=== PATIENT | male | born 1935 | race Caucasian/White ===

== ENCOUNTER 2016-08-06 09:16 | Inpatient (IN) | payer BC, OTHER ==
[~2016-08-06] VITALS: Ht 188 cm; Wt 91.6 kg
[~2016-08-06 09:16] MED LIST: ALBUAER INH; ENOX120I SQ; GLIM1TAB2 PO; INSDGI SC; LEVO1TAB35 PO; METO25TA3 PO; MISCCAP80 PO; MULT-506 PO; NVLGI SC; OMEG10007 PO; PANT20TA PO; PRED10TA PO; SERT25TA PO; TAMS0.4C38 PO; WARF2.5T8 PO; WARF5TAB7 PO
[2016-08-06 10:00] LABS: BASO % 0.6 %; BASO ABS # 0.06 K/uL (0-0.2); COMPLETE YES; EOS % 6.2 %; HEMATOCRIT 44.2 % (42-52); IG% 0.4 %; LYMPH % 22.8 %; LYMPH ABS # 2.18 K/uL (1.2-3.4); MEAN CELL VOLUME 90.2 fL (80-100); MEAN CORPUSCULAR HEMOGLOBIN 29.8 pg (25-34); MEAN PLATELET VOLUME 10.3 fL (7.4-10.4); MONO % 7.5 %; NEUT % 62.5 %; PLATELET COUNT 336 K/uL (130-400); WHITE BLOOD COUNT 9.56 K/uL (4.8-10.8)
[2016-08-06 10:08] LABS: ALT/SGPT 16 U/L (12-78); AST/SGOT 10 U/L (15-37); BLOOD UREA NITROGEN 31 mg/dl (7-18); BUN/CREATININE RATIO 21.8 (10-20); CALCIUM 8.6 mg/dl (8.5-10.1); CARBON DIOXIDE 30 mmol/L (21-32); CHLORIDE 103 mmol/L (98-107); GLUCOSE 164 mg/dl (70-99); POTASSIUM 4.5 mmol/L (3.5-5.1); SODIUM 139 mmol/L (136-145)
[2016-08-06 10:10] LABS: INR 2.2 (0.9-1.1); PARTIAL THROMBOPLASTIN RATIO 1.4; PROTHROMBIN TIME (PATIENT) 24.9 SECONDS (9.0-12.0)
[2016-08-06 10:12] LABS: ALB/GLOB RATIO 0.7 (0.9-2); ALKALINE PHOSPHATASE 108 U/L (45-117)
--- NOTE | 2016-08-06 10:32 | DIAGNOSTIC IMAGING REPORT ---
SINGLE VIEW CHEST CLINICAL HISTORY: Dyspnea. FINDINGS: An AP, portable, upright chest radiograph is compared to study dated 06/01/2016 and correlated with chest CT dated 05/07/2016. The examination is degraded by portable technique and patient rotation. The patient is status post midline sternotomy. The heart is enlarged and there is atherosclerotic calcification of the thoracic aorta. There is mild pulmonary vascular congestion. Advanced emphysematous change is identified and there is biapical scarring. Chronic interstitial thickening is noted. There is airspace consolidation in the left lower lung with a left pleural effusion. The pleural effusion has modestly increased in size from 06/01/2016, with pleural fluid now seen at the left apex. No pneumothorax is seen. The skeletal structures are osteopenic. Degenerative change is noted throughout the thoracic spine. IMPRESSION: 1. Cardiomegaly with mild pulmonary vascular congestion. Correlate clinically for evidence of congestive failure. 2. Advanced emphysema. 3. Again seen is a left pleural effusion with left basilar airspace consolidation. The pleural effusion has increased in size from 06/01/2016. Pleural fluid is now seen at the left apex. Electronically signed by: Bal Garcia M.D. 08/06/2016 10:31 AM Dictated Date/Time: 08/06/2016 10:28 AM
[2016-08-06] MEDS ORDERED: OPTIRAY 320 IV PRN (11:15)
--- NOTE | 2016-08-06 12:04 | DIAGNOSTIC IMAGING REPORT ---
ULTRASOUND LEFT LOWER EXTREMITY VENOUS CLINICAL HISTORY: Left leg swelling. COMPARISON STUDY: No priors. TECHNIQUE: Real-time, grayscale, and color Doppler sonography of the deep veins of the left lower extremity was performed from the inguinal crease to the calf. Compression and augmentation were utilized. FINDINGS: There is no sonographic evidence of deep venous thrombosis identified in the left lower extremity. The common femoral, superficial femoral, and popliteal veins are patent and normally compressible. The greater saphenous vein and the profunda femoris vein at the junction with the common femoral vein are clear. The visualized calf veins are patent. IMPRESSION: There is no sonographic evidence of deep venous thrombosis identified in the left lower extremity. Electronically signed by: Bal Garcia M.D. 08/06/2016 12:03 PM Dictated Date/Time: 08/06/2016 12:03 PM
--- NOTE | 2016-08-06 12:18 | DIAGNOSTIC IMAGING REPORT ---
CT ANGIOGRAM OF THE CHEST CLINICAL HISTORY: Shortness of breath. Pneumonia. Possible pulmonary embolism. COMPARISON STUDY: Chest x-ray dated 08/06/2016, CT scan dated 05/07/2016 TECHNIQUE: Following the IV administration of 116 mL of Optiray-320, CT angiogram of the thorax was performed from the thoracic inlet to the lung bases utilizing the pulmonary embolus protocol. Images are reviewed in the axial, sagittal, and coronal planes. IV contrast was administered without complication. MIP imaging was performed. CT DOSE: 481.16 mGy.cm FINDINGS: There is a mildly enlarged 16 mm subcarinal lymph node. There is a mildly enlarged left hilar lymph node measuring 14 mm. There are no pathologically enlarged axillary lymph nodes. There was no evidence of thoracic aortic dilatation. There were no pulmonary artery filling defects to indicate acute pulmonary embolism. There is a small right pleural effusion and smaller moderate left pleural effusion. There is pulmonary emphysema. There is mild septal edema. There are progressive left lower lobe and lingular airspace opacities consistent with pneumonia. There are right basilar atelectatic changes. There are stable subcentimeter right apical nodules. There is a hiatal hernia. There is a multinodular thyroid goiter. IMPRESSION: 1. Smaller moderate left pleural effusion and small right pleural effusion. 2. Septal edema, likely secondary to cardiogenic pulmonary edema 3. Stable mildly enlarged subcarinal left hilar lymph node 4. Severe emphysema 5. Developing left lower lobe and lingular airspace opacities consistent with a pneumonia, although asymmetric pulmonary edema could appear similar 6. No CT evidence of acute pulmonary embolism Electronically signed by: Boyd Silva M.D. 08/06/2016 12:17 PM Dictated Date/Time: 08/06/2016 12:09 PM
[2016-08-06] MEDS ORDERED: CEFEPIME IV 1,000 MG in DEXTROSE 5% 100ML 100 ML IV STA (13:15)
[2016-08-06 14:28] VITALS: O2SAT 94; BMI 27.3
[2016-08-06] MEDS ORDERED: AZITHROMYCIN IV 500 MG in DEXTROSE 5% 250ML 250 ML IV SCH (14:30)
--- NOTE | 2016-08-06 14:39 | EMERGENCY ROOM VISIT NOTE ---
History Report prepared by Melvin: Chuy Solis Under the Supervision of: Dr. Sanju Perry D.O. First contact with patient: 09:28 Chief Complaint: SHORTNESS OF BREATH Stated Complaint: SOB DX: PNEUMONIA Nursing Triage Summary: Pt c/o SOB, being treated with Doxycycline for Pneumonia. 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 Bilateral lower extremity edema. May have fluid in lungs too. History of Present Illness The patient is an 81 year old male who presents to the Emergency Room with complaints of exacerbated shortness of breath since he woke up this morning. The shortness of breath is worsened by exertion. The patient also complains of a worsening productive cough. The cough produces yellow mucous that intermittently contains blood. The patient was diagnosed with pneumonia last Tuesday at the [facility]. He has been taking Doxycycline BID. The patient has had the productive cough since before he was diagnosed with pneumonia, which worsened this morning. He was also having fevers of up to 102 when he was diagnosed with pneumonia. He has not had any recent fevers. 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 He has also had fluid retention in his lower legs for the past two weeks, worse in the left leg. He was never diagnosed with CHF. The patient follows up with Dr. Zavala, Thoracic Surgeon. He has a history of atrial fibrillation for which he is on Warfarin. Patient denies headache, change in vision, chest pain, nausea, vomiting, diarrhea, pain with urination, and melena. Source of History: patient Onset: this morning Position: other (respiratory) Quality: other (short of breath) Timing: other (exacerbated) Modifying Factors (Worsening): exertion Associated Symptoms: + cough, No chest pain, No diarrhea, No fevers, No headache, No melena, No nausea, No urinary symptoms, No vomiting Review of Systems See HPI for pertinent positives & negatives. A total of 10 systems reviewed and were otherwise negative. Past Medical & Surgical Medical Problems: (1) Diabetes mellitus (2) Emphysema lung (3) Heart disease (4) Kidney stone (5) Pneumonia Family History Alzheimer's disease Cancer Diabetes mellitus Gallbladder disease Heart disease Hypertension Parkinson disease Prostate cancer Social History Smoking Status: Former Smoker Alcohol Use: none Drug Use: none Marital Status: Housing Status: lives with family Occupation Status: retired Current/Historical Medications Scheduled Albuterol Sulfate (Proventil Hfa), 2 PUFFS INH Q4H Glimepiride (Glimepiride), 1 MG PO DAILY Insulin Aspart (Novolog), 18 UNITS SC QPM Insulin Glargine (Lantus), 18 UNITS SC HS Multivitamin (Multivitamin), 1 TAB PO DAILY Pantoprazole Sodium (Protonix), 20 MG PO DAILY Probiotic Product (Probiotic), 1 CAPSULE PO DAILY Sertraline (Zoloft), 25 MG PO DAILY Tamsulosin Hcl (Flomax), 0.4 MG PO Q2D Warfarin Sod (Jantoven), 2.5 MG PO DAILY Miscellaneous Medications Fish Oil ([place]-3), 1 CAP PO Allergies Coded Allergies: Simvastatin (Verified Adverse Reaction, Intermediate, muscle cramps, ) Physical Exam Vital Signs Date Time Temp Pulse Resp B/P Pulse Ox O2 Delivery O2 Flow Rate FiO2 08/06/16 14:29 84 16 134/71 94 Room Air 08/06/16 13:40 75 16 123/70 93 Room Air 08/06/16 10:17 66 18 117/65 93 Room Air 08/06/16 09:37 84 08/06/16 09:36 94 Room Air 08/06/16 09:36 76 18 143/96 95 Room Air 08/06/16 09:19 95 08/06/16 09:19 36.9 72 20 109/55 95 Room Air Physical Exam GENERAL: Sitting up in bed, disheveled, nontoxic, no acute distress. EYE EXAM: normal conjunctiva. OROPHARYNX: no exudate, no erythema, lips, buccal mucosa, and tongue normal and mucous membranes are moist NECK: supple, no nuchal rigidity, no adenopathy, non-tender, no JVD. LUNGS: Mild rhonchi at the bilateral bases. Normal chest wall mechanics HEART: no murmurs, S1 normal and S2 normal. Irregularly irregular rhythm. ABDOMEN: abdomen soft, non-tender, normo-active bowel sounds, no masses, no rebound or guarding. BACK: Back is symmetrical on inspection and there is no deformity, no midline tenderness, no CVA tenderness. SKIN: no rashes and no bruising UPPER EXTREMITIES: upper extremities are grossly normal. LOWER EXTREMITIES: Left calf is larger than the right with pitting edema. NEURO EXAM: Normal sensorium, cranial nerves II-XII grossly intact, normal speech, no gross weakness of arms, no gross weakness of legs. Gross sensation intact. Medical Decision & Procedures ER Provider Diagnostic Interpretation: Xray results per the radiologist and my interpretation. Other results have been interpreted by the radiologist and reviewed by me. CT ANGIOGRAM OF THE CHEST CLINICAL HISTORY: Shortness of breath. Pneumonia. Possible pulmonary embolism. COMPARISON STUDY: Chest x-ray dated 08/06/2016, CT scan dated 05/07/2016 TECHNIQUE: Following the IV administration of 116 mL of Optiray-320, CT angiogram of the thorax was performed from the thoracic inlet to the lung bases utilizing the pulmonary embolus protocol. Images are reviewed in the axial, sagittal, and coronal planes. IV contrast was administered without complication. MIP imaging was performed. CT DOSE: 481.16 mGy.cm FINDINGS: There is a mildly enlarged 16 mm subcarinal lymph node. There is a mildly enlarged left hilar lymph node measuring 14 mm. There are no pathologically enlarged axillary lymph nodes. There was no evidence of thoracic aortic dilatation. There were no pulmonary artery filling defects to indicate acute pulmonary embolism. There is a small right pleural effusion and smaller moderate left pleural effusion. There is pulmonary emphysema. There is mild septal edema. There are progressive left lower lobe and lingular airspace opacities consistent with pneumonia. There are right basilar atelectatic changes. There are stable subcentimeter right apical nodules. There is a hiatal hernia. There is a multinodular thyroid goiter. IMPRESSION: 1. Smaller moderate left pleural effusion and small right pleural effusion. 2. Septal edema, likely secondary to cardiogenic pulmonary edema 3. Stable mildly enlarged subcarinal left hilar lymph node 4. Severe emphysema 5. Developing left lower lobe and lingular airspace opacities consistent with a pneumonia, although asymmetric pulmonary edema could appear similar 6. No CT evidence of acute pulmonary embolism Electronically signed by: Boyd Silva M.D. 08/06/2016 12:17 PM Dictated Date/Time: 08/06/2016 12:09 PM SINGLE VIEW CHEST CLINICAL HISTORY: Dyspnea. FINDINGS: An AP, portable, upright chest radiograph is compared to study dated 06/01/2016 and correlated with chest CT dated 05/07/2016. The examination is degraded by portable technique and patient rotation. The patient is status post midline sternotomy. The heart is enlarged and there is atherosclerotic calcification of the thoracic aorta. There is mild pulmonary vascular congestion. Advanced emphysematous change is identified and there is biapical scarring. Chronic interstitial thickening is noted. There is airspace consolidation in the left lower lung with a left pleural effusion. The pleural effusion has modestly increased in size from 06/01/2016, with pleural fluid now seen at the left apex. No pneumothorax is seen. The skeletal structures are osteopenic. Degenerative change is noted throughout the thoracic spine. IMPRESSION: 1. Cardiomegaly with mild pulmonary vascular congestion. Correlate clinically for evidence of congestive failure. 2. Advanced emphysema. 3. Again seen is a left pleural effusion with left basilar airspace consolidation. The pleural effusion has increased in size from 06/01/2016. Pleural fluid is now seen at the left apex. Electronically signed by: Bal Garcia M.D. 08/06/2016 10:31 AM Dictated Date/Time: 08/06/2016 10:28 AM ULTRASOUND LEFT LOWER EXTREMITY VENOUS CLINICAL HISTORY: Left leg swelling. COMPARISON STUDY: No priors. TECHNIQUE: Real-time, grayscale, and color Doppler sonography of the deep veins of the left lower extremity was performed from the inguinal crease to the calf. Compression and augmentation were utilized. FINDINGS: There is no sonographic evidence of deep venous thrombosis identified in the left lower extremity. The common femoral, superficial femoral, and popliteal veins are patent and normally compressible. The greater saphenous vein and the profunda femoris vein at the junction with the common femoral vein are clear. The visualized calf veins are patent. IMPRESSION: There is no sonographic evidence of deep venous thrombosis identified in the left lower extremity. Electronically signed by: Bal Garcia M.D. 08/06/2016 12:03 PM Dictated Date/Time: 08/06/2016 12:03 PM Laboratory Results 08/06/16 09:35 Red Blood Count 4.90, Mean Corpuscular Volume 90.2, Mean Corpuscular Hemoglobin 29.8, Mean Corpuscular Hemoglobin Concent 33.0, Mean Platelet Volume 10.3, Neutrophils (%) (Auto) 62.5, Lymphocytes (%) (Auto) 22.8, Monocytes (%) (Auto) 7.5, Eosinophils (%) (Auto) 6.2, Basophils (%) (Auto) 0.6, Neutrophils # (Auto) 5.97, Lymphocytes # (Auto) 2.18, Monocytes # (Auto) 0.72, Eosinophils # (Auto) 0.59, Basophils # (Auto) 0.06 08/06/16 09:35 Test 08/06/16 09:35 White Blood Count 9.56 K/uL (4.8-10.8) Red Blood Count 4.90 M/uL (4.7-6.1) Hemoglobin 14.6 g/dL (14.0-18.0) Hematocrit 44.2 % (42-52) Mean Corpuscular Volume 90.2 fL (80-100) Mean Corpuscular Hemoglobin 29.8 pg (25-34) Mean Corpuscular Hemoglobin Concent 33.0 g/dl (32-36) Platelet Count 336 K/uL (130-400) Mean Platelet Volume 10.3 fL (7.4-10.4) Neutrophils (%) (Auto) 62.5 % Lymphocytes (%) (Auto) 22.8 % Monocytes (%) (Auto) 7.5 % Eosinophils (%) (Auto) 6.2 % Basophils (%) (Auto) 0.6 % Neutrophils # (Auto) 5.97 K/uL (1.4-6.5) Lymphocytes # (Auto) 2.18 K/uL (1.2-3.4) Monocytes # (Auto) 0.72 K/uL (0.11-0.59) Eosinophils # (Auto) 0.59 K/uL (0-0.5) Basophils # (Auto) 0.06 K/uL (0-0.2) RDW Standard Deviation 45.0 fL (36.4-46.3) RDW Coefficient of Variation 13.7 % (11.5-14.5) Immature Granulocyte % (Auto) 0.4 % Immature Granulocyte # (Auto) 0.04 K/uL (0.00-0.02) Prothrombin Time 24.9 SECONDS (9.0-12.0) Prothromb Time International Ratio 2.2 (0.9-1.1) Activated Partial Thromboplast Time 36.1 SECONDS (21.0-31.0) Partial Thromboplastin Ratio 1.4 D-Dimer 2110 ug/L FEU (0-500) Anion Gap 6.0 mmol/L (3-11) Est Creatinine Clear Calc Drug Dose 47.4 ml/min Estimated GFR () 54.2 Estimated GFR (Non- 46.8 BUN/Creatinine Ratio 21.8 (10-20) Calcium Level 8.6 mg/dl (8.5-10.1) Total Bilirubin 0.9 mg/dl (0.2-1) Aspartate Amino Transf (AST/SGOT) 10 U/L (15-37) Alanine Aminotransferase (ALT/SGPT) 16 U/L (12-78) Alkaline Phosphatase 108 U/L (45-117) Troponin I < 0.015 ng/ml (0-0.045) Total Protein 7.7 gm/dl (6.4-8.2) Albumin 3.1 gm/dl (3.4-5.0) Globulin 4.6 gm/dl (2.5-4.0) Albumin/Globulin Ratio 0.7 (0.9-2) Laboratory results per my review. Medications Administered Medications (Trade) Dose Ordered Sig/Susan Route Start Time Stop Time Status Last Admin Dose Admin Cefepime HCl 1000 mg/Dextrose 111.3 ml @ 200 mls/hr NOW STAT IV 08/06/16 13:15 08/06/16 13:48 DC 08/06/16 14:00 200 MLS/HR Azithromycin/ Dextrose (Zithromax IV/D5 250ml) 255 ml @ 170 mls/hr 1430 IV 08/06/16 14:30 08/06/16 15:59 08/06/16 14:30 170 MLS/HR ECG Indication: SOB/dyspnea Rate (beats per minute): 80 Rhythm: atrial fibrillation Findings: other (normal axis, poor baseline) ED Course ED COURSE: Vital signs were reviewed and were normal. The patients medical record was reviewed The above diagnostic studies were performed and reviewed. ED treatments and interventions as stated above. 0931: The patient was evaluated in room B4b. A complete history and physical examination was performed. 1315: Cefepime HCl 1000 mg / dextrose 111.3 ml @ 200 mls/hr. 1328: Discussed the case with Dr. Preciado, [facility] Hospitalist. The patient will be evaluated. 1330: Upon reevaluation, the patient is stable.I discussed my findings with the patient and she understands and agrees with the treatment plan. Based on the patients age, coexisting illnesses, exam and lab findings the decision to treat as an inpatient was made. The patient remained stable while under my care. The patient will be evaluated for further management. Medical Decision Differential diagnoses includes but is not limited to pneumonia, bronchitis, COPD/Asthma exacerbation, pneumothorax, pulmonary embolism, congestive heart failure, acute coronary syndrome Patient is an 81-year-old male who presents the ER for shortness of breath she should with cough. He has been recently treated for pneumonia with antibiotics. notes that he has been unable to ambulate as been so short of breath. He has been having some hemoptysis. He has been following with thoracic. CBC along with BMP, LFTs and troponin were unremarkable. INR was normal at 2.2. D-dimer was elevated at 2000. CT of the chest did show pneumonia with pulmonary congestion. Based on his symptoms I did elect to observe him overnight. Ultrasound of the left lower extremity showed pitting edema but no DVTs. Patient was updated regards to his findings. He was given a doses Zosyn as he had RA taking his doxycycline. Case was discussed with internal medicine and is admitted for pneumonia and worsening shortness of breath. Consults Time Called: 1320 Consulting Physician: Adele Francisco [facility]. Returned Call: [phone]: [facility] The patient will be evaluated. Impression Primary Impression: PNA (pneumonia) Additional Impression: SOB (shortness of breath) Scribe Attestation The scribe's documentation has been prepared under my direction and personally reviewed by me in its entirety. I confirm that the note above accurately reflects all work, treatment, procedures, and medical decision making performed by me. Departure Information Dispostion Being Evaluated By Hospitalist Referrals Shiloh Mendez M.D. (PCP) Patient Instructions My [facility] Problem Qualifiers Primary Impression: PNA (pneumonia) Pneumonia type: due to unspecified organism Laterality: unspecified laterality Lung location: unspecified part of lung Qualified Codes: J18.9 - Pneumonia, unspecified organism
[2016-08-06] MEDS ORDERED: ACETAMINOPHEN 325 MG TAB PO PRN (14:45)
[2016-08-06] MEDS ORDERED: ONDANSETRON INJ 2 MG/ML 2 ML VIAL IV PRN (14:45)
[2016-08-06] MEDS ORDERED: PHARMACY GLYCEMIC MGMT CONSULT PRN (14:53)
[2016-08-06] MEDS ORDERED: PRVHFAIN INH (15:02)
[2016-08-06] MEDS ORDERED: METO1TAB66 PO (15:03)
[2016-08-06] MEDS ORDERED: PANT40TA PO (15:03)
[2016-08-06] MEDS ORDERED: SERT50TA PO (15:03)
[2016-08-06] MEDS ORDERED: MECL1TAB42 PO (15:04)
[2016-08-06] MEDS ORDERED: DXY100 PO (15:04)
[2016-08-06] MEDS ORDERED: NTRGSL4 UT (15:04)
[2016-08-06] MEDS ORDERED: CARB1SOL8 OT (15:04)
[2016-08-06] MEDS ORDERED: ALBUTEROL HFA 8 GM INHALER INH PRN (15:15)
[2016-08-06] MEDS ORDERED: NITROGLYCERIN 0.4 MG SL PER TAB CHARGE UT PRN (15:15)
--- NOTE | 2016-08-06 15:16 | Pharmacy Progress Note ---
Glycemic Control Intl Consult Date of Service Aug 06, 2016. Scope Glycemic Pharmacist consulted by Flavia Rodney PA-C on 08/06/16 for glycemic control and to write orders per [facility] inpatient glycemic control protocol Objective Weight (Kilograms): 96.600 Accuchecks BSG (last 24hrs): Test 08/06/16 09:35 Random Glucose 164 mg/dl (70-99) Laboratory Data (last 24hrs) Test 08/06/16 09:35 Anion Gap 6.0 mmol/L BUN/Creatinine Ratio 21.8 Blood Urea Nitrogen 31 mg/dl Creatinine 1.40 mg/dl Potassium Level 4.5 mmol/L Sodium Level 139 mmol/L White Blood Count 9.56 K/uL Red Blood Count 4.90 M/uL Hemoglobin 14.6 g/dL Hematocrit 44.2 % Mean Corpuscular Volume 90.2 fL Mean Corpuscular Hemoglobin 29.8 pg Mean Corpuscular Hemoglobin Concent 33.0 g/dl Platelet Count 336 K/uL Mean Platelet Volume 10.3 fL Neutrophils (%) (Auto) 62.5 % Lymphocytes (%) (Auto) 22.8 % Monocytes (%) (Auto) 7.5 % Eosinophils (%) (Auto) 6.2 % Basophils (%) (Auto) 0.6 % Neutrophils # (Auto) 5.97 K/uL Lymphocytes # (Auto) 2.18 K/uL Monocytes # (Auto) 0.72 K/uL Eosinophils # (Auto) 0.59 K/uL Basophils # (Auto) 0.06 K/uL Recent Pertinent Medications Outpatient Anti-diabetic Regimen: * Glimepiride 1mg PO daily * Lantus 18 units QPM * Novolog 18 units with dinner * A1c ordered Risk Factors for Insulin Resistance: * Infection: Pneumonia, IV Azithromycin & Rocephin * Diet: Type 2 DM Assessment & Plan ASSESSMENT: * ADA & AACE recommend a goal blood sugar range 140-180 mg/dl for the majority of critically ill & non-critically ill patients. However, more stringent targets may be selected in individual cases. I will start patient at 120-160mg/ dL for 81 year old with unknown glycemic control as outpatient, not critically ill. * 81 year old type 2 DM admitted with pneumonia on IV antibiotics. I will start patient on home dose of Lantus with half dose parameters for BSG < 120mg/dL and a modest CF and CR. BSG on admission 164mg/dL. * Extra accucheck over night to ensure glycemic control. PLAN FOR INPATIENT GLYCEMIC CONTROL: * Holding outpatient oral diabetes medication * Basal insulin with LANTUS 18 units SQ HS * 1/2 dose for BSG < 120mg/dL * Correctional Insulin with NOVOLOG per scale ACHS or Q6hrs while NPO & at 02:00 * Goal Range: Low 120 mg/dL - High 160 mg/dL * Correction Factor: 30 mg/dL/unit * Nutritional / Prandial insulin per carb ratio of 1 unit per 10 grams CHO consumed * New A1c * Please note that the plan above was derived based on current level of insulin resistance and hospital stress. These recommendations are appropriate for inpatient admission only. Plan of care upon discharge will need to be reassessed to avoid potential outpatient hypo/hyperglycemia. Thank you.
[2016-08-06 15:48] VITALS: BP 118/63; PULSE 98; TEMP 36.4; O2SAT 93
[2016-08-06 15:56] LABS: URINE APPEARANCE CLEAR (CLEAR); URINE BILIRUBIN NEG (NEG); URINE COLOR YELLOW; URINE NITRITE NEG (NEG); URINE PH 6.5 (4.5-7.5); URINE SPECIFIC GRAVITY 1.042 (1.000-1.030); UROBILINOGEN NEG (NEG)
[2016-08-06] MEDS ORDERED: WARFARIN SOD 2.5 MG TAB PO SCH (16:00)
--- NOTE | 2016-08-06 16:03 | History and Physical ---
History & Physical Date & Time of Service: Aug 06, 2016 at 15:07 Chief Complaint: Sob Dx: Pneumonia Primary Care Physician: Shiloh Mendez M.D. History of Present Illness Source: patient, spouse ( Flavia at bedside), clinic records This is an 81 year old male with PMH of COPD, LLL mass, prior smoker, CAD, atrial fibrillation on Coumadin, DM type 2, and other problems listed below who presents to the ED with SOB. Patient follows with Dr. Mendez for primary care and Dr. Zavala for thoracic surgery. Patient has been intermittently ill with respiratory complaints since March 2016. He was treated with Levaquin in April with improvement. He underwent bronchoscopy on May 14 2016 with benign lung and lymph node biopsies. states he had URI symptoms in June which self resolved. Then two weeks ago he developed fever, up to 102 F, productive cough, and worsening SOB. He tried taking OTC cold medicine without improvement. He was seen by Thu CA in clinic on 07/30/16, had outpatient CXR showing increasing LLL opacity, increased L pleural effusion, increased hazy opacities of both lungs. He was started on doxycycline which has been taking with no improvement. Patient notes he had blood in the sputum previously, but in past few days only has yellow sputum. The SOB occurs with ambulating across the room. There is also orthopnea requiring him to sleep upright in chair. He also notes fatigue, increased abdominal girth, edema x 2 weeks of L> R lower extremities. Weight has been stable. Blood sugars have been low at home. He denies chills, CORONA, rhinorrhea, sore throat, chest pain, abdominal pain, N/V/D, change in appetite. He is diagnosed with sleep apnea but had been noncompliant with CPAP for several years as it made him claustrophobic in the past. He is supposed to start on BiPAP but they are awaiting equipment. Past Medical/Surgical History Medical Problems: (1) BPH (benign prostatic hypertrophy) Status: Chronic (2) Carotid stenosis Status: Chronic (3) CKD (chronic kidney disease), stage III Status: Chronic (4) COPD (chronic obstructive pulmonary disease) Status: Chronic (5) Depression Status: Chronic (6) DM type 2 (diabetes mellitus, type 2) Status: Chronic (7) Dyslipidemia Status: Chronic (8) Emphysema lung Status: Chronic (9) Heart disease Status: Chronic (10) History of bladder cancer Status: Chronic (11) History of tobacco use Status: Chronic (12) HTN (hypertension) Status: Chronic (13) Kidney stone Status: Resolved (14) Lesion of left lung Status: Chronic (15) Osteoarthritis Status: Chronic (16) PVD (peripheral vascular disease) Status: Chronic (17) Sleep apnea Status: Chronic (18) Thyroid goiter Status: Chronic Surgical Problems: (1) History of cataract surgery Status: Chronic (2) Hx of prostate biopsy Status: Chronic (3) S/P bronchoscopy Status: Chronic (4) S/P CABG x 3 Status: Chronic (5) S/P tonsillectomy and adenoidectomy Status: Chronic Family History Alzheimer's disease Cancer Diabetes mellitus Gallbladder disease Heart disease Hypertension Parkinson disease Prostate cancer Social History Smoking Status: Former Smoker (1 to 1.5 ppd x approx 57 years) Drug Use: none Marital Status: Housing status: lives with family Occupational Status: retired Allergies Coded Allergies: Simvastatin (Verified Adverse Reaction, Intermediate, muscle cramps, ) Home Medications Scheduled Carbamide Peroxide (Otic) (Debrox), 5 DROPS OT BID Doxycycline Hyclate (Doxycycline Hyclate), 100 MG PO BID Glimepiride (Glimepiride), 1 MG PO DAILY Insulin Aspart (Novolog), 18 UNITS SC QPM Insulin Glargine (Lantus), 18 UNITS SC HS Metoprolol Succinate (Toprol Xl), 25 MG PO DAILY Pantoprazole (Protonix), 40 MG PO DAILY Probiotic Product (Probiotic), 1 CAPSULE PO DAILY Sertraline (Zoloft), 25 MG PO DAILY Tamsulosin Hcl (Flomax), 0.4 MG PO Q2D Warfarin Sod (Jantoven), 2.5 MG PO DAILY Scheduled PRN Albuterol (Ventolin Hfa), 2 PUFFS INH Q4 PRN for SOB/Wheezing Meclizine Hcl (Meclizine Hcl), 1 TAB PO TID PRN for Dizziness or Vertigo Nitroglycerin (Nitrostat), 1 TAB UT UD PRN for Chest Pain Review of Systems Ten point review of systems performed with pertinent positives and negatives noted in HPI. Physical Exam Vital Signs Date Time Temp Pulse Resp B/P Pulse Ox O2 Delivery O2 Flow Rate FiO2 08/06/16 14:29 84 16 134/71 94 Room Air 08/06/16 14:28 94 Room Air 08/06/16 13:40 75 16 123/70 93 Room Air 08/06/16 10:17 66 18 117/65 93 Room Air 08/06/16 09:37 84 08/06/16 09:36 94 Room Air 08/06/16 09:36 76 18 143/96 95 Room Air 08/06/16 09:19 95 08/06/16 09:19 36.9 72 20 109/55 95 Room Air General Appearance: WD/WN, no apparent distress, + pertinent finding (pleasant alert 81 year old male, at bedside) Head: normocephalic, atraumatic Eyes: normal inspection, PERRL, EOMI ENT: hearing grossly normal, pharynx normal, + pertinent finding (bilateral canals occluded with cerumen) Neck: supple, no JVD, trachea midline Respiratory/Chest: normal breath sounds, no respiratory distress, no accessory muscle use, + pertinent finding (trace scattered wheezes, crackles left base) Cardiovascular: regular rate, rhythm, no murmur, normal peripheral pulses Abdomen/GI: normal bowel sounds, non tender, soft Extremities/Musculoskelatal: no calf tenderness, normal capillary refill, + pertinent finding (trace pretibial edema L > R) Neurologic/Psych: alert, normal mood/affect, oriented x 3, + pertinent finding (grossly nonfocal) Skin: normal color, warm/dry Diagnostics Laboratory Results Results Past 24 Hours Test 08/06/16 09:35 Range/Units White Blood Count 9.56 4.8-10.8 K/uL Red Blood Count 4.90 4.7-6.1 M/uL Hemoglobin 14.6 14.0-18.0 g/dL Hematocrit 44.2 42-52 % Mean Corpuscular Volume 90.2 80-100 fL Mean Corpuscular Hemoglobin 29.8 25-34 pg Mean Corpuscular Hemoglobin Concent 33.0 32-36 g/dl Platelet Count 336 130-400 K/uL Mean Platelet Volume 10.3 7.4-10.4 fL Neutrophils (%) (Auto) 62.5 % Lymphocytes (%) (Auto) 22.8 % Monocytes (%) (Auto) 7.5 % Eosinophils (%) (Auto) 6.2 % Basophils (%) (Auto) 0.6 % Neutrophils # (Auto) 5.97 1.4-6.5 K/uL Lymphocytes # (Auto) 2.18 1.2-3.4 K/uL Monocytes # (Auto) 0.72 0.11-0.59 K/uL Eosinophils # (Auto) 0.59 0-0.5 K/uL Basophils # (Auto) 0.06 0-0.2 K/uL RDW Standard Deviation 45.0 36.4-46.3 fL RDW Coefficient of Variation 13.7 11.5-14.5 % Immature Granulocyte % (Auto) 0.4 % Immature Granulocyte # (Auto) 0.04 0.00-0.02 K/uL Prothrombin Time 24.9 9.0-12.0 SECONDS Prothromb Time International Ratio 2.2 0.9-1.1 Activated Partial Thromboplast Time 36.1 21.0-31.0 SECONDS Partial Thromboplastin Ratio 1.4 D-Dimer 2110 0-500 ug/L FEU Sodium Level 139 136-145 mmol/L Potassium Level 4.5 3.5-5.1 mmol/L Chloride Level 103 98-107 mmol/L Carbon Dioxide Level 30 21-32 mmol/L Anion Gap 6.0 3-11 mmol/L Blood Urea Nitrogen 31 7-18 mg/dl Creatinine 1.40 0.60-1.40 mg/dl Est Creatinine Clear Calc Drug Dose 47.4 ml/min Estimated GFR () 54.2 Estimated GFR (Non- 46.8 BUN/Creatinine Ratio 21.8 10-20 Random Glucose 164 70-99 mg/dl Calcium Level 8.6 8.5-10.1 mg/dl Total Bilirubin 0.9 0.2-1 mg/dl Aspartate Amino Transf (AST/SGOT) 10 15-37 U/L Alanine Aminotransferase (ALT/SGPT) 16 12-78 U/L Alkaline Phosphatase 108 45-117 U/L Troponin I < 0.015 0-0.045 ng/ml Total Protein 7.7 6.4-8.2 gm/dl Albumin 3.1 3.4-5.0 gm/dl Globulin 4.6 2.5-4.0 gm/dl Albumin/Globulin Ratio 0.7 0.9-2 Microbiology Results 08/06/16 Blood Culture, Ordered Pending 08/06/16 Blood Culture, Ordered Pending Diagnostic Radiology ULTRASOUND LEFT LOWER EXTREMITY VENOUS CLINICAL HISTORY: Left leg swelling. COMPARISON STUDY: No priors. TECHNIQUE: Real-time, grayscale, and color Doppler sonography of the deep veins of the left lower extremity was performed from the inguinal crease to the calf. Compression and augmentation were utilized. FINDINGS: There is no sonographic evidence of deep venous thrombosis identified in the left lower extremity. The common femoral, superficial femoral, and popliteal veins are patent and normally compressible. The greater saphenous vein and the profunda femoris vein at the junction with the common femoral vein are clear. The visualized calf veins are patent. IMPRESSION: There is no sonographic evidence of deep venous thrombosis identified in the left lower extremity. SINGLE VIEW CHEST CLINICAL HISTORY: Dyspnea. FINDINGS: An AP, portable, upright chest radiograph is compared to study dated 06/01/2016 and correlated with chest CT dated 05/07/2016. The examination is degraded by portable technique and patient rotation. The patient is status post midline sternotomy. The heart is enlarged and there is atherosclerotic calcification of the thoracic aorta. There is mild pulmonary vascular congestion. Advanced emphysematous change is identified and there is biapical scarring. Chronic interstitial thickening is noted. There is airspace consolidation in the left lower lung with a left pleural effusion. The pleural effusion has modestly increased in size from 06/01/2016, with pleural fluid now seen at the left apex. No pneumothorax is seen. The skeletal structures are osteopenic. Degenerative change is noted throughout the thoracic spine. IMPRESSION: 1. Cardiomegaly with mild pulmonary vascular congestion. Correlate clinically for evidence of congestive failure. 2. Advanced emphysema. 3. Again seen is a left pleural effusion with left basilar airspace consolidation. The pleural effusion has increased in size from 06/01/2016. Pleural fluid is now seen at the left apex. CT ANGIOGRAM OF THE CHEST CLINICAL HISTORY: Shortness of breath. Pneumonia. Possible pulmonary embolism. COMPARISON STUDY: Chest x-ray dated 08/06/2016, CT scan dated 05/07/2016 TECHNIQUE: Following the IV administration of 116 mL of [id number]-[id number], CT angiogram of the thorax was performed from the thoracic inlet to the lung bases utilizing the pulmonary embolus protocol. Images are reviewed in the axial, sagittal, and coronal planes. IV contrast was administered without complication. MIP imaging was performed. CT DOSE: 481.16 mGy.cm FINDINGS: There is a mildly enlarged 16 mm subcarinal lymph node. There is a mildly enlarged left hilar lymph node measuring 14 mm. There are no pathologically enlarged axillary lymph nodes. There was no evidence of thoracic aortic dilatation. There were no pulmonary artery filling defects to indicate acute pulmonary embolism. There is a small right pleural effusion and smaller moderate left pleural effusion. There is pulmonary emphysema. There is mild septal edema. There are progressive left lower lobe and lingular airspace opacities consistent with pneumonia. There are right basilar atelectatic changes. There are stable subcentimeter right apical nodules. There is a hiatal hernia. There is a multinodular thyroid goiter. IMPRESSION: 1. Smaller moderate left pleural effusion and small right pleural effusion. 2. Septal edema, likely secondary to cardiogenic pulmonary edema 3. Stable mildly enlarged subcarinal left hilar lymph node 4. Severe emphysema 5. Developing left lower lobe and lingular airspace opacities consistent with a pneumonia, although asymmetric pulmonary edema could appear similar 6. No CT evidence of acute pulmonary embolism EKG Atrial fibrillation, rate 80 bpm, Incomplete RBBB, Prolonged QT, qtc= 484, no significant change from prior EKG Impression Assessment and Plan COMMUNITY ACQUIRED PNEUMONIA Outpatient CXR on 07/30/16 showed LLL opacity and increasing hazy opacity bilateral lungs, increased left pleural effusion Failed outpatient treatment with doxycycline started on Jul 30 2016 CXR- cardiomegaly with mild pulmonary vascular congestion, advanced emphysema, increasing left pleural effusion with left basilar consolidation CTA chest- neg for PE, + smaller moderate left pleural effusion and small right pleural effusion, septal edema likely cardiogenic pulmonary edema, stable mildly enlarged subcarinal left hilar lymph node, severe emphysema, developing left lower lobe and lingular airspace opacities consistent with a pneumonia, although asymmetric pulmonary edema could appear similar No evidence of sepsis Treated with cefepime in ED Will continue empiric abx with Rocephin and azithromycin Check blood and sputum cultures Repeat CXR in am PROGRESSIVE SOB With orthopnea, trace LE edema L> R, increased abdominal girth CXR showing pulmonary vascular congestion and increasing L pleural effusion Recent echo 06/30/16- The examination is adequate to evaluate the referral indication. Study was performed with the patient in atrial fibrillation. The left ventricular cavity size is normal. The LV wall thickness is borderline increased (concentric). Calculated LV ejection Fraction = 45-50% (biplane method of discs). There is basal and mid inferior wall and inferior septal hypokinesis. The right ventricular cavity size is enlarged (basal dimension > 4.2 cm RV apical 4 chamber view). The left atrium is severely enlarged (>48 ml/m^2,). The right atrium is moderately enlarged. The estimated pulmonary artery systolic pressure is 5055mm Hg. Compared to previous study dated 02/18/2015, left ventricular ejection fraction is stable. Left atrial size is increased. Pulmonary hypertension is now present. Labs show BUN of 31, seems to have intravascular volume depletion No diuretic for now Monitor I/O and daily weight WORSENING LEFT PLEURAL EFFUSION with LLL MASS Following with Dr. Zavala PET scan 04/28/16 showed borderline below threshold nonspecific FDG uptake of 8 mm nodule, small L pleural effusion and LLL consolidation with mild nonspecific FDG update, subcarinal and bilateral hilar FDG uptake S/p bronchoscopy May 14 2016 with neg lymph node and lung biopsies Has appointment on Aug [address] Zavala Consult pulmonology; case discussed w/ Dr. Soriano COPD Minimal wheezing on exam Does not seem to be in exacerbation PRN Duonebs ordered DM TYPE 2 Recent A1c on 07/14/16 was 7.7 BSG running low at home per Hold glimepiride Continue outpatient insulin regimen Consult pharmacy for glycemic control ATRIAL FIBRILLATION Rate controlled Continue beta aleksandr INR = 2.2 Continue Coumadin and monitor INR HYPERTENSION BP is stable Continue metoprolol CAD S/P CABG Stable, denies chest pain Continue beta aleksandr Per cardiology note, not on ROYA-I due to hypotension Not on statin currently-had muscle reaction to simvastatin in the past; LDL was 143 on 07/14/2016 SLEEP APNEA Has been noncompliant for years- was claustrophobic with CPAP Supposed to start BiPAP now but awaiting supplies Will start on CPAP for now CKD STAGE III Cr is at baseline Monitor renal function Avoid nephrotoxins DEPRESSION Continue sertraline BPH Continue Flomax DVT PROPHYLAXIS On Coumadin CODE STATUS DNR per my discussion with the patient. Patient seen in collaboration with Dr. Preciado. Please see her addendum. ATTENDING NOTE : ' pt seen and examined , care co ordinated with Flavia Rodney PA-C labs, images reviewed 81 yo Male presents with persisted cough , progression of SOB for past few weeks was treated with Doxycycline started on 07/30/16 as out patient -no improvement of symptom noted progression of SOB , increased abdominal girth , lower ext edema Cxray /CT chest shows left lower lobe infiltrate /consolidation with progression of left sided pleural effusion compared to study on 05/2017 P/E: gen ; no apparent distress HEENT: sclera non icteric , PERRLA/EOMI HT : regular S1/S2 Lungs; occasional wheeze , + rales on left base abdomen;soft, no ascites noted ext ;trace lower ext edema Neuro; no focal deficit A/P Left lower lobe pneumonia : failed out pt treatment with Doxycycline no evidence of Sepsis -normal white count , no fever cont empirically tx with Rocephin /Zithromax ordered for blood and sputum culture /gram statin Progressive SOB /worsening of pleural effusion on left lower lung: doubt CHF recent ECHO as above , has mild systolic Dysfunction pt has been being evaluated by Dr Zavala for mediastinal lymphadenopathy /LLL mass has bronchoscopic biopsy on 05/14/16 -multiple samples obtained -all off which were negative for malignancy /had benign lymphocytes diuretics not ordered as pt appears to be clinically dehydrated IV fluids not ordered for progression of left sided pleural effusion Pulmonology and Dr Zavala consulted for further recommendation repeat Cxray ordered in AM Afib : controlled rate and rhythm cont Beta aleksandr on anticoagulation INR therapeutic please refer to rest of the Problem list to Flavia Rodney PA-C documentation Pt will be followed by Dr Castillo tomorrow Advanced Directives Existing Advance Directive: No Existing Living Will: No Existing Power of J2Ee Consultant: No VTE Prophylaxis VTE Risk Assessment Done? Y/N: Yes Risk Level: Moderate Given or contraindicated: Warfarin (Coumadin)
[2016-08-06 16:13] LABS: MANUAL MICROSCOPIC REQUIRED? NO; REVIEW REQ? NO
[2016-08-06] MEDS: INSULIN ASPART 100 UNITS/ML 3 ML PEN SC SCH ×2 (16:15→20:43)
[2016-08-06] MEDS ORDERED: ALBUT/IPRATROP 3MG/0.5MG NEB 3 ML VIAL INH PRN (16:15)
[2016-08-06] MEDS ORDERED: LEVALBUTEROL/IPRATROPIUM NEB INH PRN (18:30)
[2016-08-06] MEDS ORDERED: PIPERACILL/TAZOBAC CONSULT ACTIVE PRN (18:35)
[2016-08-06] MEDS ORDERED: PIPERACILL/TAZOBAC IV 3.375 GM in DEXTROSE 5% 100ML 100 ML IV ONE (19:00)
[2016-08-06] MEDS: LACTOBACILLUS ACIDOPHILUS (FLORANEX) TAB PO SCH (19:20)
[2016-08-06 19:30] VITALS: BP 136/74; PULSE 79; TEMP 36.8; O2SAT 91
[2016-08-06] MEDS: IPRATROPIUM BROMIDE NEB SOLN 0.02% 2.5 ML VIAL INH SCH (19:43)
[2016-08-06] MEDS: LEVALBUTEROL 1.25MG/0.5ML NEB INH SCH (19:43)
[2016-08-06 19:44] VITALS: PULSE 79; O2SAT 92
[2016-08-06] MEDS: CARBAMIDE PEROXIDE 6.5% 15 ML BTL OT SCH (20:41)
[2016-08-06] MEDS: INSULIN GLARGINE SOLOSTAR 100 UNITS/ML 3 ML PEN SC SCH (20:42)
[2016-08-06] MEDS ORDERED: LEVALBUTEROL/IPRATROPIUM NEB INH SCH (21:00)
--- NOTE | 2016-08-06 21:19 | PULMONARY CONSULTATION ---
DATE OF CONSULTATION: 08/06/2016 TIME: 5:55 p.m. REPORT OF CONSULTATION: The patient was seen in room 230, bed 1. He is an 81-year-old male, who was admitted today with pneumonia and a left pleural effusion. His history is that beginning in March, he noticed some increasing shortness of breath with exertion. This would typically be going up steps or going up hills. It was a change from before. He also developed a cough. He states he has a cough with a large amount of mucus since that time. The mucus currently is yellow. A couple of months ago, he coughed up some blood that, apparently, was after bronchoscopy. He has had 1 or 2 courses of antibiotics. A CAT scan had been done in the fall, which showed a small nodule in the left lower lung field. He subsequently had a PET scan done that was showing mild increase in FDG activity, but not significant. He was seen by Dr. Viramontes and then was seen by Dr. Zavala. Ultimately, a bronchoscopy was done May 14 and all the specimens, by reports, were negative. The patient has not been feeling well. As noted, he has persisted with his cough and mucus. He states he went to the Emergency Room once and they treated him and released him. About a week ago, he had an x-ray done through his primary doctor. He was told he had pneumonia. They put him on an antibiotic that he believes is doxycycline. Because he was not better, he ultimately came to the Emergency Room today. The patient relates that he had a temperature of 102 sometime within the past week or so. That was the only time he thinks he has had a fever. He has not had any chills. His appetite has been good. He is not losing weight. His energy level has been somewhat low. The patient has noticed some swelling, especially in the left leg. A Doppler was done and it was negative. He has not had pains in the leg. PAST PULMONARY HISTORY: The patient denies having any pulmonary problems prior to this. PAST SURGICAL HISTORY: 1. Cataract surgery bilaterally. 2. Prostate biopsy. 3. Coronary artery bypass graft x3. 4. T\T\A. 5. Multiple cystoscopies for bladder cancer. PAST MEDICAL HISTORY: 1. Coronary artery disease. 2. Atrial fibrillation. 3. Hypertension. 4. Diabetes. 5. Hyperlipidemia. 6. Obstructive sleep apnea, which was diagnosed years ago. He has been noncompliant with CPAP. Apparently, he had another sleep study about 2 months ago and was ordered BiPAP, but has not received it yet. 7. BPH. 8. Carotid stenosis. 9. Chronic kidney disease. 10. Depression. 11. DJD. 12. Goiter. SOCIAL HISTORY: The patient quit smoking a few years ago. He did smoke between 1 and 1-1/2 packs per day for about 57 years. FAMILY HISTORY: Reportedly positive for Alzheimer's disease, cancer, diabetes, heart problems, hypertension, Parkinson's disease and prostate cancer. ALLERGIES: SIMVASTATIN. MEDICATIONS: At home: 1. Albuterol inhaler p.r.n. - just started recently from the ER. 2. Debrox 3. Doxycycline. 4. Glimepiride 1 mg daily. 5. NovoLog 6. Lantus insulin 18 units at bedtime. 7. Meclizine 25 mg t.i.d. p.r.n. 8. Metoprolol 50 mg daily. 9. Nitro p.r.n. 10. Pantoprazole 40 mg daily. 11. Probiotic daily. 12. Sertraline 50-mg tablets 25 mg daily. 13. Tamsulosin 0.4 mg every other day. 14. Coumadin 2.5 mg daily. REVIEW OF SYSTEMS: GENERAL: The patient's energy level has been somewhat low. He attributes this to having untreated sleep apnea. NEUROLOGIC: No syncope or near syncope. OPHTHALMIC: Denies visual problems. ENT: Denies nasal congestion or coryza. CARDIAC: Denies chest pains or palpitations. I did ask him if he had a history of atrial fibrillation. He said he has been told that, that comes and goes. PULMONARY: As noted above. GASTROINTESTINAL: Denies nausea, vomiting, diarrhea, constipation. GENITOURINARY: Denies complaints. MUSCULOSKELETAL: Denying myalgias or arthralgias. DERMATOLOGIC: No rashes. He has had the left lower leg edema, as noted. ENDOCRINE: No lymphadenopathy. PHYSICAL EXAMINATION: The patient is a pleasant 81-year-old male, who appears younger than his chronologic age. HEENT: Eye exam showed evidence of implants bilaterally. Nares were clear. Mouth exam showed dentures, top and bottom. NECK: Palpation of the neck reveals no lymph nodes or masses. CHEST: Showed evidence of a scar from prior cardiac surgery. HEART: Rate is 80 per minute. The rhythm is irregularly irregular. LUNGS: Auscultation of the lung merlos reveals decreased breath sounds on the left. I did not hear significant rales or rhonchi. Oxygen saturation was 93% on room air. Respiratory rate was 18 breaths per minute. Blood pressure 118/63. ABDOMEN: Appears soft. He states his thinks he looks distended, but he does not feel that way. Bowel sounds were present. There was no tenderness to palpation or masses. EXTREMITIES: Reveals +2 edema of the left lower extremity and trace on the right. There was no clubbing or cyanosis. LABORATORY DATA: Chest x-ray done today shows cardiomegaly. Emphysema was noted. There is a left pleural effusion that is along the left lateral chest wall and it is loculated. It has increased from 06/01/2016. A CT angio of the chest done today showed no evidence of pulmonary embolic disease. There is a small right pleural effusion and a much larger left pleural effusion. There is a prominent infiltrate throughout much of the left lower lung field and in the lingula as well. This appears compatible with pneumonia. There are some mildly enlarged mediastinal lymph nodes, including 16 mm in the subcarinal area and in the left hilum, 14 mm. A multinodular goiter was noted. Hiatal hernia was present. White blood cell count was 9.56. Hemoglobin is 14.6. Platelets are 336,000. Differential shows 62.5% neutrophils, 22.8% lymphs, 7.5, monocytes 6.2 eosinophils, 0.6, basophils. INR was 2.2 and PTT was 36.1. D-dimer was 2110. Urinalysis was negative. Electrolytes show sodium 139, potassium 4.5, chloride 103, bicarbonate is 30. BUN was 31 with a creatinine of 1.4. Liver functions were normal. Troponin was normal. Albumin was slightly low at 3.1 with globulin 4.6. EKG showed atrial fibrillation with a rate of 80. No acute change was noted. IMPRESSION: 1. Pneumonia, left upper lobe and left lower lobe. 2. Complex pleural effusion on the left, small pleural effusion on the right. 3. Lung nodule by history -- not well visualized in today's CAT scan due to the infiltrates. 4. Obstructive sleep apnea -- currently untreated. 5. Atrial fibrillation. COMMENTS: The patient appears to have an extensive necrotic-appearing pneumonic infiltrate. It could be that having diabetes, he does not fight off infections well. Curiously however, the white count is not elevated and there was no left shift. Thus, the possibility of underlying neoplasm or non-infectious causes needs to be considered as well. For now, I would suggest treating as if it is infection. The patient, currently, is ordered azithromycin. He is also on ceftriaxone. I would suggest that Zosyn be used rather than ceftriaxone for better anaerobic coverage in case he has an anaerobic infection. I would like to obtain sputums, if these have not already been done. I would suggest consulting Dr. Zavala when he is back on Tuesday. I believe the patient will need to have some type of procedure to resolve the pleural collection on the left. I am doubtful that this can be removed by aspiration or small tube drainage. The patient actually looks much better than expected, considering the way his x-rays look. I would check a Legionella titer. The patient has obstructive sleep apnea. He is awaiting a BiPAP. We could try BiPAP in the hospital with relatively low pressures, such as 10/5. However, I have a feeling if we do not have at least a nasal mask rather than a full face mask, he will not tolerate this. Thank you very much for asking me to assist in his care. We will follow with you.
[2016-08-06] MEDS ORDERED: CEFTRIAXONE SOD INJ 1 GM in DEXTROSE 5% ADD-VANTAGE 50ML 50 ML IV SCH (22:00)
[2016-08-06 23:34] VITALS: BP 107/67; PULSE 70; TEMP 36.7; O2SAT 90
[2016-08-07] VITALS (10 sets, daily range): BP systolic 103–135; BP diastolic 54–76; PULSE 73–96; TEMP 36.5–37; O2SAT 90–93
[2016-08-07] MEDS: PIPERACILL/TAZOBAC IV 3.375 GM in DEXTROSE 5% 100ML IV SCH ×3 (00:39→16:21)
[2016-08-07] MEDS ORDERED: INSULIN ASPART 100 UNITS/ML 3 ML PEN SC SCH (02:00)
[2016-08-07] MEDS: IPRATROPIUM BROMIDE NEB SOLN 0.02% 2.5 ML VIAL INH SCH ×4 (02:44→19:41)
[2016-08-07] MEDS: LEVALBUTEROL 1.25MG/0.5ML NEB INH SCH ×4 (02:44→19:41)
[2016-08-07 06:58] LABS: HEMATOCRIT 39.6 % (42-52); MEAN CELL VOLUME 90.4 fL (80-100); MEAN CORPUSCULAR HEMOGLOBIN 29.9 pg (25-34); MEAN CORPUSCULAR HGB CONC 33.1 g/dl (32-36); MEAN PLATELET VOLUME 10.3 fL (7.4-10.4); PLATELET COUNT 297 K/uL (130-400); RED BLOOD COUNT 4.38 M/uL (4.7-6.1); WHITE BLOOD COUNT 8.07 K/uL (4.8-10.8)
[2016-08-07 07:04] LABS: ESTIMATED AVERAGE GLUCOSE 189 mg/dl; HA1C FLAG Normal (Normal)
[2016-08-07 07:06] LABS: INR 2.6 (0.9-1.1); PROTHROMBIN TIME (PATIENT) 29.2 SECONDS (9.0-12.0)
[2016-08-07 07:28] LABS: BUN/CREATININE RATIO 17.6 (10-20); CALCIUM 8.6 mg/dl (8.5-10.1); CREATININE 1.4 mg/dl (0.60-1.40); MAGNESIUM 2.2 mg/dl (1.8-2.4); POTASSIUM 4.2 mmol/L (3.5-5.1)
--- NOTE | 2016-08-07 07:28 | DIAGNOSTIC IMAGING REPORT ---
CHEST ONE VIEW PORTABLE CLINICAL HISTORY: PNEUMONIA COMPARISON STUDY: 08/06/2016 FINDINGS: There are postsurgical changes of midline sternotomy. The heart remains enlarged. There is a persistent but decreasing loculated left pleural effusion. There is mild pulmonary vascular congestion. Left mid and lower lung zone airspace opacities persist.[ IMPRESSION: 1. Cardiomegaly with radiographic evidence of mild pulmonary vascular congestion 2. Persistent left lower lung zone airspace opacities 3. Decreasing loculated left pleural effusion Electronically signed by: Boyd Silva M.D. 08/07/2016 7:27 AM Dictated Date/Time: 08/07/2016 7:25 AM
--- NOTE | 2016-08-07 08:08 | CONSULTATION REPORT ---
DATE OF CONSULTATION: 08/07/2016 HISTORY OF PRESENT ILLNESS: Left pleural effusion and history of left lung nodule. HISTORY OF PRESENT ILLNESS: This is an 81-year-old male known well to our service having been seen by Dr. Zavala in May 2016. Prior to his visit with Dr. Zavala, the patient was noted to have some worsening shortness of breath particularly with steps and inclines. He was treated with several courses of antibiotics and ultimately underwent a CT scan that showed a left lung nodule. He was seen by Dr. Neil Viramontes of pulmonary medicine ultimately referred to Dr. Zavala. In May 2016 on the of the month, patient underwent an endobronchial ultrasound and a navigational bronchoscopy. All pathology from that procedure was negative for malignancy. Dr. Zavala saw the patient back in the office and had a lengthy discussion with the patient and his family stating that although all the pathology was negative for malignancy, this did not necessarily exclude underlying malignancy and plans were put in place for patient to have a repeat CT scan in 3 months' time. Since that procedure the patient was seen in the Emergency Department on one occasion at the end of May, on 06/01/2016 for COPD exacerbation was treated as an outpatient. The [facility] as the patient was noted to have progressive shortness of breath for approximately 2 weeks. The patient was seen by his outpatient physicians due to his worsening shortness of breath. It was felt the patient was likely suffering from pneumonia and he was treated with antibiotics in the form of doxycycline. Despite this, his progressive shortness of breath has gotten worse so admission was requested. I did question the patient on a litany of symptoms and he has not had any falls, head injuries, visual changes, tinnitus or sore throat. He denies any neck pain or chest pain. He does note shortness of breath along with cough. He says the shortness of breath is worse with activity but it is not that bad when he is at rest. He feels as though he has had subjective fever, but he denies any rigors or chills. He denies nausea, vomiting, diarrhea, abdominal pain or weight loss. He says his appetite is normal. He does note some lower extremity edema. He denies history of DVT or PE. He denies anxiety, but does suffer from depression. Since admission, the patient has had serial CBCs that did not exhibit any leukocytosis. He has not had a significant anemia and his platelet count has been within normal range. Chemistry profile showed sodium, potassium and creatinine are all within the normal range. He has had a troponin checked that was negative for elevation. He does take Coumadin for atrial fibrillation and today his INR is 2.6. Urinalysis is negative for infection. The patient has had blood cultures sent that are pending. DIAGNOSTIC STUDIES: Include a lower extremity ultrasound that was negative for DVT. He did have a CT scan of the chest performed that showed a moderate left pleural effusion with some enlarged subcarinal left hilar lymph nodes. He had a left lower lobe and lingular airspace opacities that were felt to be consistent with pneumonia. No PE was noted. We have been asked to participate in his care due to the CT scan findings. At the time of my exam, the patient was noted to be resting comfortably in bed. PAST MEDICAL HISTORY: 1. Coronary artery disease. 2. Atrial fibrillation. 3. Hypertension. 4. Diabetes. 5. Hyperlipidemia. 6. Sleep apnea. 7. BPH. 8. Peripheral vascular disease. 9. Chronic kidney disease. 10. Depression. 11. Arthritis. PAST SURGICAL HISTORY: Includes: 1. Bilateral cataracts. 2. Coronary artery bypass grafting. 3. Cystoscopy. 4. Prostate biopsy. 5. Endobronchial ultrasound and navigational bronchoscopy on 05/14/2016 as noted above. ALLERGIES: INCLUDE SIMVASTATIN. OUTPATIENT MEDICATION REGIMEN: Includes: 1. Albuterol inhaler as needed. 2. Debrox drops twice daily. 3. Doxycycline 100 mg twice daily. 4. Glimepiride 1 mg daily. 5. NovoLog insulin. 6. Lantus insulin 18 units at bedtime. 7. Meclizine as needed. 8. Toprol 25 mg daily. 9. Sublingual nitroglycerin as needed. 10. Protonix 40 mg daily. 11. Probiotic daily. 12. Zoloft 25 mg daily. 13. Flomax 0.4 mg daily. 14. Coumadin 2.5 mg daily. SOCIAL HISTORY: The patient does have a 1.5 pack per day history of smoking for approximately 57 years but has quit smoking. FAMILY HISTORY: Positive for hypertension. REVIEW OF SYSTEMS: See above. PHYSICAL EXAMINATION: VITAL SIGNS: The patient is afebrile, temperature 36.5, pulse 79 and regular, respirations are 20 and unlabored, blood pressure 135/76, pulse ox 92% on room air. SKIN: Warm with good turgor. GENERAL: He is alert, he is oriented x3, he is in no distress. HEENT: Head is atraumatic, normocephalic. Eyes, pupils equal, round and reactive to light and accommodation. Extraocular motions are intact. Ears, auditory acuity is grossly intact. Nose, nasal patency was intact. Sinuses are nontender. Mouth is moist without exudates. NECK: Supple. There is no JVD. CARDIOVASCULAR: Regular rate and regular rhythm. LUNGS: Revealed decreased breath sounds on the left. No significant rhonchi or wheezing were noted. ABDOMEN: Soft and nontender. EXTREMITIES: Reveal 2+ edema of the left lower extremity, trace edema on the right. NEUROLOGIC: Revealed cranial nerves II through XII are grossly intact. No focal deficits are noted. DIAGNOSTIC DATA: As noted above. IMPRESSION: An 81-year-old male with shortness of breath. PLAN: The patient is being treated appropriately for his pneumonia with antibiotics and appropriate cultures have been sent. The patient is noted to be hemodynamically stable with adequate oxygen saturations on room air. I do not feel an urgent thoracentesis or drainage procedure is required as the patient does have a therapeutic INR. I have discussed with the primary medical service and asked them to hold his Coumadin as a drainage procedure will likely be needed. Upon Dr. Zavala's review of the case we will determine the best course of action particularly based on his pleural effusion and a CT scan that has been repeated. Further recommendations will be forthcoming.
[2016-08-07] MEDS: SERTRALINE HCL 50 MG TAB PO SCH (08:59)
[2016-08-07] MEDS: METOPROLOL SUCC 25MG EXT REL TAB PO SCH (09:00)
[2016-08-07] MEDS: PANTOprazole SOD 40 MG TAB PO SCH (09:00)
[2016-08-07] MEDS: CARBAMIDE PEROXIDE 6.5% 15 ML BTL OT SCH ×2 (09:00→20:37)
[2016-08-07] MEDS: LACTOBACILLUS ACIDOPHILUS (FLORANEX) TAB PO SCH ×3 (09:00→18:13)
[2016-08-07] MEDS: INSULIN ASPART 100 UNITS/ML 3 ML PEN SC SCH ×4 (09:03→20:39)
--- NOTE | 2016-08-07 10:26 | PULMONARY PROGRESS NOTE ---
DATE: 08/07/2016 DATE: 08/07/2016. TIME: 9:45 a.m. SUBJECTIVE: The patient states he feels much better. He is much less short of breath. His cough has decreased. Unfortunately, he has not been able to expectorate any sputum for us for sputum samples. He has had no chest pain. Denies chills, fevers or sweats. His appetite is good. OBJECTIVE: GENERAL: The patient appears very comfortable at rest. VITAL SIGNS: Temperature is 36.5. EARS, NOSE, THROAT EXAMINATION: Unchanged from yesterday. NECK: Palpation of the neck reveals no lymph nodes. HEART: Heart rate 78 per minute. The rhythm is irregularly irregular. Blood pressure 135/76. CHEST: Auscultation of the lung merlos revealed just a few rhonchi. The breath sounds on the left are decreased compared with the right. Respiratory rate 20 breaths per minute. Oxygen saturation on room air 92%. ABDOMEN: Soft. It was nontender. EXTREMITIES: Show no significant edema on either leg. There was no cyanosis or clubbing. LABORATORY DATA: White count today is 8.07. Hemoglobin is 13.1. Platelets are 297,000. INR today is 2.6. I believe this is despite the fact he did not get his Coumadin yesterday. It could be that the antibiotics are increasing the INR somewhat. Blood sugar this morning is 112. Sodium is 142, potassium 4.2, chloride 104, bicarb 31. BUN was 25 with a creatinine of 1.4. The prior BUN was 31 and prior creatinine was 1.4. IMPRESSIONS: 1. Pneumonia left upper lobe and left lower lobe. 2. Complex left pleural effusion with a small right pleural effusion. 3. Lung nodule by history -- not well visualized on today's CAT scan. 4. Obstructive sleep apnea -- currently untreated. 5. Atrial fibrillation. COMMENTS AND RECOMMENDATIONS: The patient seems clinically improved fairly quickly. However, he does have extensive disease in the chest. I would continue with his current treatment as was set forth yesterday.
[2016-08-07] MEDS ORDERED: AZITHROMYCIN IV 500 MG in DEXTROSE 5% 250ML 250 ML IV SCH (14:00)
--- NOTE | 2016-08-07 16:04 | Progress Note ---
Medicine Progress Note Date & Time of Visit: Aug 07, 2016 at 15:55. Subjective Patient seen and examined. present at bedside. Feels much better this morning. Coughing less. Able to ambulate more easily. Objective Last 8 Hrs Date Time Temp Pulse Resp B/P Pulse Ox O2 Delivery O2 Flow Rate FiO2 08/07/16 14:09 73 16 91 Room Air 08/07/16 12:00 Room Air 08/07/16 11:00 36.7 85 20 116/66 90 Room Air 08/07/16 08:00 Room Air Physical Exam: General-awake; alert; NAD Eyes-EOMI; no scleral icterus Neck-no stridor; trachea midline Lungs-somewhat diminished breath sounds at the bases; no alesia wheezes or crackles Heart-irregularly irregular; no m/r/g Abdomen-soft; NTND; nBS Extremities-no c/c/e; no deformity Neuro-no gross focal deficits Laboratory Results: Last 24 Hours Test 08/06/16 18:40 08/06/16 20:10 08/07/16 02:22 08/07/16 05:50 Lactate Dehydrogenase 158 U/L Bedside Glucose 192 mg/dl 105 mg/dl White Blood Count 8.07 K/uL Red Blood Count 4.38 M/uL Hemoglobin 13.1 g/dL Hematocrit 39.6 % Mean Corpuscular Volume 90.4 fL Mean Corpuscular Hemoglobin 29.9 pg Mean Corpuscular Hemoglobin Concent 33.1 g/dl RDW Standard Deviation 45.8 fL RDW Coefficient of Variation 13.8 % Platelet Count 297 K/uL Mean Platelet Volume 10.3 fL Prothrombin Time 29.2 SECONDS Prothromb Time International Ratio 2.6 Sodium Level 142 mmol/L Potassium Level 4.2 mmol/L Chloride Level 104 mmol/L Carbon Dioxide Level 31 mmol/L Anion Gap 7.0 mmol/L Blood Urea Nitrogen 25 mg/dl Creatinine 1.40 mg/dl Est Creatinine Clear Calc Drug Dose 48.1 ml/min Estimated GFR () 54.2 Estimated GFR (Non- 46.8 BUN/Creatinine Ratio 17.6 Random Glucose 124 mg/dl Estimated Average Glucose 189 mg/dl Hemoglobin A1c 8.2 % Calcium Level 8.6 mg/dl Magnesium Level 2.2 mg/dl Test 08/07/16 06:48 08/07/16 11:12 Bedside Glucose 112 mg/dl 194 mg/dl Date/Time Source Procedure Growth Status 08/07/16 10:05 Sputum Expectorated Sputum Acid Fast Stain Pending Received 08/07/16 10:05 Sputum Expectorated Sputum Mycobacterial Culture Pending Received 08/07/16 00:00 Sputum Expectorated Sputum Gram Stain Pending Received 08/07/16 00:00 Sputum Expectorated Sputum Sputum Culture Pending Received Assessment & Plan PNEUMONIA Outpatient CXR on 07/30/16 showed LLL opacity and increasing hazy opacity bilateral lungs, increased left pleural effusion Failed outpatient treatment with doxycycline started on Jul 30 2016 CXR- cardiomegaly with mild pulmonary vascular congestion, advanced emphysema, increasing left pleural effusion with left basilar consolidation CTA chest- neg for PE, + smaller moderate left pleural effusion and small right pleural effusion, septal edema likely cardiogenic pulmonary edema, stable mildly enlarged subcarinal left hilar lymph node, severe emphysema, developing left lower lobe and lingular airspace opacities consistent with a pneumonia, although asymmetric pulmonary edema could appear similar Pulmonary consulted Continue Zosyn Blood and sputum cultures pending PROGRESSIVE SOB CXR showing pulmonary vascular congestion and increasing L pleural effusion Recent echo 06/30/16- The examination is adequate to evaluate the referral indication. Study was performed with the patient in atrial fibrillation. The left ventricular cavity size is normal. The LV wall thickness is borderline increased (concentric). Calculated LV ejection Fraction = 45-50% (biplane method of discs). There is basal and mid inferior wall and inferior septal hypokinesis. The right ventricular cavity size is enlarged (basal dimension > 4.2 cm RV apical 4 chamber view). The left atrium is severely enlarged (>48 ml/m^2,). The right atrium is moderately enlarged. The estimated pulmonary artery systolic pressure is 5055mm Hg. Compared to previous study dated 02/18/2015, left ventricular ejection fraction is stable. Left atrial size is increased. Pulmonary hypertension is now present. No indication for diuretic WORSENING LEFT PLEURAL EFFUSION with LLL MASS Following with Dr. Zavala PET scan 04/28/16 showed borderline below threshold nonspecific FDG uptake of 8 mm nodule, small L pleural effusion and LLL consolidation with mild nonspecific FDG update, subcarinal and bilateral hilar FDG uptake S/p bronchoscopy May 14 2016 with neg lymph node and lung biopsies Consulted Dr. Whitlark COPD Minimal wheezing on exam Does not seem to be in exacerbation PRN inhaler Nebulizers DM TYPE 2 A1c 8.2 Hold glimepiride Continue insulin regimen Consulted pharmacy for glycemic control ATRIAL FIBRILLATION Rate controlled Continue beta aleksandr Hold Coumadin in light of possible thoracentesis HYPERTENSION BP is stable Continue metoprolol CAD S/P CABG Stable, denies chest pain Continue beta aleksandr Per cardiology note, not on ROYA-I due to hypotension Not on statin currently-had muscle reaction to simvastatin in the past SLEEP APNEA Has been noncompliant for years- was claustrophobic with CPAP Supposed to start BiPAP now but awaiting supplies CPAP while inpatient CKD STAGE III Cr is at baseline Monitor renal function Avoid nephrotoxins DEPRESSION Continue sertraline BPH Continue Flomax DVT PROPHYLAXIS Coumadin on hold but INR therapeutic CODE STATUS DNR Consultants: Pulmonary CT surgery Procedures: LE Doppler There is no sonographic evidence of deep venous thrombosis identified in the left lower extremity. CT chest 1. Smaller moderate left pleural effusion and small right pleural effusion. 2. Septal edema, likely secondary to cardiogenic pulmonary edema 3. Stable mildly enlarged subcarinal left hilar lymph node 4. Severe emphysema 5. Developing left lower lobe and lingular airspace opacities consistent with a pneumonia, although asymmetric pulmonary edema could appear similar 6. No CT evidence of acute pulmonary embolism Current Inpatient Medications: Current Inpatient Medications Medications (Trade) Dose Ordered Sig/Susan Route Start Time Stop Time Status Last Admin Dose Admin Ioversol (Optiray 320) 125 ml UD PRN IV 08/06/16 11:15 08/10/16 11:14 Acetaminophen (Tylenol Tab) 650 mg Q4H PRN PO 08/06/16 14:45 09/05/16 14:44 Ondansetron HCl (Zofran Inj) 4 mg Q6H PRN IV 08/06/16 14:45 09/05/16 14:44 Miscellaneous Information (Consult Glycemic Management Pharmacy) 1 ea UD PRN N/A 08/06/16 14:53 09/05/16 14:52 Albuterol (Ventolin Hfa Inhaler) 2 puffs Q4 PRN INH 08/06/16 15:15 09/05/16 15:14 Carbamide Peroxide (Earwax Removal Soln) 5 drops BID OT 08/06/16 21:00 08/10/16 20:59 08/07/16 09:00 5 DROPS Insulin Aspart (novoLOG ASPART) SLIDING SCALE ACHS SC 08/06/16 16:00 09/05/16 15:59 08/07/16 13:05 6 UNITS Insulin Glargine (Lantus Solostar Pen) FOR BLOOD SUGAR 120 OR GREA... HS SC 08/06/16 21:00 09/05/16 20:59 08/06/16 20:42 18 UNIT Metoprolol Succinate (Toprol Xl Tab) 25 mg DAILY PO 08/07/16 09:00 09/06/16 08:59 08/07/16 09:00 25 MG Nitroglycerin (Nitrostat Tab) 0.4 mg UD PRN UT 08/06/16 15:15 09/05/16 15:14 Pantoprazole Sodium (Protonix Tab) 40 mg DAILY PO 08/07/16 09:00 09/06/16 08:59 08/07/16 09:00 40 MG Sertraline HCl (Zoloft Tab) 25 mg DAILY PO 08/07/16 09:00 09/06/16 08:59 08/07/16 08:59 25 MG Tamsulosin HCl (Flomax Cap) 0.4 mg Q2D@2100 PO 08/07/16 21:00 09/06/16 20:59 Lactobacillus Acidophilus (Floranex Tab) 4 tab TIDM PO 08/06/16 16:45 09/05/16 17:59 08/07/16 13:18 4 TAB Warfarin Sodium (Coumadin Tab) 2.5 mg DAILY@1600 PO 08/06/16 16:00 09/05/16 15:59 Future Hold Piperacillin Sod/ Tazobactam Sod (Consult) 1 ea UD PRN N/A 08/06/16 18:35 09/05/16 18:34 Ipratropium [place] (Atrovent 0.02% 0.5MG/2.5ML Neb) 0.5 mg Q6R INH 08/06/16 21:00 09/05/16 20:59 08/07/16 14:09 0.5 MG Levalbuterol 1.25 mg 1.25 mg Q6R INH 08/06/16 21:00 09/05/16 20:59 08/07/16 14:09 1.25 MG Piperacillin Sod/ Tazobactam Sod/ Dextrose (Zosyn Iv/D5 100ml) 115 ml @ 28.75 mls/ hr Q8@0000,0800,1600 IV 08/07/16 00:00 08/14/16 00:00 08/07/16 09:06 28.75 MLS/HR
[2016-08-07] MEDS: TAMSULOSIN HCL 0.4 MG CAP PO SCH (20:36)
[2016-08-07] MEDS: INSULIN GLARGINE SOLOSTAR 100 UNITS/ML 3 ML PEN SC SCH (20:38)
[2016-08-08] VITALS (13 sets, daily range): BP systolic 103–144; BP diastolic 60–92; PULSE 77–95; TEMP 36.3–37.4; O2SAT 90–96
[2016-08-08] MEDS: LEVALBUTEROL 1.25MG/0.5ML NEB INH SCH ×4 (02:05→19:09)
[2016-08-08] MEDS: IPRATROPIUM BROMIDE NEB SOLN 0.02% 2.5 ML VIAL INH SCH ×4 (02:05→19:09)
[2016-08-08 06:17] LABS: HEMATOCRIT 37.9 % (42-52); MEAN CELL VOLUME 90.2 fL (80-100); MEAN CORPUSCULAR HEMOGLOBIN 30.5 pg (25-34); MEAN CORPUSCULAR HGB CONC 33.8 g/dl (32-36); MEAN PLATELET VOLUME 10.3 fL (7.4-10.4); PLATELET COUNT 290 K/uL (130-400)
[2016-08-08 06:26] LABS: INR 2.4 (0.9-1.1); PROTHROMBIN TIME (PATIENT) 26.7 SECONDS (9.0-12.0)
[2016-08-08 06:42] LABS: BUN/CREATININE RATIO 14.2 (10-20); CALCIUM 8.6 mg/dl (8.5-10.1); CREATININE 1.5 mg/dl (0.60-1.40); POTASSIUM 4.3 mmol/L (3.5-5.1)
--- NOTE | 2016-08-08 06:56 | Surgery Progress Note ---
Subjective Date of Service: Aug 08, 2016. Pt. notes his breathing has markedly improved since admission. No SOB or CP at the present time. Objective Vitals Date Time Temp Pulse Resp B/P Pulse Ox O2 Delivery O2 Flow Rate FiO2 08/08/16 04:11 36.6 85 18 104/63 93 Room Air 08/08/16 04:00 Room Air 08/08/16 02:05 77 16 93 BiPAP/CPAP 08/08/16 00:00 Room Air 08/07/16 23:50 36.9 77 18 103/64 93 BiPAP 08/07/16 20:00 Room Air 08/07/16 19:42 79 16 91 Room Air 08/07/16 19:31 37.0 79 20 113/54 91 Room Air 08/07/16 16:24 36.6 96 18 120/69 90 Room Air 08/07/16 16:00 Room Air 08/07/16 14:09 73 16 91 Room Air 08/07/16 12:00 Room Air 08/07/16 11:00 36.7 85 20 116/66 90 Room Air 08/07/16 08:00 Room Air 08/07/16 07:17 36.5 79 20 135/76 92 Room Air 08/07/16 07:11 79 16 93 Room Air Physical Exam General: + well developed, + well nourished CV: + IRR Pulmonary: + pertinent finding (decreased BS at left base), No accessory muscle use, No respiratory distress Extremities: No calf tenderness Neurologic: + alert & oriented x 3 Assessment & Plan 81-year-old male with shortness of breath. -continue treatment of pneumonia as directed by medical service -pleural effusion: -pt. stable and due to therapeutic INR, drainage procedure not emergently needed -continue to hold anticoagulation and drainage of fluid will be consider once level is acceptable
[2016-08-08] MEDS: INSULIN ASPART 100 UNITS/ML 3 ML PEN SC SCH ×4 (07:00→21:00)
--- NOTE | 2016-08-08 07:51 | PULMONARY PROGRESS NOTE ---
DATE: 08/08/2016 TIME: 07:10 a.m. SUBJECTIVE: The patient feels much better. He states he is much less short of breath. Just today, he was able to walk around the hallway twice without difficulty. His cough is significantly less. He has had only scant sputum production. Overall, he feels dramatically improved compared with admission. OBJECTIVE: GENERAL: The patient was comfortable at rest. Temperature is 36.6. EARS, NOSE, AND THROAT: Exam is unremarkable and unchanged. HEART: Heart rate was 85 per minute. The rhythm was irregularly irregular.: Blood pressure 104/63. Oxygen saturation was 93% on room air. LUNGS: Auscultation of the lung merlos revealed no wheezing. The breath sounds are diminished. There was no accessory muscle use. Respiratory rate 18 breaths per minute. ABDOMEN: Soft and nontender. EXTREMITIES: Showed no cyanosis, clubbing or edema. LABORATORY DATA: CBC this morning shows a white count of 9.1, hemoglobin 12.8, and platelets 290,000. INR today is 2.4. Blood sugar this morning was 136. Sodium 141, potassium 4.3, chloride 103, and bicarbonate 29. The patient had a chest x-ray yesterday. This showed less prominence to the pleural effusion along the left lateral wall. However, in light of the fact, now the fluid was drained. I am suspecting that it was a change in angulation of the x-ray that may have shown this improvement. Clearly, there seems to be more aeration on this current x-ray. The left lung infiltrates persist. IMPRESSIONS: 1. Pneumonia, left upper lobe and left lower lobe. 2. Left pleural effusion greater than right pleural effusion. 3. Lung nodule, left lung of undetermined significance. 4. Obstructive sleep apnea. 5. Atrial fibrillation. COMMENTS AND RECOMMENDATIONS: The patient is clinically improved. He is still on Zosyn as well as nebulizer treatments. I would continue with this. Dr. Zavala will be back tomorrow. He will need to evaluate the CAT scan and perhaps even do a bedside ultrasound to determine the prominence of the pleural fluid on whether it might be able to be aspirated by needle or tube drainage.
[2016-08-08] MEDS: METOPROLOL SUCC 25MG EXT REL TAB PO SCH (08:12)
[2016-08-08] MEDS: PIPERACILL/TAZOBAC IV 3.375 GM in DEXTROSE 5% 100ML IV SCH ×5 (08:12→23:35)
[2016-08-08] MEDS: SERTRALINE HCL 50 MG TAB PO SCH (08:13)
[2016-08-08] MEDS: LACTOBACILLUS ACIDOPHILUS (FLORANEX) TAB PO SCH ×3 (08:15→16:34)
[2016-08-08] MEDS: PANTOprazole SOD 40 MG TAB PO SCH (08:15)
[2016-08-08] MEDS: CARBAMIDE PEROXIDE 6.5% 15 ML BTL OT SCH ×2 (08:19→21:21)
--- NOTE | 2016-08-08 09:40 | Progress Note ---
Medicine Progress Note Date & Time of Visit: Aug 08, 2016 at 09:37. Subjective Patient seen and examined. Feeling better today. Walked the hallways with his and did well. Breathing stable. Anticipating walking again with his later today. Objective Last 8 Hrs Date Time Temp Pulse Resp B/P Pulse Ox O2 Delivery O2 Flow Rate FiO2 08/08/16 07:33 36.8 80 16 103/63 90 Room Air 08/08/16 07:19 80 16 90 Room Air 08/08/16 04:11 36.6 85 18 104/63 93 Room Air 08/08/16 04:00 Room Air 08/08/16 02:05 77 16 93 BiPAP/CPAP Physical Exam: General-awake; alert; NAD Eyes-EOMI; no scleral icterus Neck-no stridor; trachea midline Lungs-somewhat diminished breath sounds at the bases; no alesia wheezes or crackles Heart-irregularly irregular; no m/r/g Abdomen-soft; NTND; nBS Extremities-no c/c/e; no deformity Neuro-no gross focal deficits Laboratory Results: Last 24 Hours Test 08/07/16 11:12 08/07/16 16:09 08/07/16 20:19 08/08/16 00:00 Bedside Glucose 194 mg/dl 174 mg/dl 174 mg/dl Test 08/08/16 05:10 08/08/16 06:58 White Blood Count 9.10 K/uL Red Blood Count 4.20 M/uL Hemoglobin 12.8 g/dL Hematocrit 37.9 % Mean Corpuscular Volume 90.2 fL Mean Corpuscular Hemoglobin 30.5 pg Mean Corpuscular Hemoglobin Concent 33.8 g/dl RDW Standard Deviation 46.2 fL RDW Coefficient of Variation 14.1 % Platelet Count 290 K/uL Mean Platelet Volume 10.3 fL Prothrombin Time 26.7 SECONDS Prothromb Time International Ratio 2.4 Sodium Level 141 mmol/L Potassium Level 4.3 mmol/L Chloride Level 103 mmol/L Carbon Dioxide Level 29 mmol/L Anion Gap 9.0 mmol/L Blood Urea Nitrogen 21 mg/dl Creatinine 1.50 mg/dl Est Creatinine Clear Calc Drug Dose 44.9 ml/min Estimated GFR () 49.9 Estimated GFR (Non- 43.0 BUN/Creatinine Ratio 14.2 Random Glucose 147 mg/dl Calcium Level 8.6 mg/dl Bedside Glucose 136 mg/dl Date/Time Source Procedure Growth Status 08/07/16 10:05 Sputum Expectorated Sputum Acid Fast Stain Pending Received 08/07/16 10:05 Sputum Expectorated Sputum Mycobacterial Culture Pending Received Assessment & Plan PNEUMONIA Outpatient CXR on 07/30/16 showed LLL opacity and increasing hazy opacity bilateral lungs, increased left pleural effusion Failed outpatient treatment with doxycycline started on Jul 30 2016 CXR- cardiomegaly with mild pulmonary vascular congestion, advanced emphysema, increasing left pleural effusion with left basilar consolidation CTA chest- neg for PE, + smaller moderate left pleural effusion and small right pleural effusion, septal edema likely cardiogenic pulmonary edema, stable mildly enlarged subcarinal left hilar lymph node, severe emphysema, developing left lower lobe and lingular airspace opacities consistent with a pneumonia, although asymmetric pulmonary edema could appear similar Pulmonary consulted Continue Zosyn Blood cultures ngtd Sputum cultures with light normal abelardo and negative for acid fast bacilli WORSENING LEFT PLEURAL EFFUSION with LLL MASS Following with Dr. Zavala Possible thoracentesis on Tuesday PET scan 04/28/16 showed borderline below threshold nonspecific FDG uptake of 8 mm nodule, small L pleural effusion and LLL consolidation with mild nonspecific FDG update, subcarinal and bilateral hilar FDG uptake S/p bronchoscopy May 14 2016 with neg lymph node and lung biopsies Recent echo 06/30/16- The examination is adequate to evaluate the referral indication. Study was performed with the patient in atrial fibrillation. The left ventricular cavity size is normal. The LV wall thickness is borderline increased (concentric). Calculated LV ejection Fraction = 45-50% (biplane method of discs). There is basal and mid inferior wall and inferior septal hypokinesis. The right ventricular cavity size is enlarged (basal dimension > 4.2 cm RV apical 4 chamber view). The left atrium is severely enlarged (>48 ml/m^2,). The right atrium is moderately enlarged. The estimated pulmonary artery systolic pressure is 5055mm Hg. Compared to previous study dated 02/18/2015, left ventricular ejection fraction is stable. Left atrial size is increased. Pulmonary hypertension is now present. COPD Does not seem to be in exacerbation PRN inhaler Nebulizers DM TYPE 2 A1c 8.2 Hold glimepiride Continue insulin regimen Consulted pharmacy for glycemic control ATRIAL FIBRILLATION Rate controlled Continue beta aleksandr Hold Coumadin in light of possible thoracentesis HYPERTENSION BP is stable Continue metoprolol CAD S/P CABG Stable, denies chest pain Continue beta aleksandr Per cardiology note, not on ROYA-I due to hypotension Not on statin currently-had muscle reaction to simvastatin in the past SLEEP APNEA Has been noncompliant for years- was claustrophobic with CPAP Supposed to start BiPAP now but awaiting supplies CPAP while inpatient CKD STAGE III Cr is at baseline Monitor renal function Avoid nephrotoxins DEPRESSION Continue sertraline BPH Continue Flomax DVT PROPHYLAXIS Coumadin on hold but INR therapeutic CODE STATUS DNR Consultants: Pulmonary CT surgery Procedures: LE Doppler There is no sonographic evidence of deep venous thrombosis identified in the left lower extremity. CT chest 1. Smaller moderate left pleural effusion and small right pleural effusion. 2. Septal edema, likely secondary to cardiogenic pulmonary edema 3. Stable mildly enlarged subcarinal left hilar lymph node 4. Severe emphysema 5. Developing left lower lobe and lingular airspace opacities consistent with a pneumonia, although asymmetric pulmonary edema could appear similar 6. No CT evidence of acute pulmonary embolism Current Inpatient Medications: Current Inpatient Medications Medications (Trade) Dose Ordered Sig/Susan Route Start Time Stop Time Status Last Admin Dose Admin Ioversol (Optiray 320) 125 ml UD PRN IV 08/06/16 11:15 08/10/16 11:14 Acetaminophen (Tylenol Tab) 650 mg Q4H PRN PO 08/06/16 14:45 09/05/16 14:44 Ondansetron HCl (Zofran Inj) 4 mg Q6H PRN IV 08/06/16 14:45 09/05/16 14:44 Miscellaneous Information (Consult Glycemic Management Pharmacy) 1 ea UD PRN N/A 08/06/16 14:53 09/05/16 14:52 Albuterol (Ventolin Hfa Inhaler) 2 puffs Q4 PRN INH 08/06/16 15:15 09/05/16 15:14 Carbamide Peroxide (Earwax Removal Soln) 5 drops BID OT 08/06/16 21:00 08/10/16 20:59 08/08/16 08:19 5 DROPS Insulin Aspart (novoLOG ASPART) SLIDING SCALE ACHS SC 08/06/16 16:00 09/05/16 15:59 08/08/16 07:00 4 UNITS Insulin Glargine (Lantus Solostar Pen) FOR BLOOD SUGAR 120 OR GREA... HS SC 08/06/16 21:00 09/05/16 20:59 08/07/16 20:38 18 UNIT Metoprolol Succinate (Toprol Xl Tab) 25 mg DAILY PO 08/07/16 09:00 09/06/16 08:59 08/08/16 08:12 25 MG Nitroglycerin (Nitrostat Tab) 0.4 mg UD PRN [place] 08/06/16 15:15 09/05/16 15:14 Pantoprazole Sodium (Protonix Tab) 40 mg DAILY PO 08/07/16 09:00 09/06/16 08:59 08/08/16 08:15 40 MG Sertraline HCl (Zoloft Tab) 25 mg DAILY PO 08/07/16 09:00 09/06/16 08:59 08/08/16 08:13 25 MG Tamsulosin HCl (Flomax Cap) 0.4 mg Q2D@2100 PO 08/07/16 21:00 09/06/16 20:59 08/07/16 20:36 0.4 MG Lactobacillus Acidophilus (Floranex Tab) 4 tab TIDM PO 08/06/16 16:45 09/05/16 17:59 08/08/16 08:15 4 TAB Warfarin Sodium (Coumadin Tab) 2.5 mg DAILY@1600 PO 08/06/16 16:00 09/05/16 15:59 Future Hold Piperacillin Sod/ Tazobactam Sod (Consult) 1 ea UD PRN N/A 08/06/16 18:35 09/05/16 18:34 Ipratropium [place] (Atrovent 0.02% 0.5MG/2.5ML Neb) 0.5 mg Q6R INH 08/06/16 21:00 09/05/16 20:59 08/08/16 07:19 0.5 MG Levalbuterol 1.25 mg 1.25 mg Q6R INH 08/06/16 21:00 09/05/16 20:59 08/08/16 07:19 1.25 MG Piperacillin Sod/ Tazobactam Sod/ Dextrose (Zosyn Iv/D5 100ml) 115 ml @ 28.75 mls/ hr Q8@0000,0800,1600 IV 08/07/16 00:00 08/14/16 00:00 08/08/16 08:12 28.75 MLS/HR
--- NOTE | 2016-08-08 12:38 | Pharmacy Progress Note ---
Glycemic Control: Progress Nt Date of Service Aug 08, 2016. Scope Glycemic Pharmacist consulted by Flavia Rodney PA-C on 08/06/16 for glycemic control and to write orders per [facility] inpatient glycemic control protocol. Objective Accuchecks BSG (last 24hrs): Test 08/07/16 16:09 08/07/16 20:19 08/08/16 05:10 08/08/16 06:58 Bedside Glucose 174 mg/dl (70-99) 174 mg/dl (70-99) 136 mg/dl (70-99) Random Glucose 147 mg/dl (70-99) Test 08/08/16 11:04 Bedside Glucose 220 mg/dl (70-99) Laboratory Data (last 24hrs) Test 08/08/16 05:10 Anion Gap 9.0 mmol/L BUN/Creatinine Ratio 14.2 Blood Urea Nitrogen 21 mg/dl Creatinine 1.50 mg/dl Potassium Level 4.3 mmol/L Sodium Level 141 mmol/L White Blood Count 9.10 K/uL HbA1c: Test 08/07/16 05:50 Hemoglobin A1c 8.2 % (4.5-5.6) H Recent Pertinent Medications Outpatient Anti-diabetic Regimen: * Glimepiride 1mg PO daily * Lantus 18 units QPM * Novolog 18 units with dinner * A1c 8.2% 08/06/16 Risk Factors for Insulin Resistance: * Infection: Pneumonia, IV Zosyn * Diet: Type 2 DM/ AHA Assessment & Plan ASSESSMENT: 08/06/16 * ADA & AACE recommend a goal blood sugar range 140-180 mg/dl for the majority of critically ill & non-critically ill patients. However, more stringent targets may be selected in individual cases. I will start patient at 120-160mg/ dL for 81 year old with unknown glycemic control as outpatient, not critically ill. * 81 year old type 2 DM admitted with pneumonia on IV antibiotics. I will start patient on home dose of Lantus with half dose parameters for BSG < 120mg/dL and a modest CF and CR. BSG on admission 164mg/dL. * Extra accucheck over night to ensure glycemic control. 08/08/16 * A1c 8.2%, adequate for 81 yo. No changes needed in regimen at this time. No longer need overnight accucheck, discontinued yesterday. PLAN FOR INPATIENT GLYCEMIC CONTROL: * Holding outpatient oral diabetes medication * Basal insulin with LANTUS 18 units SQ HS * 1/2 dose for BSG < 120mg/dL * Correctional Insulin with NOVOLOG per scale ACHS or Q6hrs while NPO * Goal Range: Low 120 mg/dL - High 160 mg/dL * Correction Factor: 30 mg/dL/unit * Nutritional / Prandial insulin per carb ratio of 1 unit per 10 grams CHO consumed * Please note that the plan above was derived based on current level of insulin resistance and hospital stress. These recommendations are appropriate for inpatient admission only. Plan of care upon discharge will need to be reassessed to avoid potential outpatient hypo/hyperglycemia. Thank you.
[2016-08-08] MEDS: INSULIN GLARGINE SOLOSTAR 100 UNITS/ML 3 ML PEN SC SCH (21:22)
[2016-08-09] VITALS (14 sets, daily range): BP systolic 103–131; BP diastolic 59–70; PULSE 71–108; TEMP 36.6–37; O2SAT 90–96; Ht 188 cm; Wt 91.6 kg
[2016-08-09] MEDS: IPRATROPIUM BROMIDE NEB SOLN 0.02% 2.5 ML VIAL INH SCH ×4 (01:49→19:13)
[2016-08-09] MEDS: LEVALBUTEROL 1.25MG/0.5ML NEB INH SCH ×4 (01:49→19:13)
[2016-08-09 05:58] LABS: INR 1.9 (0.9-1.1)
[2016-08-09 06:06] LABS: HEMATOCRIT 39.4 % (42-52); MEAN CELL VOLUME 90.2 fL (80-100); MEAN CORPUSCULAR HEMOGLOBIN 29.5 pg (25-34); MEAN CORPUSCULAR HGB CONC 32.7 g/dl (32-36); MEAN PLATELET VOLUME 10.3 fL (7.4-10.4); PLATELET COUNT 294 K/uL (130-400); RED BLOOD COUNT 4.37 M/uL (4.7-6.1); WHITE BLOOD COUNT 8.27 K/uL (4.8-10.8)
[2016-08-09 06:12] LABS: BUN/CREATININE RATIO 12.5 (10-20); CALCIUM 8.5 mg/dl (8.5-10.1); CREATININE 1.6 mg/dl (0.60-1.40); POTASSIUM 4.6 mmol/L (3.5-5.1)
[2016-08-09] MEDS: PIPERACILL/TAZOBAC IV 3.375 GM in DEXTROSE 5% 100ML IV SCH ×2 (07:54→16:17)
[2016-08-09] MEDS: LACTOBACILLUS ACIDOPHILUS (FLORANEX) TAB PO SCH ×3 (07:55→16:17)
[2016-08-09] MEDS: PANTOprazole SOD 40 MG TAB PO SCH (07:56)
[2016-08-09] MEDS: METOPROLOL SUCC 25MG EXT REL TAB PO SCH (07:56)
[2016-08-09] MEDS: SERTRALINE HCL 50 MG TAB PO SCH (07:56)
[2016-08-09] MEDS: CARBAMIDE PEROXIDE 6.5% 15 ML BTL OT SCH ×2 (07:57→21:25)
[2016-08-09] MEDS: INSULIN ASPART 100 UNITS/ML 3 ML PEN SC SCH ×4 (08:00→21:00)
--- NOTE | 2016-08-09 13:03 | Pharmacy Progress Note ---
Glycemic Control: Progress Nt Date of Service Aug 09, 2016. Scope Glycemic Pharmacist consulted by Flavia Rodney PA-C on 08/06/16 for glycemic control and to write orders per [facility] inpatient glycemic control protocol. Objective Accuchecks BSG (last 24hrs): Test 08/08/16 16:15 08/08/16 20:13 08/09/16 05:23 08/09/16 06:57 Bedside Glucose 135 mg/dl (70-99) 133 mg/dl (70-99) 164 mg/dl (70-99) Random Glucose 168 mg/dl (70-99) Test 08/09/16 11:01 Bedside Glucose 245 mg/dl (70-99) Laboratory Data (last 24hrs) Test 08/09/16 05:23 Anion Gap 10.0 mmol/L BUN/Creatinine Ratio 12.5 Blood Urea Nitrogen 20 mg/dl Creatinine 1.60 mg/dl Potassium Level 4.6 mmol/L Sodium Level 142 mmol/L White Blood Count 8.27 K/uL HbA1c: Test 08/07/16 05:50 Hemoglobin A1c 8.2 % (4.5-5.6) H Recent Pertinent Medications Outpatient Anti-diabetic Regimen: * Glimepiride 1mg PO daily * Lantus 18 units QPM * Novolog 18 units with dinner * A1c 8.2% 08/06/16 The patient is currently receiving: * Basal insulin: Lantus 18 units HS * Correctional Insulin: Novolog Correction per scale ACHS Goal Range: Low 120 mg/dL - High 160 mg/dL Correction Factor: 30 mg/dL/unit * Prandial insulin: Per carb ratio of 1 unit per 10 grams CHO consumed * Oral Agents: on hold Risk Factors for Insulin Resistance: * Infection: Pneumonia, IV Zosyn * Diet: Type 2 DM/ AHA Assessment & Plan ASSESSMENT: * 81 yo diabetic M admitted with pneumonia, initiated on basal/bolus regimen * Fasting BSG 164 mg/dL this AM * BSGs have been stable with lunch being the the only out of goal BSG >200 mg/ dL (not uncommon for inpatient glycemic control) * Continue current Novolog but increase Lantus by 20% (fasting BSGs trending up over past 72 hours) * ADA & AACE recommend a goal blood sugar range 140-180 mg/dl for the majority of critically ill & non-critically ill patients. However, more stringent targets may be selected in individual cases. Goal range currently 1220-160 mg/ dL which I find acceptable for a step-down unit patient. PLAN FOR INPATIENT GLYCEMIC CONTROL: * Hold outpatient oral diabetes medication * Basal insulin with LANTUS 21 units SQ HS * Correctional Insulin with NOVOLOG per scale ACHS or Q6hrs while NPO * Goal Range: Low 120 mg/dL - High 160 mg/dL * Correction Factor: 30 mg/dL/unit * Nutritional / Prandial insulin per carb ratio of 1 unit per 10 grams CHO consumed * Please note that the plan above was derived based on current level of insulin resistance and hospital stress. These recommendations are appropriate for inpatient admission only. Plan of care upon discharge will need to be reassessed to avoid potential outpatient hypo/hyperglycemia.
--- NOTE | 2016-08-09 13:04 | Surgery Progress Note ---
Subjective Date of Service: Aug 09, 2016. Pt. notes his breathing continues to improve since admission. Objective Vitals Date Time Temp Pulse Resp B/P Pulse Ox O2 Delivery O2 Flow Rate FiO2 08/09/16 12:00 94 Room Air 3.0 08/09/16 11:31 36.7 108 16 106/66 94 Room Air 08/09/16 08:00 Room Air 08/09/16 07:21 71 16 95 Room Air 08/09/16 07:21 36.6 76 16 103/65 90 Room Air 08/09/16 04:02 36.7 78 18 128/69 91 Room Air 08/09/16 04:00 Room Air 08/09/16 01:49 82 16 93 BiPAP/CPAP 08/09/16 00:09 36.6 87 18 112/59 93 BiPAP 08/08/16 23:59 BiPAP 08/08/16 20:00 Room Air 08/08/16 19:35 36.3 81 20 144/92 94 Nasal Cannula 3.0 Humidified Oxygen 08/08/16 19:31 36.6 95 18 122/73 95 Room Air 08/08/16 19:09 80 16 92 Room Air 08/08/16 16:00 91 Room Air 08/08/16 15:05 37.4 95 18 104/60 96 Room Air 08/08/16 13:47 80 16 92 Room Air Physical Exam General: + well developed, + well nourished CV: + IRR Pulmonary: + pertinent finding (decreased left base) Extremities: No calf tenderness Neurologic: + alert & oriented x 3 Assessment & Plan 81-year-old male with shortness of breath. -continue treatment of pneumonia as directed by medical service -pleural effusion: -pt. stable and due to therapeutic INR, drainage procedure not emergently performed: -INR continues to decreased; drainage of fluid will be considered once level is acceptable
--- NOTE | 2016-08-09 20:16 | Progress Note ---
Medicine Progress Note Date & Time of Visit: Aug 09, 2016 at 20:13. Subjective Patient seen and examined. Feeling good today. Breathing is very comfortable. Objective Last 8 Hrs Date Time Temp Pulse Resp B/P Pulse Ox O2 Delivery O2 Flow Rate FiO2 08/09/16 19:45 37.0 76 16 108/69 94 Room Air 08/09/16 19:13 91 16 92 Room Air 08/09/16 16:25 96 Room Air 08/09/16 15:49 37.0 94 20 131/70 96 Room Air 08/09/16 14:27 80 16 95 Room Air Physical Exam: General-awake; alert; NAD Eyes-EOMI; no scleral icterus Neck-no stridor; trachea midline Lungs-somewhat diminished breath sounds at the bases; no alesia wheezes or crackles Heart-irregularly irregular; no m/r/g Abdomen-soft; NTND; nBS Extremities-no c/c/e; no deformity Neuro-no gross focal deficits Laboratory Results: Last 24 Hours Test 08/09/16 05:23 08/09/16 06:57 08/09/16 11:01 08/09/16 16:14 White Blood Count 8.27 K/uL Red Blood Count 4.37 M/uL Hemoglobin 12.9 g/dL Hematocrit 39.4 % Mean Corpuscular Volume 90.2 fL Mean Corpuscular Hemoglobin 29.5 pg Mean Corpuscular Hemoglobin Concent 32.7 g/dl RDW Standard Deviation 46.6 fL RDW Coefficient of Variation 14.2 % Platelet Count 294 K/uL Mean Platelet Volume 10.3 fL Prothrombin Time 21.0 SECONDS Prothromb Time International Ratio 1.9 Sodium Level 142 mmol/L Potassium Level 4.6 mmol/L Chloride Level 104 mmol/L Carbon Dioxide Level 28 mmol/L Anion Gap 10.0 mmol/L Blood Urea Nitrogen 20 mg/dl Creatinine 1.60 mg/dl Est Creatinine Clear Calc Drug Dose 42.1 ml/min Estimated GFR () 46.1 Estimated GFR (Non- 39.8 BUN/Creatinine Ratio 12.5 Random Glucose 168 mg/dl Calcium Level 8.5 mg/dl Bedside Glucose 164 mg/dl 245 mg/dl 116 mg/dl Assessment & Plan PNEUMONIA Outpatient CXR on 07/30/16 showed LLL opacity and increasing hazy opacity bilateral lungs, increased left pleural effusion Failed outpatient treatment with doxycycline started on Jul 30 2016 CXR- cardiomegaly with mild pulmonary vascular congestion, advanced emphysema, increasing left pleural effusion with left basilar consolidation CTA chest- neg for PE, + smaller moderate left pleural effusion and small right pleural effusion, septal edema likely cardiogenic pulmonary edema, stable mildly enlarged subcarinal left hilar lymph node, severe emphysema, developing left lower lobe and lingular airspace opacities consistent with a pneumonia, although asymmetric pulmonary edema could appear similar Pulmonary consulted Continue Zosyn (start date 08/07/16) Blood cultures ngtd Sputum cultures with light normal abelardo and negative for acid fast bacilli Speech evaluation to r/o possible underlying aspiration WORSENING LEFT PLEURAL EFFUSION with LLL MASS Following with Dr. Zavala Possible thoracentesis on Tuesday PET scan 04/28/16 showed borderline below threshold nonspecific FDG uptake of 8 mm nodule, small L pleural effusion and LLL consolidation with mild nonspecific FDG update, subcarinal and bilateral hilar FDG uptake S/p bronchoscopy May 14 2016 with neg lymph node and lung biopsies Recent echo 06/30/16- The examination is adequate to evaluate the referral indication. Study was performed with the patient in atrial fibrillation. The left ventricular cavity size is normal. The LV wall thickness is borderline increased (concentric). Calculated LV ejection Fraction = 45-50% (biplane method of discs). There is basal and mid inferior wall and inferior septal hypokinesis. The right ventricular cavity size is enlarged (basal dimension > 4.2 cm RV apical 4 chamber view). The left atrium is severely enlarged (>48 ml/m^2,). The right atrium is moderately enlarged. The estimated pulmonary artery systolic pressure is 5055mm Hg. Compared to previous study dated 02/18/2015, left ventricular ejection fraction is stable. Left atrial size is increased. Pulmonary hypertension is now present. COPD Does not seem to be in exacerbation PRN inhaler Nebulizers DM TYPE 2 A1c 8.2 Hold glimepiride Continue insulin regimen Consulted pharmacy for glycemic control ATRIAL FIBRILLATION Rate controlled Continue beta aleksandr Hold Coumadin in light of possible thoracentesis HYPERTENSION BP is stable Continue metoprolol CAD S/P CABG Stable, denies chest pain Continue beta aleksandr Per cardiology note, not on ROYA-I due to hypotension Not on statin currently-had muscle reaction to simvastatin in the past SLEEP APNEA Has been noncompliant for years- was claustrophobic with CPAP Supposed to start BiPAP now but awaiting supplies CPAP while inpatient CKD STAGE III Cr is at baseline Monitor renal function Avoid nephrotoxins DEPRESSION Continue sertraline BPH Continue Flomax DVT PROPHYLAXIS Coumadin on hold but INR therapeutic CODE STATUS DNR Consultants: Pulmonary CT surgery Procedures: LE Doppler There is no sonographic evidence of deep venous thrombosis identified in the left lower extremity. CT chest 1. Smaller moderate left pleural effusion and small right pleural effusion. 2. Septal edema, likely secondary to cardiogenic pulmonary edema 3. Stable mildly enlarged subcarinal left hilar lymph node 4. Severe emphysema 5. Developing left lower lobe and lingular airspace opacities consistent with a pneumonia, although asymmetric pulmonary edema could appear similar 6. No CT evidence of acute pulmonary embolism Current Inpatient Medications: Current Inpatient Medications Medications (Trade) Dose Ordered Sig/Susan Route Start Time Stop Time Status Last Admin Dose Admin Ioversol (Optiray 320) 125 ml UD PRN IV 08/06/16 11:15 08/10/16 11:14 Acetaminophen (Tylenol Tab) 650 mg Q4H PRN PO 08/06/16 14:45 09/05/16 14:44 Ondansetron HCl (Zofran Inj) 4 mg Q6H PRN IV 08/06/16 14:45 09/05/16 14:44 Miscellaneous Information (Consult Glycemic Management Pharmacy) 1 ea UD PRN N/A 08/06/16 14:53 09/05/16 14:52 Albuterol (Ventolin Hfa Inhaler) 2 puffs Q4 PRN INH 08/06/16 15:15 09/05/16 15:14 Carbamide Peroxide (Earwax Removal Soln) 5 drops BID OT 08/06/16 21:00 08/10/16 20:59 08/09/16 07:57 5 DROPS Insulin Aspart (novoLOG ASPART) SLIDING SCALE ACHS SC 08/06/16 16:00 09/05/16 15:59 08/09/16 17:28 6 UNITS Metoprolol Succinate (Toprol Xl Tab) 25 mg DAILY PO 08/07/16 09:00 09/06/16 08:59 08/09/16 07:56 25 MG Nitroglycerin (Nitrostat Tab) 0.4 mg UD PRN UT 08/06/16 15:15 09/05/16 15:14 Pantoprazole Sodium (Protonix Tab) 40 mg DAILY PO 08/07/16 09:00 09/06/16 08:59 08/09/16 07:56 40 MG Sertraline HCl (Zoloft Tab) 25 mg DAILY PO 08/07/16 09:00 09/06/16 08:59 08/09/16 07:56 25 MG Tamsulosin HCl (Flomax Cap) 0.4 mg Q2D@2100 PO 08/07/16 21:00 09/06/16 20:59 08/07/16 20:36 0.4 MG Lactobacillus Acidophilus (Floranex Tab) 4 tab TIDM PO 08/06/16 16:45 09/05/16 17:59 08/09/16 16:17 4 TAB Warfarin Sodium (Coumadin Tab) 2.5 mg DAILY@1600 PO 08/06/16 16:00 09/05/16 15:59 Future Hold Piperacillin Sod/ Tazobactam Sod (Consult) 1 ea UD PRN N/A 08/06/16 18:35 09/05/16 18:34 Ipratropium [place] (Atrovent 0.02% 0.5MG/2.5ML Neb) 0.5 mg Q6R INH 08/06/16 21:00 09/05/16 20:59 08/09/16 19:13 0.5 MG Levalbuterol 1.25 mg 1.25 mg Q6R INH 08/06/16 21:00 09/05/16 20:59 08/09/16 19:13 1.25 MG Piperacillin Sod/ Tazobactam Sod/ Dextrose (Zosyn Iv/D5 100ml) 115 ml @ 28.75 mls/ hr Q8@0000,0800,1600 IV 08/07/16 00:00 08/14/16 00:00 08/09/16 16:17 28.75 MLS/HR Insulin Glargine (Lantus Solostar Pen) 21 unit HS SC 08/09/16 21:00 09/08/16 20:59
[2016-08-09] MEDS: TAMSULOSIN HCL 0.4 MG CAP PO SCH (21:25)
[2016-08-09] MEDS: INSULIN GLARGINE SOLOSTAR 100 UNITS/ML 3 ML PEN SC SCH (21:27)
[2016-08-10] VITALS (15 sets, daily range): BP systolic 101–115; BP diastolic 59–69; PULSE 18–101; TEMP 36.4–36.9; O2SAT 92–98
[2016-08-10] MEDS: PIPERACILL/TAZOBAC IV 3.375 GM in DEXTROSE 5% 100ML IV SCH ×2 (00:58→08:24)
[2016-08-10] MEDS: IPRATROPIUM BROMIDE NEB SOLN 0.02% 2.5 ML VIAL INH SCH ×4 (01:46→19:46)
[2016-08-10] MEDS: LEVALBUTEROL 1.25MG/0.5ML NEB INH SCH ×4 (01:46→19:46)
[2016-08-10 05:45] LABS: MEAN CELL VOLUME 92.3 fL (80-100); MEAN CORPUSCULAR HGB CONC 32.4 g/dl (32-36); PLATELET COUNT 291 K/uL (130-400); RED BLOOD COUNT 4.44 M/uL (4.7-6.1); WHITE BLOOD COUNT 7.91 K/uL (4.8-10.8)
[2016-08-10 05:52] LABS: INR 1.5 (0.9-1.1); PROTHROMBIN TIME (PATIENT) 16.7 SECONDS (9.0-12.0)
[2016-08-10 06:20] LABS: BUN/CREATININE RATIO 13.2 (10-20); CALCIUM 8.4 mg/dl (8.5-10.1); CREATININE 1.5 mg/dl (0.60-1.40); POTASSIUM 4.4 mmol/L (3.5-5.1)
[2016-08-10] MEDS: INSULIN ASPART 100 UNITS/ML 3 ML PEN SC SCH ×4 (08:22→21:32)
[2016-08-10] MEDS: LACTOBACILLUS ACIDOPHILUS (FLORANEX) TAB PO SCH ×3 (08:23→17:45)
[2016-08-10] MEDS: SERTRALINE HCL 50 MG TAB PO SCH (08:24)
[2016-08-10] MEDS: PANTOprazole SOD 40 MG TAB PO SCH (08:24)
[2016-08-10] MEDS: METOPROLOL SUCC 25MG EXT REL TAB PO SCH (08:24)
[2016-08-10] MEDS: CARBAMIDE PEROXIDE 6.5% 15 ML BTL OT SCH (08:24)
[2016-08-10] MEDS ORDERED: LIDOCAINE HCL 1% 20 ML VIAL ONE (09:00)
--- NOTE | 2016-08-10 09:00 | Pulmonology Progress Note ---
Pulmonary Progress Note Date of Service Aug 10, 2016. Attending Mendez Stuart Subjective Patient is doing well today no active complaints. Patient has actually been able to increase mucous clearance with increasing/decreasing respiratory effort. Objective Patient with no acute overnight events has been able to increase his mucous clearance with no active respiratory complaints. Physical exam: Vital signs reviewed Pulmonary: Decreased breath sounds bilaterally left greater than right minimal rhonchi appreciated Cardiac: S1-S2 regular rate rhythm no murmurs rubs or gallops Extremity: No edema dependent regions Previous pathological, microbiological reports and studies reviewed. From previous uteroscope from 2016 atypical/anaerobic organism was discovered. Assessment & Plan 81-year-old gentleman with multilobar pneumonia bilateral pleural effusions and pulmonary nodule as well as sleep apnea: #1 pneumonia: Patient with multilobar necrotizing pneumonia has been treated with Zosyn for last 5 days. Clinically is responded well and at this time I will switch him to Augmentin as he hadn't atypical/anaerobic organism seen on previous bronchoscopy. #2 pleural effusions: Left greater than right both appeared to be loculated with signs of traction bronchiectasis. Have discussed case with thoracic surgery. Thoracentesis would be indicated at this time for evaluation of loculation and possible response to IPC with MIST II protocol or possible requirement for future decortication. #3 pulmonary nodule: At this time patient has been evaluated with EBUS/ENB no further current workup we'll discuss as a outpatient. #4 CHAVEZ: Continue noninvasive ventilatory support Data Medications: Current Inpatient Medications Medications (Trade) Dose Ordered Sig/Susan Route Start Time Stop Time Status Last Admin Dose Admin Ioversol (Optiray 320) 125 ml UD PRN IV 08/06/16 11:15 08/10/16 11:14 Acetaminophen (Tylenol Tab) 650 mg Q4H PRN PO 08/06/16 14:45 09/05/16 14:44 Ondansetron HCl (Zofran Inj) 4 mg Q6H PRN IV 08/06/16 14:45 09/05/16 14:44 Miscellaneous Information (Consult Glycemic Management Pharmacy) 1 ea UD PRN N/A 08/06/16 14:53 09/05/16 14:52 Albuterol (Ventolin Hfa Inhaler) 2 puffs Q4 PRN INH 08/06/16 15:15 09/05/16 15:14 Carbamide Peroxide (Earwax Removal Soln) 5 drops BID OT 08/06/16 21:00 08/10/16 20:59 08/10/16 08:24 5 DROPS Insulin Aspart (novoLOG ASPART) SLIDING SCALE ACHS SC 08/06/16 16:00 09/05/16 15:59 08/10/16 08:22 8 UNITS Metoprolol Succinate (Toprol Xl Tab) 25 mg DAILY PO 08/07/16 09:00 09/06/16 08:59 08/10/16 08:24 25 MG Nitroglycerin (Nitrostat Tab) 0.4 mg UD PRN UT 08/06/16 15:15 09/05/16 15:14 Pantoprazole Sodium (Protonix Tab) 40 mg DAILY PO 08/07/16 09:00 09/06/16 08:59 08/10/16 08:24 40 MG Sertraline HCl (Zoloft Tab) 25 mg DAILY PO 08/07/16 09:00 09/06/16 08:59 08/10/16 08:24 25 MG Tamsulosin HCl (Flomax Cap) 0.4 mg Q2D@2100 PO 08/07/16 21:00 09/06/16 20:59 08/09/16 21:25 0.4 MG Lactobacillus Acidophilus (Floranex Tab) 4 tab TIDM PO 08/06/16 16:45 09/05/16 17:59 08/10/16 08:23 4 TAB Warfarin Sodium (Coumadin Tab) 2.5 mg DAILY@1600 PO 08/06/16 16:00 09/05/16 15:59 Future Hold Piperacillin Sod/ Tazobactam Sod (Consult) 1 ea UD PRN N/A 08/06/16 18:35 09/05/16 18:34 Ipratropium [place] (Atrovent 0.02% 0.5MG/2.5ML Neb) 0.5 mg Q6R INH 08/06/16 21:00 09/05/16 20:59 08/10/16 07:20 0.5 MG Levalbuterol 1.25 mg 1.25 mg Q6R INH 08/06/16 21:00 09/05/16 20:59 08/10/16 07:20 1.25 MG Piperacillin Sod/ Tazobactam Sod/ Dextrose (Zosyn Iv/D5 100ml) 115 ml @ 28.75 mls/ hr Q8@0000,0800,1600 IV 08/07/16 00:00 08/14/16 00:00 08/10/16 08:24 28.75 MLS/HR Insulin Glargine (Lantus Solostar Pen) 21 unit HS SC 08/09/16 21:00 09/08/16 20:59 08/09/16 21:27 21 UNIT I & O: 24-Hour Column 08/10/16 08:00 Intake Total 1088 ml Output Total 1150 ml Balance -62 ml Vital Signs: Date Time Temp Pulse Resp B/P Pulse Ox O2 Delivery O2 Flow Rate FiO2 08/10/16 07:20 95 16 94 Room Air 08/10/16 07:15 36.8 71 18 101/65 95 18 08/10/16 04:00 92 CPAP 08/10/16 02:57 36.4 78 20 114/68 92 Room Air 08/10/16 01:47 85 93 21 08/10/16 01:46 85 16 93 BiPAP/CPAP 21 08/10/16 00:00 95 CPAP 08/09/16 23:27 36.6 92 18 123/68 95 CPAP 08/09/16 23:08 80 93 08/09/16 20:00 94 Room Air 08/09/16 19:45 37.0 76 16 108/69 94 Room Air 08/09/16 19:13 91 16 92 Room Air 08/09/16 16:25 96 Room Air 08/09/16 15:49 37.0 94 20 131/70 96 Room Air 08/09/16 14:27 80 16 95 Room Air 08/09/16 12:00 94 Room Air 3.0 08/09/16 11:31 36.7 108 16 106/66 94 Room Air Laboratory Results: Last 24 Hours Test 08/09/16 11:01 08/09/16 16:14 08/09/16 20:27 08/10/16 05:12 Bedside Glucose 245 mg/dl 116 mg/dl 147 mg/dl White Blood Count 7.91 K/uL Red Blood Count 4.44 M/uL Hemoglobin 13.3 g/dL Hematocrit 41.0 % Mean Corpuscular Volume 92.3 fL Mean Corpuscular Hemoglobin 30.0 pg Mean Corpuscular Hemoglobin Concent 32.4 g/dl RDW Standard Deviation 48.1 fL RDW Coefficient of Variation 14.2 % Platelet Count 291 K/uL Mean Platelet Volume 10.0 fL Prothrombin Time 16.7 SECONDS Prothromb Time International Ratio 1.5 Sodium Level 141 mmol/L Potassium Level 4.4 mmol/L Chloride Level 102 mmol/L Carbon Dioxide Level 28 mmol/L Anion Gap 11.0 mmol/L Blood Urea Nitrogen 20 mg/dl Creatinine 1.50 mg/dl Est Creatinine Clear Calc Drug Dose 44.9 ml/min Estimated GFR () 49.9 Estimated GFR (Non- 43.0 BUN/Creatinine Ratio 13.2 Random Glucose 168 mg/dl Calcium Level 8.4 mg/dl Test 08/10/16 06:40 Bedside Glucose 160 mg/dl
[2016-08-10 09:33] LABS: LEGIONELLA ANTIGEN NOT DETECTED
--- NOTE | 2016-08-10 09:59 | DIAGNOSTIC IMAGING REPORT ---
CHEST ONE VIEW PORTABLE CLINICAL HISTORY: left thoracentesis postprocedural evaluation COMPARISON STUDY: 07/30/2016 FINDINGS: Diminished pleural effusion left hemithorax. No postprocedural pneumothorax. Right lung remains clear. IMPRESSION: No evidence for postprocedural pneumothorax Electronically signed by: Galindo Bryant M.D. 08/10/2016 9:58 AM Dictated Date/Time: 08/10/2016 9:53 AM
[2016-08-10 10:27] LABS: PLEURAL FLUID TOTAL PROTEIN 3.2 g/dl
[2016-08-10 10:28] LABS: PLEURAL FLUID APPEARANCE HAZY; PLEURAL FLUID COLOR YELLOW; PLEURAL FLUID MONONUC RELAT 96.1 %; PLEURAL FLUID POLYNUC 3.9 %; PLEURAL FLUID SOURCE LEFT LUNG; PLEURAL FLUID WBC (A) 1664 /uL
[2016-08-10] MEDS: AMOXICILLIN/CLAVULANATE TAB 875 MG TAB PO SCH ×2 (10:58→17:45)
[2016-08-10] MEDS ORDERED: AMOX1TAB43 PO (11:04)
--- NOTE | 2016-08-10 11:12 | Discharge Instructions ---
Discharge Instructions Admission Reason for Admission: Pleural Effusion On Left, Pneumonia Discharge Discharge Diagnosis / Problem: Left pleural effusion. Pneumonia. Discharge Goals Goal(s): Improve disease control, Therapeutic intervention Activity Recommendations Activity Limitations: resume your previous activity . Instructions / Follow-Up Instructions / Follow-Up Please follow up with Family Medicine Dr. Mendez on August 17 at 12:50pm. Please keep your scheduled follow up appointment with Dr. Zavala on August 20. Please schedule a follow up appointment with your Urologist to discuss the episode of hematuria. You will be contacted with a follow up appointment with the anticoagulation clinic. Current Hospital Diet Patient's current hospital diet: Diabetes Type 2 Diet, AHA Diet (Heart Healthy) Discharge Diet Recommended Diet: AHA Diet (Heart Healthy) Pending Studies Studies pending at discharge: yes List of pending studies: Pleural effusion studies Laboratory Results Hemoglobin A1c Test 08/07/16 05:50 Range/Units Estimated Average Glucose 189 mg/dl Hemoglobin A1c 8.2 H 4.5-5.6 % Medical Emergencies . Who to Call and When: Medical Emergencies: If at any time you feel your situation is an emergency, please call 911 immediately. . Non-Emergent Contact Non-Emergency issues call your: Primary Care Provider . . "Provider Documentation" section prepared by Anjali Melara. VTE Core Measure Inpt VTE Proph given/why not?: Warfarin (Coumadin)
--- NOTE | 2016-08-10 11:15 | Progress Note ---
Medicine Progress Note Date & Time of Visit: Aug 10, 2016 at 11:13. Subjective Patient seen and examined. Had thoracentesis today without complication. Feeling "great". Objective Last 8 Hrs Date Time Temp Pulse Resp B/P Pulse Ox O2 Delivery O2 Flow Rate FiO2 08/10/16 08:00 Room Air 08/10/16 07:20 95 16 94 Room Air 08/10/16 07:15 36.8 71 18 101/65 95 18 08/10/16 04:00 92 CPAP Physical Exam: General-awake; alert; NAD Eyes-EOMI; no scleral icterus Neck-no stridor; trachea midline Lungs-scattered rhonchi Heart-irregularly irregular; no m/r/g Abdomen-soft; NTND; nBS Extremities-no c/c/e; no deformity Neuro-no gross focal deficits Laboratory Results: Last 24 Hours Test 08/09/16 16:14 08/09/16 20:27 08/10/16 00:00 08/10/16 05:12 Bedside Glucose 116 mg/dl 147 mg/dl Pleural Fluid pH 7.35 White Blood Count 7.91 K/uL Red Blood Count 4.44 M/uL Hemoglobin 13.3 g/dL Hematocrit 41.0 % Mean Corpuscular Volume 92.3 fL Mean Corpuscular Hemoglobin 30.0 pg Mean Corpuscular Hemoglobin Concent 32.4 g/dl RDW Standard Deviation 48.1 fL RDW Coefficient of Variation 14.2 % Platelet Count 291 K/uL Mean Platelet Volume 10.0 fL Prothrombin Time 16.7 SECONDS Prothromb Time International Ratio 1.5 Sodium Level 141 mmol/L Potassium Level 4.4 mmol/L Chloride Level 102 mmol/L Carbon Dioxide Level 28 mmol/L Anion Gap 11.0 mmol/L Blood Urea Nitrogen 20 mg/dl Creatinine 1.50 mg/dl Est Creatinine Clear Calc Drug Dose 44.9 ml/min Estimated GFR () 49.9 Estimated GFR (Non- 43.0 BUN/Creatinine Ratio 13.2 Random Glucose 168 mg/dl Calcium Level 8.4 mg/dl Test 08/10/16 06:40 08/10/16 08:57 Bedside Glucose 160 mg/dl Pleural Fluid Source LEFT LUNG Pleural Fluid Color YELLOW Pleural Fluid Appearance HAZY Pleural Fluid WBC 1664 /uL Pleural Fluid RBC 5000 /uL Pleural Fluid Polynuclear WBCs % 3.9 % Pleural Fluid Mononuclear WBCs % 96.1 % Pleural Fluid Total Protein 3.2 g/dl Pleural Fluid LDH 170 IU Pleural Fluid Glucose 163 mg/dl Pleural Fluid Amylase 45 U/L Date/Time Source Procedure Growth Status 08/10/16 08:57 Pleural Fluid (Thoracentesis) Left Fungal Smear Pending Received 08/10/16 08:57 Pleural Fluid (Thoracentesis) Left Fungal Culture Pending Received 08/10/16 08:57 Pleural Fluid (Thoracentesis) Left Acid Fast Stain Pending Received 08/10/16 08:57 Pleural Fluid (Thoracentesis) Left Mycobacterial Culture Pending Received 08/10/16 08:57 Pleural Fluid (Thoracentesis) Left Gram Stain Pending Received 08/10/16 08:57 Pleural Fluid (Thoracentesis) Left Bacterial Culture Pending Received Assessment & Plan PNEUMONIA Outpatient CXR on 07/30/16 showed LLL opacity and increasing hazy opacity bilateral lungs, increased left pleural effusion Failed outpatient treatment with doxycycline started on Jul 30 2016 CXR- cardiomegaly with mild pulmonary vascular congestion, advanced emphysema, increasing left pleural effusion with left basilar consolidation CTA chest- neg for PE, + smaller moderate left pleural effusion and small right pleural effusion, septal edema likely cardiogenic pulmonary edema, stable mildly enlarged subcarinal left hilar lymph node, severe emphysema, developing left lower lobe and lingular airspace opacities consistent with a pneumonia, although asymmetric pulmonary edema could appear similar Pulmonary consulted Received Zosyn (start date 08/07/16); changed to Augmentin for 5 more days Blood cultures ngtd Sputum cultures with light normal abelardo and negative for acid fast bacilli Speech evaluation to r/o possible underlying aspiration WORSENING LEFT PLEURAL EFFUSION with LLL MASS Following with Dr. Zavala Thoracentesis today; pleural effusion studies pending PET scan 04/28/16 showed borderline below threshold nonspecific FDG uptake of 8 mm nodule, small L pleural effusion and LLL consolidation with mild nonspecific FDG update, subcarinal and bilateral hilar FDG uptake S/p bronchoscopy May 14 2016 with neg lymph node and lung biopsies Recent echo 06/30/16- The examination is adequate to evaluate the referral indication. Study was performed with the patient in atrial fibrillation. The left ventricular cavity size is normal. The LV wall thickness is borderline increased (concentric). Calculated LV ejection Fraction = 45-50% (biplane method of discs). There is basal and mid inferior wall and inferior septal hypokinesis. The right ventricular cavity size is enlarged (basal dimension > 4.2 cm RV apical 4 chamber view). The left atrium is severely enlarged (>48 ml/m^2,). The right atrium is moderately enlarged. The estimated pulmonary artery systolic pressure is 5055mm Hg. Compared to previous study dated 02/18/2015, left ventricular ejection fraction is stable. Left atrial size is increased. Pulmonary hypertension is now present. COPD Does not seem to be in exacerbation PRN inhaler Nebulizers DM TYPE 2 A1c 8.2 Hold glimepiride Continue insulin regimen Consulted pharmacy for glycemic control ATRIAL FIBRILLATION Rate controlled Continue beta aleksandr Resume Coumadin on discharge HYPERTENSION BP is stable Continue metoprolol CAD S/P CABG Stable, denies chest pain Continue beta aleksandr Per cardiology note, not on ROYA-I due to hypotension Not on statin currently-had muscle reaction to simvastatin in the past SLEEP APNEA Has been noncompliant for years- was claustrophobic with CPAP Supposed to start BiPAP now but awaiting supplies CPAP while inpatient CKD STAGE III Cr is at baseline Monitor renal function Avoid nephrotoxins DEPRESSION Continue sertraline BPH Continue Flomax DVT PROPHYLAXIS Resumed Coumadin on discharge CODE STATUS DNR Anticipate discharge tomorrow. Consultants: Pulmonary CT surgery Procedures: LE Doppler There is no sonographic evidence of deep venous thrombosis identified in the left lower extremity. CT chest 1. Smaller moderate left pleural effusion and small right pleural effusion. 2. Septal edema, likely secondary to cardiogenic pulmonary edema 3. Stable mildly enlarged subcarinal left hilar lymph node 4. Severe emphysema 5. Developing left lower lobe and lingular airspace opacities consistent with a pneumonia, although asymmetric pulmonary edema could appear similar 6. No CT evidence of acute pulmonary embolism Current Inpatient Medications: Current Inpatient Medications Medications (Trade) Dose Ordered Sig/Susan Route Start Time Stop Time Status Last Admin Dose Admin Ioversol (Optiray 320) 125 ml UD PRN IV 08/06/16 11:15 08/10/16 11:14 Acetaminophen (Tylenol Tab) 650 mg Q4H PRN PO 08/06/16 14:45 09/05/16 14:44 Ondansetron HCl (Zofran Inj) 4 mg Q6H PRN IV 08/06/16 14:45 09/05/16 14:44 Miscellaneous Information (Consult Glycemic Management Pharmacy) 1 ea UD PRN N/A 08/06/16 14:53 09/05/16 14:52 Albuterol (Ventolin Hfa Inhaler) 2 puffs Q4 PRN INH 08/06/16 15:15 09/05/16 15:14 Carbamide Peroxide (Earwax Removal Soln) 5 drops BID OT 08/06/16 21:00 08/10/16 20:59 08/10/16 08:24 5 DROPS Insulin Aspart (novoLOG ASPART) SLIDING SCALE ACHS SC 08/06/16 16:00 09/05/16 15:59 08/10/16 08:22 8 UNITS Metoprolol Succinate (Toprol Xl Tab) 25 mg DAILY PO 08/07/16 09:00 09/06/16 08:59 08/10/16 08:24 25 MG Nitroglycerin (Nitrostat Tab) 0.4 mg UD PRN UT 08/06/16 15:15 09/05/16 15:14 Pantoprazole Sodium (Protonix Tab) 40 mg DAILY PO 08/07/16 09:00 09/06/16 08:59 08/10/16 08:24 40 MG Sertraline HCl (Zoloft Tab) 25 mg DAILY PO 08/07/16 09:00 09/06/16 08:59 08/10/16 08:24 25 MG Tamsulosin HCl (Flomax Cap) 0.4 mg Q2D@2100 PO 08/07/16 21:00 09/06/16 20:59 08/09/16 21:25 0.4 MG Lactobacillus Acidophilus (Floranex Tab) 4 tab TIDM PO 08/06/16 16:45 09/05/16 17:59 08/10/16 08:23 4 TAB Warfarin Sodium (Coumadin Tab) 2.5 mg DAILY@1600 PO 08/06/16 16:00 09/05/16 15:59 Future Hold Ipratropium Excelsior (Atrovent 0.02% 0.5MG/2.5ML Neb) 0.5 mg Q6R INH 08/06/16 21:00 09/05/16 20:59 08/10/16 07:20 0.5 MG Levalbuterol (Xopenex 1.25MG/ 0.5ML Neb) 1.25 mg Q6R INH 08/06/16 21:00 09/05/16 20:59 08/10/16 07:20 1.25 MG Insulin Glargine (Lantus Solostar Pen) 21 unit HS SC 08/09/16 21:00 09/08/16 20:59 08/09/16 21:27 21 UNIT Amoxicillin/ Clavulanate Potassium (Augmentin Tab) 875 mg BIDM PO 08/10/16 10:00 08/19/16 09:59 08/10/16 10:58 875 MG
--- NOTE | 2016-08-10 14:17 | DIAGNOSTIC IMAGING REPORT ---
VIDEO SWALLOW HISTORY: Pneumonia. r/o aspiration; please schedule per order TECHNIQUE: Video fluoroscopic evaluation of swallowing was performed in the AP and lateral projections by the speech pathology staff. The patient is fed nectar-thick and thin liquid barium, a barium coated wafer, and barium pudding. FLUOROSCOPY TIME: 2.3 minutes. A cine loop was submitted. COMPARISON STUDY: None. FINDINGS: There is normal hyoid excursion and epiglottic deflection. Multiple episodes of penetration without aspiration. There is moderate vallecular residue with the barium cracker. There is mild to moderate esophageal dysmotility. IMPRESSION: 1. No aspiration identified. Moderate vallecular residue the barium cracker. Mild to moderate esophageal dysmotility. 2. Please see the speech pathologist report for detailed findings and recommendations. Electronically signed by: Evan Good M.D. 08/10/2016 2:16 PM Dictated Date/Time: 08/10/2016 2:13 PM
--- NOTE | 2016-08-10 18:42 | SURGERY PROGRESS NOTE ---
DATE: 08/10/2016 SUBJECTIVE: He feels much better. I reviewed his CT scan with Dr. Agustin Stuart. We feel he probably is suffering from some sort of inflammatory or infectious processes. We did grow out an anaerobe from our electromagnetic navigational bronchoscopy specimens a few months ago. At any rate, he feels much better. He does have fluid which appears to be loculated on his left side. I discussed this in detail with Dr. Stuart. Options include a thoracentesis, a PleurX catheter with a MIST-2 protocol or a thoracoscopic decortication. We elected to proceed with a thoracentesis and I will do that this morning. Mr. Goode feels much better and he is quite happy that we are going to drain some fluid.
--- NOTE | 2016-08-10 18:55 | OPERATIVE REPORT ---
DATE OF OPERATION: 08/10/2016 PROCEDURE: Left thoracentesis under ultrasound guidance SURGEON: Dr. Zavala. CARD ASSEMBLER: Jose Bahena. ANESTHESIA: Local. DESCRIPTION OF PROCEDURE: With the patient in the seated position at the bedside his left chest was evaluated using ultrasound and we saw a window to access this fluid. This was about the eighth interspace closer to the mid axillary line. He was prepped and draped in the usual sterile fashion. After appropriate timeout had been called a 25 gauge needle was used to anesthetize the skin and subcutaneous tissues and a larger needle was used to anesthetize the deeper tissues and pleura. We got free flowing fluid out. A guidewire was inserted through the needle as soon as we got fluid and the needle removed. Introducer sheath was used to gently dilate the tract and a triple lumen catheter was slid over the guidewire and the guidewire removed. A triple lumen catheter was attached to suction and a bit over 400 mL of serous fluid was drained. He tolerated it well and his x-ray looked better after we finished. We will allow him to be discharged today. I will see him back in the office in 2 weeks with a chest x-ray. I attest to the content of the Intraoperative Record and any orders documented therein. Any exceptio ns are noted below.
[2016-08-10] MEDS: INSULIN GLARGINE SOLOSTAR 100 UNITS/ML 3 ML PEN SC SCH (21:32)
[2016-08-11] VITALS: O2SAT 92
[2016-08-11 03:00] VITALS: BP 119/72; PULSE 84; TEMP 36.4; O2SAT 94
[2016-08-11] MEDS: LEVALBUTEROL 1.25MG/0.5ML NEB INH SCH ×2 (03:00→07:11)
[2016-08-11] MEDS: IPRATROPIUM BROMIDE NEB SOLN 0.02% 2.5 ML VIAL INH SCH ×2 (03:00→07:11)
[2016-08-11 04:00] VITALS: O2SAT 98
[2016-08-11 07:10] VITALS: PULSE 92; O2SAT 92
[2016-08-11 07:48] VITALS: BP 112/70; PULSE 86; TEMP 36.8; O2SAT 98
--- NOTE | 2016-08-11 08:54 | SURGERY PROGRESS NOTE ---
DATE: 08/11/2016 Mr. Goode is seen today. He looks very good. He states he is walking better in the hallway. He coughed up some sputum after his thoracentesis. His x-ray looked better. In reviewing his LDH, he does have an exudate. His serum LDH was 158 and the fluid LDH is 170. It is also unusual, his glucose is 163. The pH was 7.35. As he looks better, I would not do anything different except continue to treat him as he already is. I will see him back in the office in 2 weeks with a chest x-ray, but of course he is to call if he runs into any problems.
[2016-08-11] MEDS: METOPROLOL SUCC 25MG EXT REL TAB PO SCH (08:59)
[2016-08-11] MEDS: SERTRALINE HCL 50 MG TAB PO SCH (08:59)
[2016-08-11] MEDS: AMOXICILLIN/CLAVULANATE TAB 875 MG TAB PO SCH (08:59)
[2016-08-11] MEDS: INSULIN ASPART 100 UNITS/ML 3 ML PEN SC SCH (08:59)
[2016-08-11] MEDS: PANTOprazole SOD 40 MG TAB PO SCH (08:59)
[2016-08-11] MEDS: LACTOBACILLUS ACIDOPHILUS (FLORANEX) TAB PO SCH (08:59)
--- NOTE | 2016-08-11 08:59 | Progress Note ---
Internal Med Progress Note Date of Service: Aug 11, 2016. Provider Documentation: SUBJECTIVE: Patient is seen and examined at bedside. He feels much better after the thoracentesis yesterday. Denies any chest pain, SOB, cough, fever, chills. OBJECTIVE: Vital Signs-as noted below Physical Exam: General Appearance:Moderately built and nourished, no apparent distress Head: normocephalic, Atraumatic Eyes: normal inspection, EOMI, PERRLA Neck: supple, no JVD, Trachea midline Respiratory/Chest: Decreased breath sounds, minimal creps present. No accessory muscle use Cardiovascular: Irregularly irregular, No murmur Abdomen/GI:Soft, Non tender, Bowel sounds present Extremities/Musculoskelatal:normal inspection, no edema Neurologic/Psych:AAOX3, grossly no focal neurological deficits Skin: normal color, warm Lab data as noted below. ASSESSMENT & PLAN: PNEUMONIA Outpatient CXR on 07/30/16 showed LLL opacity and increasing hazy opacity bilateral lungs, increased left pleural effusion Failed outpatient treatment with doxycycline started on Jul 30 2016 CXR- cardiomegaly with mild pulmonary vascular congestion, advanced emphysema, increasing left pleural effusion with left basilar consolidation CTA chest- neg for PE, + smaller moderate left pleural effusion and small right pleural effusion, septal edema likely cardiogenic pulmonary edema, stable mildly enlarged subcarinal left hilar lymph node, severe emphysema, developing left lower lobe and lingular airspace opacities consistent with a pneumonia, although asymmetric pulmonary edema could appear similar Pulmonary on board-Needs follow up in 2 weeks as outpatient Received Zosyn (start date 08/07/16); changed to Augmentin for 5 more days Blood cultures negative to date Sputum cultures with light normal abelardo and negative for acid fast bacilli Speech evaluation to r/o possible underlying aspiration: No aspiration during study Recommendations: 1.Moist regular diet 2.Remain upright 30-minutes after meals and keep head of bed elevated at least 30-degrees at all times--even for sleeping. 3.No plan for RESPIRATORY DIRECTOR f/u at this time. Consider GI f/u re: esophageal dysfunction. WORSENING LEFT PLEURAL EFFUSION with LLL MASS S/P Left Thoracentesis Following with Dr. Zavala Patient had Thoracentesis yesterday; pleural effusion studies currently pending PET scan 04/28/16 showed borderline below threshold nonspecific FDG uptake of 8 mm nodule, small L pleural effusion and LLL consolidation with mild nonspecific FDG update, subcarinal and bilateral hilar FDG uptake S/p bronchoscopy May 14 2016 with neg lymph node and lung biopsies Recent echo 06/30/16- The examination is adequate to evaluate the referral indication. Study was performed with the patient in atrial fibrillation. The left ventricular cavity size is normal. The LV wall thickness is borderline increased (concentric). Calculated LV ejection Fraction = 45-50% (biplane method of discs). There is basal and mid inferior wall and inferior septal hypokinesis. The right ventricular cavity size is enlarged (basal dimension > 4.2 cm RV apical 4 chamber view). The left atrium is severely enlarged (>48 ml/m^2,). The right atrium is moderately enlarged. The estimated pulmonary artery systolic pressure is 5055mm Hg. Compared to previous study dated 02/18/2015, left ventricular ejection fraction is stable. Left atrial size is increased. Pulmonary hypertension is now present. COPD Does not seem to be in exacerbation PRN inhaler Nebulizers DM TYPE 2 A1c 8.2 Hold glimepiride Continue insulin regimen Consulted pharmacy for glycemic control ATRIAL FIBRILLATION Rate controlled Continue beta aleksandr Resume Coumadin on discharge HYPERTENSION BP is stable Continue metoprolol CAD S/P CABG Stable, denies chest pain Continue beta aleksandr Per cardiology note, not on ROYA-I due to hypotension Not on statin currently-had muscle reaction to simvastatin in the past SLEEP APNEA Has been noncompliant for years- was claustrophobic with CPAP Supposed to start BiPAP now but awaiting supplies CPAP while inpatient CKD STAGE III Cr is at baseline Monitor renal function Avoid nephrotoxins DEPRESSION Continue sertraline BPH Continue Flomax DVT PROPHYLAXIS Resumed Coumadin on discharge CODE STATUS DNR Anticipate discharge today. Consultants: Pulmonary CT surgery Procedures: LE Doppler There is no sonographic evidence of deep venous thrombosis identified in the left lower extremity. CT chest 1. Smaller moderate left pleural effusion and small right pleural effusion. 2. Septal edema, likely secondary to cardiogenic pulmonary edema 3. Stable mildly enlarged subcarinal left hilar lymph node 4. Severe emphysema 5. Developing left lower lobe and lingular airspace opacities consistent with a pneumonia, although asymmetric pulmonary edema could appear similar 6. No CT evidence of acute pulmonary embolism Left Thoracentesis Vital Signs: Date Time Temp Pulse Resp B/P Pulse Ox O2 Delivery O2 Flow Rate FiO2 08/11/16 07:54 Room Air 2/1/17 07:48 36.8 86 18 112/70 98 Room Air 08/11/16 07:10 92 16 92 Room Air 08/11/16 04:00 98 Room Air 08/11/16 03:00 36.4 84 17 119/72 94 Room Air 08/11/16 00:00 92 Room Air 08/10/16 23:09 36.9 85 20 115/62 92 Room Air 08/10/16 20:00 96 Room Air 08/10/16 19:46 100 16 96 Room Air 08/10/16 19:25 36.9 85 18 110/59 92 Room Air 08/10/16 15:57 Room Air 08/10/16 15:22 36.8 84 18 111/69 94 08/10/16 14:08 101 16 95 Room Air 08/10/16 12:00 98 Room Air 08/10/16 11:29 36.8 100 18 108/63 98 100 Lab Results: Results Past 24 Hours Test 08/10/16 08:57 08/10/16 11:07 08/10/16 16:13 08/10/16 20:07 Range/Units Pleural Fluid Source LEFT LUNG Pleural Fluid Color YELLOW Pleural Fluid Appearance HAZY Pleural Fluid WBC 1664 /uL Pleural Fluid RBC 5000 /uL Pleural Fluid Polynuclear WBCs % 3.9 % Pleural Fluid Mononuclear WBCs % 96.1 % Pleural Fluid Total Protein 3.2 g/dl Pleural Fluid LDH 170 IU Pleural Fluid Glucose 163 mg/dl Pleural Fluid Amylase 45 U/L Bedside Glucose 299 144 193 70-99 mg/dl Test 08/11/16 06:34 Range/Units Bedside Glucose 163 70-99 mg/dl Microbiology Results 08/10/16 Fungal Smear - Final, Resulted 08/10/16 Fungal Culture, Resulted Pending 08/10/16 Acid Fast Stain, Received Pending 08/10/16 Mycobacterial Culture, Received Pending 08/10/16 Gram Stain - Final, Resulted 08/10/16 Bacterial Culture, Resulted Pending
--- NOTE | 2016-08-11 09:14 | Discharge Summary ---
Discharge Summary Admission Date: Aug 06, 2016 at 13:58 Discharge Date: Aug 11, 2016 Discharge Disposition: Home Principal Diagnosis: Left pleural effusion. Pneumonia. Procedures: LE Doppler There is no sonographic evidence of deep venous thrombosis identified in the left lower extremity. CT chest 1. Smaller moderate left pleural effusion and small right pleural effusion. 2. Septal edema, likely secondary to cardiogenic pulmonary edema 3. Stable mildly enlarged subcarinal left hilar lymph node 4. Severe emphysema 5. Developing left lower lobe and lingular airspace opacities consistent with a pneumonia, although asymmetric pulmonary edema could appear similar 6. No CT evidence of acute pulmonary embolism Left Thoracentesis: Pleural fluid studies: pending Swallow eval: 1. No aspiration identified. Moderate vallecular residue the barium cracker. Mild to moderate esophageal dysmotility. 2. Please see the speech pathologist report for detailed findings and recommendations. Consultations: Pulmonary, CT surgery Pending Studies/Follow-Up: Pleural fluid studies Medication Reconciliation New Medications: Amoxicillin & Pot Clavulanate (Amoxicillin/Clavulanate P) 1 Tab Tab 875 MG PO BIDM for 5 Days, #10 TAB Continued Medications: Albuterol (Ventolin Hfa) 60 Puffs/5400 Mcg Aers 2 PUFFS INH Q4 PRN for SOB/Wheezing Carbamide Peroxide (Otic) (Debrox) 6.5 % Renetta 5 DROPS OT BID, #15 ML Glimepiride (Glimepiride) 1 Mg Tab 1 MG PO DAILY Insulin Aspart (Novolog) Inj 18 UNITS SC QPM, 0 Refills ADMINISTER WITH EVENING MEAL. Insulin Glargine (Lantus) Vial 18 UNITS SC HS, VIAL Meclizine Hcl (Meclizine Hcl) 25 Mg Tab 1 TAB PO TID PRN for Dizziness or Vertigo for 10 Days, #30 TAB Metoprolol Succinate (Toprol Xl) 50 Mg Tab 25 MG PO DAILY, #30 TAB Nitroglycerin (Nitrostat) 0.4 Mg/1 Tab Subl 1 TAB UT UD PRN for Chest Pain Pantoprazole (Protonix) 40 Mg Tab 40 MG PO DAILY, #30 TAB Probiotic Product (Probiotic) 1 Cap Cap 1 CAPSULE PO DAILY Sertraline (Zoloft) 50 Mg Tab 25 MG PO DAILY, TAB Tamsulosin Hcl (Flomax) 0.4 Mg Cap 0.4 MG PO Q2D, CAP Warfarin Sod (Jantoven) 2.5 Mg Tab 2.5 MG PO DAILY Discontinued Medications: Doxycycline Hyclate (Doxycycline Hyclate) 100 Mg Cap 100 MG PO BID Admission Information HPI (per Admitting provider): This is an 81 year old male with PMH of COPD, LLL mass, prior smoker, CAD, atrial fibrillation on Coumadin, DM type 2, and other problems listed below who presents to the ED with SOB. Patient follows with Dr. Mendez for primary care and Dr. Zavala for thoracic surgery. Patient has been intermittently ill with respiratory complaints since March 2016. He was treated with Levaquin in April with improvement. He underwent bronchoscopy on May 14 2016 with benign lung and lymph node biopsies. states he had URI symptoms in June which self resolved. Then two weeks ago he developed fever, up to 102 F, productive cough, and worsening SOB. He tried taking OTC cold medicine without improvement. He was seen by Thu CA in clinic on 07/30/16, had outpatient CXR showing increasing LLL opacity, increased L pleural effusion, increased hazy opacities of both lungs. He was started on doxycycline which has been taking with no improvement. Patient notes he had blood in the sputum previously, but in past few days only has yellow sputum. The SOB occurs with ambulating across the room. There is also orthopnea requiring him to sleep upright in chair. He also notes fatigue, increased abdominal girth, edema x 2 weeks of L> R lower extremities. Weight has been stable. Blood sugars have been low at home. He denies chills, CORONA, rhinorrhea, sore throat, chest pain, abdominal pain, N/V/D, change in appetite. He is diagnosed with sleep apnea but had been noncompliant with CPAP for several years as it made him claustrophobic in the past. He is supposed to start on BiPAP but they are awaiting equipment. Physical Exam (per Admitting): General Appearance: WD/WN, no apparent distress, + pertinent finding ( pleasant alert 81 year old male, at bedside) Head: normocephalic, atraumatic Eyes: normal inspection, PERRL, EOMI ENT: hearing grossly normal, pharynx normal, + pertinent finding (bilateral canals occluded with cerumen) Neck: supple, no JVD, trachea midline Respiratory/Chest: normal breath sounds, no respiratory distress, no accessory muscle use, + pertinent finding (trace scattered wheezes, crackles left base) Cardiovascular: regular rate, rhythm, no murmur, normal peripheral pulses Abdomen/GI: normal bowel sounds, non tender, soft Extremities/Musculoskelatal: no calf tenderness, normal capillary refill, + pertinent finding (trace pretibial edema L > R) Neurologic/Psych: alert, normal mood/affect, oriented x 3, + pertinent finding (grossly nonfocal) Skin: normal color, warm/dry Hospital Course PNEUMONIA Outpatient CXR on 07/30/16 showed LLL opacity and increasing hazy opacity bilateral lungs, increased left pleural effusion Failed outpatient treatment with doxycycline started on Jul 30 2016 CXR- cardiomegaly with mild pulmonary vascular congestion, advanced emphysema, increasing left pleural effusion with left basilar consolidation CTA chest- neg for PE, + smaller moderate left pleural effusion and small right pleural effusion, septal edema likely cardiogenic pulmonary edema, stable mildly enlarged subcarinal left hilar lymph node, severe emphysema, developing left lower lobe and lingular airspace opacities consistent with a pneumonia, although asymmetric pulmonary edema could appear similar Pulmonary on board-Needs follow up in 2 weeks as outpatient Received Zosyn (start date 08/07/16); changed to Augmentin for 5 more days Blood cultures negative to date Sputum cultures with light normal abelardo and negative for acid fast bacilli Speech evaluation to r/o possible underlying aspiration: No aspiration during study Recommendations: 1.Moist regular diet 2.Remain upright 30-minutes after meals and keep head of bed elevated at least 30-degrees at all times--even for sleeping. 3.No plan for SPORTS NUTRITIONIST f/u at this time. Consider GI f/u re: esophageal dysfunction. WORSENING LEFT PLEURAL EFFUSION with LLL MASS S/P Left Thoracentesis Following with Dr. Zavala Patient had Thoracentesis yesterday; pleural effusion studies currently pending PET scan 04/28/16 showed borderline below threshold nonspecific FDG uptake of 8 mm nodule, small L pleural effusion and LLL consolidation with mild nonspecific FDG update, subcarinal and bilateral hilar FDG uptake S/p bronchoscopy May 14 2016 with neg lymph node and lung biopsies Recent echo 06/30/16- The examination is adequate to evaluate the referral indication. Study was performed with the patient in atrial fibrillation. The left ventricular cavity size is normal. The LV wall thickness is borderline increased (concentric). Calculated LV ejection Fraction = 45-50% (biplane method of discs). There is basal and mid inferior wall and inferior septal hypokinesis. The right ventricular cavity size is enlarged (basal dimension > 4.2 cm RV apical 4 chamber view). The left atrium is severely enlarged (>48 ml/m^2,). The right atrium is moderately enlarged. The estimated pulmonary artery systolic pressure is 5055mm Hg. Compared to previous study dated 02/18/2015, left ventricular ejection fraction is stable. Left atrial size is increased. Pulmonary hypertension is now present. COPD Does not seem to be in exacerbation PRN inhaler Nebulizers DM TYPE 2 A1c 8.2 Hold glimepiride Continue insulin regimen Consulted pharmacy for glycemic control ATRIAL FIBRILLATION Rate controlled Continue beta aleksandr Resume Coumadin on discharge HYPERTENSION BP is stable Continue metoprolol CAD S/P CABG Stable, denies chest pain Continue beta aleksandr Per cardiology note, not on ROYA-I due to hypotension Not on statin currently-had muscle reaction to simvastatin in the past SLEEP APNEA Has been noncompliant for years- was claustrophobic with CPAP Supposed to start BiPAP now but awaiting supplies CPAP while inpatient CKD STAGE III Cr is at baseline Monitor renal function Avoid nephrotoxins DEPRESSION Continue sertraline BPH Continue Flomax DVT PROPHYLAXIS Resumed Coumadin on discharge CODE STATUS DNR Anticipate discharge today. Consultants: Pulmonary CT surgery Procedures: LE Doppler There is no sonographic evidence of deep venous thrombosis identified in the left lower extremity. CT chest 1. Smaller moderate left pleural effusion and small right pleural effusion. 2. Septal edema, likely secondary to cardiogenic pulmonary edema 3. Stable mildly enlarged subcarinal left hilar lymph node 4. Severe emphysema 5. Developing left lower lobe and lingular airspace opacities consistent with a pneumonia, although asymmetric pulmonary edema could appear similar 6. No CT evidence of acute pulmonary embolism Left Thoracentesis: Pleural fluid studies pending Total time spent on discharge = This includes examination of the patient, discharge planning, medication reconciliation, and communication with other providers. Discharge Instructions Discharge Instructions Admission Reason for Admission: Pleural Effusion On Left, Pneumonia Discharge Discharge Diagnosis / Problem: Left pleural effusion. Pneumonia. Discharge Goals Goal(s): Improve disease control, Therapeutic intervention Activity Recommendations Activity Limitations: resume your previous activity . Instructions / Follow-Up Instructions / Follow-Up Please follow up with Family Medicine Dr. Mendez on August 17 at 12:50pm. Please keep your scheduled follow up appointment with Dr. Zavala on August 20. Please schedule a follow up appointment with your Urologist to discuss the episode of hematuria. You will be contacted with a follow up appointment with the anticoagulation clinic. Current Hospital Diet Patient's current hospital diet: Diabetes Type 2 Diet, AHA Diet (Heart Healthy) Discharge Diet Recommended Diet: AHA Diet (Heart Healthy) Pending Studies Studies pending at discharge: yes List of pending studies: Pleural effusion studies Laboratory Results Hemoglobin A1c Test 08/07/16 05:50 Range/Units Estimated Average Glucose 189 mg/dl Hemoglobin A1c 8.2 H 4.5-5.6 % Medical Emergencies . Who to Call and When: Medical Emergencies: If at any time you feel your situation is an emergency, please call 911 immediately. . Non-Emergent Contact Non-Emergency issues call your: Primary Care Provider . . "Provider Documentation" section prepared by Anjali Melara. VTE Core Measure Inpt VTE Proph given/why not?: Warfarin (Coumadin) Addendum: Sunil Jaime MD on 08/11/16 @ 09:08 Discharge Inst - Addendum Addendum Provider: Addendum Notes were documented by provider Sunil Jaime. Also follow up with your Pulmonary doctor: Dr.Richard Orlando Viramontes on Aug 25 at 8: 00AM (Sunil Jaime MD)
[2016-08-11] MEDS ORDERED: AMOX500T PO (09:53)
[2016-08-11 09:57] VITALS: BP 112/70; PULSE 86; TEMP 36.8; O2SAT 98
[2016-09-13] MEDS ORDERED: OMEG10007 PO (10:00)
[2016-09-13] MEDS ORDERED: METO50TA16 PO (10:02)
[2016-09-13] MEDS ORDERED: PRT/20 PO (10:03)
[2016-09-13] MEDS ORDERED: DUTA0.5C PO (10:06)
[2016-09-13] MEDS ORDERED: NYSTCRE11 TOP (10:07)
[2016-09-14] MEDS ORDERED: CPR500 PO (15:19)
[2016-09-14] MEDS ORDERED: LCTXP PO (15:19)
[2016-09-20] MEDS ORDERED: PHEN-876 PO (08:11)
[2016-09-20] MEDS ORDERED: OXYC-57 PO (08:11)
[2017-01-31] MEDS ORDERED: CHOL1000 PO (15:24)
[2017-01-31] MEDS ORDERED: MULT-506 PO (15:24)
[2017-01-31] MEDS ORDERED: VITAMIN D PO (15:24)
[2017-02-21] MEDS ORDERED: OXYC-57 PO (07:54)
== END 2016-08-11 11:18 | disposition home or self-care (01) | DRG 186 ==
LOC: ENRESERVTM → ENRESERVDT → C.EDB 09:18 → C.2T 13:58
PROVIDERS: ADMIT Hospitalist; ATTEND Internal Medicine
PROC: 0W993ZZ Drainage of Right Pleural Cavity, Percutaneous Approach (ICD-10-PCS; principal; 2016-08-10)
DX: J90 Pleural effusion, not elsewhere classified (principal); J18.9 Pneumonia, unspecified organism; I12.9 Hypertensive chronic kidney disease with stage 1 through stage 4 chronic kidney disease, or unspecified chronic kidney disease; N18.3 Chronic kidney disease, stage 3 (moderate); E11.22 Type 2 diabetes mellitus with diabetic chronic kidney disease; I48.91 Unspecified atrial fibrillation; I27.2 Other secondary pulmonary hypertension; I25.10 Atherosclerotic heart disease of native coronary artery without angina pectoris; F32.9 Major depressive disorder, single episode, unspecified; G47.33 Obstructive sleep apnea (adult) (pediatric); E78.5 Hyperlipidemia, unspecified; J44.9 Chronic obstructive pulmonary disease, unspecified; I51.7 Cardiomegaly; J43.9 Emphysema, unspecified; K44.9 Diaphragmatic hernia without obstruction or gangrene; E04.2 Nontoxic multinodular goiter; Z66 Do not resuscitate; Z79.01 Long term (current) use of anticoagulants; I73.9 Peripheral vascular disease, unspecified; M19.90 Unspecified osteoarthritis, unspecified site; N40.0 Benign prostatic hyperplasia without lower urinary tract symptoms; Z87.891 Personal history of nicotine dependence; Z91.19 Patient's noncompliance with other medical treatment and regimen; I65.29 Occlusion and stenosis of unspecified carotid artery; Z95.1 Presence of aortocoronary bypass graft; Z81.8 Family history of other mental and behavioral disorders; Z80.42 Family history of malignant neoplasm of prostate; Z82.49 Family history of ischemic heart disease and other diseases of the circulatory system; Z85.51 Personal history of malignant neoplasm of bladder

== ENCOUNTER 2016-09-13 21:01 | Inpatient (IN) | payer BC, OTHER ==
[~2016-09-13] VITALS: Ht 185.4 cm; Wt 88.0 kg
[~2016-09-13 21:01] MED LIST changes: -ALBUAER INH; +CARB1SOL8 OT; +DUTA0.5C PO; -ENOX120I SQ; -LEVO1TAB35 PO; +MECL1TAB42 PO; +METO1TAB66 PO; -METO25TA3 PO; +METO50TA16 PO; -MULT-506 PO; +NTRGSL4 UT; +NYSTCRE11 TOP; -PANT20TA PO; +PANT40TA PO; -PRED10TA PO; +PRT/20 PO; +PRVHFAIN INH; -SERT25TA PO; +SERT50TA PO; -WARF5TAB7 PO
[2016-09-13] MEDS ORDERED: SODIUM CHLORIDE 0.9% 500ML 500 ML IV STA (21:26)
[2016-09-13] MEDS ORDERED: DILTIAZEM HCL 5 MG/ML 5 ML VIAL IV STA (21:26)
--- NOTE | 2016-09-13 21:28 | EMERGENCY ROOM VISIT NOTE ---
"History Report prepared by Melvin: Greg Schulz Under the Supervision of: Dr. Steve Han D.O. First contact with patient: 21:18 Chief Complaint: RESPIRATORY PROBLEMS Stated Complaint: SOB Nursing Triage Summary: arrived via amb with als. pts called ems because she felt pt was not acting right. pt arrives alert and oriented hr 158.denies any c/o. History of Present Illness The patient is a 81 year old male who presents to the Emergency Room with complaints of respiratory problems that began last night. The patient gets short of breath with exertion, even with just walking around. Per the , he was short of breath and a cough last night with a fever. This continued into today. He then began staggering today and could not walk. The states that he has been acting strange as well. The patient has a history of a triple heart bypass, pulmonary emboli, and atrial fibrillation. The patient denies any pain, nausea, and vomiting. He states that his left leg is edematous. He takes a blood thinner for his atrial fibrillation. Source of History: patient, spouse/significant other Onset: yesterday Position: other (Respiratory System) Symptom Intensity: moderate Quality: other (shortness of breath) Timing: worsening Modifying Factors (Worsening): exertion Associated Symptoms: + cough, No abdominal pain, No back pain, No chest pain , No headache, No nausea, No neck pain, No vomiting Review of Systems See HPI for pertinent positives & negatives. A total of 10 systems reviewed and were otherwise negative. Past Medical & Surgical Medical Problems: (1) BPH (benign prostatic hypertrophy) (2) Carotid stenosis (3) CKD (chronic kidney disease), stage III (4) COPD (chronic obstructive pulmonary disease) (5) Depression (6) DM type 2 (diabetes mellitus, type 2) (7) Dyslipidemia (8) Emphysema lung (9) Heart disease (10) History of bladder cancer (11) History of tobacco use (12) HTN (hypertension) (13) Kidney stone (14) Lesion of left lung (15) Osteoarthritis (16) Pneumonia (17) PVD (peripheral vascular disease) (18) Sleep apnea (19) Thyroid goiter Surgical Problems: (1) History of cataract surgery (2) Hx of prostate biopsy (3) S/P bronchoscopy (4) S/P CABG x 3 (5) S/P tonsillectomy and adenoidectomy Family History Alzheimer's disease Cancer Diabetes mellitus Gallbladder disease Heart disease Hypertension Parkinson disease Prostate cancer Social History Smoking Status: Former Smoker Alcohol Use: none Drug Use: none Marital Status: Housing Status: lives with family Occupation Status: retired Current/Historical Medications Scheduled Dutasteride (Avodart), 0.5 MG PO QPM Fish Oil (Splendora-3), 1 CAP PO QPM Glimepiride (Glimepiride), 1 MG PO QAM Insulin Aspart (Novolog), 18 UNITS SC QPM Insulin Glargine (Lantus), 18 UNITS SC HS Metoprolol Tartrate (Lopressor) (Lopressor), 75 MG PO QPM Nystatin/Triamcinolone (Mycogen || ), 1 DOSE TOP PRN Pantoprazole (Protonix), 20 MG PO QAM Probiotic Product (Probiotic), 1 CAPSULE PO QPM Sertraline (Zoloft), 25 MG PO QPM Tamsulosin Hcl (Flomax), 0.4 MG PO Q2D Warfarin Sod (Jantoven), 1.25 MG PO QPM Scheduled PRN Carbamide Peroxide (Otic) (Debrox), 5 DROPS OT BID PRN for PRN Meclizine Hcl (Meclizine Hcl), 1 TAB PO TID PRN for Dizziness or Vertigo Nitroglycerin (Nitrostat), 1 TAB UT UD PRN for Chest Pain Allergies Coded Allergies: Simvastatin (Verified Adverse Reaction, Intermediate, muscle cramps, ) Physical Exam Vital Signs Date Time Temp Pulse Resp B/P Pulse Ox O2 Delivery O2 Flow Rate FiO2 09/13/16 23:31 82 18 109/57 95 Room Air 09/13/16 23:05 82 18 117/75 94 Nasal Cannula 2.0 09/13/16 22:16 96 20 108/55 95 Nasal Cannula 2.0 09/13/16 21:53 112 09/13/16 21:45 107 18 135/80 93 Nasal Cannula 2.0 09/13/16 21:24 95 Nasal Cannula 2.0 09/13/16 21:20 20 92 Nasal Cannula 2.0 09/13/16 21:20 20 88 Room Air 09/13/16 21:19 134 09/13/16 21:12 93 Room Air 09/13/16 21:08 36.9 148 20 135/80 93 Room Air 09/13/16 21:08 93 Room Air Physical Exam GENERAL: Patient is listless. Slow to respond to questions, but answers appropriately. EYES: The conjunctivae are clear. The pupils are round and reactive. EARS, NOSE, MOUTH AND THROAT: The nose is without any evidence of any deformity. Mucous membranes are moist tongue is midline NECK: The neck is nontender and supple. RESPIRATORY: Rales at both bases. No tachypnea or conversational dyspnea. CARDIOVASCULAR: Tachycardic and irregular. No definite murmur to auscultation. GASTROINTESTINAL: The abdomen is soft. Bowel sounds are present in all quadrants. Abdomen is nontender. MUSCULOSKELETAL/EXTREMITIES: There is no evidence of gross deformity full range of motion is noted in the hips and shoulders SKIN: There is no obvious evidence of any rash. There are no petechiae, pallor or cyanosis noted. Pedal edema bilaterally. NEUROLOGIC: Patient is oriented to person, place, and situation. Strength is symmetric but diminished bilaterally. Medical Decision & Procedures ER Provider Diagnostic Interpretation: Radiology results as stated below per my review and radiologist interpretation: CT SCAN OF THE BRAIN WITHOUT IV CONTRAST CLINICAL HISTORY: Weakness. Change in mental status. COMPARISON STUDY: No priors. TECHNIQUE: Unenhanced axial CT scan of the brain is performed from the vertex to the skull base. CT DOSE: 614.27 mGy.cm FINDINGS: Brain parenchyma: There are age-related involutional changes noting mild subcortical and periventricular microangiopathic change. There is no hemorrhage, mass effect, or evidence of acute territorial ischemia by CT criteria. Leonardo-white matter is preserved. No extra-axial fluid collection is seen. Ventricles, sulci, cisterns: Prominent secondary to involutional change. Intracranial vasculature: There is atherosclerotic calcification of the cavernous carotid and vertebral arteries. Calvarium: Unremarkable. Sinuses and mastoids: There is a small air-fluid level in the right maxillary antrum. Mild mucosal thickening is seen within the left ethmoid sinuses. The mastoid air cells are well pneumatized. Orbits: The bony orbits are grossly intact. There are bilateral ocular lens implants. IMPRESSION: There is no hemorrhage, mass effect, or evidence of acute territorial ischemia by CT criteria. Electronically signed by: Bal Garcia M.D. 09/13/2016 9:42 PM Dictated Date/Time: 09/13/2016 9:40 PM SINGLE VIEW CHEST CLINICAL HISTORY: Weakness. Change in mental status. FINDINGS: An AP, portable, upright chest radiograph is compared to chest x-ray performed earlier the same day 09/13/2016 and correlated with chest CT dated 05/07/2016. The examination is degraded by portable technique and patient rotation. The patient is status post midline sternotomy. The heart is enlarged and there is atherosclerotic calcification of the thoracic aorta. The pulmonary vasculature is noncongested. Advanced emphysematous change is identified and there is biapical scarring. Chronic interstitial thickening is noted. There is left basilar atelectasis. No large pleural effusion is identified and no pneumothorax is seen. The skeletal structures are osteopenic. Degenerative change is noted throughout the thoracic spine. IMPRESSION: Cardiomegaly and emphysema with no acute cardiopulmonary abnormality. Electronically signed by: Bal Garcia M.D. 09/13/2016 9:53 PM Dictated Date/Time: 09/13/2016 9:51 PM Laboratory Results 09/13/16 21:00 Red Blood Count 4.66, Mean Corpuscular Volume 86.9, Mean Corpuscular Hemoglobin 29.8, Mean Corpuscular Hemoglobin Concent 34.3, Mean Platelet Volume 10.6, Neutrophils (%) (Auto) 61.1, Lymphocytes (%) (Auto) 27.3, Monocytes (%) (Auto) 10.7, Eosinophils (%) (Auto) 0.4, Basophils (%) (Auto) 0.2, Neutrophils # (Auto ) 9.99, Lymphocytes # (Auto) 4.47, Monocytes # (Auto) 1.75, Eosinophils # (Auto ) 0.06, Basophils # (Auto) 0.03 09/13/16 21:00 Test 09/13/16 21:00 09/13/16 23:27 White Blood Count 16.35 K/uL (4.8-10.8) Red Blood Count 4.66 M/uL (4.7-6.1) Hemoglobin 13.9 g/dL (14.0-18.0) Hematocrit 40.5 % (42-52) Mean Corpuscular Volume 86.9 fL (80-100) Mean Corpuscular Hemoglobin 29.8 pg (25-34) Mean Corpuscular Hemoglobin Concent 34.3 g/dl (32-36) Platelet Count 229 K/uL (130-400) Mean Platelet Volume 10.6 fL (7.4-10.4) Neutrophils (%) (Auto) 61.1 % Lymphocytes (%) (Auto) 27.3 % Monocytes (%) (Auto) 10.7 % Eosinophils (%) (Auto) 0.4 % Basophils (%) (Auto) 0.2 % Neutrophils # (Auto) 9.99 K/uL (1.4-6.5) Lymphocytes # (Auto) 4.47 K/uL (1.2-3.4) Monocytes # (Auto) 1.75 K/uL (0.11-0.59) Eosinophils # (Auto) 0.06 K/uL (0-0.5) Basophils # (Auto) 0.03 K/uL (0-0.2) RDW Standard Deviation 43.6 fL (36.4-46.3) RDW Coefficient of Variation 13.7 % (11.5-14.5) Immature Granulocyte % (Auto) 0.3 % Immature Granulocyte # (Auto) 0.05 K/uL (0.00-0.02) Prothrombin Time 32.3 SECONDS (9.0-12.0) Prothromb Time International Ratio 2.9 (0.9-1.1) Activated Partial Thromboplast Time 38.8 SECONDS (21.0-31.0) Partial Thromboplastin Ratio 1.5 Anion Gap 12.0 mmol/L (3-11) Est Creatinine Clear Calc Drug Dose 50.9 ml/min Estimated GFR () 54.2 Estimated GFR (Non- 46.8 BUN/Creatinine Ratio 15.4 (10-20) Calcium Level 8.9 mg/dl (8.5-10.1) Phosphorus Level 1.5 mg/dl (2.5-4.9) Magnesium Level 1.7 mg/dl (1.8-2.4) Total Bilirubin 0.7 mg/dl (0.2-1) Direct Bilirubin 0.2 mg/dl (0-0.2) Aspartate Amino Transf (AST/SGOT) 10 U/L (15-37) Alanine Aminotransferase (ALT/SGPT) 13 U/L (12-78) Alkaline Phosphatase 109 U/L (45-117) Total Creatine Kinase 60 U/L (39-308) Creatine Kinase MB 1.0 ng/ml (0.5-3.6) Creatine Kinase MB Ratio 1.7 (0-3.0) Troponin I < 0.015 ng/ml (0-0.045) Pro-B-Type Natriuretic Peptide 3902 pg/ml (0-1800) Total Protein 7.9 gm/dl (6.4-8.2) Albumin 2.9 gm/dl (3.4-5.0) Lipase 48 U/L (73-393) Thyroid Stimulating Hormone (TSH) 0.172 uIu/ml (0.300-4.500) Laboratory results per my review. Medications Administered Medications (Trade) Dose Ordered Sig/Susan Route Start Time Stop Time Status Last Admin Dose Admin Diltiazem HCl 10 mg 10 mg NOW STAT IV 09/13/16 21:26 09/13/16 21:27 DC 09/13/16 21:40 10 MG Sodium Chloride (Nss 500ml) 500 ml @ 999 mls/hr Q31M STAT IV 09/13/16 21:26 09/13/16 21:56 DC 09/13/16 21:38 999 MLS/HR Dextrose (Dextrose 50% 50ML Syringe) 50 ml NOW STAT IV 09/13/16 22:07 09/13/16 22:08 DC 09/13/16 22:11 50 ML Magnesium Sulfate (Magnesium Sulfate) 1 gm NOW STAT IV 09/13/16 22:19 09/13/16 22:20 DC 09/13/16 22:25 1 GM Potassium Chloride (Klor-Con M10) 40 meq NOW STAT PO 09/13/16 23:27 09/13/16 23:38 DC 09/13/16 23:47 40 MEQ ECG Indication: SOB/dyspnea Rate (beats per minute): 155 Rhythm: atrial fibrillation Findings: ST depression (Anterior and Lateral), other (Rapid ventricular response) Comparison ECG Date: 06 Aug 2016 Change: The ST depressions are new. ED Course 2117: The patient was evaluated in room A9. A complete history and physical examination were performed. 2125: NSS 500 ml @ 999 mls/hr IV, Diltiazem HCl 10 mg IV 2206: Dextrose 50 ml IV 2218: Magnesium Sulfate 1 gm IV 2304: Upon reevaluation, the patient is resting. I discussed results and treatment plan with him. He verbalizes agreement and understanding. I spoke with Dr. Sanon of the [facility] service. The patient will be evaluated for further management and care. Medical Decision Differential diagnosis: Etiologies such as metabolic, infection, hypo/hyperglycemia, electrolyte abnormalities, cardiac sources, intracerebral event, toxicologic, neurologic, as well as others were entertained. Nursing notes reviewed. Additional history is obtained from the patient's . The patient is an 81-year-old male who presented to the emergency department with multiple complaints. I did receive a prehospital medic training call about this patient. The patient was tachycardic with EKG changes. The patient does have a history of atrial fibrillation. The patient's significant other was concerned because he was confused. The patient was found have hypoglycemia. This was corrected in the emergency department and his symptoms significantly improved. His rapid atrial fibrillation was treated with IV fluids and Cardizem. On subsequent reevaluation he was significantly improved. I discussed the patient's laboratory and radiographic studies with him and his significant other. I also discussed his case with the on-call [facility] group. They have agreed to evaluate the patient in the emergency department for further management and disposition. The patient is scheduled for a bladder surgery for recurrent bladder cancer. It is possible he may require further cardiac clearance because of this evening's event. Consults Time Called: 2300 Consulting Physician: Dr. Sanon - [facility] Returned Call: [phone] He will be evaluating the patient for further management. Impression Primary Impression: Altered mental status Additional Impressions: Hypoglycemia Atrial fibrillation with rapid ventricular response Abnormal ECG Hypoxia Scribe Attestation The scribe's documentation has been prepared under my direction and personally reviewed by me in its entirety. I confirm that the note above accurately reflects all work, treatment, procedures, and medical decision making performed by me. Departure Information Dispostion Being Evaluated By Hospitalist Referrals Shiloh Mendez M.D. (PCP) Patient Instructions [facility] Problem Qualifiers Primary Impression: Altered mental status Altered mental status type: transient alteration of awareness Qualified Codes : R40.4 - Transient alteration of awareness"
[2016-09-13 21:40] LABS: BASO % 0.2 %; BASO ABS # 0.03 K/uL (0-0.2); COMPLETE YES; EOS % 0.4 %; HEMATOCRIT 40.5 % (42-52); IG% 0.3 %; LYMPH % 27.3 %; LYMPH ABS # 4.47 K/uL (1.2-3.4); MEAN CELL VOLUME 86.9 fL (80-100); MEAN CORPUSCULAR HEMOGLOBIN 29.8 pg (25-34); MEAN CORPUSCULAR HGB CONC 34.3 g/dl (32-36); MEAN PLATELET VOLUME 10.6 fL (7.4-10.4); MONO % 10.7 %; NEUT % 61.1 %; PLATELET COUNT 229 K/uL (130-400); RED BLOOD COUNT 4.66 M/uL (4.7-6.1); WHITE BLOOD COUNT 16.35 K/uL (4.8-10.8)
[2016-09-13 21:41] LABS: INR 2.9 (0.9-1.1); PARTIAL THROMBOPLASTIN RATIO 1.5; PROTHROMBIN TIME (PATIENT) 32.3 SECONDS (9.0-12.0)
--- NOTE | 2016-09-13 21:43 | DIAGNOSTIC IMAGING REPORT ---
CT SCAN OF THE BRAIN WITHOUT IV CONTRAST CLINICAL HISTORY: Weakness. Change in mental status. COMPARISON STUDY: No priors. TECHNIQUE: Unenhanced axial CT scan of the brain is performed from the vertex to the skull base. CT DOSE: 614.27 mGy.cm FINDINGS: Brain parenchyma: There are age-related involutional changes noting mild subcortical and periventricular microangiopathic change. There is no hemorrhage, mass effect, or evidence of acute territorial ischemia by CT criteria. Leonardo-white matter is preserved. No extra-axial fluid collection is seen. Ventricles, sulci, cisterns: Prominent secondary to involutional change. Intracranial vasculature: There is atherosclerotic calcification of the cavernous carotid and vertebral arteries. Calvarium: Unremarkable. Sinuses and mastoids: There is a small air-fluid level in the right maxillary antrum. Mild mucosal thickening is seen within the left ethmoid sinuses. The mastoid air cells are well pneumatized. Orbits: The bony orbits are grossly intact. There are bilateral ocular lens implants. IMPRESSION: There is no hemorrhage, mass effect, or evidence of acute territorial ischemia by CT criteria. Electronically signed by: Bal Garcia M.D. 09/13/2016 9:42 PM Dictated Date/Time: 09/13/2016 9:40 PM
--- NOTE | 2016-09-13 21:54 | DIAGNOSTIC IMAGING REPORT ---
SINGLE VIEW CHEST CLINICAL HISTORY: Weakness. Change in mental status. FINDINGS: An AP, portable, upright chest radiograph is compared to chest x-ray performed earlier the same day 09/13/2016 and correlated with chest CT dated 05/07/2016. The examination is degraded by portable technique and patient rotation. The patient is status post midline sternotomy. The heart is enlarged and there is atherosclerotic calcification of the thoracic aorta. The pulmonary vasculature is noncongested. Advanced emphysematous change is identified and there is biapical scarring. Chronic interstitial thickening is noted. There is left basilar atelectasis. No large pleural effusion is identified and no pneumothorax is seen. The skeletal structures are osteopenic. Degenerative change is noted throughout the thoracic spine. IMPRESSION: Cardiomegaly and emphysema with no acute cardiopulmonary abnormality. Electronically signed by: Bal Garcia M.D. 09/13/2016 9:53 PM Dictated Date/Time: 09/13/2016 9:51 PM
[2016-09-13] MEDS ORDERED: DEXTROSE 50% 50 ML SYR IV STA (22:07)
[2016-09-13 22:08] LABS: ALKALINE PHOSPHATASE 109 U/L (45-117); ALT/SGPT 13 U/L (12-78); AST/SGOT 10 U/L (15-37); BLOOD UREA NITROGEN 22 mg/dl (7-18); BUN/CREATININE RATIO 15.4 (10-20); CALCIUM 8.9 mg/dl (8.5-10.1); CARBON DIOXIDE 28 mmol/L (21-32); CHLORIDE 101 mmol/L (98-107); CKMB/CK RATIO 1.7 (0-3.0); GLUCOSE 40 mg/dl (70-99); MAGNESIUM 1.7 mg/dl (1.8-2.4); PHOSPHORUS 1.5 mg/dl (2.5-4.9); POTASSIUM 3.3 mmol/L (3.5-5.1); SODIUM 140 mmol/L (136-145); THYROID STIMULATING HORMONE 0.172 uIu/ml (0.300-4.500)
[2016-09-13] MEDS ORDERED: MAGNESIUM SULFATE 1GM / D5W 1 GM BAG IV STA (22:19)
[2016-09-13] MEDS ORDERED: POTASSIUM CHLORIDE 10 MEQ TABCR PO STA (23:27)
[2016-09-14] VITALS (8 sets, daily range): BP systolic 98–122; BP diastolic 47–68; PULSE 76–85; TEMP 36.6–36.8; O2SAT 94–96; Ht 185.4 cm; Wt 88.0 kg
[2016-09-14 00:59] LABS: ARTERIAL BLOOD GAS BASE EXCESS 3.5 mEq/L (-9-1.8); ARTERIAL BLOOD GAS HCO3 27 mmol/L (19-24); ARTERIAL BLOOD GAS PO2 103 mm/Hg (80-95); ARTERIAL BLOOD GAS pH 7.48 (7.35-7.45)
[2016-09-14 01:00] LABS: ALLEN TEST POS (POS); O2 ADMINISTRATION 2 LITERS
[2016-09-14] MEDS ORDERED: POTASSIUM CHLORIDE 10 MEQ TABCR PO STA (01:02)
[2016-09-14] MEDS ORDERED: DEXTROSE 50% 50 ML SYR IV PRN (01:15)
[2016-09-14] MEDS ORDERED: GLUCOSE 10 TABS/TUBE PO PRN (01:15)
[2016-09-14] MEDS ORDERED: GLUCOSE 40% GEL 15 GM TUBE PO PRN (01:15)
[2016-09-14] MEDS ORDERED: POTASSIUM PHOS 3 MMOL/1 ML INFUSION IV ONE (01:15)
[2016-09-14] MEDS ORDERED: LEVALBUTEROL/IPRATROPIUM NEB INH PRN (01:15)
[2016-09-14] MEDS ORDERED: ACETAMINOPHEN 325 MG TAB PO PRN (01:15)
[2016-09-14] MEDS ORDERED: HYDROmorphone INJ 0.5 MG/0.5 ML SYR IV PRN (01:15)
[2016-09-14] MEDS ORDERED: NITROGLYCERIN 0.4 MG SL PER TAB CHARGE SL PRN (01:15)
[2016-09-14] MEDS ORDERED: TRAMADOL HCL 50 MG TAB PO PRN (01:15)
[2016-09-14] MEDS ORDERED: ONDANSETRON INJ 2 MG/ML 2 ML VIAL IV PRN (01:15)
[2016-09-14] MEDS ORDERED: GLUCAGON FOR INJ 1 MG VIAL SQ PRN (01:15)
[2016-09-14] MEDS ORDERED: METOPROLOL SUCC 25MG EXT REL TAB PO STA (01:31)
[2016-09-14] MEDS ORDERED: POTASSIUM PHOSPHATE IV SCH (02:00)
[2016-09-14] MEDS ORDERED: CEFEPIME IV 2,000 MG in DEXTROSE 5% 100ML 100 ML IV ONE (02:00)
[2016-09-14] MEDS ORDERED: SODIUM CHLORIDE 0.9% IV SCH (02:00)
[2016-09-14 02:12] LABS: URINE APPEARANCE CLEAR (CLEAR); URINE BILIRUBIN NEG (NEG); URINE COLOR DK YELLOW; URINE EPITHELIAL CELL AUTO >30 /lpf (0-5); URINE NITRITE NEG (NEG); URINE SPECIFIC GRAVITY 1.022 (1.000-1.030); UROBILINOGEN NEG (NEG); ZZUR CULT IF INDIC CLEAN CATCH YES
[2016-09-14] MEDS ORDERED: IPRATROPIUM BROMIDE NEB SOLN 0.02% 2.5 ML VIAL INH PRN (02:15)
[2016-09-14] MEDS ORDERED: LEVALBUTEROL 1.25MG/0.5ML NEB INH PRN (02:15)
[2016-09-14] MEDS ORDERED: CEFEPIME CONSULT ACTIVE PRN ×2 (02:15)
[2016-09-14 02:22] LABS: MANUAL MICROSCOPIC REQUIRED? NO; REVIEW REQ? YES
[2016-09-14] MEDS ORDERED: INSULIN GLARGINE SOLOSTAR 100 UNITS/ML 3 ML PEN SC ONE (02:27)
[2016-09-14] MEDS ORDERED: SODIUM CHLORIDE 0.9% 500ML 500 ML IV ONE (04:45)
--- NOTE | 2016-09-14 05:55 | HISTORY & PHYSICAL EXAMINATION ---
DATE OF ADMISSION: 09/14/2016 PATIENT'S PRIMARY CARE DOCTOR: Dr. Mendez. History obtained from patient and records. CHIEF COMPLAINT: Weak, staggering, acting strange as per records. HISTORY OF PRESENT ILLNESS: Medical history significant for chronic systolic heart failure secondary to ischemic cardiomyopathy (EF 45%) COPD, past tobacco abuse, bladder cancer sp surgery, CAD status post CABG, HTN, atrial fibrillation on anticoagulation, DM2 insulin requiring, mood disorder, chronic anemia baseline hemoglobin of 13. Right renal mass as per records. Recent confinement last month for pneumonia, left pleural effusion. CT angio of his chest negative for PE. Patient was at [facility] urologist's office (Dr. Farmer) a few days ago for diagnostic cystourethroscopy. No complications noted after. Yesterday, patient noted to be staggering, look weak, acting strange as per patient's : Patient denies chest pain, shortness of breath; usual cough symptoms. Denies bladder discomfort. Left leg swollen as per patient. EMS called. Upon arrival at the Emergency Room, the patient noted to be in rapid AFib, heart rate 140s, blood sugar was noted to be 40. Patient received dextrose and diltiazem in the ER. Claims to be compliant with medications. MEDICAL HISTORY: As above. SURGERIES: Cataract surgery, urologic procedures, CABG, tonsillectomy, adenectomy, circumcision, perirectal abscess drainage. HOME MEDICATIONS: Include Toprol, Coumadin, sertraline, glimepiride, Protonix, naproxen, tamsulosin, Nitrostat, aspirin, meclizine, probiotic, NovoLog, Lantus. ALLERGIES: SIMVASTATIN. FAMILY HISTORY: Kidney cancer, asthma, heart disease, mental disorder, diabetes. PERSONAL AND SOCIAL HISTORY: Past tobacco abuse. No chronic intake of alcoholic beverages. 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 REVIEW OF SYSTEMS: As per HPI, all other ROS negative. PHYSICAL EXAMINATION: VITAL SIGNS: Blood pressure was noted to be 135/80, pulse rate 148 and later 96, RR 20, temperature 36.9, sats 93 on room air. GENERAL: Noted to be comfortable. Looks younger for stated age. no respiratory distress. pleasant SKIN: Pallor. HEENT: Pale palpebral mucosa. Dry mucosa. nasal cannula in place. NECK: Short neck. CHEST: Decreased breath sounds. HEART: Irregular. ABDOMEN: Some distention. EXTREMITIES: No edema, no tenderness. NEUROLOGIC: No gross focality except for mild hearing impairment. LABS: Hemoglobin was noted to be 13.9, hematocrit 40, white 16, platelets 229. Sodium was noted to be 140, potassium 3.3, BUN 20, creatinine 1.2, glucose was noted to be 40. INR was noted to be 2.9. Hemoglobin A1c from July 2016 was noted to be 7.7. UA, wbc moderate. CT of the head showed no acute pathology. Chest x-ray, cardiomegaly, emphysema. EKG, AFib. ASSESSMENT: 1. Rapid atrial fibrillation heart rate now controlled after initial intervention in the ER INR tx multifactorial : hypoglycemia sepsis 2 to possible complicated urinary tract infection (recent urologic procedure for bladder cancer) hypokalemia may be contributory 2. hypertension, stable 3. chronic systolic heart failure secondary to ischemic cardiomyopathy (EF 45%) CAD sp CABG px on the dry side 4. COPD, past tobacco abuse pulmo status at baseline px denies cp, sob sx usual cough sx 5. DM2, insulin requiring px hypoglycemic in the ER reasonable control as of recent outpx HgA1c 6. left leg swelling as per acct ro deep venous thrombosis PLAN: PCU continue home beta-aleksandr IVF CS, Cefepime for now. replace K, check mg Decrease basal insulin dose for now. ISS BG goal 140-180, recheck HgA1c hold home Glipizide for now given hypoglycemic episode LLE venous doppler ro dvt PT, OT eval. DVT prophylaxis, Coumadin, INR 2-3. Full code. MTDD
[2016-09-14] MEDS: INSULIN ASPART 100 UNITS/ML 3 ML PEN SC SCH ×2 (07:00→11:00)
[2016-09-14 07:06] LABS: BASO % 0.2 %; BASO ABS # 0.03 K/uL (0-0.2); COMPLETE YES; EOS % 0.3 %; HEMATOCRIT 36.5 % (42-52); IG% 0.2 %; LYMPH % 16.9 %; MEAN CELL VOLUME 89.5 fL (80-100); MEAN CORPUSCULAR HEMOGLOBIN 29.7 pg (25-34); MEAN CORPUSCULAR HGB CONC 33.2 g/dl (32-36); MEAN PLATELET VOLUME 10.3 fL (7.4-10.4); MONO % 9.9 %; NEUT % 72.5 %; PLATELET COUNT 191 K/uL (130-400); RED BLOOD COUNT 4.08 M/uL (4.7-6.1); WHITE BLOOD COUNT 12.98 K/uL (4.8-10.8)
[2016-09-14 07:24] LABS: PROTHROMBIN TIME (PATIENT) 33.8 SECONDS (9.0-12.0)
[2016-09-14 07:43] LABS: BUN/CREATININE RATIO 15.3 (10-20); CALCIUM 7.8 mg/dl (8.5-10.1); CREATININE 1.2 mg/dl (0.60-1.40); MAGNESIUM 1.9 mg/dl (1.8-2.4); POTASSIUM 4.7 mmol/L (3.5-5.1)
[2016-09-14 07:46] LABS: ESTIMATED AVERAGE GLUCOSE 174 mg/dl; HA1C FLAG Normal (Normal)
--- NOTE | 2016-09-14 07:47 | DIAGNOSTIC IMAGING REPORT ---
ULTRASOUND LEFT VENOUS DOPP LOWER EXT UNILAT CLINICAL HISTORY: Left leg swelling COMPARISON STUDY: 08/06/2016 FINDINGS: Real-time and color flow Doppler imaging were performed. Flow was seen within the femoral, popliteal and calf veins with no intraluminal thrombus demonstrated. The saphenous vein is patent. IMPRESSION: No evidence of left lower extremity DVT. Electronically signed by: Boyd Silva M.D. 09/14/2016 7:45 AM Dictated Date/Time: 09/14/2016 7:45 AM
[2016-09-14] MEDS: LACTOBACILLUS ACIDOPHILUS 1 GM PACK PO SCH ×3 (08:49→16:20)
[2016-09-14] MEDS ORDERED: INSULIN GLARGINE SOLOSTAR 100 UNITS/ML 3 ML PEN SC SCH ×2 (09:00→21:00)
[2016-09-14] MEDS ORDERED: PANTOprazole SOD 40 MG TAB PO SCH (09:00)
[2016-09-14] MEDS ORDERED: CPR500 PO ×2 (15:19)
[2016-09-14] MEDS ORDERED: LCTXP PO ×2 (15:19)
--- NOTE | 2016-09-14 15:21 | Discharge Instructions ---
Discharge Instructions Date of Service Sep 14, 2016. Admission Reason for Admission: Atrial Fibrillation With Rapid Ventricular Respons Discharge Discharge Diagnosis / Problem: URINARY TRACT INFECTION /AFIB Discharge Goals Goal(s): Improve disease control, Therapeutic intervention Activity Recommendations Activity Limitations: resume your previous activity . Instructions / Follow-Up Instructions / Follow-Up HOSPITAL FOLLOW UP WITH DR LOYA ON Tuesday09/16/16 @ 10: 10 AM YOU ARE DISCHARGED WITH ANTIBIOTIC -CIPROFLOXACIN FOR URINARY TRACT INFECTION WHICH MAY INTERACT WITH YOUR COUMADIN DOSE AND PT/INR LEVEL PLEASE NOTIFY [facility]AGULATION CLINIC LAB WORK : BASIC METABOLIC PANEL , MG , PHOS , PT/INR CHECK ON 09/16/16 Current Hospital Diet Patient's current hospital diet: Diabetes Type 2 Diet Discharge Diet Recommended Diet: Diabetes Type 2 Diet Pending Studies Studies pending at discharge: yes List of pending studies: PT/INR BASIC METABOLIC PANEL , MAGNESIUM , PHOSPHATE LEVEL ON 09/16/16 Laboratory Results Hemoglobin A1c Test 09/13/16 21:00 Range/Units Estimated Average Glucose 174 mg/dl Hemoglobin A1c 7.7 H 4.5-5.6 % Medical Emergencies . Who to Call and When: Medical Emergencies: If at any time you feel your situation is an emergency, please call 911 immediately. . Non-Emergent Contact Non-Emergency issues call your: Primary Care Provider . . "Provider Documentation" section prepared by Victorina Preciado. VTE Core Measure Inpt VTE Proph given/why not?: Warfarin (Coumadin)
--- NOTE | 2016-09-14 15:35 | Discharge Summary ---
Discharge Summary Date of Service Sep 14, 2016. Discharge Summary Admission Date: Sep 14, 2016 at 00:37 Discharge Date: Sep 14, 2016 Discharge Disposition: Home Principal Diagnosis: URINARY TRACT INFECTION /AFIB Pending Studies/Follow-Up: Instructions / Follow-Up HOSPITAL FOLLOW UP WITH DR MENDEZ ON Tuesday09/16/16 @ 10: 10 AM YOU ARE DISCHARGED WITH ANTIBIOTIC -CIPROFLOXACIN FOR URINARY TRACT INFECTION WHICH MAY INTERACT WITH YOUR COUMADIN DOSE AND PT/INR LEVEL PLEASE NOTIFY COAGULATION CLINIC LAB WORK : BASIC METABOLIC PANEL , MG , PHOS , PT/INR CHECK ON 09/16/16 Medication Reconciliation New Medications: Ciprofloxacin (Ciprofloxacin HCl) 500 Mg Tab 500 MG PO Q12 for 5 Days, #10 TAB Lactobacillus Acidophilus (Lactinex Granules) 1 Gm Pack 1 GM PO TIDM for 30 Days, #90 TABS over the counter Continued Medications: Carbamide Peroxide (Otic) (Debrox) 6.5 % Renetta 5 DROPS OT BID PRN for PRN, #15 ML Dutasteride (Avodart) 0.5 Mg Cap 0.5 MG PO QPM, CAP Fish Oil ([place]-3) 1 Ea Cap 1 CAP PO QPM, CAP Glimepiride (Glimepiride) 1 Mg Tab 1 MG PO QAM Insulin Aspart (Novolog) Inj 18 UNITS SC QPM, 0 Refills ADMINISTER WITH EVENING MEAL. Insulin Glargine (Lantus) Vial 18 UNITS SC HS, VIAL Meclizine Hcl (Meclizine Hcl) 25 Mg Tab 1 TAB PO TID PRN for Dizziness or Vertigo for 10 Days, #30 TAB Metoprolol Tartrate (Lopressor) (Lopressor) 50 Mg Tab 75 MG PO QPM, TAB Nitroglycerin (Nitrostat) 0.4 Mg/1 Tab Subl 1 TAB UT UD PRN for Chest Pain Nystatin/Triamcinolone (Mycogen || ) Cr 1 DOSE TOP PRN Pantoprazole (Protonix) 20 Mg Tab 20 MG PO QAM, #30 TAB Sertraline (Zoloft) 50 Mg Tab 25 MG PO QPM, TAB Tamsulosin Hcl (Flomax) 0.4 Mg Cap 0.4 MG PO Q2D, CAP PM Warfarin Sod (Jantoven) 2.5 Mg Tab 1.25 MG PO QPM Discontinued Medications: Probiotic Product (Probiotic) 1 Cap Cap 1 CAPSULE PO QPM Admission Information HPI (per Admitting provider): DATE OF ADMISSION: 09/14/2016 PATIENT'S PRIMARY CARE DOCTOR: Dr. Mendez. History obtained from patient and records. CHIEF COMPLAINT: Weak, staggering, acting strange as per records. HISTORY OF PRESENT ILLNESS: Medical history significant for chronic systolic heart failure secondary to ischemic cardiomyopathy (EF 45%) COPD, past tobacco abuse, bladder cancer sp surgery, CAD status post CABG, HTN, atrial fibrillation on anticoagulation, DM2 insulin requiring, mood disorder, chronic anemia baseline hemoglobin of 13. Right renal mass as per records. Recent confinement last month for pneumonia, left pleural effusion. CT angio of his chest negative for PE. Patient was at [facility] [place] urologist's office (Dr. Farmer) a few days ago for diagnostic cystourethroscopy. No complications noted after. Yesterday, patient noted to be staggering, look weak, acting strange as per patient's : Patient denies chest pain, shortness of breath; usual cough symptoms. Denies bladder discomfort. Left leg swollen as per patient. EMS called. Upon arrival at the Emergency Room, the patient noted to be in rapid AFib, heart rate 140s, blood sugar was noted to be 40. Patient received dextrose and diltiazem in the ER. Claims to be compliant with medications. MEDICAL HISTORY: As above. SURGERIES: Cataract surgery, urologic procedures, CABG, tonsillectomy, adenectomy, circumcision, perirectal abscess drainage. HOME MEDICATIONS: Include Toprol, Coumadin, sertraline, glimepiride, Protonix, naproxen, tamsulosin, Nitrostat, aspirin, meclizine, probiotic, NovoLog, Lantus. ALLERGIES: SIMVASTATIN. FAMILY HISTORY: Kidney cancer, asthma, heart disease, mental disorder, diabetes. PERSONAL AND SOCIAL HISTORY: Past tobacco abuse. No chronic intake of alcoholic beverages. 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 Physical Exam (per Admitting): REVIEW OF SYSTEMS: As per HPI, all other ROS negative. PHYSICAL EXAMINATION: VITAL SIGNS: Blood pressure was noted to be 135/80, pulse rate 148 and later 96, RR 20, temperature 36.9, sats 93 on room air. GENERAL: Noted to be comfortable. Looks younger for stated age. no respiratory distress. pleasant SKIN: Pallor. HEENT: Pale palpebral mucosa. Dry mucosa. nasal cannula in place. NECK: Short neck. CHEST: Decreased breath sounds. HEART: Irregular. ABDOMEN: Some distention. EXTREMITIES: No edema, no tenderness. NEUROLOGIC: No gross focality except for mild hearing impairment. Hospital Course Pt mentions of feeling absolutely fine no evidence of confusion , alert and oriented , answering questions appropriately no fever or chills no complain of chest pain or discomfort , no palpitation , HR remains stable -sinus with rate controlled in monitor P/E: gen : no sign of distress HEENT : sclera non icteric HT : regular Lungs : CTA ,no wheeze or rales abdomen ; soft non tender ext : no rash or deformity Neuro : no focal deficit A/P : Afib : paroxysmal afib possible due to infection , dehydration , electrolyte derangements resolved HR remains stable, rate controlled pt is continued with his previous dose of Lopressor on Coumadin INR therapeutic UTI : had recent cystoscopy done for bladder CA scheduled for Urologic procedure on Tuesday09/20/16 had low grade fever at home UA grossly positive urine culture pending pt was empirically treated with Cefepime will change to PO Ciprofloxacin ordered for X5 more days of tx check PT/INR closely as out pt for possible drug interaction with Ciprofloxacin Urology follow up on Tuesday Confusion /metabolic encephalopathy : due to above -infection , dehydration , electrolyte derangements resolved, mental status improved to baseline CT head negative for CVA Disposition : stable to be discharge home today Hospital follow up with Dr Mendez on on 09/16/16 Total time spent on discharge = 35 MINS This includes examination of the patient, discharge planning, medication reconciliation, and communication with other providers. Discharge Instructions Discharge Instructions Date of Service Sep 14, 2016. Admission Reason for Admission: Atrial Fibrillation With Rapid Ventricular Respons Discharge Discharge Diagnosis / Problem: URINARY TRACT INFECTION /AFIB Discharge Goals Goal(s): Improve disease control, Therapeutic intervention Activity Recommendations Activity Limitations: resume your previous activity . Instructions / Follow-Up Instructions / Follow-Up HOSPITAL FOLLOW UP WITH DR MENDEZ ON Tuesday09/16/16 @ 10: 10 AM YOU ARE DISCHARGED WITH ANTIBIOTIC -CIPROFLOXACIN FOR URINARY TRACT INFECTION WHICH MAY INTERACT WITH YOUR COUMADIN DOSE AND PT/INR LEVEL PLEASE NOTIFY COAGULATION CLINIC LAB WORK : BASIC METABOLIC PANEL , MG , PHOS , PT/INR CHECK ON 09/16/16 Current Hospital Diet Patient's current hospital diet: Diabetes Type 2 Diet Discharge Diet Recommended Diet: Diabetes Type 2 Diet Pending Studies Studies pending at discharge: yes List of pending studies: PT/INR BASIC METABOLIC PANEL , MAGNESIUM , PHOSPHATE LEVEL ON 09/16/16 Laboratory Results Hemoglobin A1c Test 09/13/16 21:00 Range/Units Estimated Average Glucose 174 mg/dl Hemoglobin A1c 7.7 H 4.5-5.6 % Medical Emergencies . Who to Call and When: Medical Emergencies: If at any time you feel your situation is an emergency, please call 911 immediately. . Non-Emergent Contact Non-Emergency issues call your: Primary Care Provider . . "Provider Documentation" section prepared by Victorina Preciado. VTE Core Measure Inpt VTE Proph given/why not?: Warfarin (Coumadin) Additional Copies To Shiloh Mendez M.D.
[2016-09-14] MEDS ORDERED: CIPROFLOXACIN 500 MG TAB PO SCH (16:00)
[2016-09-14] MEDS ORDERED: SERTRALINE HCL 50 MG TAB PO SCH (21:00)
[2016-09-14] MEDS ORDERED: METOPROLOL SUCC 25MG EXT REL TAB PO SCH (21:00)
[2016-09-14] MEDS ORDERED: TAMSULOSIN HCL 0.4 MG CAP PO SCH (21:00)
[2016-09-15] MEDS ORDERED: CEFEPIME IV 2,000 MG in DEXTROSE 5% 100ML 100 ML IV SCH (02:00)
--- NOTE | 2016-09-15 07:59 | EDITING REQUIRED CODING QUERY ---
SEPSIS Dear Dr. Preciado, To promote full compliance with coding requirements relating to patient care, physician participation is requested in all cases of floor worker transfer bay uncertainty. Please assist us with the question(s) below: In responding to this query, please exercise your independent professional judgement. The fact that a question is asked does not imply that any particular answer is desired or expected. We appreciate your clarification on this issue. Sepsis was documented on the H and P but not on the Discharge Summary. Please clarify Sepsis below by placing and X in the parenthesis that apply. (X) ( )Bacteremia (Nonspecific laboratory finding of bacteria in the blood) Specify Organism ( ) Present on Admission (X ) Not present on admission () Unable to clinically determine ( ) Septicemia (Systemic disease associated with the presence of pathogenic microorganisms in the blood): Specify Organism ( ) Present on Admission (X) Not present on admission () Unable to clinically determine ( ) Sepsis Specify Organism Specify Associated Condition/Diagnosis ( ) Present on Admission ()X Not present on admission () Unable to clinically determine ( ) Severe Sepsis (Sepsis associated with acute organ dysfunction) Specify Organism Specify Associated Condition/Diagnosis ( ) Present on Admission X() Not present on admission () Unable to clinically determine ( ) Septic Shock (Severe sepsis with acute circulatory failure, unexplained by other causes) ( ) Present on Admission X() Not present on admission () Unable to clinically determine ( ) Other, patient has: (X ) Sepsis was Ruled Out. Thank you for your time. Thu Galvan, CUSTOMER SERVICE CONSULTANT
--- NOTE | 2016-09-15 08:03 | EDITING REQUIRED CODING QUERY ---
CODING QUERY Dear Dr. Preciado, To promote full compliance with coding requirements relating to patient care, provider participation is requested in all cases of building consultant uncertainty. Please assist us with the question(s) below: In responding to this query, please exercise your independent professional judgement. The fact that a question is asked does not imply that any particular answer is desired or expected. We appreciate your clarification on this issue. Coding Question(s): Complication of Procedure Please clarify below: (X ) Complication from recent urologic procedure for bladder cancer ( ) Not a complication from recent urologic procedure for bladder cancer ( ) Other: Please explain ( ) Unable to determine Medical documentation: (recent urologic procedure for bladder cancer) Physician's Response(s): Thank you for your time. Thu Galvan [facility] Principal Diagnosis: "_that condition established after study, to be chiefly responsible for occasioning the admission of the patient to the hospital for care." Co-Existing Principal Diagnosis: "_when two or more diagnoses equally meet the criteria for principal diagnosis as determined by the circumstances of admission, diagnostic work up, and/or therapy provided, and the Alphabetic Index, Tabular List, or another coding guideline does not provide sequencing direction, any one of the diagnoses may be sequenced first." "When the physician has documented what appears to be a current diagnosis in the body of the record, but has not included the diagnosis in the final diagnostic statement, the physician should be asked whether the diagnosis should be added." (Source Coding [facility] 2 QTR90. p3-4)
[2016-09-20] MEDS ORDERED: OXYC-57 PO ×2 (08:11)
[2016-09-20] MEDS ORDERED: PHEN-876 PO ×2 (08:11)
[2017-01-31] MEDS ORDERED: MULT-506 PO (15:24)
[2017-01-31] MEDS ORDERED: VITAMIN D PO (15:24)
[2017-01-31] MEDS ORDERED: CHOL1000 PO (15:24)
[2017-02-21] MEDS ORDERED: OXYC-57 PO (07:54)
== END 2016-09-14 16:15 | disposition home or self-care (01) | DRG 698 ==
LOC: ENRESERVDT → ENRESERVTM → EDBD 21:01 → C.EDA 21:05 → C.2E 09-14 00:37
PROVIDERS: ADMIT Hospitalist; ATTEND Hospitalist
DX: N99.89 Other postprocedural complications and disorders of genitourinary system (principal); G93.41 Metabolic encephalopathy; N39.0 Urinary tract infection, site not specified; I50.22 Chronic systolic (congestive) heart failure; I13.0 Hypertensive heart and chronic kidney disease with heart failure and stage 1 through stage 4 chronic kidney disease, or unspecified chronic kidney disease; I48.91 Unspecified atrial fibrillation; E86.0 Dehydration; Z87.891 Personal history of nicotine dependence; I25.5 Ischemic cardiomyopathy; E11.649 Type 2 diabetes mellitus with hypoglycemia without coma; I25.10 Atherosclerotic heart disease of native coronary artery without angina pectoris; J44.9 Chronic obstructive pulmonary disease, unspecified; C67.9 Malignant neoplasm of bladder, unspecified; N18.3 Chronic kidney disease, stage 3 (moderate); R41.0 Disorientation, unspecified; E87.6 Hypokalemia; E78.5 Hyperlipidemia, unspecified; F32.9 Major depressive disorder, single episode, unspecified; M19.90 Unspecified osteoarthritis, unspecified site; G47.30 Sleep apnea, unspecified; I73.9 Peripheral vascular disease, unspecified; E11.22 Type 2 diabetes mellitus with diabetic chronic kidney disease; Y83.8 Other surgical procedures as the cause of abnormal reaction of the patient, or of later complication, without mention of misadventure at the time of the procedure; E04.9 Nontoxic goiter, unspecified; N40.0 Benign prostatic hyperplasia without lower urinary tract symptoms; E87.8 Other disorders of electrolyte and fluid balance, not elsewhere classified; Z79.01 Long term (current) use of anticoagulants; Z79.1 Long term (current) use of non-steroidal anti-inflammatories (NSAID); Z79.82 Long term (current) use of aspirin; Z79.4 Long term (current) use of insulin; Z79.899 Other long term (current) drug therapy; Z95.1 Presence of aortocoronary bypass graft

== ENCOUNTER 2016-09-20 05:08 | Day surgery (SDC) | payer BC, OTHER ==
[2016-09-13 10:08] VITALS: BMI 26.0
--- NOTE | 2016-09-13 10:41 | PAT Medication Instructions ---
"Service Date Sep 13, 2016. Current Home Medication List Carbamide Peroxide (Otic) (Debrox), 5 DROPS OT BID PRN for PRN Dutasteride (Avodart), 0.5 MG PO QPM Fish Oil ([place]-3), 1 CAP PO QPM Glimepiride (Glimepiride), 1 MG PO QAM Insulin Aspart (Novolog), 18 UNITS SC QPM Insulin Glargine (Lantus), 18 UNITS SC HS Meclizine Hcl (Meclizine Hcl), 1 TAB PO TID PRN for Dizziness or Vertigo Metoprolol Tartrate (Lopressor) (Lopressor), 75 MG PO QPM Nitroglycerin (Nitrostat), 1 TAB UT UD PRN for Chest Pain Nystatin/Triamcinolone (Mycogen || ), 1 DOSE TOP PRN Pantoprazole (Protonix), 20 MG PO QAM Probiotic Product (Probiotic), 1 CAPSULE PO QPM Sertraline (Zoloft), 25 MG PO QPM Tamsulosin Hcl (Flomax), 0.4 MG PO Q2D Warfarin Sod (Jantoven), 1.25 MG PO QPM Medication Instructions For Your Scheduled Surgery - Continue as directed: Nitroglycerin (Nitrostat), 1 TAB UT UD PRN for Chest Pain - Instructions per Coumadin Clinic: Warfarin Sod (Jantoven), 1.25 MG PO QPM (Per patient, last dose to be 09/16/16) - Hold the following medications 1 week prior to surgery: Fish Oil ([place]-3), 1 CAP PO QPM (Stopped already) - Hold the following medications 24 hours prior to surgery: Nystatin/Triamcinolone (Mycogen || ), 1 DOSE TOP PRN - Hold the following medications the morning of surgery: Glimepiride (Glimepiride), 1 MG PO QAM - Take the following medications the morning of surgery with a sip of water OTHERWISE NOTHING TO EAT OR DRINK AFTER MIDNIGHT: Carbamide Peroxide (Otic) (Debrox), 5 DROPS OT BID PRN for PRN Tamsulosin Hcl (Flomax), 0.4 MG PO Q2D Pantoprazole (Protonix), 20 MG PO QAM Meclizine Hcl (Meclizine Hcl), 1 TAB PO TID PRN for Dizziness or Vertigo - Take the following medications as scheduled the night before surgery: Carbamide Peroxide (Otic) (Debrox), 5 DROPS OT BID PRN for PRN Insulin Aspart (Novolog), 18 UNITS SC QPM Insulin Glargine (Lantus), 18 UNITS SC HS Dutasteride (Avodart), 0.5 MG PO QPM Sertraline (Zoloft), 25 MG PO QPM Metoprolol Tartrate (Lopressor) (Lopressor), 75 MG PO QPM Probiotic Product (Probiotic), 1 CAPSULE PO QPM If you have any questions please call us at [phone] or [phone] or [phone]"
--- NOTE | 2016-09-13 11:37 | DIAGNOSTIC IMAGING REPORT ---
CHEST 2 VIEWS ROUTINE CLINICAL HISTORY: pat preoperative evaluation COMPARISON STUDY: 08/10/2016 FINDINGS: Pleural-based density posterior left hemithorax possibly related to loculated effusion described previously. There are no acute infiltrates. Chronic blunting left lateral calcific angle. Prior median sternotomy. IMPRESSION: Chronic change left hemithorax and posterior costophrenic angle. No new or interval process compared to the prior studies Electronically signed by: Galindo Bryant M.D. 09/13/2016 11:36 AM Dictated Date/Time: 09/13/2016 11:16 AM
[2016-09-13 11:47] LABS: BASO % 0.3 %; BASO ABS # 0.03 K/uL (0-0.2); COMPLETE YES; EOS % 0.8 %; HEMATOCRIT 41.3 % (42-52); IG% 0.2 %; LYMPH % 15.6 %; LYMPH ABS # 1.84 K/uL (1.2-3.4); MEAN CELL VOLUME 88.1 fL (80-100); MEAN CORPUSCULAR HEMOGLOBIN 29.2 pg (25-34); MEAN CORPUSCULAR HGB CONC 33.2 g/dl (32-36); MEAN PLATELET VOLUME 10.3 fL (7.4-10.4); MONO % 7.7 %; NEUT % 75.4 %; PLATELET COUNT 218 K/uL (130-400); RED BLOOD COUNT 4.69 M/uL (4.7-6.1); WHITE BLOOD COUNT 11.77 K/uL (4.8-10.8)
[2016-09-13 11:55] LABS: URINE APPEARANCE CLEAR (CLEAR); URINE BILIRUBIN NEG (NEG); URINE COLOR DK YELLOW; URINE NITRITE NEG (NEG); URINE SPECIFIC GRAVITY 1.028 (1.000-1.030); UROBILINOGEN NEG (NEG)
[2016-09-13 12:06] LABS: BUN/CREATININE RATIO 16.8 (10-20); CALCIUM 8.7 mg/dl (8.5-10.1); CREATININE 1.3 mg/dl (0.60-1.40); POTASSIUM 4.3 mmol/L (3.5-5.1)
[2016-09-13 12:06] LABS: MANUAL MICROSCOPIC REQUIRED? NO; REVIEW REQ? YES
[2016-09-13 12:31] LABS: URINE MUCUS PRESENT (NONE PRSENT)
[~2016-09-20] VITALS: Ht 185.4 cm; Wt 90.2 kg
[~2016-09-20 05:08] MED LIST changes: +CPR500 PO; +LCTXP PO
[2016-09-20 05:53] VITALS: BP 133/53; PULSE 93; TEMP 36.8; O2SAT 98; Ht 185.4 cm; Wt 90.2 kg
[2016-09-20] MEDS ORDERED: LACTATED RINGER'S 1000ML 1,000 ML IV SCH (06:00)
[2016-09-20] MEDS ORDERED: CIPROFLOXACIN / D5W 400 MG IV SCH (06:00)
[2016-09-20 06:28] LABS: INR 1.6 (0.9-1.1); PARTIAL THROMBOPLASTIN RATIO 1.2; PROTHROMBIN TIME (PATIENT) 17.1 SECONDS (9.0-12.0)
[2016-09-20] MEDS ORDERED: ONDANSETRON INJ 2 MG/ML 2 ML VIAL ONE (06:31)
[2016-09-20] MEDS ORDERED: PROPOFOL IV EMULSION 10 MG/ML 20 ML VIAL IV ONE (06:31)
[2016-09-20] MEDS ORDERED: FENTANYL CITRATE INJ 50 MCG/1 ML 2 ML VIAL ONE (06:31)
[2016-09-20] MEDS ORDERED: LIDOCAINE HCL 2% 2 ML VIAL (20MG/ML) ONE (06:31)
--- NOTE | 2016-09-20 06:52 | History & Physical Bridge Note ---
H&P Re-Evaluation Bridge Note: I have examined the patient, reviewed the History & Physical and in the interval since the performance of the History & Physical I have noted the following changes of clinical significance: No changes noted
[2016-09-20] MEDS ORDERED: ROCURONIUM BROMIDE 10 MG/ML 5 ML VIAL ONE (06:56)
[2016-09-20] MEDS ORDERED: NEOSTIGMINE METHYLSULFATE 5 MG/5 ML SYR ONE (06:56)
[2016-09-20] MEDS ORDERED: GLYCOPYRROLATE INJ 0.2 MG/ML VIAL ONE (06:56)
[2016-09-20] MEDS ORDERED: ATROPINE SULFATE 0.1 MG/ML 5ML SYR IV PRN (07:15)
[2016-09-20] MEDS ORDERED: ONDANSETRON INJ 2 MG/ML 2 ML VIAL IV PRN (07:15)
[2016-09-20] MEDS ORDERED: FENTANYL CITRATE INJ 50 MCG/1 ML 2 ML VIAL IV PRN (07:15)
[2016-09-20] MEDS ORDERED: EpHEDrine SULFATE INJ 50 MG/ML AMP IV PRN (07:15)
--- NOTE | 2016-09-20 08:10 | [facility] Post Operative Brief Note ---
Immediate Operative Summary Operative Date Sep 20, 2016. Pre-Operative Diagnosis Bladder Cancer Post-Operative Diagnosis Same as preoperative Procedure(s) Performed Transurethral Resection Bladder Tumor Surgeon Dr. Samy Farmer [employer] Fire Fighter Crash Fire Surgeon(s) None per surgeon Estimated Blood Loss 0ml Findings PAPILLARY BLADDER TUMOR X2 Specimens A.) Bladder Chips
[2016-09-20] MEDS ORDERED: PHEN-876 PO ×2 (08:11)
[2016-09-20] MEDS ORDERED: OXYC-57 PO ×2 (08:11)
--- NOTE | 2016-09-20 08:12 | Discharge Instructions ---
Discharge Instructions Date of Service Sep 20, 2016. Visit Reason for Visit: Bladder Cancer Discharge Discharge Diagnosis / Problem: BLADDER TUMOR Discharge Goals Goal(s): Therapeutic intervention Activity Recommendations Activity Limitations: resume your previous activity (TAKE IT EASY TODAY) Anesthesia . Post Anesthesia Instructions: If you have had General Anesthesia or IV Sedation: * Do not drive today. * Resume driving when surgeon permits. * Do not make important decisions or sign legal documents today. * Call surgeon for: 1. Temperature elevations greater than 101 degrees F. 2. Uncontrollable pain. 3. Excessive bleeding. 4. Persistent nausea and vomiting. 5. Medication intolerance (nausea, vomiting or rash). * For nausea and vomiting use only clear liquids such as: tea, soda, bouillon until nausea subsides, then gradually increase diet as tolerated. * If you have any concerns or questions, call your surgeon's office. If physician is unavailable and it is an emergency, call 911 or go to the nearest emergency room. . Diet Recommendations Recommended Home Diet: resume previous diet Procedures Procedures Performed: Transurethral Resection Bladder Tumor Pending Studies Studies pending at discharge: no Medical Emergencies . Who to Call and When: Medical Emergencies: If at any time you feel your situation is an emergency, please call 911 immediately. . Non-Emergent Contact Non-Emergency issues call your: Urologist . . "Provider Documentation" section prepared by Samy Farmer. [place] Drug Monitoring Program Search Results: patient reviewed within database
[2016-09-20] MEDS ORDERED: OXYCODONE/ACETAMINOPHEN 5-325 TAB PO PRN (08:15)
--- NOTE | 2016-09-20 08:45 | Anesthesiology Progress Note ---
Anesthesia Post Op Note Date & Time Sep 20, 2016 at 08:45 Vital Signs Pain Intensity: 1 Vital Signs Past 12 Hours Date Time Temp Pulse Resp B/P Pulse Ox O2 Delivery O2 Flow Rate FiO2 09/20/16 08:40 36.5 60 14 09/20/16 08:40 63 14 94 09/20/16 08:36 110/50 09/20/16 08:35 66 12 09/20/16 08:35 65 12 93 09/20/16 08:31 106/52 09/20/16 08:30 70 6 09/20/16 08:30 68 6 92 09/20/16 08:26 104/52 09/20/16 08:25 69 2 09/20/16 08:25 69 2 94 09/20/16 08:21 116/60 09/20/16 08:20 73 6 100 09/20/16 08:20 75 6 09/20/16 08:16 114/58 09/20/16 08:15 71 1 100 09/20/16 08:15 74 1 09/20/16 08:13 116/53 09/20/16 08:10 Room Air 09/20/16 08:05 36.2 70 16 122/71 99 Mask 10 09/20/16 05:53 36.8 93 22 133/53 98 Room Air Notes Mental Status: alert / awake / arousable, participated in evaluation Pt Amnestic to Procedure: Yes Nausea / Vomiting: adequately controlled Pain: adequately controlled Airway Patency, RR, SpO2: stable & adequate BP & HR: stable & adequate Hydration State: stable & adequate Anesthetic Complications: no major complications apparent
[2016-09-20 08:50] VITALS: BP 117/57; PULSE 75; TEMP 36.7; O2SAT 94
[2016-09-20 09:20] VITALS: BP 103/56; PULSE 71; O2SAT 96
--- NOTE | 2016-09-20 09:51 | OPERATIVE REPORT ---
DATE OF OPERATION: 09/20/2016 PREOPERATIVE DIAGNOSIS: Bladder tumor. POSTOPERATIVE DIAGNOSIS: Same. PROCEDURE: Cystoscopy, transurethral resection, fulguration of bladder tumor, small. FINDINGS: Cystoscopic exam revealed normal urethra. Bladder showed a papillary bladder tumor on the right posterior lateral wall. There were actually 2 small tumors. Both ureteral orifices were effluxing clear urine. SURGEON: Dr. Farmer. ANESTHESIA: General. DRAINS: None. COMPLICATIONS: None. SPECIMENS: Bladder tumor fragments. INDICATIONS: The patient is an 81-year-old white male who on routine surveillance cystoscopy for hematuria was found to have bladder cancer. He is being brought in now for resection. PROCEDURE IN DETAIL: After the induction of an adequate general anesthetic and appropriate timeout, the patient was placed in the dorsal lithotomy position. Lower abdomen and genitalia were prepped with Hibiclens and draped in a sterile fashion. Using a 22-Congolese cystoscope, routine cystoscopic exam was performed with the above-noted findings with the 30- and 70-degree lenses. Next, using a 24-Congolese resection scope and hot cautery loop, the tumor was resected in its entirety and then the area was fulgurated for hemostasis. An Seniorlink evacuator was used to evacuate the bladder tumor fragments within the bladder. The bladder was then reinspected. There were no additional tumors. There was no bleeding from the resection site. The patient's bladder was then drained. Resection scope and sheath removed. All needle, sponge and instrument counts were correct at the end of the case. The patient tolerated the procedure well and went to the recovery room in stable condition. I attest to the content of the Intraoperative Record and any orders documented therein. Any exceptio ns are noted below.
[2016-09-20 09:57] VITALS: BP 120/63; PULSE 73; O2SAT 95
[2016-09-20 11:00] VITALS: BP 119/57; PULSE 71; O2SAT 95
[2016-09-20 12:05] VITALS: BP 120/57; PULSE 74; O2SAT 95
[2017-01-31] MEDS ORDERED: MULT-506 PO (15:24)
[2017-01-31] MEDS ORDERED: VITAMIN D PO (15:24)
[2017-01-31] MEDS ORDERED: CHOL1000 PO (15:24)
[2017-02-21] MEDS ORDERED: OXYC-57 PO (07:54)
== END 2016-09-20 12:25 | disposition home or self-care (01) ==
LOC: C.ACU 05:08
PROVIDERS: ATTEND Urology
DX: C67.9 Malignant neoplasm of bladder, unspecified (principal); G47.30 Sleep apnea, unspecified; N40.0 Benign prostatic hyperplasia without lower urinary tract symptoms; R97.20 Elevated prostate specific antigen [PSA]; R91.8 Other nonspecific abnormal finding of lung field; E11.9 Type 2 diabetes mellitus without complications; Z79.4 Long term (current) use of insulin; N39.0 Urinary tract infection, site not specified; Z80.51 Family history of malignant neoplasm of kidney; Z80.42 Family history of malignant neoplasm of prostate

== ENCOUNTER → 2016-10-14 | Outpatient (CLI) | payer BC, OTHER ==
[~2016-10-14] MED LIST changes: +ACET-1222 PO; +CHOL1000 PO; +INSDGIPEN SQ; -METO1TAB66 PO; +MULT-506 PO; +NVLGI/PEN SQ; +OXYC-57 PO; +PHEN-876 PO; -PRVHFAIN INH; +VITAMIN D PO; +VNTHFA/IN INH
== END | disposition home or self-care (01) ==
LOC: C.LABSPEC 17:27
PROVIDERS: ATTEND Urology
DX: N39.0 Urinary tract infection, site not specified (principal)

== ENCOUNTER → 2017-02-21 | Day surgery (SDC) | payer BC, OTHER ==
[2017-01-31 15:26] VITALS: BMI 26.0
[~2017-02-21] VITALS: Ht 185.4 cm; Wt 90.0 kg
[~2017-02-21] MED LIST changes: +ATROPINE SULFATE 0.1 MG/ML 5ML SYR IV PRN; -CARB1SOL8 OT; +CIPROFLOXACIN / D5W 400 MG IV SCH; -CPR500 PO; +DEXAMETHASONE SOD INJ 4 MG/ML VIAL ONE; +EpHEDrine SULFATE INJ 50 MG/ML AMP IV PRN; +FENTANYL CITRATE INJ 50 MCG/1 ML 2 ML VIAL ONE; +HYDROmorphone INJ 2 MG/ML SYR/VIAL IV PRN; +LACTATED RINGER'S 1000ML 1,000 ML IV SCH; -LCTXP PO; +LIDOCAINE HCL 2% 2 ML VIAL (20MG/ML) ONE; +MIDAZOLAM HCL 1 MG/ML 2ML VIAL ONE; -OMEG10007 PO; +ONDANSETRON INJ 2 MG/ML 2 ML VIAL IV PRN; +ONDANSETRON INJ 2 MG/ML 2 ML VIAL ONE; +OXYCODONE/ACETAMINOPHEN 5-325 TAB PO PRN; +PHENYLEPHRINE 100MCG/ML 5ML SYR IV PRN; +PHENYLEPHRINE 100MCG/ML 5ML SYR ONE; +PROPOFOL IV EMULSION 10 MG/ML 20 ML VIAL IV ONE
[2017-02-21 05:37] VITALS: BP 131/79; PULSE 80; TEMP 36.7; O2SAT 98; Ht 185.4 cm; Wt 90.0 kg
[2017-02-21 06:29] LABS: INR 1.2 (0.9-1.1); PARTIAL THROMBOPLASTIN RATIO 1.1; PROTHROMBIN TIME (PATIENT) 12.7 SECONDS (9.0-12.0)
--- NOTE | 2017-02-21 07:55 | Discharge Instructions ---
Discharge Instructions Date of Service Feb 21, 2017. Visit Reason for Visit: Bladder Cancer Discharge Discharge Diagnosis / Problem: Bladder Cancer Discharge Goals Goal(s): Therapeutic intervention Activity Recommendations Activity Limitations: resume your previous activity (take it easy today) Anesthesia . Post Anesthesia Instructions: If you have had General Anesthesia or IV Sedation: * Do not drive today. * Resume driving when surgeon permits. * Do not make important decisions or sign legal documents today. * Call surgeon for: 1. Temperature elevations greater than 101 degrees F. 2. Uncontrollable pain. 3. Excessive bleeding. 4. Persistent nausea and vomiting. 5. Medication intolerance (nausea, vomiting or rash). * For nausea and vomiting use only clear liquids such as: tea, soda, bouillon until nausea subsides, then gradually increase diet as tolerated. * If you have any concerns or questions, call your surgeon's office. If physician is unavailable and it is an emergency, call 911 or go to the nearest emergency room. . Diet Recommendations Recommended Home Diet: resume previous diet Procedures Procedures Performed: Transurethral Resection Bladder Tumor Pending Studies Studies pending at discharge: no Medical Emergencies . Who to Call and When: Medical Emergencies: If at any time you feel your situation is an emergency, please call 911 immediately. . Non-Emergent Contact Non-Emergency issues call your: Urologist Call Non-Emergent contact if: temperature is above 101.5, your pain is not controlled . . "Provider Documentation" section prepared by Samy Farmer. . [place] Drug Monitoring Program Search Results: patient reviewed within database
--- NOTE | 2017-02-21 08:10 | [facility] Operative Report ---
Operative Report Operative Date Feb 21, 2017. Pre-Operative Diagnosis BLADDER CANCER Post-Operative Diagnosis SAME Procedure(s) Performed Transurethral Resection Bladder Tumor Surgeon Dr. Farmer Option Trader Surgeon(s) none Estimated Blood Loss 0 ML Findings Cystoscopic exam showed a normal anterior urethra prostatic fossa was mildly obstructing with primarily kissing lateral lobes. Bladder showed 1-2+ trabeculation with cellules there were multiple superficial papillary bladder tumors on the posterior superior bladder wall both ureteral orifices were effluxing clear urine Specimens A. BLADDER TUMOR Drains none Anesthesia general Complication(s) None Disposition Recovery Room / PACU Indications Patient is a 81-year-old white male with recurrent bladder cancer being brought in for resection. Description of Procedure After the induction of an adequate general anesthetic and appropriate timeout period patient was placed in the dorsolithotomy position. Lower abdomen and genitalia were prepped with Hibiclens and draped in sterile fashion. Using a 22 Amharic Zaki routine cystoscopic exam was performed the above-noted findings with 30 and 70 lenses. Next a 24 Amharic resectoscope and bipolar loop were used the largest of the tumors were resected the remaining tumors were all fulgurated the resection site was also fulgurated for hemostasis. All bladder tumor fragments were evacuated from the bladder. Final view revealed no bleeding from any of the resection sites patient's bladder was then drained cystoscope and sheath removed all needle sponge and counts were correct at the end of the case patient tolerated the procedure well and was taken to the recovery room in stable condition. I attest to the content of the Intraoperative Record and any orders documented therein. Any exceptions are noted below.
[2017-02-21 08:40] VITALS: BP 137/85; PULSE 76; TEMP 36.6; O2SAT 96
--- NOTE | 2017-02-21 08:58 | Anesthesiology Progress Note ---
Anesthesia Post Op Note Date & Time Feb 21, 2017 at 08:58 Vital Signs Pain Intensity: 0 Vital Signs Past 12 Hours Date Time Temp Pulse Resp B/P (MAP) Pulse Ox O2 Delivery O2 Flow Rate FiO2 02/21/17 08:30 36.1 71 17 105/68 94 Room Air 02/21/17 08:20 70 14 109/67 100 Oxymask 15 02/21/17 08:10 75 16 112/68 100 Oxymask 15 02/21/17 08:00 63 14 112/61 100 Oxymask 15 02/21/17 07:53 36.2 71 17 114/69 100 Oxymask 15 02/21/17 05:37 36.7 80 18 131/79 (96) 98 Room Air Notes Mental Status: alert / awake / arousable, participated in evaluation Pt Amnestic to Procedure: Yes Nausea / Vomiting: adequately controlled Pain: adequately controlled Airway Patency, RR, SpO2: stable & adequate BP & HR: stable & adequate Hydration State: stable & adequate Anesthetic Complications: no major complications apparent
[2017-02-21 09:09] VITALS: BP 121/58; PULSE 73; O2SAT 94
[2017-02-21 09:40] VITALS: BP 117/62; PULSE 73; TEMP 36.7; O2SAT 94
== END | disposition home or self-care (01) ==
LOC: C.ACU 05:14
PROVIDERS: ATTEND Urology
DX: C67.9 Malignant neoplasm of bladder, unspecified (principal); N32.89 Other specified disorders of bladder; E11.9 Type 2 diabetes mellitus without complications; N40.1 Benign prostatic hyperplasia with lower urinary tract symptoms; Z79.4 Long term (current) use of insulin; Z80.51 Family history of malignant neoplasm of kidney; Z79.899 Other long term (current) drug therapy

== ENCOUNTER 2017-03-03 09:47 | Inpatient (IN) | payer BC, OTHER ==
[~2017-03-03] VITALS: Ht 188 cm; Wt 87.5 kg
[2017-03-03] VITALS (7 sets, daily range): BP systolic 92–128; BP diastolic 49–65; PULSE 77–87; TEMP 36.5–36.8; O2SAT 93–98; Ht 188 cm; Wt 87.5 kg
[~2017-03-03 09:47] MED LIST changes: -ACET-1222 PO; -ATROPINE SULFATE 0.1 MG/ML 5ML SYR IV PRN; -CIPROFLOXACIN / D5W 400 MG IV SCH; -DEXAMETHASONE SOD INJ 4 MG/ML VIAL ONE; -EpHEDrine SULFATE INJ 50 MG/ML AMP IV PRN; -FENTANYL CITRATE INJ 50 MCG/1 ML 2 ML VIAL ONE; -HYDROmorphone INJ 2 MG/ML SYR/VIAL IV PRN; -INSDGIPEN SQ; -LACTATED RINGER'S 1000ML 1,000 ML IV SCH; -LIDOCAINE HCL 2% 2 ML VIAL (20MG/ML) ONE; -MIDAZOLAM HCL 1 MG/ML 2ML VIAL ONE; -MISCCAP80 PO; -NVLGI/PEN SQ; -ONDANSETRON INJ 2 MG/ML 2 ML VIAL IV PRN; -ONDANSETRON INJ 2 MG/ML 2 ML VIAL ONE; -OXYCODONE/ACETAMINOPHEN 5-325 TAB PO PRN; -PANT40TA PO; -PHENYLEPHRINE 100MCG/ML 5ML SYR IV PRN; -PHENYLEPHRINE 100MCG/ML 5ML SYR ONE; -PROPOFOL IV EMULSION 10 MG/ML 20 ML VIAL IV ONE; -VITAMIN D PO; -VNTHFA/IN INH
[2017-03-03] MEDS ORDERED: SODIUM CHLORIDE 0.9% 500ML 500 ML IV STA (10:20)
--- NOTE | 2017-03-03 10:23 | EMERGENCY ROOM VISIT NOTE ---
"History Report prepared by Melvin: Vivian Myers Under the Supervision of: Dr. Bal Guevara M.D. First contact with patient: 10:11 Chief Complaint: REFERRED BY DOCTOR Stated Complaint: RECENT SURGERY-BLOODY URINE(START 03/02), HIGH IRN History of Present Illness The patient is an 81 year old male who presents to the Emergency Room with complaints of persistent hematuria that began early this morning. The patient states that he is on Coumadin for his atrial fibrillation. He states that he last had his INR checked Tuesday and notes that he was called alerting him that his INR was 6.5. The patient's states that he was told to hold his Coumadin for two days, but notes that he had already taken his medication prior to the phone call. She reports that the patient had bladder surgery on for bladder cancer. The patient's states that the patient was instructed to hold his Coumadin for five days prior to the surgery, but was instructed to take a full pill starting the night of the surgery. She states that the patient never took a full pill prior to then. The patient states that he had some slight bleeding with urination after his surgery, but nothing this bad. The patient states that today he has been feeling fatigued and weak. He denies any history of PE or DVT. The patient denies any lightheadedness. Source of History: patient, spouse/significant other () Onset: early this morning Position: other (global) Quality: other (hematuria) Timing: other (persistent) Associated Symptoms: + fatigue, + weakness Review of Systems See HPI for pertinent positives & negatives. A total of 10 systems reviewed and were otherwise negative. Past Medical & Surgical Medical Problems: (1) BPH (benign prostatic hypertrophy) (2) Carotid stenosis (3) CKD (chronic kidney disease), stage III (4) COPD (chronic obstructive pulmonary disease) (5) Depression (6) DM type 2 (diabetes mellitus, type 2) (7) Dyslipidemia (8) Emphysema lung (9) Heart disease (10) History of bladder cancer (11) History of tobacco use (12) HTN (hypertension) (13) Kidney stone (14) Lesion of left lung (15) Osteoarthritis (16) Pneumonia (17) PVD (peripheral vascular disease) (18) Sleep apnea (19) Thyroid goiter Surgical Problems: (1) History of cataract surgery (2) Hx of prostate biopsy (3) S/P bronchoscopy (4) S/P CABG x 3 (5) S/P tonsillectomy and adenoidectomy Family History Alzheimer's disease Cancer Diabetes mellitus Gallbladder disease Heart disease Hypertension Parkinson disease Prostate cancer Social History Smoking Status: Never Smoker Alcohol Use: none Drug Use: none Marital Status: Housing Status: lives with family Occupation Status: retired Current/Historical Medications Scheduled Cholecalciferol (Vitamin D3), 1 TAB PO QAM Dutasteride (Avodart), 0.5 MG PO QPM Glimepiride (Glimepiride), 1 MG PO QAM Insulin Aspart (Novolog Flexpen), 12 UNITS SQ QPM Insulin Glargine (Lantus Solostar), 12 UNITS SQ HS Metoprolol Tartrate (Lopressor) (Lopressor), 50 MG PO QPM Nystatin/Triamcinolone (Mycogen || ), 1 APPLN TOP BID Pantoprazole (Protonix), 40 MG PO DAILY Probiotic Product (Probiotic), 1 CAP PO DAILY Sertraline (Zoloft), 25 MG PO QPM Tamsulosin Hcl (Flomax), 0.4 MG PO Q2D Warfarin Sod (Jantoven), 5 MG PO UD Scheduled PRN Acetaminophen (Acetaminophen Extra Stren), 1 TAB PO Q6 PRN for Pain Albuterol Hfa (Ventolin Hfa), 2 PUFFS INH Q6H PRN for SOB/Wheezing Meclizine Hcl (Meclizine Hcl), 1 TAB PO TID PRN for Dizziness or Vertigo Nitroglycerin (Nitrostat), 1 TAB UT UD PRN for Chest Pain Phenazopyridine HCl (Pyridium), 200 MG PO TID PRN for Bladder pain Allergies Coded Allergies: Latex1 -Allergic Contact Dermititis (Unverified Allergy, Unknown, RASH REDNESS ON FACE FROM LATEX MASK, 02/21/17) Simvastatin (Verified Adverse Reaction, Intermediate, MUSCLE ACHES, ) Physical Exam Vital Signs Date Time Temp Pulse Resp B/P (MAP) Pulse Ox O2 Delivery O2 Flow Rate FiO2 03/03/17 13:27 36.7 85 18 117/65 98 03/03/17 13:00 98 Room Air 03/03/17 12:58 18 117/65 98 Room Air 03/03/17 09:56 36.7 85 18 90/55 94 Room Air Physical Exam GENERAL: Patient is in no acute distress. HEENT: No acute trauma, normocephalic atraumatic, mucous membranes moist, no nasal congestion, no scleral icterus. NECK: No stridor, no adenopathy, no meningismus, trachea is midline. LUNGS: Clear to auscultation bilaterally, no wheeze, no rhonchi, breath sounds equal. HEART: Irregular, no murmurs, normal rate. ABDOMEN: Soft, nontender, bowel sounds positive, no hernias, no peritonitis. GROIN: No blood at the penile meatus. EXTREMITIES: No cyanosis or edema, full range of motion of all the joints without pain or difficulty, no signs for acute trauma. NEUROLOGIC: Oriented x 3, no acute motor or sensory deficits, no focal weakness. SKIN: No rash, no jaundice, no diaphoresis. Medical Decision & Procedures Laboratory Results 03/03/17 10:45 03/03/17 10:45 Test 03/03/17 10:45 03/03/17 11:10 Red Blood Count 5.21 M/uL (4.7-6.1) Mean Corpuscular Volume 87.3 fL (80-100) Mean Corpuscular Hemoglobin 29.4 pg (25-34) Mean Corpuscular Hemoglobin Concent 33.6 g/dl (32-36) RDW Standard Deviation 46.0 fL (36.4-46.3) RDW Coefficient of Variation 14.3 % (11.5-14.5) Mean Platelet Volume 10.1 fL (7.4-10.4) Prothrombin Time 94.4 SECONDS (9.0-12.0) Prothromb Time International Ratio 8.1 (0.9-1.1) Activated Partial Thromboplast Time 47.9 SECONDS (21.0-31.0) Partial Thromboplastin Ratio 1.8 Anion Gap 4.0 mmol/L (3-11) Est Creatinine Clear Calc Drug Dose 51.1 ml/min Estimated GFR () 59.3 Estimated GFR (Non- 51.2 BUN/Creatinine Ratio 13.2 (10-20) Calcium Level 9.0 mg/dl (8.5-10.1) Urine Color RED Urine Appearance CLOUDY (CLEAR) Urine pH 6.0 (4.5-7.5) Urine Specific [place] 1.020 (1.000-1.030) Urine Protein 2+ (NEG) Urine Glucose (UA) 1+ (NEG) Urine Ketones TRACE (NEG) Urine Occult Blood 3+ (NEG) Urine Nitrite NEG (NEG) Urine Bilirubin NEG (NEG) Urine Urobilinogen NEG (NEG) Urine Leukocyte Esterase TRACE (NEG) Urine RBC >30 /hpf (0-4) Urine WBC 10-30 /hpf (0-5) Urine Epithelial Cells >30 /lpf (0-5) Urine Bacteria 2+ (NEG) Urine Mucus PRESENT (NONE PRSENT) Laboratory results reviewed by me. Medications Administered Medications (Trade) Dose Ordered Sig/Susan Route Start Time Stop Time Status Last Admin Dose Admin Sodium Chloride 500 ml @ 999 mls/hr Q31M STAT IV 03/03/17 10:20 03/03/17 10:50 DC 03/03/17 10:50 999 MLS/HR Phytonadione 10 mg/Sodium Chloride 51 ml @ 102 mls/hr ONE ONCE IV 03/03/17 11:30 03/03/17 11:59 DC 03/03/17 11:35 102 MLS/HR ED Course 1014: The patient was evaluated in room C4. A complete history and physical exam was performed. 1020: Ordered Sodium Chloride 500 ml @ 999 mls/hr IV. 1130: Ordered Phytonadione 10 mg/Sodium Chloride 51 ml @ 102 mls/hr Protocol IV. 1138: I reevaluated the patient and he is doing well. I discussed the exam findings with him and I discussed the treatment plan. He verbalized complete understanding and agreement. He is going to be evaluated for further treatment. 1141: I discussed the patients case with Stephanie Gonzalez PA-C. She is going to evaluate the patient for further treatment. Medical Decision The patient is an 81 year old male who presents to the ED with complaints of hematuria. Differential diagnoses considered include Coagulopathy, anemia, renal failure, UTI, bleeding from surgical sites. There is no leukocytosis or concerning anemia. No significant electrolyte abnormality or kidney failure. Urinalysis does show hematuria and possible infection. Urine culture is pending. INR is greater than 8, he has a significant elevation above the therapeutic window. The patient received IV vitamin K. He received IV saline. His blood pressure was initially low upon arrival but is now adequate. He is asymptomatic. Given the markedly elevated INR, given the recent bladder surgery, given the hematuria, admission/observation was felt warranted. I spoke to the patient and the nurse outreach case manager. The on-call hospitalist was consulted. Medication Reconcilliation Current Medication List: was personally reviewed by me Blood Pressure Screening Patient's blood pressure: Low blood pressure Blood pressure disposition: Did not require urgent referral Consults Time Called: 1137 Consulting Physician: Adele Gonzalez PA-C Returned Call: 1141 I discussed the patients case with Stephanie Gonzalez PA-C. She is going to evaluate the patient for further treatment. Impression Primary Impression: Hematuria Additional Impression: Coagulopathy Scribe Attestation The scribe's documentation has been prepared under my direction and personally reviewed by me in its entirety. I confirm that the note above accurately reflects all work, treatment, procedures, and medical decision making performed by me. Departure Information Dispostion Being Evaluated By Hospitalist Referrals Nathan Penn D.O. (PCP) Problem Qualifiers"
[2017-03-03 10:58] LABS: HEMATOCRIT 45.5 % (42-52); MEAN CELL VOLUME 87.3 fL (80-100); MEAN CORPUSCULAR HEMOGLOBIN 29.4 pg (25-34); MEAN CORPUSCULAR HGB CONC 33.6 g/dl (32-36); MEAN PLATELET VOLUME 10.1 fL (7.4-10.4); PLATELET COUNT 229 K/uL (130-400); RED BLOOD COUNT 5.21 M/uL (4.7-6.1); WHITE BLOOD COUNT 8.03 K/uL (4.8-10.8)
[2017-03-03 11:14] LABS: PARTIAL THROMBOPLASTIN RATIO 1.8; PROTHROMBIN TIME (PATIENT) 94.4 SECONDS (9.0-12.0)
[2017-03-03 11:16] LABS: BUN/CREATININE RATIO 13.2 (10-20); CREATININE 1.3 mg/dl (0.60-1.40); POTASSIUM 4.4 mmol/L (3.5-5.1)
[2017-03-03 11:19] LABS: INR 8.1 (0.9-1.1)
[2017-03-03] MEDS ORDERED: PHYTONADIONE INJ 10 MG in SODIUM CHLORIDE 0.9% 50ML 50 ML IV ONE (11:30)
[2017-03-03 11:40] LABS: MANUAL MICROSCOPIC REQUIRED? YES; URINE APPEARANCE CLOUDY (CLEAR); URINE BILIRUBIN NEG (NEG); URINE NITRITE NEG (NEG); UROBILINOGEN NEG (NEG)
[2017-03-03 11:41] LABS: REVIEW REQ? NO
[2017-03-03 11:42] LABS: URINE COLOR RED
[2017-03-03 11:52] LABS: URINE RBC >30 /hpf (0-4)
[2017-03-03 11:53] LABS: URINE BACTERIA 2+ (NEG); URINE MUCUS PRESENT (NONE PRSENT)
[2017-03-03] MEDS ORDERED: MISCCAP80 PO (12:07)
[2017-03-03] MEDS ORDERED: INSDGIPEN SQ (12:13)
[2017-03-03] MEDS ORDERED: NVLGI/PEN SQ (12:13)
[2017-03-03] MEDS ORDERED: NYSTCRE11 TOP (12:15)
[2017-03-03] MEDS ORDERED: NITROGLYCERIN 0.4 MG SL PER TAB CHARGE SL PRN (12:30)
[2017-03-03] MEDS ORDERED: PANT40TA PO (12:33)
[2017-03-03] MEDS ORDERED: VNTHFA/IN INH (12:35)
[2017-03-03] MEDS ORDERED: ACET-1222 PO (12:35)
[2017-03-03] MEDS ORDERED: MECLIZINE HCL 25 MG TAB PO PRN (12:45)
[2017-03-03] MEDS ORDERED: DEXTROSE 50% 50 ML SYR IV PRN (12:45)
[2017-03-03] MEDS ORDERED: ALBUTEROL HFA 8 GM INHALER INH PRN (12:45)
[2017-03-03] MEDS ORDERED: PHENAZOPYRIDINE HCL 200 MG TAB PO PRN (12:45)
[2017-03-03] MEDS ORDERED: NITROGLYCERIN 0.4 MG SL PER TAB CHARGE UT PRN (12:45)
[2017-03-03] MEDS ORDERED: GLUCOSE 10 TABS/TUBE PO PRN (12:45)
[2017-03-03] MEDS ORDERED: GLUCOSE 40% GEL 15 GM TUBE PO PRN (12:45)
[2017-03-03] MEDS ORDERED: GLUCAGON FOR INJ 1 MG VIAL SQ PRN (12:45)
[2017-03-03] MEDS: SODIUM CHLORIDE 0.9% 1000ML 1,000 ML IV SCH (14:14)
[2017-03-03] MEDS ORDERED: ALBUT/IPRATROP 3MG/0.5MG NEB 3 ML VIAL INH PRN (14:30)
--- NOTE | 2017-03-03 15:28 | History and Physical ---
"History & Physical Date & Time of Service: Mar 03, 2017 at 12:55 Chief Complaint: Recent Surgery-Bloody Urine(Start 03/02), High Irn Primary Care Physician: Nathan Penn D.O. History of Present Illness Source: patient, spouse, clinic records, hospital records This is an 81 year old male with PMH of bladder cancer s/p transurethral resection of bladder tumor on 02/21/[address] Farmer, chronic Afib on Coumadin , CAD s/p CABG x 3 in 2009, COPD, DM type 2, HTN, sleep apnea, and other problems listed below who presents to the ED for hematuria. Patient's Coumadin was held for 5 days prior to his urological procedure, then was instructed to take 7.5 mg on night of surgery then 5 mg daily. His usual dose is 2.5 mg daily. He was called 2 days ago for INR greater than 6.5 and instructed to hold Coumadin, which he already took that day. Tuesday was his last dose. 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 He then voided twice in the ER with alesia hematuria. No problem passing the urine or dysuria. He reports feeling generally weak and tired. Denies dizziness, chest pain, SOB, abdominal pain, N/V, change in bowel movements. Initial BP in the ER was 90 systolic which improved with IVF's. Past Medical/Surgical History Medical Problems: (1) BPH (benign prostatic hypertrophy) Status: Chronic (2) Carotid stenosis Status: Chronic (3) CKD (chronic kidney disease), stage III Status: Chronic (4) COPD (chronic obstructive pulmonary disease) Status: Chronic (5) Depression Status: Chronic (6) DM type 2 (diabetes mellitus, type 2) Status: Chronic (7) Dyslipidemia Status: Chronic (8) Emphysema lung Status: Chronic (9) Heart disease Status: Chronic (10) History of bladder cancer Status: Chronic (11) History of tobacco use Status: Chronic (12) HTN (hypertension) Status: Chronic (13) Kidney stone Status: Resolved (14) Lesion of left lung Status: Chronic (15) Osteoarthritis Status: Chronic (16) PVD (peripheral vascular disease) Status: Chronic (17) Sleep apnea Status: Chronic (18) Thyroid goiter Status: Chronic Surgical Problems: (1) History of cataract surgery Status: Chronic (2) Hx of prostate biopsy Status: Chronic (3) S/P bronchoscopy Status: Chronic (4) S/P CABG x 3 Status: Chronic (5) S/P tonsillectomy and adenoidectomy Status: Chronic Family History Alzheimer's disease Cancer Diabetes mellitus Gallbladder disease Heart disease Hypertension Parkinson disease Prostate cancer Social History Smoking Status: Never Smoker Alcohol Use: none Drug Use: none Marital Status: Housing status: lives with family Occupational Status: retired Allergies Coded Allergies: Latex1 -Allergic Contact Dermititis (Unverified Allergy, Unknown, RASH REDNESS ON FACE FROM LATEX MASK, 02/21/17) Simvastatin (Verified Adverse Reaction, Intermediate, MUSCLE ACHES, ) Home Medications Scheduled Cholecalciferol (Vitamin D3), 1 TAB PO QAM Dutasteride (Avodart), 0.5 MG PO QPM Glimepiride (Glimepiride), 1 MG PO QAM Insulin Aspart (Novolog Flexpen), 12 UNITS SQ QPM Insulin Glargine (Lantus Solostar), 12 UNITS SQ HS Metoprolol Tartrate (Lopressor) (Lopressor), 50 MG PO QPM Nystatin/Triamcinolone (Mycogen || ), 1 APPLN TOP BID Pantoprazole (Protonix), 40 MG PO DAILY Probiotic Product (Probiotic), 1 CAP PO DAILY Sertraline (Zoloft), 25 MG PO QPM Tamsulosin Hcl (Flomax), 0.4 MG PO Q2D Warfarin Sod (Jantoven), 5 MG PO UD Scheduled PRN Acetaminophen (Acetaminophen Extra Stren), 1 TAB PO Q6 PRN for Pain Albuterol Hfa (Ventolin Hfa), 2 PUFFS INH Q6H PRN for SOB/Wheezing Meclizine Hcl (Meclizine Hcl), 1 TAB PO TID PRN for Dizziness or Vertigo Nitroglycerin (Nitrostat), 1 TAB UT UD PRN for Chest Pain Phenazopyridine HCl (Pyridium), 200 MG PO TID PRN for Bladder pain Review of Systems Ten systems reviewed and negative except as noted in HPI. Physical Exam Vital Signs Date Time Temp Pulse Resp B/P (MAP) Pulse Ox O2 Delivery O2 Flow Rate FiO2 03/03/17 09:56 36.7 85 18 90/55 94 Room Air General Appearance: WD/WN, no apparent distress, + pertinent finding ( at bedside) Head: normocephalic, atraumatic Eyes: normal inspection, EOMI, sclerae normal ENT: normal ENT inspection, hearing grossly normal Neck: supple, trachea midline Respiratory/Chest: lungs clear, normal breath sounds, no respiratory distress Cardiovascular: no murmur, + irregularly irregular Abdomen/GI: normal bowel sounds, non tender, soft Genitourinary - Male: no urethral discharge, + pertinent finding (phallus has erythematous rash) Extremities/Musculoskelatal: no calf tenderness, no pedal edema Neurologic/Psych: alert, normal mood/affect, oriented x 3 Skin: normal color, warm/dry Diagnostics Laboratory Results Results Past 24 Hours Test 03/03/17 10:45 03/03/17 11:10 Range/Units White Blood Count 8.03 4.8-10.8 K/uL Red Blood Count 5.21 4.7-6.1 M/uL Hemoglobin 15.3 14.0-18.0 g/dL Hematocrit 45.5 42-52 % Mean Corpuscular Volume 87.3 80-100 fL Mean Corpuscular Hemoglobin 29.4 25-34 pg Mean Corpuscular Hemoglobin Concent 33.6 32-36 g/dl RDW Standard Deviation 46.0 36.4-46.3 fL RDW Coefficient of Variation 14.3 11.5-14.5 % Platelet Count 229 130-400 K/uL Mean Platelet Volume 10.1 7.4-10.4 fL Prothrombin Time 94.4 9.0-12.0 SECONDS Prothromb Time International Ratio 8.1 0.9-1.1 Activated Partial Thromboplast Time 47.9 21.0-31.0 SECONDS Partial Thromboplastin Ratio 1.8 Sodium Level 136 136-145 mmol/L Potassium Level 4.4 3.5-5.1 mmol/L Chloride Level 100 98-107 mmol/L Carbon Dioxide Level 32 21-32 mmol/L Anion Gap 4.0 3-11 mmol/L Blood Urea Nitrogen 17 7-18 mg/dl Creatinine 1.30 0.60-1.40 mg/dl Est Creatinine Clear Calc Drug Dose 51.1 ml/min Estimated GFR () 59.3 Estimated GFR (Non- 51.2 BUN/Creatinine Ratio 13.2 10-20 Random Glucose 243 70-99 mg/dl Calcium Level 9.0 8.5-10.1 mg/dl Urine Color RED Urine Appearance CLOUDY CLEAR Urine pH 6.0 4.5-7.5 Urine Specific [place] 1.020 1.000-1.030 Urine Protein 2+ NEG Urine Glucose (UA) 1+ NEG Urine Ketones TRACE NEG Urine Occult Blood 3+ NEG Urine Nitrite NEG NEG Urine Bilirubin NEG NEG Urine Urobilinogen NEG NEG Urine Leukocyte Esterase TRACE NEG Urine RBC >30 0-4 /hpf Urine WBC 10-30 0-5 /hpf Urine Epithelial Cells >30 0-5 /lpf Urine Bacteria 2+ NEG Urine Mucus PRESENT NONE PRSENT Microbiology Results 03/03/17 Urine Culture, Received Pending EKG atrial fibrillation, 74 bpm, no ST or T wave abnormality Impression Assessment and Plan GROSS HEMATURIA In setting of Coumadin use with supra-therapeutic INR (8.1), hx bladder CA s/p recent transurethral resection of bladder tumor 02/21/[address] Farmer Hg is stable (15.3)- recheck H/H tonight and in AM BP borderline in ER (90 systolic)- resolved to 110s systolic with IVF's, will continue IVF's at 75 cc/hour Vitamin K 10 mg IV given in ER, Coumadin held; recheck INR in am Discussed with urology Dr. Gonsalez; appreciate input; patient will be seen by Renate CA later today, no cystoscopy indicated at this time unless patient becomes hemodynamically unstable or significant drop in H/H Nystatin cream ordered for penile rash ATRIAL FIBRILLATION Rate controlled, continue beta aleksandr Coumadin held for supratherapeutic INR, hematuria Recheck INR in am HYPERTENSION BP borderline low x 1 in ER, improved with IVF's in ER, continue IVF's at 75 cc/ hour Continue metoprolol with holding parameters CAD S/P CABG Stable, denies chest pain Continue beta aleksandr and statin DM TYPE 2 Hold glimepiride Continue home Lantus Novolog sliding scale CKD STAGE III Creat is stable Follow renal function COPD Not in exacerbation PRN nebs SLEEP APNEA Not using CPAP at home due to lack of supplies, will ask protective services social worker to assist Will use CPAP in hospital DEPRESSION Continue sertraline BPH Continue Flomax and Avodart DVT PROPHYLAXIS SCD's, Coumadin held CODE STATUS DNR/DNI per my discussion with the patient. Patient seen in collaboration with Dr. Neal. Please see his addendum. Attending Physician Addendum Dr. Neal I agree with MAKAYLA Acosta's assessment and plan and would like to comment on the following: This is a an 81 year old M with recent transurethral resection bladder of tumor on 02/21/2017, other past medical history of atrial fibrillation on coumadin with usual regimen 2.5 mg daily for therapeutic INR, however recently had increased coumadin doses after transurethal resection bladder. Prior to morning of ED admission, patient noted dark colored urine. When patient presents to the ED his blood pressure was in low 90s and receiving IV fluids. In the ED, labs measured supratherapeutic INR of 8.1 and patient received Vitamin K 10 mg IV. On exam, patient reporting feeling fatigue but is awake and oriented on physical exam and following directions. Has irregular rhythm but rate is within normal limits. Lungs are clear on exam. No abdominal tenderness. Has rash around foreskin of penis that is chronic, likely fungal infection and will order nystatin powder. Patient able to urinate without davis and there is dark red fluid. Will continue IV fluids to maintain blood pressure and prevent syncope. Admission hemoglobin 15.3 and above threshold for transfusion. Will trend H/H and maintain active type and screen. Trend INR after Vitamin K was given in the ED. Hold coumadin for now. Urology consulted for possible cystoscopy. Code Status: patient and affirms that code status is DNR Continue home dose metoprolol for rate control of atrial fibrillation. Continue insulin for diabetes. Patient home regimen 12 units Novolog for dinner and 12 units Lantus at night. May need to hold insulin or give reduced insulin amounts if goes to cystoscopy. Add on sliding scale insulin as inpatient. History of CABG in 2009. No active cardiorespiratory symptoms. Nitro sublingual prn if chest pain occurs History of emphysema. Add nebulizer treatments as needed while inpatient Resuscitation Status DO NOT RESUSCITATE VTE Prophylaxis VTE Risk Assessment Done? Y/N: Yes Risk Level: Moderate"
--- NOTE | 2017-03-03 15:55 | Urology Consultation ---
"History General Date of Service: Mar 03, 2017. Chief Complaint: gross hematuria Primary Care Physician: Nathan Penn D.O. Pt seen a urologist before?: Yes (Dr. Farmer) If yes, why?: bladder cancer History of Present Illness 81 yo male presents to [facility] with c/o gross hematuria with clots. He is s/p TURBT with Dr. Farmer on 02-21-17. Reports he restarted his Coumadin a few days ago at a dose higher than he would normally take as instructed to do so by his Coumadin clinic. Developed gross hematuria with clots last evening. INR noted to be 8.1 on admission. Tx with IV Vit K. Pt denies pain this afternoon. Urine is light richardson colored in urinal. Pt denies weak stream or difficulty voiding. H&H stable at 15.3 and 45.5. Laboratory Last 24 Hours Test 03/03/17 10:45 03/03/17 11:10 White Blood Count 8.03 K/uL Red Blood Count 5.21 M/uL Hemoglobin 15.3 g/dL Hematocrit 45.5 % Mean Corpuscular Volume 87.3 fL Mean Corpuscular Hemoglobin 29.4 pg Mean Corpuscular Hemoglobin Concent 33.6 g/dl RDW Standard Deviation 46.0 fL RDW Coefficient of Variation 14.3 % Platelet Count 229 K/uL Mean Platelet Volume 10.1 fL Prothrombin Time 94.4 SECONDS Prothromb Time International Ratio 8.1 Activated Partial Thromboplast Time 47.9 SECONDS Partial Thromboplastin Ratio 1.8 Sodium Level 136 mmol/L Potassium Level 4.4 mmol/L Chloride Level 100 mmol/L Carbon Dioxide Level 32 mmol/L Anion Gap 4.0 mmol/L Blood Urea Nitrogen 17 mg/dl Creatinine 1.30 mg/dl Est Creatinine Clear Calc Drug Dose 51.1 ml/min Estimated GFR () 59.3 Estimated GFR (Non- 51.2 BUN/Creatinine Ratio 13.2 Random Glucose 243 mg/dl Calcium Level 9.0 mg/dl Urine Color RED Urine Appearance CLOUDY Urine pH 6.0 Urine Specific [place] 1.020 Urine Protein 2+ Urine Glucose (UA) 1+ Urine Ketones TRACE Urine Occult Blood 3+ Urine Nitrite NEG Urine Bilirubin NEG Urine Urobilinogen NEG Urine Leukocyte Esterase TRACE Urine RBC >30 /hpf Urine WBC 10-30 /hpf Urine Epithelial Cells >30 /lpf Urine Bacteria 2+ Urine Mucus PRESENT Problem List Medical Problems: (1) Abnormal ECG Status: Acute (2) Altered mental status Status: Acute (3) Atrial fibrillation with rapid ventricular response Status: Acute (4) Coagulopathy Status: Acute (5) COPD exacerbation Status: Acute (6) Hematuria Status: Acute (7) Hypoglycemia Status: Acute (8) Hypoxia Status: Acute (9) PNA (pneumonia) Status: Acute (10) SOB (shortness of breath) Status: Acute Past History BPH, cancer (bladder), COPD, coronary artery disease, depression, diabetes, high cholesterol, hypertension, kidney stones, osteoarthritis, other (carotid stenosis, CKD stage III, emphysema, lung lesion, peripheral vascular disease, thyroid goiter, sleep apnea) Past Surgical History: adenoidectomy, coronary bypass surgery (x 3), tonsillectomy, other (TUBRT 02-21-17, prostate biopsy, cataract surgery, bronchoscopy) Family History Alzheimer's disease Cancer Diabetes mellitus Gallbladder disease Heart disease Hypertension Parkinson disease Prostate cancer Social History Hx Tobacco Use In Past Year?: No (SMOKED 1 1/2 PPD X QUIT 8 YRS AGO) Smoking: non-smoker Alcohol: never Drug use: none Marital status: Housing status: lives with family Occupation status: retired Allergies Coded Allergies: Latex1 -Allergic Contact Dermititis (Unverified Allergy, Unknown, RASH REDNESS ON FACE FROM LATEX MASK, 02/21/17) Simvastatin (Verified Adverse Reaction, Intermediate, MUSCLE ACHES, ) Medications Home Medications: Home Meds and Scripts Medications Dose Route/Sig Max Daily Dose Days Date Category Dose Instructions Ventolin Hfa (Albuterol) 200 Puffs/26264 Mcg Aers 2 Puffs INH Q6H PRN 03/03/17 Reported Acetaminophen Extra Stren (Acetaminophen) 500 Mg Tab 1 Tab PO Q6 PRN 03/03/17 Reported Protonix (Pantoprazole Sodium) 40 Mg Tab 40 Mg PO DAILY 03/03/17 Reported Mycogen || (Nystatin/Triamcinolone Acetonide) Cr 1 Appln TOP BID 03/03/17 Reported TO AFFECTED AREA Lantus Solostar (Insulin Glargine) 100 Unit/Ml Inj 12 Units SQ HS 03/03/17 Reported Novolog Flexpen (Insulin Aspart) 100 Units/Ml Inj 12 Units SQ QPM 03/03/17 Reported WITH DINNER Probiotic (Probiotic Product) 1 Cap Cap 1 Cap PO DAILY 03/03/17 Reported Vitamin D3 (Cholecalciferol) 1,000 Unit Tab 1 Tab PO QAM 90 01/31/17 Reported Pyridium (Phenazopyridine HCl) 200 Mg Tab 200 Mg PO TID PRN 09/20/16 Rx Avodart (Dutasteride) 0.5 Mg Cap 0.5 Mg PO QPM 09/13/16 Reported Lopressor (Metoprolol Tartrate) 50 Mg Tab 50 Mg PO QPM 09/13/16 Reported Meclizine Hcl 25 Mg Tab 1 Tab PO TID PRN 10 08/06/16 Reported Nitrostat (Nitroglycerin) 0.4 Mg/1 Tab Subl 1 Tab UT UD PRN 08/06/16 Reported Zoloft (Sertraline HCl) 50 Mg Tab 25 Mg PO QPM 08/06/16 Reported Jantoven (Warfarin Sodium) 2.5 Mg Tab 5 Mg PO UD 06/01/16 Reported Flomax (Tamsulosin Hcl) 0.4 Mg Cap 0.4 Mg PO Q2D 06/01/16 Reported PM Glimepiride 1 Mg Tab 1 Mg PO QAM 03/13/13 Reported Inpatient Medications: Current Inpatient Medications Medications (Trade) Dose Ordered Sig/Susan Route Start Time Stop Time Status Last Admin Dose Admin Nitroglycerin (Nitrostat Tab) 0.4 mg UD PRN SL 03/03/17 12:30 04/02/17 12:29 Albuterol (Ventolin Hfa Inhaler) 2 puffs Q6H PRN INH 03/03/17 12:45 04/02/17 12:44 Cholecalciferol (Vitamin D Tab) 1,000 inter.unit QAM PO 03/04/17 09:00 04/03/17 08:59 Insulin Glargine (Lantus Solostar Pen) 12 units HS SQ 03/03/17 21:00 04/02/17 20:59 Meclizine HCl (Antivert Tab) 25 mg TID PRN PO 03/03/17 12:45 04/02/17 12:44 Metoprolol Tartrate (Lopressor Tab) 50 mg QPM PO 03/03/17 21:00 04/02/17 20:59 Pantoprazole Sodium (Protonix Tab) 40 mg DAILY PO 03/04/17 09:00 04/03/17 08:59 Phenazopyridine HCl (Pyridium Tab) 200 mg TID PRN PO 03/03/17 12:45 04/02/17 12:44 Sertraline HCl (Zoloft Tab) 25 mg QPM PO 03/03/17 21:00 04/02/17 20:59 Tamsulosin HCl (Flomax Cap) 0.4 mg Q2D PO 03/04/17 21:00 04/03/17 20:59 Miscellaneous Information (Order Awaiting Action) 1 ea QS N/A 03/03/17 16:00 04/02/17 15:59 Nystatin (Mycostatin Crm) 1 appln BID EXT 03/03/17 21:00 04/02/17 20:59 Insulin Aspart (novoLOG ASPART) SLIDING SCALE If C... ACHS SC 03/03/17 16:00 04/02/17 15:59 Glucose (Glucose 40% Gel) 15-30 GRAMS 15 GRAMS... UD PRN PO 03/03/17 12:45 04/02/17 12:44 Glucose (Glucose Chew Tab) 4-8 Tablets 4 Tabl... UD PRN PO 03/03/17 12:45 04/02/17 12:44 Dextrose (Dextrose 50% 50ML Syringe) 25-50ML OF 50% DW IV FOR... UD PRN IV 03/03/17 12:45 04/02/17 12:44 Glucagon (Glucagon Inj) 1 mg UD PRN SQ 03/03/17 12:45 04/02/17 12:44 Sodium Chloride 1,000 ml @ 75 mls/hr [id number] IV 03/03/17 14:00 04/02/17 13:59 03/03/17 14:14 75 MLS/HR Albuterol/ Ipratropium (Duoneb) 3 ml QIDR INH 03/03/17 16:00 04/02/17 15:59 Albuterol/ Ipratropium (Duoneb) 3 ml Q2H PRN INH 03/03/17 14:30 04/02/17 14:29 Review of Systems Review of Systems Constitutional: No fever, No chills Eyes: No double vision Neurological: No dizzy Endocrine: No excessive thirst Gastrointestinal: No abdominal pain, No nausea, No vomiting Cardiovascular: No chest pain Respiratory: No shortness of breath Skin: No rash Musculoskeletal: + arthritis Male : + blood in urine, No painful urination Physical Exam Vital Signs: Vital Signs Past 12 Hours Date Time Temp Pulse Resp B/P (MAP) Pulse Ox O2 Delivery O2 Flow Rate FiO2 03/03/17 15:35 36.8 79 20 100/65 (77) 96 Room Air 03/03/17 13:27 36.7 85 18 117/65 98 03/03/17 13:00 98 Room Air 03/03/17 12:58 18 117/65 98 Room Air 03/03/17 09:56 36.7 85 18 90/55 94 Room Air Physical Exam: General Appearance: no apparent distress Eyes: bilateral eyes normal inspection ENT: hearing grossly normal Neck: no JVD Respiratory/Chest: no respiratory distress, no accessory muscle use Cardiovascular: no JVD Extremities: normal inspection Neurologic/Psychiatric: alert, normal mood/affect, oriented x 3 Skin: normal color Assessment & Plan Assessment & Plan A/P: Gross hematuria, bladder cancer AFVSS. UC&S pending. Gross hematuria not uncommon for several weeks after TURBT. INR of 8.1 is a worsening factor. Should begin to correct itself with correction of INR. Urine already clearing from the pt reports. Continue to monitor H&H. Transfuse PRN. Will avoid davis placement unless the pt is unable to void or develops worsening hematuria. Thanks for the consult. Will continue to follow along with primary service."
[2017-03-03] MEDS: ALBUT/IPRATROP 3MG/0.5MG NEB 3 ML VIAL INH SCH ×2 (15:56→19:03)
[2017-03-03] MEDS: AVODART~ORDER AWAITING ACTION SCH (16:00)
[2017-03-03] MEDS: INSULIN ASPART 100 UNITS/ML 3 ML PEN SC SCH ×2 (16:15→20:44)
[2017-03-03 19:27] LABS: HEMATOCRIT 41.6 % (42-52)
[2017-03-03] MEDS: NYSTATIN CR 15 GM TUBE EXT SCH (20:41)
[2017-03-03] MEDS ORDERED: SERTRALINE HCL 50 MG TAB PO SCH (21:00)
[2017-03-03] MEDS ORDERED: METOPROLOL TARTRATE 50 MG TAB PO SCH (21:00)
[2017-03-03] MEDS ORDERED: INSULIN GLARGINE SOLOSTAR 100 UNITS/ML 3 ML PEN SQ SCH (21:00)
[2017-03-04] VITALS (10 sets, daily range): BP systolic 106–123; BP diastolic 60–72; PULSE 69–95; TEMP 36.6–36.8; O2SAT 95–99
[2017-03-04] MEDS: SODIUM CHLORIDE 0.9% 1000ML 1,000 ML IV SCH (03:30)
[2017-03-04 05:23] LABS: BASO % 0.6 %; BASO ABS # 0.05 K/uL (0-0.2); COMPLETE YES; EOS % 2.8 %; HEMATOCRIT 40.6 % (42-52); IG% 0.3 %; LYMPH % 24.2 %; LYMPH ABS # 1.93 K/uL (1.2-3.4); MEAN CORPUSCULAR HEMOGLOBIN 28.7 pg (25-34); MEAN CORPUSCULAR HGB CONC 32.3 g/dl (32-36); MEAN PLATELET VOLUME 9.8 fL (7.4-10.4); MONO % 11.8 %; NEUT % 60.3 %; PLATELET COUNT 217 K/uL (130-400); RED BLOOD COUNT 4.56 M/uL (4.7-6.1); WHITE BLOOD COUNT 7.98 K/uL (4.8-10.8)
[2017-03-04 05:32] LABS: INR 1.5 (0.9-1.1); PROTHROMBIN TIME (PATIENT) 15.8 SECONDS (9.0-12.0)
[2017-03-04 05:50] LABS: CALCIUM 8.5 mg/dl (8.5-10.1); CREATININE 1.3 mg/dl (0.60-1.40); POTASSIUM 4.8 mmol/L (3.5-5.1)
[2017-03-04 05:53] LABS: ALB/GLOB RATIO 0.6 (0.9-2)
[2017-03-04] MEDS: ALBUT/IPRATROP 3MG/0.5MG NEB 3 ML VIAL INH SCH ×3 (07:09→15:28)
[2017-03-04] MEDS: AVODART~ORDER AWAITING ACTION SCH ×2 (08:00)
[2017-03-04] MEDS: INSULIN ASPART 100 UNITS/ML 3 ML PEN SC SCH ×2 (08:24→15:12)
[2017-03-04] MEDS: NYSTATIN CR 15 GM TUBE EXT SCH (08:26)
[2017-03-04] MEDS ORDERED: CHOLECALCIFEROL 1000 INTER.UNIT TAB PO SCH (09:00)
[2017-03-04] MEDS ORDERED: PANTOprazole SOD 40 MG TAB PO SCH (09:00)
[2017-03-04] MEDS ORDERED: NON-FORMULARY MEDICATION (Probiotic Product (Probiotic) 1 CAP) PO SCH (09:00)
--- NOTE | 2017-03-04 09:34 | Progress Note ---
Subjective Date of Service: Mar 04, 2017. Subjective Pt evaluation today including: conversation w/ patient, physical exam, lab review, review of studies, review of inpatient medication list Saw/examined the patient in room 218 He's doing well +hematuria persists No chest pain/shortness of breath Problem List Medical Problems: (1) Abnormal ECG Status: Acute (2) Altered mental status Status: Acute (3) Atrial fibrillation with rapid ventricular response Status: Acute (4) Coagulopathy Status: Acute (5) COPD exacerbation Status: Acute (6) Hematuria Status: Acute (7) Hypoglycemia Status: Acute (8) Hypoxia Status: Acute (9) PNA (pneumonia) Status: Acute (10) SOB (shortness of breath) Status: Acute Review of Systems Constitutional: No fever, No chills Respiratory: No shortness of breath Cardiac: No chest pain Male : + hematuria, No dysuria, No urinary frequency Heme: + abnormal bleeding/bruising Medications Current Inpatient Medications Medications (Trade) Dose Ordered Sig/Susan Route Start Time Stop Time Status Last Admin Dose Admin Nitroglycerin (Nitrostat Tab) 0.4 mg UD PRN SL 03/03/17 12:30 04/02/17 12:29 Albuterol (Ventolin Hfa Inhaler) 2 puffs Q6H PRN INH 03/03/17 12:45 04/02/17 12:44 Cholecalciferol (Vitamin D Tab) 1,000 inter.unit QAM PO 03/04/17 09:00 04/03/17 08:59 03/04/17 08:22 1,000 INTER.UNIT Insulin Glargine (Lantus Solostar Pen) 12 units HS SQ 03/03/17 21:00 04/02/17 20:59 03/03/17 20:45 12 UNITS Meclizine HCl (Antivert Tab) 25 mg TID PRN PO 03/03/17 12:45 04/02/17 12:44 Metoprolol Tartrate (Lopressor Tab) 50 mg QPM PO 03/03/17 21:00 04/02/17 20:59 03/03/17 20:40 50 MG Pantoprazole Sodium (Protonix Tab) 40 mg DAILY PO 03/04/17 09:00 04/03/17 08:59 03/04/17 08:22 40 MG Phenazopyridine HCl (Pyridium Tab) 200 mg TID PRN PO 03/03/17 12:45 04/02/17 12:44 Sertraline HCl (Zoloft Tab) 25 mg QPM PO 03/03/17 21:00 04/02/17 20:59 03/03/17 20:41 25 MG Tamsulosin HCl (Flomax Cap) 0.4 mg Q2D PO 03/04/17 21:00 04/03/17 20:59 Miscellaneous Information (Order Awaiting Action) 1 ea QS N/A 03/03/17 16:00 04/02/17 15:59 Nystatin (Mycostatin Crm) 1 appln BID EXT 03/03/17 21:00 04/02/17 20:59 03/04/17 08:26 1 APPLN Insulin Aspart (novoLOG ASPART) SLIDING SCALE If C... ACHS SC 03/03/17 16:00 04/02/17 15:59 03/04/17 08:24 8 UNITS Glucose (Glucose 40% Gel) 15-30 GRAMS 15 GRAMS... UD PRN PO 03/03/17 12:45 04/02/17 12:44 Glucose (Glucose Chew Tab) 4-8 Tablets 4 Tabl... UD PRN PO 03/03/17 12:45 04/02/17 12:44 Dextrose (Dextrose 50% 50ML Syringe) 25-50ML OF 50% DW IV FOR... UD PRN IV 03/03/17 12:45 04/02/17 12:44 Glucagon (Glucagon Inj) 1 mg UD PRN SQ 03/03/17 12:45 04/02/17 12:44 Sodium Chloride 1,000 ml @ 75 mls/hr [id number] IV 03/03/17 14:00 04/02/17 13:59 03/04/17 03:30 75 MLS/HR Albuterol/ Ipratropium (Duoneb) 3 ml QIDR INH 03/03/17 16:00 04/02/17 15:59 03/04/17 07:09 3 ML Albuterol/ Ipratropium (Duoneb) 3 ml Q2H PRN INH 03/03/17 14:30 04/02/17 14:29 Objective Vital Signs Date Time Temp Pulse Resp B/P (MAP) Pulse Ox O2 Delivery O2 Flow Rate FiO2 03/04/17 07:37 36.8 94 18 123/64 (83) 95 Room Air 03/04/17 07:09 87 12 97 Room Air 03/04/17 04:00 Room Air 03/04/17 03:08 36.6 69 19 116/72 (87) 96 Room Air 03/04/17 00:00 Room Air 03/03/17 23:06 36.5 84 19 92/49 (63) 97 BiPAP 03/03/17 20:00 Room Air 03/03/17 19:23 36.8 87 16 128/63 (84) 96 Room Air 03/03/17 19:03 85 14 93 Room Air 03/03/17 16:00 98 Room Air 03/03/17 15:57 77 14 95 Room Air 03/03/17 15:35 36.8 79 20 100/65 (77) 96 Room Air 03/03/17 13:27 36.7 85 18 117/65 98 03/03/17 13:00 98 Room Air 03/03/17 12:58 18 117/65 98 Room Air 03/03/17 09:56 36.7 85 18 90/55 94 Room Air Physical Exam General Appearance: no apparent distress Respiratory/Chest: lungs clear, normal breath sounds, no respiratory distress, no accessory muscle use Cardiovascular: + irregularly irregular Abdomen: normal bowel sounds, non tender, soft Laboratory Results Last 24 Hours Test 03/03/17 10:45 03/03/17 11:10 03/03/17 15:52 03/03/17 18:53 White Blood Count 8.03 K/uL Red Blood Count 5.21 M/uL Hemoglobin 15.3 g/dL 13.4 g/dL Hematocrit 45.5 % 41.6 % Mean Corpuscular Volume 87.3 fL Mean Corpuscular Hemoglobin 29.4 pg Mean Corpuscular Hemoglobin Concent 33.6 g/dl RDW Standard Deviation 46.0 fL RDW Coefficient of Variation 14.3 % Platelet Count 229 K/uL Mean Platelet Volume 10.1 fL Prothrombin Time 94.4 SECONDS Prothromb Time International Ratio 8.1 Activated Partial Thromboplast Time 47.9 SECONDS Partial Thromboplastin Ratio 1.8 Sodium Level 136 mmol/L Potassium Level 4.4 mmol/L Chloride Level 100 mmol/L Carbon Dioxide Level 32 mmol/L Anion Gap 4.0 mmol/L Blood Urea Nitrogen 17 mg/dl Creatinine 1.30 mg/dl Est Creatinine Clear Calc Drug Dose 51.1 ml/min Estimated GFR () 59.3 Estimated GFR (Non- 51.2 BUN/Creatinine Ratio 13.2 Random Glucose 243 mg/dl Calcium Level 9.0 mg/dl Urine Color RED Urine Appearance CLOUDY Urine pH 6.0 Urine Specific [place] 1.020 Urine Protein 2+ Urine Glucose (UA) 1+ Urine Ketones TRACE Urine Occult Blood 3+ Urine Nitrite NEG Urine Bilirubin NEG Urine Urobilinogen NEG Urine Leukocyte Esterase TRACE Urine RBC >30 /hpf Urine WBC 10-30 /hpf Urine Epithelial Cells >30 /lpf Urine Bacteria 2+ Urine Mucus PRESENT Bedside Glucose 180 mg/dl Test 03/03/17 20:39 03/03/17 21:18 03/04/17 05:12 03/04/17 06:30 Bedside Glucose 257 mg/dl 265 mg/dl 158 mg/dl White Blood Count 7.98 K/uL Red Blood Count 4.56 M/uL Hemoglobin 13.1 g/dL Hematocrit 40.6 % Mean Corpuscular Volume 89.0 fL Mean Corpuscular Hemoglobin 28.7 pg Mean Corpuscular Hemoglobin Concent 32.3 g/dl Platelet Count 217 K/uL Mean Platelet Volume 9.8 fL Neutrophils (%) (Auto) 60.3 % Lymphocytes (%) (Auto) 24.2 % Monocytes (%) (Auto) 11.8 % Eosinophils (%) (Auto) 2.8 % Basophils (%) (Auto) 0.6 % Neutrophils # (Auto) 4.82 K/uL Lymphocytes # (Auto) 1.93 K/uL Monocytes # (Auto) 0.94 K/uL Eosinophils # (Auto) 0.22 K/uL Basophils # (Auto) 0.05 K/uL RDW Standard Deviation 47.4 fL RDW Coefficient of Variation 14.6 % Immature Granulocyte % (Auto) 0.3 % Immature Granulocyte # (Auto) 0.02 K/uL Prothrombin Time 15.8 SECONDS Prothromb Time International Ratio 1.5 Sodium Level 138 mmol/L Potassium Level 4.8 mmol/L Chloride Level 103 mmol/L Carbon Dioxide Level 33 mmol/L Anion Gap 2.0 mmol/L Blood Urea Nitrogen 18 mg/dl Creatinine 1.30 mg/dl Est Creatinine Clear Calc Drug Dose 51.8 ml/min Estimated GFR () 59.3 Estimated GFR (Non- 51.2 BUN/Creatinine Ratio 14.0 Random Glucose 153 mg/dl Calcium Level 8.5 mg/dl Total Bilirubin 0.7 mg/dl Aspartate Amino Transf (AST/SGOT) 10 U/L Alanine Aminotransferase (ALT/SGPT) 18 U/L Alkaline Phosphatase 111 U/L Total Protein 6.9 gm/dl Albumin 2.6 gm/dl Globulin 4.3 gm/dl Albumin/Globulin Ratio 0.6 Assessment and Plan This is an 81 year old male with a PMH of CAD s/p CABG x3, A. fib on long-term anticoagulation, HTN, DM2, CKD stage 3, HLD, PVD, hx. of bladder CA with recent TURBT procedure presents with hematuria and supratherapeutic INR Hematuria Hx. of Bladder Tumors s/p TURBT procedure on 02/21 as well as supratherapeutic INR vitamin K given, INR down from >8 to 1.5 H/H is stable appreciate urology input - for now, will monitor, if H/H remains stable, can d/ c if okay with urology holding Coumadin for now; restart if okay with urology CAD s/p CABGx3 CABG ~ 2006 stable, no chest pain, no acute issues continue b-aleksandr A. fib rate controlled INR down to 1.5 if okay with urology, will restart Coumadin continue metoprolol HTN blood pressure stable continue current medications DM2 hold oral agents Lantus 12 units qHS insulin sliding scale CKD stage 3 creat stable, avoid nephrotoxic agents when able DVT ppx holding due to hematuria may restart Coumadin today DNR
--- NOTE | 2017-03-04 11:20 | Progress Note ---
Subjective Date of Service: Mar 04, 2017. (Kelsie Lucero CRNP) Subjective Pt evaluation today including: conversation w/ patient, physical exam, chart review, lab review 81 year old male admitted with hematuria. Recent TURBT- restarted his coumadin at higher dose and developed hematuria. This has improved. He reports his urine is clearing with no clots. Voiding on his own. His INR has come down from 8.1 to 1.5 He is hemodynamically stable. white count and creatinine are normal. AFVSS. (Kelsie Lucero CRNP) Problem List Medical Problems: (1) Abnormal ECG Status: Acute (2) Altered mental status Status: Acute (3) Atrial fibrillation with rapid ventricular response Status: Acute (4) Coagulopathy Status: Acute (5) COPD exacerbation Status: Acute (6) Hematuria Status: Acute (7) Hypoglycemia Status: Acute (8) Hypoxia Status: Acute (9) PNA (pneumonia) Status: Acute (10) SOB (shortness of breath) Status: Acute (Kelsie Lucero CRNP) Review of Systems Constitutional: No fever, No chills Eyes: No worsening of vision ENT: No hearing loss Respiratory: No cough, No shortness of breath Cardiac: No chest pain Abdomen: No pain, No nausea Male : + see HPI, + hematuria Psychiatric: No depression symptoms Heme: + see HPI Endo: + fatigue (Kelsie Lucero CRNP) Objective Vital Signs Date Time Temp Pulse Resp B/P (MAP) Pulse Ox O2 Delivery O2 Flow Rate FiO2 03/04/17 08:00 98 Room Air 03/04/17 07:37 36.8 94 18 123/64 (83) 95 Room Air 03/04/17 07:09 87 12 97 Room Air 03/04/17 04:00 Room Air 03/04/17 03:08 36.6 69 19 116/72 (87) 96 Room Air 03/04/17 00:00 Room Air 03/03/17 23:06 36.5 84 19 92/49 (63) 97 BiPAP 03/03/17 20:00 Room Air 03/03/17 19:23 36.8 87 16 128/63 (84) 96 Room Air 03/03/17 19:03 85 14 93 Room Air 03/03/17 16:00 98 Room Air 03/03/17 15:57 77 14 95 Room Air 03/03/17 15:35 36.8 79 20 100/65 (77) 96 Room Air 03/03/17 13:27 36.7 85 18 117/65 98 03/03/17 13:00 98 Room Air 03/03/17 12:58 18 117/65 98 Room Air (Kelsie Lucero CRNP) Physical Exam General Appearance: WD/WN, no apparent distress ENT: hearing grossly normal Respiratory/Chest: no respiratory distress, no accessory muscle use Extremities: no pedal edema, no calf tenderness Neurologic/Psychiatric: alert, normal mood/affect, oriented x 3 Skin: normal color, warm/dry (Kelsie Lucero CRNP) Laboratory Results Last 24 Hours Test 03/03/17 15:52 03/03/17 18:53 03/03/17 20:39 03/03/17 21:18 Bedside Glucose 180 mg/dl 257 mg/dl 265 mg/dl Hemoglobin 13.4 g/dL Hematocrit 41.6 % Test 03/04/17 05:12 03/04/17 06:30 White Blood Count 7.98 K/uL Red Blood Count 4.56 M/uL Hemoglobin 13.1 g/dL Hematocrit 40.6 % Mean Corpuscular Volume 89.0 fL Mean Corpuscular Hemoglobin 28.7 pg Mean Corpuscular Hemoglobin Concent 32.3 g/dl Platelet Count 217 K/uL Mean Platelet Volume 9.8 fL Neutrophils (%) (Auto) 60.3 % Lymphocytes (%) (Auto) 24.2 % Monocytes (%) (Auto) 11.8 % Eosinophils (%) (Auto) 2.8 % Basophils (%) (Auto) 0.6 % Neutrophils # (Auto) 4.82 K/uL Lymphocytes # (Auto) 1.93 K/uL Monocytes # (Auto) 0.94 K/uL Eosinophils # (Auto) 0.22 K/uL Basophils # (Auto) 0.05 K/uL RDW Standard Deviation 47.4 fL RDW Coefficient of Variation 14.6 % Immature Granulocyte % (Auto) 0.3 % Immature Granulocyte # (Auto) 0.02 K/uL Prothrombin Time 15.8 SECONDS Prothromb Time International Ratio 1.5 Sodium Level 138 mmol/L Potassium Level 4.8 mmol/L Chloride Level 103 mmol/L Carbon Dioxide Level 33 mmol/L Anion Gap 2.0 mmol/L Blood Urea Nitrogen 18 mg/dl Creatinine 1.30 mg/dl Est Creatinine Clear Calc Drug Dose 51.8 ml/min Estimated GFR () 59.3 Estimated GFR (Non- 51.2 BUN/Creatinine Ratio 14.0 Random Glucose 153 mg/dl Calcium Level 8.5 mg/dl Total Bilirubin 0.7 mg/dl Aspartate Amino Transf (AST/SGOT) 10 U/L Alanine Aminotransferase (ALT/SGPT) 18 U/L Alkaline Phosphatase 111 U/L Total Protein 6.9 gm/dl Albumin 2.6 gm/dl Globulin 4.3 gm/dl Albumin/Globulin Ratio 0.6 Bedside Glucose 158 mg/dl (Kelsie Lucero CRNP) Assessment and Plan Gross Hematuria. This is improving per pt report. Suspect as his coag studies normalize hematuria will resolve. Avoid davis placement. Recommend staying off Coumadin for 3 more days. Nothing further from standpoint. If hematuria worsens please recall. Thanks for allowing us to participate in pt's care. (Kelsie Lucero CRNP) if hematuria clears ok for d/c off coumadin for 3 days and then restartcoumadin if urine clear at nl dose (Zheng King M.D.)
--- NOTE | 2017-03-04 16:05 | Discharge Instructions ---
Discharge Instructions Date of Service Mar 04, 2017. Admission Reason for Admission: Copd, Hematuria, Hx Of Prostate Biopsy, S/P Cabg Discharge Discharge Diagnosis / Problem: Hematuria (blood in the urine), Recent bladder tumor resection Discharge Goals Goal(s): Decrease discomfort, Improve function, Diagnostic testing, Therapeutic intervention Activity Recommendations Activity Limitations: resume your previous activity . Instructions / Follow-Up Instructions / Follow-Up Please follow-up with your primary care physician You will get a phone call from the INR/Coumadin clinic at [facility] with a date/time Do not take Coumadin on Tuesday, Tuesday or Tuesday Restart Coumadin at 2.5mg on March 07 Current Hospital Diet Patient's current hospital diet: Diabetes Type 2 Diet, AHA Diet (Heart Healthy) Discharge Diet Recommended Diet: AHA Diet (Heart Healthy), Diabetes Type 2 Diet Pending Studies Studies pending at discharge: no Medical Emergencies . Who to Call and When: Medical Emergencies: If at any time you feel your situation is an emergency, please call 911 immediately. . Non-Emergent Contact Non-Emergency issues call your: Primary Care Provider . . "Provider Documentation" section prepared by Aly Burger. . VTE Core Measure Inpt VTE Proph given/why not?: SCD's, Treatment not indicated (secondary to hematuria)
--- NOTE | 2017-03-04 16:06 | Discharge Summary ---
"Discharge Summary Date of Service Mar 04, 2017. Discharge Summary Admission Date: Mar 03, 2017 at 12:25 Discharge Date: Mar 04, 2017 Discharge Disposition: Home Principal Diagnosis: Hematuria s/p TURBT Medication Reconciliation Continued Medications: Acetaminophen (Acetaminophen Extra Stren) 500 Mg Tab 1 TAB PO Q6 PRN for Pain Albuterol Hfa (Ventolin Hfa) 200 Puffs/51385 Mcg Aers 2 PUFFS INH Q6H PRN for SOB/Wheezing, #1 INHALER Cholecalciferol (Vitamin D3) 1,000 Unit Tab 1 TAB PO QAM for 90 Days, #90 TAB 3 Refills Dutasteride (Avodart) 0.5 Mg Cap 0.5 MG PO QPM, CAP Glimepiride (Glimepiride) 1 Mg Tab 1 MG PO QAM Insulin Aspart (Novolog Flexpen) 100 Units/Ml Inj 12 UNITS SQ QPM WITH DINNER Insulin Glargine (Lantus Solostar) 100 Unit/Ml Inj 12 UNITS SQ HS, PEN Meclizine Hcl (Meclizine Hcl) 25 Mg Tab 1 TAB PO TID PRN for Dizziness or Vertigo for 10 Days, #30 TAB Metoprolol Tartrate (Lopressor) (Lopressor) 50 Mg Tab 50 MG PO QPM, TAB Nitroglycerin (Nitrostat) 0.4 Mg/1 Tab Subl 1 TAB UT UD PRN for Chest Pain Nystatin/Triamcinolone (Mycogen || ) Cr 1 APPLN TOP BID TO AFFECTED AREA Pantoprazole (Protonix) 40 Mg Tab 40 MG PO DAILY, #30 TAB Phenazopyridine HCl (Pyridium) 200 Mg Tab 200 MG PO TID PRN for Bladder pain, #15 TAB Probiotic Product (Probiotic) 1 Cap Cap 1 CAP PO DAILY Sertraline (Zoloft) 50 Mg Tab 25 MG PO QPM, TAB Tamsulosin Hcl (Flomax) 0.4 Mg Cap 0.4 MG PO Q2D, CAP PM Discontinued Medications: Warfarin Sod (Jantoven) 2.5 Mg Tab 5 MG PO UD Admission Information HPI (per Admitting provider): This is an 81 year old male with PMH of bladder cancer s/p transurethral resection of bladder tumor on 02/21/[address] Farmer, chronic Afib on Coumadin , CAD s/p CABG x 3 in 2009, COPD, DM type 2, HTN, sleep apnea, and other problems listed below who presents to the ED for hematuria. Patient's Coumadin was held for 5 days prior to his urological procedure, then was instructed to take 7.5 mg on night of surgery then 5 mg daily. His usual dose is 2.5 mg daily. He was called 2 days ago for INR greater than 6.5 and instructed to hold Coumadin, which he already took that day. Tuesday was his last dose. 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 He then voided twice in the ER with alesia hematuria. No problem passing the urine or dysuria. He reports feeling generally weak and tired. Denies dizziness, chest pain, SOB, abdominal pain, N/V, change in bowel movements. Initial BP in the ER was 90 systolic which improved with IVF's. Physical Exam (per Admitting): General Appearance: WD/WN, no apparent distress, + pertinent finding ( at bedside) Head: normocephalic, atraumatic Eyes: normal inspection, EOMI, sclerae normal ENT: normal ENT inspection, hearing grossly normal Neck: supple, trachea midline Respiratory/Chest: lungs clear, normal breath sounds, no respiratory distress Cardiovascular: no murmur, + irregularly irregular Abdomen/GI: normal bowel sounds, non tender, soft Genitourinary - Male: no urethral discharge, + pertinent finding (phallus has erythematous rash) Extremities/Musculoskelatal: no calf tenderness, no pedal edema Neurologic/Psych: alert, normal mood/affect, oriented x 3 Skin: normal color, warm/dry Hospital Course This is an 81 year old male with a PMH of CAD s/p CABG x3, A. fib on long-term anticoagulation, HTN, DM2, CKD stage 3, HLD, PVD, hx. of bladder CA with recent TURBT procedure presents with hematuria and supratherapeutic INR Hematuria Hx. of Bladder Tumors s/p TURBT procedure on 02/21 as well as supratherapeutic INR vitamin K given, INR down from >8 to 1.5 H/H is stable appreciate urology input - for now, will monitor, if H/H remains stable, can d/ c if okay with urology holding Coumadin for now; restart if okay with urology CAD s/p CABGx3 CABG ~ 2006 stable, no chest pain, no acute issues continue b-aleksandr A. fib rate controlled INR down to 1.5 if okay with urology, will restart Coumadin continue metoprolol HTN blood pressure stable continue current medications DM2 hold oral agents Lantus 12 units qHS insulin sliding scale CKD stage 3 creat stable, avoid nephrotoxic agents when able DVT ppx holding due to hematuria may restart Coumadin today DNR Total time spent on discharge = 45 minutes This includes examination of the patient, discharge planning, medication reconciliation, and communication with other providers. Discharge Instructions Please follow-up with your primary care physician You will get a phone call from the INR/Coumadin clinic at [facility] with a date/time Do not take Coumadin on Tuesday, Tuesday or Tuesday Restart Coumadin at 2.5mg on March 07"
[2017-03-04] MEDS ORDERED: TAMSULOSIN HCL 0.4 MG CAP PO SCH (21:00)
--- NOTE | 2017-03-07 10:51 | EDITING REQUIRED CODING QUERY ---
CODING QUERY To promote full compliance with coding requirements relating to patient care, provider participation is requested in all cases of rn gastroenterology uncertainty. Please assist us with the question(s) below: Coding Question(s): There is Hematuria as well as supratherapeutic INR and in the setting of Coumadin use documented in the record. Please clarify below, in your clinical opinion. ( X ) The Hematuria was partly due to Coumadin use as well as recent TURBT procedure ( ) The Hematuria was not likely due to Coumadin use Physician's Response(s): Thank you Richa Pineda Principal Diagnosis: "_that condition established after study, to be chiefly responsible for occasioning the admission of the patient to the hospital for care." Co-Existing Principal Diagnosis: "_when two or more diagnoses equally meet the criteria for principal diagnosis as determined by the circumstances of admission, diagnostic work up, and/or therapy provided, and the Alphabetic Index, Tabular List, or another coding guideline does not provide sequencing direction, any one of the diagnoses may be sequenced first." "When the physician has documented what appears to be a current diagnosis in the body of the record, but has not included the diagnosis in the final diagnostic statement, the physician should be asked whether the diagnosis should be added." (Source Coding Clinic 2 QTR90. p3-4)
== END 2017-03-04 16:49 | disposition home or self-care (01) | DRG 920 ==
LOC: C.EDB 09:49 → C.2T 12:25 → ENRESERV 13:20
PROVIDERS: ADMIT Hospitalist; ATTEND Family Medicine
DX: N99.820 Postprocedural hemorrhage of a genitourinary system organ or structure following a genitourinary system procedure (principal); D68.32 Hemorrhagic disorder due to extrinsic circulating anticoagulants; T45.515A Adverse effect of anticoagulants, initial encounter; R31.0 Gross hematuria; R21 Rash and other nonspecific skin eruption; R79.1 Abnormal coagulation profile; I48.2 Chronic atrial fibrillation; I25.10 Atherosclerotic heart disease of native coronary artery without angina pectoris; J44.9 Chronic obstructive pulmonary disease, unspecified; N40.0 Benign prostatic hyperplasia without lower urinary tract symptoms; E11.9 Type 2 diabetes mellitus without complications; N18.3 Chronic kidney disease, stage 3 (moderate); F32.9 Major depressive disorder, single episode, unspecified; I13.10 Hypertensive heart and chronic kidney disease without heart failure, with stage 1 through stage 4 chronic kidney disease, or unspecified chronic kidney disease; G47.30 Sleep apnea, unspecified; Z79.899 Other long term (current) drug therapy; Z79.01 Long term (current) use of anticoagulants; Z79.4 Long term (current) use of insulin; Z66 Do not resuscitate; Z95.1 Presence of aortocoronary bypass graft; Z85.51 Personal history of malignant neoplasm of bladder; Z83.3 Family history of diabetes mellitus; Z82.49 Family history of ischemic heart disease and other diseases of the circulatory system; Z80.42 Family history of malignant neoplasm of prostate; Z82.0 Family history of epilepsy and other diseases of the nervous system; Y83.8 Other surgical procedures as the cause of abnormal reaction of the patient, or of later complication, without mention of misadventure at the time of the procedure

== ENCOUNTER → 2017-03-28 | Outpatient (CLI) | payer BC, OTHER ==
[~2017-03-28] MED LIST changes: +ACET-1222 PO; -INSDGI SC; +INSDGIPEN SQ; +MISCCAP80 PO; -MULT-506 PO; -NVLGI SC; +NVLGI/PEN SQ; -OXYC-57 PO; +PANT40TA PO; -PHEN-876 PO; -PRT/20 PO; +VNTHFA/IN INH; -WARF2.5T8 PO
--- NOTE | 2017-03-28 10:09 | DIAGNOSTIC IMAGING REPORT ---
(CHEST) THORAX WITHOUT CT DOSE: 392.82 mGy.cm HISTORY: Nodule R91.1 Pulmonary nodule, leftR22.9 Subcutaneous massA PPT SCHEDE TECHNIQUE: Multiaxial CT images of the chest were performed without contrast. A dose lowering technique was utilized adhering to the principles of ALARA. COMPARISON: None. FINDINGS: Moderately improved exam from the prior study. Small right pleural effusion on the prior study has resolved. Minimal residual right basilar atelectatic change. A consolidated parenchymal infiltrative process left lung base persists. It is slightly diminished in volume. Moderate peribronchial thickening is present. There appears to be potential occlusion and/or debris within the posterior right lower lobe bronchus. There is small left effusion diminished from the prior study. Maximum current dimensions of the consolidative component is 4.4 cm. The subcarinal node previously described appear diminished in volume with a maximum current dimensions of 1.7 cm. Thyroid is multinodular. Limited evaluation the upper abdomen demonstrates presence of a hiatal hernia. There is unchanging right renal cyst. IMPRESSION: 1. Mildly improved exam. 2. Right lung is considered generally clear with minimal basilar atelectasis. 3. Moderate decrease in volume of a consolidated process peripheral aspect left lower lobe with improvement in a left pleural effusion. 4. Nonspecific soft tissue occlusion posterior aspect left lower lobe bronchus. This may be secondary to mucus, debris, or mass. 5. Bronchoscopy is suggested as follow-up. The above report was generated using voice recognition software. It may contain grammatical, syntax or spelling errors. Electronically signed by: Galindo Bryant M.D. 03/28/2017 10:08 AM Dictated Date/Time: 03/28/2017 9:59 AM
== END | disposition home or self-care (01) ==
LOC: C.CTS 09:40
PROVIDERS: ATTEND Internal Medicine Critical Care Medicine
DX: R91.1 Solitary pulmonary nodule (principal); R22.9 Localized swelling, mass and lump, unspecified

== ENCOUNTER 2017-08-28 19:21 | Emergency (ER) | payer BC, OTHER ==
[~2017-08-28] VITALS: Ht 186.7 cm; Wt 88.0 kg
[~2017-08-28 19:21] MED LIST changes: -ACET-1222 PO; -DUTA0.5C PO; +FURO-85 PO; -GLIM1TAB2 PO; -PANT40TA PO; +ROSU20TA PO; +WARF2.5T8 PO
[2017-08-28 19:40] VITALS: TEMP 37; Ht 186.7 cm; Wt 88.0 kg
--- NOTE | 2017-08-28 20:02 | EMERGENCY ROOM VISIT NOTE ---
History Report prepared by Melvin: Gia Buitrago Under the Supervision of: Dr. Ivan Andrews M.D. First contact with patient: 19:52 Chief Complaint: OTHER COMPLAINT Stated Complaint: POSSIBLE ABSCESS RT QUADRANT History of Present Illness The patient is an 82 year old male who presents to the Emergency Room with complaints of persistent "bumps" on abdomen that started a couple of weeks ago. He notes he takes insulin shots. He was on Coumadin but was taken off of it 4 days ago because he is due to have bladder surgery tomorrow morning for his bladder cancer. His surgery is being done by Dr. Sequeira. The patient denies any fevers, chills, nausea, or vomiting. Source of History: patient Onset: a couple of weeks ago Position: abdomen Timing: other (persistent) Associated Symptoms: No fevers, No chills, No nausea, No vomiting Review of Systems See HPI for pertinent positives and negatives. A total of ten systems were reviewed and were otherwise negative. Past Medical & Surgical Medical Problems: (1) BPH (benign prostatic hypertrophy) (2) Carotid stenosis (3) CKD (chronic kidney disease), stage III (4) COPD (chronic obstructive pulmonary disease) (5) Depression (6) DM type 2 (diabetes mellitus, type 2) (7) Dyslipidemia (8) Emphysema lung (9) Heart disease (10) History of bladder cancer (11) History of tobacco use (12) HTN (hypertension) (13) Kidney stone (14) Lesion of left lung (15) Osteoarthritis (16) Pneumonia (17) PVD (peripheral vascular disease) (18) Sleep apnea (19) Thyroid goiter Surgical Problems: (1) History of cataract surgery (2) Hx of prostate biopsy (3) S/P bronchoscopy (4) S/P CABG x 3 (5) S/P tonsillectomy and adenoidectomy Family History Alzheimer's disease Cancer Diabetes mellitus Gallbladder disease Heart disease Hypertension Parkinson disease Prostate cancer Social History Smoking Status: Former Smoker Alcohol Use: none Drug Use: none Marital Status: Housing Status: lives with family Occupation Status: retired Current/Historical Medications Scheduled Cholecalciferol (Vitamin D3), 1 TAB PO QAM Enoxaparin (Lovenox), 1 DOSE SQ Q12H Furosemide (Lasix), 20 MG PO QAM Glimepiride (Glimepiride), 1 MG PO QAM Insulin Aspart (Novolog Flexpen), 18 UNITS SQ QPM Insulin Glargine (Lantus Solostar), 18 UNITS SQ HS Metoprolol Tartrate (Lopressor) (Lopressor), 50 MG PO QPM Probiotic Product (Probiotic), 2 CAP PO QPM Rosuvastatin Calcium (Crestor), 20 MG PO QPM Sertraline (Zoloft), 50 MG PO QPM Tamsulosin Hcl (Flomax), 0.4 MG PO Q2D Warfarin Sod (Jantoven), 2.5 MG PO QPM Scheduled PRN Albuterol Hfa (Ventolin Hfa), 2 PUFFS INH Q6H PRN for SOB/Wheezing Meclizine Hcl (Meclizine Hcl), 1 TAB PO TID PRN for Dizziness or Vertigo Nitroglycerin (Nitrostat), 1 TAB UT UD PRN for Chest Pain Nystatin/Triamcinolone (Mycogen || ), 1 APPLN TOP BID PRN for PRN Oxycodone/Acetaminophen 5MG/325MG (Percocet 5MG/325MG), 1-2 TABLETS PO Q4H PRN for Pain Allergies Coded Allergies: Latex1 -Allergic Contact Dermititis (Unverified Allergy, Unknown, RASH REDNESS ON FACE FROM LATEX MASK, 08/29/17) Simvastatin (Verified Adverse Reaction, Intermediate, MUSCLE ACHES, ) Physical Exam Vital Signs Date Time Temp Pulse Resp B/P (MAP) Pulse Ox O2 Delivery O2 Flow Rate FiO2 08/28/17 23:10 77 16 128/67 90 08/28/17 23:06 77 08/28/17 22:30 79 16 128/67 90 Room Air 08/28/17 20:14 95 Room Air 08/28/17 19:54 78 08/28/17 19:50 81 16 128/52 95 Room Air 08/28/17 19:40 37.0 89 18 85/53 94 Room Air Physical Exam GENERAL: Awake, alert, well-appearing, in no distress HENT: Normocephalic, atraumatic. Oropharynx unremarkable. EYES: Normal conjunctiva. Sclera non-icteric. NECK: Supple. No nuchal rigidity. FROM. No JVD. RESPIRATORY: Clear to auscultation. CARDIAC: Regular rate, normal rhythm. Extremities warm and well perfused. Pulses equal. ABDOMEN: RLQ abdominal wall 3x2cm area of fluctuance, induration, and ecchymosis , scant erythema with equivocal warmth. LLQ abdominal wall 2x2cm area of fluctuance, induration, and ecchymosis. RECTAL: Deferred. MUSCULOSKELETAL: Chest examination reveals no tenderness. The back is symmetrical on inspection without obvious abnormality. There is no CVA tenderness to palpation. No joint edema. LOWER EXTREMITIES: Calves are equal size bilaterally and non-tender. No edema. No discoloration. NEURO: Normal sensorium. No sensory or motor deficits noted. SKIN: No rash or jaundice noted. Medical Decision & Procedures Laboratory Results 08/28/17 20:23 Red Blood Count 5.12, Mean Corpuscular Volume 90.0, Mean Corpuscular Hemoglobin 30.3, Mean Corpuscular Hemoglobin Concent 33.6, Mean Platelet Volume 10.3, Neutrophils (%) (Auto) 54.7, Lymphocytes (%) (Auto) 28.0, Monocytes (%) (Auto) 13.1, Eosinophils (%) (Auto) 3.4, Basophils (%) (Auto) 0.5, Neutrophils # (Auto ) 4.15, Lymphocytes # (Auto) 2.12, Monocytes # (Auto) 0.99, Eosinophils # (Auto ) 0.26, Basophils # (Auto) 0.04 08/28/17 21:12 Test 08/28/17 20:23 08/28/17 21:12 White Blood Count 7.58 K/uL (4.8-10.8) Red Blood Count 5.12 M/uL (4.7-6.1) Hemoglobin 15.5 g/dL (14.0-18.0) Hematocrit 46.1 % (42-52) Mean Corpuscular Volume 90.0 fL (80-100) Mean Corpuscular Hemoglobin 30.3 pg (25-34) Mean Corpuscular Hemoglobin Concent 33.6 g/dl (32-36) Platelet Count 199 K/uL (130-400) Mean Platelet Volume 10.3 fL (7.4-10.4) Neutrophils (%) (Auto) 54.7 % Lymphocytes (%) (Auto) 28.0 % Monocytes (%) (Auto) 13.1 % Eosinophils (%) (Auto) 3.4 % Basophils (%) (Auto) 0.5 % Neutrophils # (Auto) 4.15 K/uL (1.4-6.5) Lymphocytes # (Auto) 2.12 K/uL (1.2-3.4) Monocytes # (Auto) 0.99 K/uL (0.11-0.59) Eosinophils # (Auto) 0.26 K/uL (0-0.5) Basophils # (Auto) 0.04 K/uL (0-0.2) RDW Standard Deviation 45.5 fL (36.4-46.3) RDW Coefficient of Variation 13.8 % (11.5-14.5) Immature Granulocyte % (Auto) 0.3 % Immature Granulocyte # (Auto) 0.02 K/uL (0.00-0.02) Prothrombin Time 12.0 SECONDS (9.0-12.0) Prothromb Time International Ratio 1.1 (0.9-1.1) Activated Partial Thromboplast Time 29.1 SECONDS (21.0-31.0) Partial Thromboplastin Ratio 1.1 Anion Gap 6.0 mmol/L (3-11) Est Creatinine Clear Calc Drug Dose 49.5 ml/min Estimated GFR () 57.8 Estimated GFR (Non- 49.9 BUN/Creatinine Ratio 16.1 (10-20) Calcium Level 8.9 mg/dl (8.5-10.1) Total Bilirubin 0.4 mg/dl (0.2-1) Direct Bilirubin 0.2 mg/dl (0-0.2) Aspartate Amino Transf (AST/SGOT) 17 U/L (15-37) Alanine Aminotransferase (ALT/SGPT) 20 U/L (12-78) Alkaline Phosphatase 123 U/L (45-117) Total Protein 7.0 gm/dl (6.4-8.2) Albumin 2.7 gm/dl (3.4-5.0) Lipase 53 U/L (73-393) Laboratory results reviewed by me ECG Per My Interpretation Indication: abdominal pain Rate (beats per minute): 74 Rhythm: atrial fibrillation Findings: RBBB, no acute ischemic change, other (normal axis) ED Course 1951: The patient was evaluated in room C2B. A complete history and physical exam was performed. Medical Decision I reviewed the patient's past medical history, medications, and the nursing notes as described above. Differential Diagnoses: Abscess, cellulitis, hematoma. Patient is an 82-year-old gentleman with a past medical history of atrial fibrillation previously on Coumadin however currently on Lovenox for upcoming bladder cancer surgery presents to the ED with concern for abdominal wall abscess versus hematoma per hpi. On arrival the patient is well-appearing, in no acute distress, afebrile stable vital signs. Denies f/c, n/v. On exam the patient has areas of fluctuance in the right lower and left lower abdominal wall appear consistent with hematoma. No ttp. However there was question of mild redness to the right lower quadrant area however when reassessed this had dissipated suggesting likely related to friction from his belt. Labs otherwise reassuring with WBC within normal limits. CT scan demonstrates hematomas with no active extravasation. Otherwise demonstrates known bladder malignancy. Findings and plan for follow-up reviewed with patient. Patient agreeable and d/c 'd per discharge instructions. Medication Reconcilliation Current Medication List: was personally reviewed by me Blood Pressure Screening Patient's blood pressure: Normal blood pressure Impression Primary Impression: Subcutaneous hematoma Scribe Attestation The scribe's documentation has been prepared under my direction and personally reviewed by me in its entirety. I confirm that the note above accurately reflects all work, treatment, procedures, and medical decision making performed by me. Departure Information Dispostion Home / Self-Care Referrals No Doctor, Assigned (PCP) Patient Instructions ED Hematoma, My [facility] Additional Instructions Please follow up with your primary care physician and as scheduled tomorrow for your surgery. You were found to have hematomas related to your injections. Rotate injection sites as discussed. Otherwise, your exam, lab results, and CT scan did not show signs of an emergent condition at this time. Drink plenty of fluids to ensure hydration given that your received contrast today. Return to the emergency department for worsening symptoms as described in the accompanying instructions.
[2017-08-28 20:14] VITALS: O2SAT 95
[2017-08-28] MEDS ORDERED: OPTIRAY 320 IV PRN (20:15)
[2017-08-28 20:39] LABS: BASO % 0.5 %; BASO ABS # 0.04 K/uL (0-0.2); EOS % 3.4 %; EOS ABS # 0.26 K/uL (0-0.5); HEMATOCRIT 46.1 % (42-52); HEMOGLOBIN 15.5 g/dL (14.0-18.0); IG# 0.02 K/uL (0.00-0.02); LYMPH ABS # 2.12 K/uL (1.2-3.4); MEAN CORPUSCULAR HEMOGLOBIN 30.3 pg (25-34); MEAN CORPUSCULAR HGB CONC 33.6 g/dl (32-36); MEAN PLATELET VOLUME 10.3 fL (7.4-10.4); MONO % 13.1 %; MONO ABS # 0.99 K/uL (0.11-0.59); NEUT % 54.7 %; NEUT ABS # 4.15 K/uL (1.4-6.5); PLATELET COUNT 199 K/uL (130-400); RED CELL DISTRIBUTION WIDTH CV 13.8 % (11.5-14.5); RED CELL DISTRIBUTION WIDTH SD 45.5 fL (36.4-46.3); WHITE BLOOD COUNT 7.58 K/uL (4.8-10.8)
[2017-08-28] MEDS ORDERED: GLIM1TAB2 PO (21:12)
[2017-08-28] MEDS ORDERED: ENOX30IN4 SQ (21:14)
[2017-08-28 21:37] LABS: INR 1.1 (0.9-1.1); PTT PATIENT 29.1 SECONDS (21.0-31.0)
[2017-08-28 21:47] LABS: ALBUMIN 2.7 gm/dl (3.4-5.0); CALCIUM 8.9 mg/dl (8.5-10.1); CREATININE 1.32 mg/dl (0.60-1.40); POTASSIUM 3.7 mmol/L (3.5-5.1)
--- NOTE | 2017-08-28 22:42 | DIAGNOSTIC IMAGING REPORT ---
ABDOMEN AND PELVIS CT WITH IV CONTRAST CT DOSE: 507.70 mGy.cm HISTORY: Abd wall abscess vs hematoma r/o extrav TECHNIQUE: Multiaxial CT images of the abdomen and pelvis were performed following the use of intravenous contrast. A dose lowering technique was utilized adhering to the principles of ALARA. COMPARISON STUDY: Abdomen and pelvis CT 03/31/2012. Chest CT 03/28/2017. FINDINGS: No change in the trace left pleural effusion, left pleural thickening, and focus of round atelectasis within the left lower lobe. Small to moderate hiatus hernia is again noted. Possible 5 mm nodule within the lingula on image 6. No pneumoperitoneum. No pneumatosis. No fractures within the visualized osseous structures. Poststernotomy changes. The liver, gallbladder, spleen, right adrenal gland, and pancreas are unremarkable. Mild nodular thickening within the left adrenal gland, unchanged. There is a punctate stone within the lower pole of the right kidney. Focal scarring within the left kidney. Stable 4.9 cm cyst within the upper pole of the left kidney. Mild focal narrowing at the takeoff of the right common iliac artery, unchanged. Mild bladder wall thickening, unchanged. Focal area of asymmetric nodular thickening within the right bladder dome best seen on image 344 through 348. The prostate gland is mildly enlarged. Small fat-containing inguinal hernias. The left inguinal hernia also contains a knuckle of the proximal sigmoid colon. Colonic diverticulosis. No bowel wall thickening or obstruction. Normal appendix. Small similar-appearing subcutaneous hematoma seen within the right left lower quadrant abdominal wall. There is also mild skin thickening overlying the small right subcutaneous hematoma. This measures approximately 4.8 x 1.8 cm. These are likely due to prior medication injection. No loculated fluid collections to suggest an abscess. IMPRESSION: 1. Small subcutaneous hematomas seen within the right and left lower quadrant abdominal wall with the largest on the right measuring 4.8 x 1.8 cm. This is likely due to prior medication injection. No abscess identified. 2. Possible focal nodular thickening within the right bladder dome. Urology consultation is recommended to exclude a urothelial lesion. 3. Additional chronic findings as described above. Electronically signed by: Evan Good M.D. 08/28/2017 10:41 PM Dictated Date/Time: 08/28/2017 10:20 PM
[2017-08-28 23:10] VITALS: BP 128/67; PULSE 77; O2SAT 90
[2017-08-29] MEDS ORDERED: OXYC-57 PO (08:48)
== END 2017-08-28 23:10 | disposition home or self-care (01) ==
LOC: C.EDB 19:22 → C.EDC 23:10
DX: S30.1XXA Contusion of abdominal wall, initial encounter (principal); X58.XXXA Exposure to other specified factors, initial encounter; C67.9 Malignant neoplasm of bladder, unspecified; N40.0 Benign prostatic hyperplasia without lower urinary tract symptoms; I12.9 Hypertensive chronic kidney disease with stage 1 through stage 4 chronic kidney disease, or unspecified chronic kidney disease; N18.3 Chronic kidney disease, stage 3 (moderate); E11.22 Type 2 diabetes mellitus with diabetic chronic kidney disease; J44.9 Chronic obstructive pulmonary disease, unspecified; F32.9 Major depressive disorder, single episode, unspecified; E78.5 Hyperlipidemia, unspecified; J43.9 Emphysema, unspecified; M19.90 Unspecified osteoarthritis, unspecified site; I48.91 Unspecified atrial fibrillation; Z87.01 Personal history of pneumonia (recurrent); I73.9 Peripheral vascular disease, unspecified; Z87.442 Personal history of urinary calculi; Z87.891 Personal history of nicotine dependence; Z98.49 Cataract extraction status, unspecified eye; Z95.1 Presence of aortocoronary bypass graft; Z90.89 Acquired absence of other organs; Z98.890 Other specified postprocedural states; Z83.3 Family history of diabetes mellitus; Z82.49 Family history of ischemic heart disease and other diseases of the circulatory system; Z80.42 Family history of malignant neoplasm of prostate; Z82.0 Family history of epilepsy and other diseases of the nervous system; Z79.01 Long term (current) use of anticoagulants; Z79.4 Long term (current) use of insulin; Z79.84 Long term (current) use of oral hypoglycemic drugs; Z79.899 Other long term (current) drug therapy

== ENCOUNTER → 2017-08-29 | Day surgery (SDC) | payer BC, OTHER ==
[2017-08-18 11:41] VITALS: Ht 185.4 cm; Wt 87.9 kg
--- NOTE | 2017-08-18 12:29 | PAT Medication Instructions ---
"Service Date Aug 18, 2017. Current Home Medication List Albuterol Hfa (Ventolin Hfa), 2 PUFFS INH Q6H PRN for SOB/Wheezing Cholecalciferol (Vitamin D3), 1 TAB PO QAM Furosemide (Lasix), 20 MG PO QAM Glimepiride (Glimepiride), 1 MG PO QAM Insulin Aspart (Novolog Flexpen), 18 UNITS SQ QPM Insulin Glargine (Lantus Solostar), 18 UNITS SQ HS Meclizine Hcl (Meclizine Hcl), 1 TAB PO TID PRN for Dizziness or Vertigo Metoprolol Tartrate (Lopressor) (Lopressor), 50 MG PO QPM Nitroglycerin (Nitrostat), 1 TAB UT UD PRN for Chest Pain Nystatin/Triamcinolone (Mycogen || ), 1 APPLN TOP BID PRN for PRN Probiotic Product (Probiotic), 2 CAP PO QPM Rosuvastatin Calcium (Crestor), 20 MG PO QPM Sertraline (Zoloft), 50 MG PO QPM Tamsulosin Hcl (Flomax), 0.4 MG PO Q2D Warfarin Sod (Jantoven), 2.5 MG PO QPM Medication Instructions For Your Scheduled Surgery -Continue as directed: Nitroglycerin (Nitrostat), 1 TAB UT UD PRN for Chest Pain - Follow your instructions from the Anticoagulation Clinic: Warfarin Sod (Jantoven), 2.5 MG PO QPM -Hold the following medications 24 hours before surgery: Nystatin/Triamcinolone (Mycogen || ), 1 APPLN TOP BID PRN for PRN - Hold the following medications the morning of surgery: Cholecalciferol (Vitamin D3), 1 TAB PO QAM Furosemide (Lasix), 20 MG PO QAM Glimepiride (Glimepiride), 1 MG PO QAM - Take the following medications the morning of surgery: Albuterol Hfa (Ventolin Hfa), 2 PUFFS INH Q6H PRN for SOB/Wheezing if needed Meclizine Hcl (Meclizine Hcl), 1 TAB PO TID PRN for Dizziness or Vertigo if needed - Take the following medications as scheduled the night before surgery: Probiotic Product (Probiotic), 2 CAP PO QPM Rosuvastatin Calcium (Crestor), 20 MG PO QPM Sertraline (Zoloft), 50 MG PO QPM Tamsulosin Hcl (Flomax), 0.4 MG PO Q2D Insulin Aspart (Novolog Flexpen), 18 UNITS SQ QPM Insulin Glargine (Lantus Solostar), 18 UNITS SQ HS Meclizine Hcl (Meclizine Hcl), 1 TAB PO TID PRN for Dizziness or Vertigo Metoprolol Tartrate (Lopressor) (Lopressor), 50 MG PO QPM Albuterol Hfa (Ventolin Hfa), 2 PUFFS INH Q6H PRN for SOB/Wheezing If you have any questions please call us at [phone] or [phone] or [phone]"
[2017-08-18 13:35] LABS: BASO % 0.3 %; BASO ABS # 0.03 K/uL (0-0.2); EOS % 3.5 %; EOS ABS # 0.33 K/uL (0-0.5); HEMATOCRIT 45.2 % (42-52); HEMOGLOBIN 15.2 g/dL (14.0-18.0); IG# 0.03 K/uL (0.00-0.02); LYMPH % 24.2 %; LYMPH ABS # 2.29 K/uL (1.2-3.4); MEAN CELL VOLUME 89.5 fL (80-100); MEAN CORPUSCULAR HEMOGLOBIN 30.1 pg (25-34); MEAN CORPUSCULAR HGB CONC 33.6 g/dl (32-36); MEAN PLATELET VOLUME 10.6 fL (7.4-10.4); MONO ABS # 0.85 K/uL (0.11-0.59); NEUT % 62.7 %; NEUT ABS # 5.95 K/uL (1.4-6.5); PLATELET COUNT 223 K/uL (130-400); RED CELL DISTRIBUTION WIDTH CV 13.9 % (11.5-14.5); RED CELL DISTRIBUTION WIDTH SD 45.1 fL (36.4-46.3); WHITE BLOOD COUNT 9.48 K/uL (4.8-10.8)
[2017-08-18 14:03] LABS: CALCIUM 8.7 mg/dl (8.5-10.1); CREATININE 1.27 mg/dl (0.60-1.40); POTASSIUM 4.3 mmol/L (3.5-5.1)
[~2017-08-29] VITALS: Ht 185.4 cm; Wt 87.9 kg
[~2017-08-29] MED LIST changes: +ATROPINE SULFATE 0.1 MG/ML 5ML SYR IV PRN; +CIPROFLOXACIN / D5W 400 MG IV SCH; +DEXAMETHASONE SOD INJ 4 MG/ML VIAL ONE; +ENOX30IN4 SQ; +EpHEDrine SULFATE 50MG/5ML SYR ONE; +EpHEDrine SULFATE INJ 50 MG/ML AMP IV PRN; +FENTANYL CITRATE INJ 50 MCG/1 ML 2 ML VIAL IV PRN; +FENTANYL CITRATE INJ 50 MCG/1 ML 2 ML VIAL ONE; +GLIM1TAB2 PO; +HYDROmorphone INJ 1 MG/ML SYR IV PRN; +LACTATED RINGER'S 1000ML 1,000 ML IV SCH; +LIDOCAINE HCL 2% 2 ML VIAL (20MG/ML) ONE; +ONDANSETRON INJ 2 MG/ML 2 ML VIAL IV PRN; +ONDANSETRON INJ 2 MG/ML 2 ML VIAL ONE; +OXYC-57 PO; +OXYCODONE/ACETAMINOPHEN 5-325 TAB PO PRN; +PHENYLEPHRINE 100MCG/ML 5ML SYR ONE; +PROPOFOL IV EMULSION 10 MG/ML 20 ML VIAL IV ONE
[2017-08-29 07:25] VITALS: BP 132/67; PULSE 85; TEMP 36.6; O2SAT 96
[2017-08-29 07:36] LABS: INR 1.1 (0.9-1.1); PTT PATIENT 28.5 SECONDS (21.0-31.0)
--- NOTE | 2017-08-29 08:47 | [facility] Post Operative Brief Note ---
Immediate Operative Summary Operative Date Aug 29, 2017. Pre-Operative Diagnosis Bladder Carcinoma Post-Operative Diagnosis same as pre-operative Procedure(s) Performed Transurethral Resection Bladder Tumor, Cystoscopy Surgeon Dr. Samy Farmer Devulcanizer Tender Surgeon(s) none Estimated Blood Loss 0mL Findings Consistent with Post-Op Diagnosis Specimens Fresh A. Bladder Chips Drains None Anesthesia Type General Complication(s) none Disposition Disposition: Recovery Room / PACU
--- NOTE | 2017-08-29 08:49 | Discharge Instructions ---
Discharge Instructions Date of Service Aug 29, 2017. Visit Reason for Visit: Bladder Cancer Discharge Discharge Diagnosis / Problem: Bladder Discharge Goals Goal(s): Therapeutic intervention Activity Recommendations Activity Limitations: resume your previous activity Exercise/Sports Limitations: rest today May Resume Sexual Activity: when tolerated Shower/Bathe: no limitations Driving or Machine Use: resume 1 day after discharge Anesthesia . Post Anesthesia Instructions: If you have had General Anesthesia or IV Sedation: * Do not drive today. * Resume driving when surgeon permits. * Do not make important decisions or sign legal documents today. * Call surgeon for: 1. Temperature elevations greater than 101 degrees F. 2. Uncontrollable pain. 3. Excessive bleeding. 4. Persistent nausea and vomiting. 5. Medication intolerance (nausea, vomiting or rash). * For nausea and vomiting use only clear liquids such as: tea, soda, bouillon until nausea subsides, then gradually increase diet as tolerated. * If you have any concerns or questions, call your surgeon's office. If physician is unavailable and it is an emergency, call 911 or go to the nearest emergency room. . Diet Recommendations Recommended Home Diet: resume previous diet Procedures Procedures Performed: Transurethral Resection Bladder Tumor, Cystoscopy Pending Studies Studies pending at discharge: no Medical Emergencies . Who to Call and When: Medical Emergencies: If at any time you feel your situation is an emergency, please call 911 immediately. . Non-Emergent Contact Non-Emergency issues call your: Urologist Call Non-Emergent contact if: temperature is above 101.5, your pain is not controlled . . "Provider Documentation" section prepared by Samy Farmer. . [place] Drug Monitoring Program Search Results: patient reviewed within database
--- NOTE | 2017-08-29 09:33 | Anesthesiology Progress Note ---
Anesthesia Post Op Note Date & Time Aug 29, 2017 at 09:33 Vital Signs Pain Intensity: 0 Vital Signs Past 12 Hours Date Time Temp Pulse Resp B/P (MAP) Pulse Ox O2 Delivery O2 Flow Rate FiO2 08/29/17 09:30 76 1 107/53 (67) 94 Room Air 08/29/17 09:25 36.5 76 17 104/64 (75) 94 Room Air 08/29/17 09:15 76 15 115/57 (80) 94 Room Air 08/29/17 09:05 75 14 121/55 (76) 100 Oxymask 10 08/29/17 08:55 72 21 112/62 (75) 100 Oxymask 10 08/29/17 08:48 36.6 77 14 104/67 (72) 98 Oxymask 10 08/29/17 07:25 36.6 85 20 132/67 (88) 96 Room Air Notes Mental Status: alert / awake / arousable, participated in evaluation Pt Amnestic to Procedure: Yes Nausea / Vomiting: adequately controlled Pain: adequately controlled Airway Patency, RR, SpO2: stable & adequate BP & HR: stable & adequate Hydration State: stable & adequate Anesthetic Complications: no major complications apparent
[2017-08-29 09:40] VITALS: BP 124/60; PULSE 76; TEMP 36.5; O2SAT 94
[2017-08-29 10:08] VITALS: BP 124/60; PULSE 80; O2SAT 93
[2017-08-29 10:25] VITALS: BP 158/60; PULSE 78; TEMP 36.6; O2SAT 96
--- NOTE | 2017-08-29 10:45 | [facility] Operative Report ---
Operative Report Operative Date Aug 29, 2017. Pre-Operative Diagnosis Bladder Carcinoma Post-Operative Diagnosis same as pre-operative Procedure(s) Performed Transurethral Resection Bladder Tumor, Cystoscopy Surgeon Dr. Samy Farmer Decision Support Manager Surgeon(s) none Estimated Blood Loss 0mL Findings Cystoscopic exam showed a normal anterior urethra. Prostatic fossa was mild to moderately obstructing with kissing lateral lobes and an elevated median lobe. Bladder showed 1-2+ trabeculation. There are multiple small bladder tumors scattered throughout the bladder Specimens Permanent: A. Bladder Tumor Drains None Anesthesia Type General Complication(s) none Disposition yes Recovery Room / PACU Indications Patient an 82-year-old white male with a history of bladder cancer who on surveillance cystoscopy was found to have multiple small tumors being brought in for resection and fulguration. Description of Procedure After the induction of an adequate general anesthetic and appropriate timeout patient was placed in the dorsal lithotomy position. Lower abdomen and genitalia were prepped with Hibiclens draped in a sterile fashion. Using a 22 Filipino cystoscope routine cystoscopic exam was performed the above-noted findings with 30 and 70 lenses. Next 24 Filipino. Section scope and cautery loop were inserted. Some of the larger tumors were resected and the areas fulgurated for hemostasis. The rest of the small tumors were just fulgurated. After infiltrating all the tumors making sure there was no bleeding from the resection sites patient's bladder was drained. Resection scope and sheaths were removed. The resected tumor was handed off the table for pathologic examination. All needle sponge and instrument counts are correct at the end of the case. Patient tolerated the procedure well and was taken to recovery room in stable condition. I attest to the content of the Intraoperative Record and any orders documented therein. Any exceptions are noted below.
== END | disposition home or self-care (01) ==
LOC: C.ACU 06:32
PROVIDERS: ATTEND Urology
DX: C67.9 Malignant neoplasm of bladder, unspecified (principal); I48.91 Unspecified atrial fibrillation; I25.10 Atherosclerotic heart disease of native coronary artery without angina pectoris; I12.9 Hypertensive chronic kidney disease with stage 1 through stage 4 chronic kidney disease, or unspecified chronic kidney disease; G47.33 Obstructive sleep apnea (adult) (pediatric); N18.3 Chronic kidney disease, stage 3 (moderate); M19.90 Unspecified osteoarthritis, unspecified site; N40.0 Benign prostatic hyperplasia without lower urinary tract symptoms; E11.9 Type 2 diabetes mellitus without complications; E78.5 Hyperlipidemia, unspecified; Z95.1 Presence of aortocoronary bypass graft; Z87.440 Personal history of urinary (tract) infections; Z86.73 Personal history of transient ischemic attack (TIA), and cerebral infarction without residual deficits; Z87.891 Personal history of nicotine dependence; Z79.01 Long term (current) use of anticoagulants; Z80.51 Family history of malignant neoplasm of kidney; Z82.49 Family history of ischemic heart disease and other diseases of the circulatory system; Z80.42 Family history of malignant neoplasm of prostate

== ENCOUNTER → 2017-09-15 | Outpatient (CLI) | payer BC, OTHER ==
[~2017-09-15] MED LIST changes: -ATROPINE SULFATE 0.1 MG/ML 5ML SYR IV PRN; -CIPROFLOXACIN / D5W 400 MG IV SCH; -DEXAMETHASONE SOD INJ 4 MG/ML VIAL ONE; -EpHEDrine SULFATE 50MG/5ML SYR ONE; -EpHEDrine SULFATE INJ 50 MG/ML AMP IV PRN; -FENTANYL CITRATE INJ 50 MCG/1 ML 2 ML VIAL IV PRN; -FENTANYL CITRATE INJ 50 MCG/1 ML 2 ML VIAL ONE; -HYDROmorphone INJ 1 MG/ML SYR IV PRN; -LACTATED RINGER'S 1000ML 1,000 ML IV SCH; -LIDOCAINE HCL 2% 2 ML VIAL (20MG/ML) ONE; -ONDANSETRON INJ 2 MG/ML 2 ML VIAL IV PRN; -ONDANSETRON INJ 2 MG/ML 2 ML VIAL ONE; -OXYCODONE/ACETAMINOPHEN 5-325 TAB PO PRN; -PHENYLEPHRINE 100MCG/ML 5ML SYR ONE; -PROPOFOL IV EMULSION 10 MG/ML 20 ML VIAL IV ONE
== END | disposition home or self-care (01) ==
LOC: C.LABSPEC 16:49
PROVIDERS: ATTEND Urology
DX: R35.0 Frequency of micturition (principal)

== ENCOUNTER → 2017-11-09 | Outpatient (CLI) | payer BC, OTHER ==
[2017-11-09 14:39] LABS: BASO % 0.7 %; BASO ABS # 0.05 K/uL (0-0.2); EOS ABS # 0.29 K/uL (0-0.5); HEMATOCRIT 43.4 % (42-52); HEMOGLOBIN 14.4 g/dL (14.0-18.0); IG# 0.01 K/uL (0.00-0.02); LYMPH % 27.9 %; LYMPH ABS # 2.04 K/uL (1.2-3.4); MEAN CELL VOLUME 89.3 fL (80-100); MEAN CORPUSCULAR HEMOGLOBIN 29.6 pg (25-34); MEAN CORPUSCULAR HGB CONC 33.2 g/dl (32-36); MEAN PLATELET VOLUME 10.3 fL (7.4-10.4); MONO % 11.2 %; MONO ABS # 0.82 K/uL (0.11-0.59); NEUT % 56.1 %; NEUT ABS # 4.09 K/uL (1.4-6.5); PLATELET COUNT 194 K/uL (130-400); RED CELL DISTRIBUTION WIDTH CV 14.3 % (11.5-14.5); RED CELL DISTRIBUTION WIDTH SD 46.4 fL (36.4-46.3)
[2017-11-09 14:49] LABS: BLOOD UREA NITROGEN 24 mg/dl (7-18); CALCIUM 8.6 mg/dl (8.5-10.1); CARBON DIOXIDE 30 mmol/L (21-32); CREATININE 1.15 mg/dl (0.60-1.40); GLUCOSE 175 mg/dl (70-99); POTASSIUM 4.1 mmol/L (3.5-5.1); SODIUM 137 mmol/L (136-145)
== END | disposition home or self-care (01) ==
LOC: C.LAB1850 12:57
PROVIDERS: ATTEND Internal Medicine Pulmonary Disease
DX: C67.9 Malignant neoplasm of bladder, unspecified (principal); R06.02 Shortness of breath

== ENCOUNTER 2019-05-17 18:25 | Inpatient (IN) ==
[2019-05-17 19:46] LABS: Basophils # (auto) 0.04 K/uL (0-0.2); Basophils % (auto) 0.5 %; Eosinophils # (auto) 0.35 K/uL (0-0.5); Eosinophils % (auto) 4.1 %; Hemoglobin 15.7 g/dL (14.0-18.0); Immature Granulocytes # (auto) 0.02 K/uL (0.00-0.02); Immature Granulocytes % (auto) 0.2 %; Lymphocytes # (auto) 2.38 K/uL (1.2-3.4); Lymphocytes % (auto) 28.2 %; Mean Corpuscular Hemoglobin 31.7 pg (25-34); Mean Corpuscular Hgb Conc 34.1 g/dL (32-36); Mean Corpuscular Volume 92.9 fL (80-100); Mean Platelet Volume 10.9 fL (7.4-10.4); Monocytes # (auto) 0.75 K/uL (0.11-0.59); Monocytes % (auto) 8.9 %; Neutrophils % (auto) 58.1 %; Platelet Count 193 K/uL (130-400); RDW Coefficient of Variation 13.7 % (11.5-14.5); RDW Standard Deviation 46.8 fL (36.4-46.3); Red Blood Count 4.95 M/uL (4.7-6.1); White Blood Count 8.44 K/uL (4.8-10.8)
[2019-05-17 20:02] LABS: INR 2.1 (0.9-1.1); Partial Thromboplastin Ratio 1.1; Partial Thromboplastin Time 30.8 Seconds (21.0-31.0); Prothrombin Time 20.2 Seconds (9.0-12.0)
[2019-05-17 20:05] LABS: Albumin Level 3.6 gm/dl (3.4-5.0); BUN Creatinine Ratio 22.3 (10-20); Bilirubin Direct 0.2 mg/dl (0-0.2); Calcium 9.1 mg/dl (8.5-10.1); Creatinine Clr Calc Pharmacy 43.1 ml/min; Est GFR (African American) 53.1; Est GFR (Non-African American) 45.8; Magnesium 2.2 mg/dl (1.8-2.4); Potassium 3.9 mmol/L (3.5-5.1)
[2019-05-17 20:10] LABS: Bilirubin,Total 0.6 mg/dl (0.2-1)
[2019-05-17 20:18] LABS: Base Excess VBG 7.3 mEq/L; HCO3 VBG 33 mmol/L; PCO2 VBG 48 mmHg (38-50); PO2 VBG 26 mmHg; pH VBG 7.45 (7.36-7.41)
[2019-05-17 20:20] LABS: Influenza A virus by PCR Neg for Influ A (Neg); Influenza B virus by PCR Neg for Influ B (Neg)
--- NOTE | 2019-05-17 20:45 | CT Scan Report ---
CT head/brain wo con CLINICAL HISTORY: Recurrent falls. Head pain. COMPARISON STUDY: September 2016 TECHNIQUE: Axial CT of the brain is performed from the vertex to the skull base. IV contrast was not administered for this examination. A dose lowering technique was utilized adhering to the principles of ALARA. CT DOSE: FINDINGS: No intra or extra-axial mass lesions are visualized. There is no CT evidence of acute cortical infarc tion. There is no evidence of midline shift. There is no acute hemorrhage. No calvarial fractures ar e visualized. There are minor white matter hypodensities likely on a small vessel basis. There is slight ventricular prominence, finding which is felt to be secondary to volume loss There is no evidence of acute sinusitis IMPRESSION: No acute intracranial findings Electronically signed by: Boyd Silva M.D. 05/17/2019 8:43 PM
--- NOTE | 2019-05-17 20:45 | CT Scan Report ---
CT chest wo con CLINICAL HISTORY: Chest pain, trauma, difficulty breathing. A resolving pneumonia. COMPARISON STUDY: 03/28/2017 CT DOSE: 1651.27 mGy.cm TECHNIQUE: CT of the thorax was performed from the thoracic inlet to the lung bases. Images are revi ewed in the axial, sagittal, and coronal planes. IV contrast was not administered for this examinatio n. A dose lowering technique was utilized adhering to the principles of ALARA. FINDINGS: Thyroid: There is a stable 19 mm right lobe thyroid nodule containing a peripheral calcification. Thoracic aorta: The thoracic aorta is normal in course and caliber, noting standard 3 vessel arch lillie luann. Heart: There are postsurgical changes of a midline sternotomy. The heart is the upper limits of laura l in size. There are coronary artery calcifications. There is no pericardial effusion. Lungs and pleural spaces: There is a small left pleural effusion. There is pulmonary emphysema. There are left lower lobe pleural-based airspace opacities. These remain similar to the prior study and li ke. Ly represent rounded atelectasis. There is an enlarging 12 mm right lower lobe pulmonary nodule. Neoplasm is the diagnosis of exclusion. There are loosely clustered subcentimeter left upper lobe pul monary nodules. These remain similar to the prior study and are likely postinflammatory. There is a p osterior tracheal opacity, likely representing focal mucous Mediastinum: There is a minimally enlarged 11 mm pretracheal lymph node. There is a 16 x 8 mm precari nal lymph node. There is an enlarged 17 mm subcarinal lymph node. Rochelle: Hilar adenopathy is difficult to assess without the benefit of intravenous contrast. There aren 't no significantly enlarged mediastinal nodes. Axilla: There is no evidence of pathologic axillary lymphadenopathy Upper abdomen: There is a partially visualized 4 cm right renal cyst. There is a hiatal hernia. Skeletal structures: There are no lytic or blastic osseous lesions. IMPRESSION: 1. Pulmonary emphysema 2. Persistent small left pleural effusion with associated left lower lobe pleural-based opacities. Th kofi remain similar to the prior study and likely represent round atelectasis 3. New/enlarging 12 mm right lower lobe pulmonary nodule. Neoplasm is the diagnosis of exclusion. Non emergent pulmonary consultation is recommended 4. Stable loosely clustered left upper lobe pulmonary nodules likely postinflammatory 5. Mildly enlarged mediastinal lymph nodes 6. Stable 19 mm right lobe thyroid nodule Electronically signed by: oByd Silva M.D. 05/17/2019 8:44 PM
--- NOTE | 2019-05-17 20:47 | CT Scan Report ---
CT OF THE CERVICAL SPINE CLINICAL HISTORY: Neck pain status post trauma. Recurrent falls. COMPARISON STUDY: No previous studies for comparison. CT DOSE: TECHNIQUE: CT scan of the cervical spine was performed from the skull base to the thoracic inlet. Treva ges are reviewed in the axial, sagittal, and coronal planes. IV contrast was not administered for thi s examination. A dose lowering technique was utilized adhering to the principles of ALARA. FINDINGS: There is no evidence for an apical pneumothorax. There is pulmonary emphysema. There is a 19 mm right lobe thyroid nodule. The prevertebral soft tissues are normal. No fractures or subluxations are visualized. There are multilevel degenerative changes. There is an odontoid bone island. IMPRESSION: No evidence of acute fracture or traumatic subluxation. Electronically signed by: Boyd Silva M.D. 05/17/2019 8:46 PM
[2019-05-17] MEDS ORDERED: FUROSEMIDE 40 MG/4 ML VIAL IV STA (20:57)
[2019-05-17 20:58] LABS: Oxygen Saturation VBG < 60.0 %
--- NOTE | 2019-05-17 21:50 | History & Physical Report ---
Date of Service May 17, 2019 Assessment & Plan (1) Weakness: Mr. Goode is a 84 yo male with a PMHx of chronic systolic CHF, type II diabetes mellitus, bladder cancer and COPD and recent community acquired PNA s/p ceftin course here for evaluation of weakness. ED Course: WBC normal. BNP 1821. Chest CT showed a left sided pleural effusion. Given one dose of IV lasix. Head and Cervical Spine CT were ordered due to recent falls, both of which showed no acute abnormalities. Weakness - etiology CHF exacerbation vs. COPD exacerbation - BNP is modestly elevated at 1821; patient does have inspiratory crackles, but no JVD or pedal edema. Does admit to recent high sodium consumption although it is not clear as to whether this is different from his baseline; one dose of IV lasix given in ED (home diuretic regimen is lasix 20mg bid) - we will order ECHO to further assess systolic heart function - COPD is possible given recent PNA and expiratory wheezes on exam - Zithromax 500mg, IV, daily for 3 days - Methylprednisone 40mg q6h; reassess and adjust appropriately in morning - albuterol prn - daily weights L Pleural Effusion - may be secondary to recent PNA vs. CHF exacerbation - IV lasix as above; resume home direutic regimen tomorrow Diabetes Mellitus - sliding scale ordered while in hospital; holding home orals - glucose checks ACHS Atrial Fibrillation - on chronic coumadin - rate controlled on metoprolol succinate 25mg Bladder Cancer -not currently on chemo Falls - related to current weakness - Head CT and C-spine showed no acute findings - low threshold for imaging given patient is on coumadin -PT/OT ordered Dispo: Med/Surg Diet: DM, Heart Healthy DVT: therapeutic on coumadin Code: conditional: would like cardiac resuscitation, not intubation (2) Pleural effusion on left: (3) Pneumonia: (4) Emphysema lung: (5) Heart disease: (6) CKD (chronic kidney disease), stage III: (7) COPD (chronic obstructive pulmonary disease): (8) DM type 2 (diabetes mellitus, type 2): (9) Atrial fibrillation: History of Present Illness Primary Care Provider: Nathan Penn Mr. Goode is a 84 yo male with a PMHx of chronic systolic CHF, type II diabetes mellitus, bladder cancer and COPD here for evaluation of weakness. Of note, he was recently diagnosed with community acquired PNA and completed a course of ceftin 2 days ago. With his pneumonia, he had been febrile and weak with a productive cough, however his family doctor urged him to go to the ED whenever his weakness dramatically worsened today. His states that he suffered an AK 5 weeks ago, which was diagnosed by Dr. Farley with [facility] after a pharmacologic stress test. He had a CXR last Tuesday (ordered by Dr. Farley) which reportedly showed "an opacity behind his heart." Mr. Goode admits to consuming high sodium foods within the past few days, including canned soups and editorial specialist boyardi macaroni and cheese. Family endorses recent falls related to his weakness. ED Course: WBC normal. BNP 1821. Chest CT showed a left sided pleural effusion. Given one dose of IV lasix. Head and Cervical Spine CT were ordered due to recent falls, both of which showed no acute abnormalities. Allergies Allergy/AdvReac Type Severity Reaction Status Date / Time latex Allergy Unknown RASH Unverified 05/17/19 20:43 REDNESS ON FACE FROM LATEX MASK simvastatin AdvReac Intermediate MUSCLE Verified 05/17/19 20:43 ACHES Home Medications Home Medications Medication Instructions Recorded Confirmed Type albuterol sulfate [Ventolin HFA] 2 puff INHALATION Q4 PRN 07/26/18 05/17/19 History furosemide 20 mg PO BID 07/26/18 05/17/19 History glimepiride 1 mg PO QAM 07/26/18 05/17/19 History insulin aspart U-100 [Novolog 16 unit SUBCUT PM 07/26/18 05/17/19 History Flexpen U-100 Insulin] insulin glargine [Lantus Solostar 16 unit SUBCUT HS 07/26/18 05/17/19 History U-100 Insulin] lactobacillus combination no.4 6,000 mmu cells PO HS 07/26/18 05/17/19 History [Probiotic] rosuvastatin [Crestor] 20 mg PO PM 07/26/18 05/17/19 History sertraline [Zoloft] 75 mg PO PM 07/26/18 05/17/19 History warfarin 2.5 mg PO 5XWK 07/26/18 05/17/19 History cholecalciferol (vitamin D3) 1,000 unit PO DAILY 05/17/19 05/17/19 History [Vitamin D3] lisinopril 2.5 mg PO DAILY 05/17/19 05/17/19 History metoprolol succinate 25 mg PO DAILY 05/17/19 05/17/19 History multivitamin 1 tab PO DAILY 05/17/19 05/17/19 History warfarin 1.25 mg PO DAILY 05/17/19 05/17/19 History Past Med/Surg History Medical History Heart disease (Chronic) Emphysema lung (Chronic) BPH (benign prostatic hypertrophy) (Chronic) DM type 2 (diabetes mellitus, type 2) (Chronic) History of bladder cancer (Chronic) Carotid stenosis (Chronic) Depression (Chronic) Dyslipidemia (Chronic) HTN (hypertension) (Chronic) History of tobacco use (Chronic) Sleep apnea (Chronic) Osteoarthritis (Chronic) Lesion of left lung (Chronic) COPD (chronic obstructive pulmonary disease) (Chronic) CKD (chronic kidney disease), stage III (Chronic) PVD (peripheral vascular disease) (Chronic) Thyroid goiter (Chronic) Surgical History S/P CABG x 3 (Chronic) History of cataract surgery (Chronic) Hx of prostate biopsy (Chronic) S/P tonsillectomy and adenoidectomy (Chronic) S/P bronchoscopy (Chronic) Family History Other No pertinent family history Social History Preferred Language: Luxembourgish Beliefs That Will Affect Care: None Current Living Situation: Spouse Other Information That Helps Us Care for You: No Feels Safe at Home: Yes Safety Concerns: Feels Safe At This Time Smoking Status: Former smoker Hx Alcohol Use: No Hx Substance Use: No Review of Systems Constitutional: + fever and + weakness Respiratory: + cough, + dyspnea on exertion and + sputum production Cardiovascular: no chest pain and no edema Additional Comments: Pain over the site of surgical scar (from CABG procedure) Gastrointestinal: no early satiety Physical Exam Constitutional: WD/WN, vitals as above not ill appearing Eyes: + anicteric sclerae ENMT: external ear and nose normal, oropharynx normal Neck: trachea midline Respiratory: normal respiratory effort and + cough; no respiratory distress, no labored breathing, no retractions and does not use accessory muscles Auscultation: + crackles (fine inspiratory in b/l lower lung merlos) and + wheezes (expiratory) Cardiovascular: Rate/Rhythm: regular rate; + abnormal rhythm Heart Sounds: normal S1 and normal S2 Vessels: no JVD Extremities: no pedal edema Chest (Breasts): Additional Comments: Midline scar over sternum that appears to be well healed Gastrointestinal (Abdomen): normal bowel sounds, soft, nontender, no hepatosplenomegaly Skin: no rashes, warm and dry Psychiatric: Orientation: + not oriented x 3 (oriented to person and place) Affect: + flat affect Results & Data Vital Signs (Past 12 Hours) Vital Signs Temp Pulse Pulse Resp BP BP Pulse Ox 05/17/19 20:35 76 18 126/59 L 96 05/17/19 18:30 36.6 C 82 20 106/56 L 95 Laboratory Results 05/17/19 05/17/19 05/17/19 Range/Units Unknown 21:48 21:23 WBC (4.8-10.8) K/uL RBC (4.7-6.1) M/uL Hgb (14.0-18.0) g/dL Hct (42-52) % MCV (80-100) fL MCH (25-34) pg MCHC (32-36) g/dL RDW Std Deviation (36.4-46.3) fL RDW Coeff of Arin (11.5-14.5) % Plt Count (130-400) K/uL MPV (7.4-10.4) fL Immature Gran % (Auto) % Neut % (Auto) % Lymph % (Auto) % [place] % (Auto) % Eos % (Auto) % Baso % (Auto) % Immature Gran # (Auto) (0.00-0.02) K/uL Neut # (Auto) (1.4-6.5) K/uL Lymph # (Auto) (1.2-3.4) K/uL [place] # (Auto) (0.11-0.59) K/uL Eos # (Auto) (0-0.5) K/uL Baso # (Auto) (0-0.2) K/uL PT (9.0-12.0) Seconds INR (0.9-1.1) APTT (21.0-31.0) Seconds PTT Ratio VBG pH (7.36-7.41) VBG pCO2 (38-50) mmHg VBG pO2 mmHg VBG HCO3 mmol/L VBG O2 Saturation % VBG Base Excess mEq/L Barometric Pressure mm/Hg Sodium (136-145) mmol/L Potassium (3.5-5.1) mmol/L Chloride (98-107) mmol/L Carbon Dioxide (21-32) mmol/L Anion Gap (3-11) BUN (7-18) mg/dl Creatinine (0.6-1.4) mg/dl Est Cr Clr Drug Dosing ml/min Est GFR ( Amer) Est GFR (Non-Af Amer) BUN/Creatinine Ratio (10-20) Glucose (70-99) mg/dl POC Glucose 89 42 L* (70-99) Lactate (0.4-2.0) mmol/L Calcium (8.5-10.1) mg/dl Magnesium (1.8-2.4) mg/dl Total Bilirubin (0.2-1) mg/dl Direct Bilirubin (0-0.2) mg/dl AST (15-37) U/L ALT (12-78) U/L Alkaline Phosphatase (45-117) U/L Troponin I (0-0.045) ng/ml NT-Pro-B Natriuret Pep (0-1800) pg/ml Total Protein (6.4-8.2) gm/dl Albumin (3.4-5.0) gm/dl Lipase (73-393) U/L Influenza Type A (PCR) Neg for Influ A (Neg) Influenza Type B (PCR) Neg for Influ B (Neg) 05/17/19 05/17/19 05/17/19 Range/Units 19:55 19:20 19:20 WBC (4.8-10.8) K/uL RBC (4.7-6.1) M/uL Hgb (14.0-18.0) g/dL Hct (42-52) % MCV (80-100) fL MCH (25-34) pg MCHC (32-36) g/dL RDW Std Deviation (36.4-46.3) fL RDW Coeff of Arin (11.5-14.5) % Plt Count (130-400) K/uL MPV (7.4-10.4) fL Immature Gran % (Auto) % Neut % (Auto) % Lymph % (Auto) % [place] % (Auto) % Eos % (Auto) % Baso % (Auto) % Immature Gran # (Auto) (0.00-0.02) K/uL Neut # (Auto) (1.4-6.5) K/uL Lymph # (Auto) (1.2-3.4) K/uL [place] # (Auto) (0.11-0.59) K/uL Eos # (Auto) (0-0.5) K/uL Baso # (Auto) (0-0.2) K/uL PT (9.0-12.0) Seconds INR (0.9-1.1) APTT (21.0-31.0) Seconds PTT Ratio VBG pH 7.45 H (7.36-7.41) VBG pCO2 48 (38-50) mmHg VBG pO2 26 mmHg VBG HCO3 33 mmol/L VBG O2 Saturation < 60.0 % VBG Base Excess 7.3 mEq/L Barometric Pressure 734.8 mm/Hg Sodium 140 (136-145) mmol/L Potassium 3.9 (3.5-5.1) mmol/L Chloride 103 (98-107) mmol/L Carbon Dioxide 32 (21-32) mmol/L Anion Gap 5.0 (3-11) BUN 31 H (7-18) mg/dl Creatinine 1.40 (0.6-1.4) mg/dl Est Cr Clr Drug Dosing 43.1 ml/min Est GFR ( Amer) 53.1 Est GFR (Non-Af Amer) 45.8 BUN/Creatinine Ratio 22.3 H (10-20) Glucose 121 H (70-99) mg/dl POC Glucose (70-99) Lactate (0.4-2.0) mmol/L Calcium 9.1 (8.5-10.1) mg/dl Magnesium 2.2 (1.8-2.4) mg/dl Total Bilirubin 0.6 (0.2-1) mg/dl Direct Bilirubin 0.2 (0-0.2) mg/dl AST 20 (15-37) U/L ALT 29 (12-78) U/L Alkaline Phosphatase 154 H (45-117) U/L Troponin I < 0.015 (0-0.045) ng/ml NT-Pro-B Natriuret Pep 1821 H (0-1800) pg/ml Total Protein 9.0 H (6.4-8.2) gm/dl Albumin 3.6 (3.4-5.0) gm/dl Lipase 57 L (73-393) U/L Influenza Type A (PCR) (Neg) Influenza Type B (PCR) (Neg) 05/17/19 05/17/19 05/17/19 Range/Units 19:20 19:20 19:10 WBC 8.44 (4.8-10.8) K/uL RBC 4.95 (4.7-6.1) M/uL Hgb 15.7 (14.0-18.0) g/dL Hct 46.0 (42-52) % MCV 92.9 (80-100) fL MCH 31.7 (25-34) pg MCHC 34.1 (32-36) g/dL RDW Std Deviation 46.8 H (36.4-46.3) fL RDW Coeff of Arin 13.7 (11.5-14.5) % Plt Count 193 (130-400) K/uL MPV 10.9 H (7.4-10.4) fL Immature Gran % (Auto) 0.2 % Neut % (Auto) 58.1 % Lymph % (Auto) 28.2 % [place] % (Auto) 8.9 % Eos % (Auto) 4.1 % Baso % (Auto) 0.5 % Immature Gran # (Auto) 0.02 (0.00-0.02) K/uL Neut # (Auto) 4.90 (1.4-6.5) K/uL Lymph # (Auto) 2.38 (1.2-3.4) K/uL [place] # (Auto) 0.75 H (0.11-0.59) K/uL Eos # (Auto) 0.35 (0-0.5) K/uL Baso # (Auto) 0.04 (0-0.2) K/uL PT 20.2 H (9.0-12.0) Seconds INR 2.1 H (0.9-1.1) APTT 30.8 (21.0-31.0) Seconds PTT Ratio 1.1 VBG pH (7.36-7.41) VBG pCO2 (38-50) mmHg VBG pO2 mmHg VBG HCO3 mmol/L VBG O2 Saturation % VBG Base Excess mEq/L Barometric Pressure mm/Hg Sodium (136-145) mmol/L Potassium (3.5-5.1) mmol/L Chloride (98-107) mmol/L Carbon Dioxide (21-32) mmol/L Anion Gap (3-11) BUN (7-18) mg/dl Creatinine (0.6-1.4) mg/dl Est Cr Clr Drug Dosing ml/min Est GFR ( Amer) Est GFR (Non-Af Amer) BUN/Creatinine Ratio (10-20) Glucose (70-99) mg/dl POC Glucose (70-99) Lactate 2.1 H* (0.4-2.0) mmol/L Calcium (8.5-10.1) mg/dl Magnesium (1.8-2.4) mg/dl Total Bilirubin (0.2-1) mg/dl Direct Bilirubin (0-0.2) mg/dl AST (15-37) U/L ALT (12-78) U/L Alkaline Phosphatase (45-117) U/L Troponin I (0-0.045) ng/ml NT-Pro-B Natriuret Pep (0-1800) pg/ml Total Protein (6.4-8.2) gm/dl Albumin (3.4-5.0) gm/dl Lipase (73-393) U/L Influenza Type A (PCR) (Neg) Influenza Type B (PCR) (Neg) Code Status & VTE Plan VTE Prophylaxis Plan VTE Prophylaxis will be ordered: Yes Supervising Physician Co-Signing Physician Notes Patient was seen and examined by me personally. I reviewed the chart, the orders and discussed the case in detail with Dr. Stephanie Maldonado MD . I read this H&P and agree with its contents to entirety. Resident Activity Tracking Resident Involvement: Resident Care Provided Care Provided: Adult Hospital Medicine
[2019-05-17] MEDS ORDERED: GLUCOSE 10 TABS/TUBE PO PRN (23:18)
[2019-05-17] MEDS ORDERED: ALBUTEROL HFA 8 GM INHALER INH PRN (23:18)
[2019-05-17] MEDS ORDERED: DEXTROSE 50% 50 ML SYRINGE IV PRN (23:18)
[2019-05-17] MEDS ORDERED: ACETAMINOPHEN 325 MG TAB PO PRN (23:18)
[2019-05-17] MEDS ORDERED: POLYETHYLENE (MIRALAX) 17 GM PACK PO PRN (23:18)
[2019-05-17] MEDS ORDERED: GLUCOSE 40% GEL 15 GM TUBE PO PRN (23:18)
[2019-05-17] MEDS ORDERED: CARBOHYDRATES FOR HYPOGLYCEMIA PO PRN (23:18)
[2019-05-17] MEDS ORDERED: GLUCAGON FOR INJ 1 MG VIAL SQ PRN (23:18)
--- NOTE | 2019-05-17 23:46 | Emergency Department Note ---
Entered by Mary Anne Loza acting as a scribe for Abdoul Quintanilla History of Present Illness General Chief complaint: Chest Pain Stated complaint: PNEUMONIA,CHEST PAIN Time Seen by Provider: 05/17/19 18:58 Source: patient and family () History of Present Illness Onset (ago): day(s) (several ) Location: chest Pain Consistency: + intermittent Maximum Pain Intensity: 6 Quality: + other (tightness) Associated symptoms: + denies other symptoms (fall), + weakness and + other (stumbling while walking); no nausea/vomiting The patient is a 84 year old male who presents to the Emergency Room with complaints of intermittent chest tightness beginning several days ago. The patient's states the patient is weak and stumbles when walking. The patient denies nausea and vomiting. The patient's reports the patient had a heart attack one month ago. She notes the patient was put on Lisinopril and his water pill was doubled. The patient's states the patient was diagnosed with pneumonia in both of his lungs two weeks ago. She reports the patient received an x-ray 6 days ago which showed fluid behind his heart and pneumonia. She notes the patient is currently on warfarin. She states his last Coumadin level was normal. The patient reports a triple bypass surgery 10 years ago. Home Medications Home Medications Medication Instructions Recorded Confirmed Type albuterol sulfate [Ventolin HFA] 2 puff INHALATION Q4 PRN 07/26/18 05/17/19 History furosemide 20 mg PO BID 07/26/18 05/17/19 History glimepiride 1 mg PO QAM 07/26/18 05/17/19 History insulin aspart U-100 [Novolog 16 unit SUBCUT PM 07/26/18 05/17/19 History Flexpen U-100 Insulin] insulin glargine [Lantus Solostar 16 unit SUBCUT HS 07/26/18 05/17/19 History U-100 Insulin] lactobacillus combination no.4 6,000 mmu cells PO HS 07/26/18 05/17/19 History [Probiotic] rosuvastatin [Crestor] 20 mg PO PM 07/26/18 05/17/19 History sertraline [Zoloft] 75 mg PO PM 07/26/18 05/17/19 History warfarin 2.5 mg PO 5XWK 07/26/18 05/17/19 History cholecalciferol (vitamin D3) 1,000 unit PO DAILY 05/17/19 05/17/19 History [Vitamin D3] lisinopril 2.5 mg PO DAILY 05/17/19 05/17/19 History metoprolol succinate 25 mg PO DAILY 05/17/19 05/17/19 History multivitamin 1 tab PO DAILY 05/17/19 05/17/19 History warfarin 1.25 mg PO DAILY 05/17/19 05/17/19 History Allergies Allergy/AdvReac Type Severity Reaction Status Date / Time latex Allergy Unknown RASH Unverified 05/17/19 20:43 REDNESS ON FACE FROM LATEX MASK simvastatin AdvReac Intermediate MUSCLE Verified 05/17/19 20:43 ACHES Past Med/Surg History Medical History Heart disease (Chronic) Emphysema lung (Chronic) BPH (benign prostatic hypertrophy) (Chronic) DM type 2 (diabetes mellitus, type 2) (Chronic) History of bladder cancer (Chronic) Carotid stenosis (Chronic) Depression (Chronic) Dyslipidemia (Chronic) HTN (hypertension) (Chronic) History of tobacco use (Chronic) Sleep apnea (Chronic) Osteoarthritis (Chronic) Lesion of left lung (Chronic) COPD (chronic obstructive pulmonary disease) (Chronic) CKD (chronic kidney disease), stage III (Chronic) PVD (peripheral vascular disease) (Chronic) Thyroid goiter (Chronic) Surgical History S/P CABG x 3 (Chronic) History of cataract surgery (Chronic) Hx of prostate biopsy (Chronic) S/P tonsillectomy and adenoidectomy (Chronic) S/P bronchoscopy (Chronic) Family History Other No pertinent family history Social History Preferred Language: [place] Feels Safe at Home: Yes Smoking Status: Former smoker Review of Systems See HPI for pertinent positives & negatives. and A total of 10 systems reviewed and were otherwise negative Physical Exam Vital Signs Vital Signs - 24 hr 05/17/19 18:30 05/17/19 20:35 Temperature 36.6 C Temperature Source Oral Sepsis Recent Fever Within 48 Hours No Sepsis New/Unexplained Change in Mental Status No Sepsis Action Taken by Nursing No Action Required Pulse Rate 82 Pulse Rate [Apical] 76 Pulse Rhythm Regular Pulse Strength Normal Respiratory Rate 20 18 Respiratory Effort / Characteristics Non-Labored Spontaneous Respiratory Depth Normal Respiratory Pattern Regular Blood Pressure 106/56 L Blood Pressure [Left Arm] 126/59 L Blood Pressure Mean 72 Blood Pressure Mean [Left Arm] 81 Blood Pressure Position Sitting Pulse Oximetry 95 96 Oxygen Delivery Method Room Air Room Air GENERAL: He is oriented to person, place, and time. He appears well-developed and well-nourished. He does not appear distressed. HENT: Exam performed. - Head: Normocephalic and atraumatic. - Right Ear: External ear normal. No mastoid tenderness. - Left Ear: External ear normal. No mastoid tenderness. - Mouth/Throat: The oropharynx is clear and moist. No trismus in the jaw. No d ental abscesses or uvula swelling. No oropharyngeal exudate or tonsillar abscesses. EYES: Conjunctivae and EOM are normal. Pupils are equal, round, and reactive to light. Right eye exhibits no discharge. Left eye exhibits no discharge. No scleral icterus. NECK: Normal range of motion. Neck supple. No JVD present. No spinous process tenderness present. No carotid bruit present. No rigidity. No tracheal deviation and normal range of motion present. No Brudzinski's sign and no Kernig's sign noted. CV: Normal rate, regular rhythm, normal heart sounds and intact distal pulses. There is no peripheral edema. Palpable radial pulses bue. PULM/CHEST: Rales bilaterally at bases. Effort normal and breath sounds normal. No respiratory distress. No stridor. He has no wheezes. - Chest Wall: He exhibits no tenderness. ABD: The abdomen is soft. Bowel sounds are normal. He has no distension. No mass is present. There is no tenderness. There is no rebound, no guarding, no Madrid's sign and no tenderness at McBurney's point. Rovsig negative. MUSC/SKEL: Normal range of motion. There is no peripheral edema, tenderness or deformity. LYMPH: No cervical adenopathy. NEURO: He is alert and oriented to person, place, and time. He has normal strength. No cranial nerve deficit or sensory deficit. Coordination and gait normal. GCS eye subscore is 4. GCS verbal subscore is 5. GCS motor subscore is 6. Cerebellar tests wnl. SKIN: Skin is warm and dry. He is not diaphoretic. PSYCH: He has a normal mood and affect. Behavior is normal. Judgment and thought content normal. Course 1902: Past medical records reviewed. The patient was evaluated in room B11B. A complete history and physical exam was performed. 2224: Upon reevaluation, the patient's vital signs were stable. Labs and imaging were consistent with CHF. He was given Lasix 40mg. Given the patient's chest pain, recurrent falls, and difficulty breathing the patient needs to be evaluated for further evaluation. I discussed findings and results with the patient and his family. They verbalized agreement of the treatment plan. I spoke with Dr. Ratliff of the [facility] Hospitalist Service. The patient will be evaluated for further management and care. Administered Medications Discontinued Medications Furosemide (Lasix) 40 mg IV NOW STA Stop: 05/17/19 20:58 Last Admin: 05/17/19 21:56 Dose: 40 mg Documented by: [id number] Medical Decision Making Medical Records Attestation: I reviewed the patient's medical records. Home Medications Current Medication List: was personally reviewed by me Laboratory Data Attestation: I reviewed the patient's lab results. Result diagrams: 05/17/19 19:20 05/17/19 19:20 Lab Results 05/17/19 05/17/19 05/17/19 Range/Units 19:10 19:20 19:20 WBC 8.44 (4.8-10.8) K/uL RBC 4.95 (4.7-6.1) M/uL Hgb 15.7 (14.0-18.0) g/dL Hct 46.0 (42-52) % MCV 92.9 (80-100) fL MCH 31.7 (25-34) pg MCHC 34.1 (32-36) g/dL RDW Std Deviation 46.8 H (36.4-46.3) fL RDW Coeff of Arin 13.7 (11.5-14.5) % Plt Count 193 (130-400) K/uL MPV 10.9 H (7.4-10.4) fL Immature Gran % (Auto) 0.2 % Neut % (Auto) 58.1 % Lymph % (Auto) 28.2 % [place] % (Auto) 8.9 % Eos % (Auto) 4.1 % Baso % (Auto) 0.5 % Immature Gran # (Auto) 0.02 (0.00-0.02) K/uL Neut # (Auto) 4.90 (1.4-6.5) K/uL Lymph # (Auto) 2.38 (1.2-3.4) K/uL [place] # (Auto) 0.75 H (0.11-0.59) K/uL Eos # (Auto) 0.35 (0-0.5) K/uL Baso # (Auto) 0.04 (0-0.2) K/uL PT 20.2 H (9.0-12.0) Seconds INR 2.1 H (0.9-1.1) APTT 30.8 (21.0-31.0) Seconds PTT Ratio 1.1 VBG pH (7.36-7.41) VBG pCO2 (38-50) mmHg VBG pO2 mmHg VBG HCO3 mmol/L VBG O2 Saturation % VBG Base Excess mEq/L Barometric Pressure mm/Hg Sodium (136-145) mmol/L Potassium (3.5-5.1) mmol/L Chloride (98-107) mmol/L Carbon Dioxide (21-32) mmol/L Anion Gap (3-11) BUN (7-18) mg/dl Creatinine (0.6-1.4) mg/dl Est Cr Clr Drug Dosing ml/min Est GFR ( Amer) Est GFR (Non-Af Amer) BUN/Creatinine Ratio (10-20) Glucose (70-99) mg/dl POC Glucose (70-99) Lactate 2.1 H* (0.4-2.0) mmol/L Calcium (8.5-10.1) mg/dl Magnesium (1.8-2.4) mg/dl Total Bilirubin (0.2-1) mg/dl Direct Bilirubin (0-0.2) mg/dl AST (15-37) U/L ALT (12-78) U/L Alkaline Phosphatase (45-117) U/L Troponin I (0-0.045) ng/ml NT-Pro-B Natriuret Pep (0-1800) pg/ml Total Protein (6.4-8.2) gm/dl Albumin (3.4-5.0) gm/dl Lipase (73-393) U/L 05/17/19 05/17/19 05/17/19 Range/Units 19:20 19:20 19:55 WBC (4.8-10.8) K/uL RBC (4.7-6.1) M/uL Hgb (14.0-18.0) g/dL Hct (42-52) % MCV (80-100) fL MCH (25-34) pg MCHC (32-36) g/dL RDW Std Deviation (36.4-46.3) fL RDW Coeff of Arin (11.5-14.5) % Plt Count (130-400) K/uL MPV (7.4-10.4) fL Immature Gran % (Auto) % Neut % (Auto) % Lymph % (Auto) % [place] % (Auto) % Eos % (Auto) % Baso % (Auto) % Immature Gran # (Auto) (0.00-0.02) K/uL Neut # (Auto) (1.4-6.5) K/uL Lymph # (Auto) (1.2-3.4) K/uL [place] # (Auto) (0.11-0.59) K/uL Eos # (Auto) (0-0.5) K/uL Baso # (Auto) (0-0.2) K/uL PT (9.0-12.0) Seconds INR (0.9-1.1) APTT (21.0-31.0) Seconds PTT Ratio VBG pH 7.45 H (7.36-7.41) VBG pCO2 48 (38-50) mmHg VBG pO2 26 mmHg VBG HCO3 33 mmol/L VBG O2 Saturation < 60.0 % VBG Base Excess 7.3 mEq/L Barometric Pressure 734.8 mm/Hg Sodium 140 (136-145) mmol/L Potassium 3.9 (3.5-5.1) mmol/L Chloride 103 (98-107) mmol/L Carbon Dioxide 32 (21-32) mmol/L Anion Gap 5.0 (3-11) BUN 31 H (7-18) mg/dl Creatinine 1.40 (0.6-1.4) mg/dl Est Cr Clr Drug Dosing 43.1 ml/min Est GFR ( Amer) 53.1 Est GFR (Non-Af Amer) 45.8 BUN/Creatinine Ratio 22.3 H (10-20) Glucose 121 H (70-99) mg/dl POC Glucose (70-99) Lactate (0.4-2.0) mmol/L Calcium 9.1 (8.5-10.1) mg/dl Magnesium 2.2 (1.8-2.4) mg/dl Total Bilirubin 0.6 (0.2-1) mg/dl Direct Bilirubin 0.2 (0-0.2) mg/dl AST 20 (15-37) U/L ALT 29 (12-78) U/L Alkaline Phosphatase 154 H (45-117) U/L Troponin I < 0.015 (0-0.045) ng/ml NT-Pro-B Natriuret Pep 1821 H (0-1800) pg/ml Total Protein 9.0 H (6.4-8.2) gm/dl Albumin 3.6 (3.4-5.0) gm/dl Lipase 57 L (73-393) U/L 05/17/19 Range/Units 21:23 WBC (4.8-10.8) K/uL RBC (4.7-6.1) M/uL Hgb (14.0-18.0) g/dL Hct (42-52) % MCV (80-100) fL MCH (25-34) pg MCHC (32-36) g/dL RDW Std Deviation (36.4-46.3) fL RDW Coeff of Arin (11.5-14.5) % Plt Count (130-400) K/uL MPV (7.4-10.4) fL Immature Gran % (Auto) % Neut % (Auto) % Lymph % (Auto) % [place] % (Auto) % Eos % (Auto) % Baso % (Auto) % Immature Gran # (Auto) (0.00-0.02) K/uL Neut # (Auto) (1.4-6.5) K/uL Lymph # (Auto) (1.2-3.4) K/uL [place] # (Auto) (0.11-0.59) K/uL Eos # (Auto) (0-0.5) K/uL Baso # (Auto) (0-0.2) K/uL PT (9.0-12.0) Seconds INR (0.9-1.1) APTT (21.0-31.0) Seconds PTT Ratio VBG pH (7.36-7.41) VBG pCO2 (38-50) mmHg VBG pO2 mmHg VBG HCO3 mmol/L VBG O2 Saturation % VBG Base Excess mEq/L Barometric Pressure mm/Hg Sodium (136-145) mmol/L Potassium (3.5-5.1) mmol/L Chloride (98-107) mmol/L Carbon Dioxide (21-32) mmol/L Anion Gap (3-11) BUN (7-18) mg/dl Creatinine (0.6-1.4) mg/dl Est Cr Clr Drug Dosing ml/min Est GFR ( Amer) Est GFR (Non-Af Amer) BUN/Creatinine Ratio (10-20) Glucose (70-99) mg/dl POC Glucose 42 L* (70-99) Lactate (0.4-2.0) mmol/L Calcium (8.5-10.1) mg/dl Magnesium (1.8-2.4) mg/dl Total Bilirubin (0.2-1) mg/dl Direct Bilirubin (0-0.2) mg/dl AST (15-37) U/L ALT (12-78) U/L Alkaline Phosphatase (45-117) U/L Troponin I (0-0.045) ng/ml NT-Pro-B Natriuret Pep (0-1800) pg/ml Total Protein (6.4-8.2) gm/dl Albumin (3.4-5.0) gm/dl Lipase (73-393) U/L Imaging Data Radiologist's Impression: Radiology results as stated below per my review and the radiologist's interpretation: CT OF THE CERVICAL SPINE CLINICAL HISTORY: Neck pain status post trauma. Recurrent falls. COMPARISON STUDY: No previous studies for comparison. CT DOSE: TECHNIQUE: CT scan of the cervical spine was performed from the skull base to the thoracic inlet. Images are reviewed in the axial, sagittal, and coronal planes. IV contrast was not administered for this examination. A dose lowering technique was utilized adhering to the principles of ALARA. FINDINGS: There is no evidence for an apical pneumothorax. There is pulmonary emphysema. There is a 19 mm right lobe thyroid nodule. The prevertebral soft tissues are normal. No fractures or subluxations are visualized. There are multilevel degenerative changes. There is an odontoid bone island. IMPRESSION: No evidence of acute fracture or traumatic subluxation. Electronically signed by: Boyd Silva M.D. 05/17/2019 8:[address] head/brain wo con CLINICAL HISTORY: Recurrent falls. Head pain. COMPARISON STUDY: September 2016 TECHNIQUE: Axial CT of the brain is performed from the vertex to the skull base. IV contrast was not administered for this examination. A dose lowering technique was utilized adhering to the principles of ALARA. CT DOSE: FINDINGS: No intra or extra-axial mass lesions are visualized. There is no CT evidence of acute cortical infarction. There is no evidence of midline shift. There is no acute hemorrhage. No calvarial fractures are visualized. There are minor white matter hypodensities likely on a small vessel basis. There is slight ventricular prominence, finding which is felt to be secondary to volume loss There is no evidence of acute sinusitis IMPRESSION: No acute intracranial findings Electronically signed by: Boyd Silva M.D. 05/17/2019 8:[address] chest wo con CLINICAL HISTORY: Chest pain, trauma, difficulty breathing. A resolving pneumonia. COMPARISON STUDY: 03/28/2017 CT DOSE: 1651.27 mGy.cm TECHNIQUE: CT of the thorax was performed from the thoracic inlet to the lung bases. Images are reviewed in the axial, sagittal, and coronal planes. IV contrast was not administered for this examination. A dose lowering technique was utilized adhering to the principles of ALARA. FINDINGS: Thyroid: There is a stable 19 mm right lobe thyroid nodule containing a peripheral calcification. Thoracic aorta: The thoracic aorta is normal in course and caliber, noting standard 3 vessel arch anatomy. Heart: There are postsurgical changes of a midline sternotomy. The heart is the upper limits of normal in size. There are coronary artery calcifications. There is no pericardial effusion. Lungs and pleural spaces: There is a small left pleural effusion. There is pulmonary emphysema. There are left lower lobe pleural-based airspace opacities. These remain similar to the prior study and like. Ly represent rounded atelectasis. There is an enlarging 12 mm right lower lobe pulmonary nodule. Neoplasm is the diagnosis of exclusion. There are loosely clustered subcentimeter left upper lobe pulmonary nodules. These remain similar to the prior study and are likely postinflammatory. There is a posterior tracheal opacity, likely representing focal mucous Mediastinum: There is a minimally enlarged 11 mm pretracheal lymph node. There is a 16 x 8 mm precarinal lymph node. There is an enlarged 17 mm subcarinal lymph node. [place]: Hilar adenopathy is difficult to assess without the benefit of intravenous contrast. There aren't no significantly enlarged mediastinal nodes. Axilla: There is no evidence of pathologic axillary lymphadenopathy Upper abdomen: There is a partially visualized 4 cm right renal cyst. There is a hiatal hernia. Skeletal structures: There are no lytic or blastic osseous lesions. IMPRESSION: 1. Pulmonary emphysema 2. Persistent small left pleural effusion with associated left lower lobe pleural-based opacities. These remain similar to the prior study and likely repr esent round atelectasis 3. New/enlarging 12 mm right lower lobe pulmonary nodule. Neoplasm is the di agnosis of exclusion. Nonemergent pulmonary consultation is recommended 4. Stable loosely clustered left upper lobe pulmonary nodules likely postinflammatory 5. Mildly enlarged mediastinal lymph nodes 6. Stable 19 mm right lobe thyroid nodule Electronically signed by: Boyd Silva M.D. 05/17/2019 8:44 PM ECG Data Attestation: I personally reviewed and interpreted this ECG as follows: Indication: + chest pain Rate (beats per minute): 76 Rhythm: + atrial fibrillation ECG ST segments: no ST depression and no ST elevation ECG Findings: + PVCs and + Other (QRS and QTC intervals within normal limits) Blood Pressure Blood Pressure Findings: Normal blood pressure MDM Narrative Upon reevaluation, the patient's vital signs were stable. Labs and imaging were consistent with CHF. He was given Lasix 40mg. Given the patient's chest pain, recurrent falls, and difficulty breathing the patient needs to be evaluated for further evaluation. I discussed findings and results with the patient and his family. They verbalized agreement of the treatment plan. I spoke with Dr. Ratliff of the [facility] Hospitalist Service. The patient will be evaluated for further management and care. Impression & Plan CHF (congestive heart failure), Recurrent falls Discharge Plan Visit Data *Final* Discharge Date/Time: 05/17/19 22:25 Chief Complaint: Chest Pain Stated Complaint: PNEUMONIA,CHEST PAIN ED Provider: Abdoul Quintanilla Discharge Problem: CHF (congestive heart failure), Recurrent falls Patient Disposition: Being Evaluated by Hospitalist Discharge Instructions Interventions: ED Discharge Assessment Last Done: 05/17/19 22:25 Discharge Problem: CHF (congestive heart failure) Qualifiers: Heart failure type: unspecified Heart failure chronicity: unspecified Qualified Code(s): I50.9 - Heart failure, unspecified The scribe's documentation has been prepared under my direction and personally reviewed by me in its entirety. I confirm that the note above accurately reflects all work, treatment, procedures, and medical decision making performed by me.
[2019-05-18] MEDS ORDERED: AZITHROMYCIN 500 MG in DEXTROSE 5% 250 ML IV SCH
[2019-05-18 02:09] LABS: Appearance Urine Clear (Clear); Bacteria Urine Automated Negative (Negative); Bilirubin Urine Negative (Negative); Blood Urine Trace (Negative); Cast Urine Automated 0 /lpf (0-5); Color Urine Yellow; Epithelial Cell Urine Auto 0-5 /lpf (0-5); Glucose Urine UA 1+ (Negative); Ketones Urine Negative (Negative); Leukocyte Esterase Urine Negative (Negative); Nitrite Urine Negative (Negative); Protein Urine Negative (Negative); RBC Urine Automated 0-4 /hpf (0-4); Specific Gravity Urine 1.011 (1.000-1.030); Urobilinogen Urine Negative (Negative); pH Urine 6.5 (4.5-7.5)
[2019-05-18] MEDS: methylPREDNISolone 40 MG in SYRINGE 0 ML IV SCH ×3 (04:01→15:04)
--- NOTE | 2019-05-18 04:10 | Billing Data ---
Coding Level of Care Code 36016 OBS Care - Level 2
[2019-05-18] MEDS ORDERED: INFLUENZA VACCINE HIGH DOSE 65+ 0.5 ML SYR IM ONE (04:30)
[2019-05-18] MEDS ORDERED: PNEUMOCOCCAL POLYSACCHARIDES 25 MCG/0.5 ML VIAL/SYR IM ONE (04:30)
[2019-05-18] MEDS ORDERED: INFLUENZA ADMINISTRATION CHARGE ONE (04:30)
[2019-05-18] MEDS ORDERED: PNEUMOCOCCAL ADMINISTRATION CHARGE ONE (04:30)
[2019-05-18] MEDS ORDERED: PERFLUTREN LIPID MICROSPHERE (DEFINITY) IV ONE (07:32)
[2019-05-18] MEDS: MULTIVITAMIN TAB PO SCH (08:17)
[2019-05-18] MEDS: LISINOPRIL 2.5 MG TAB PO SCH (08:17)
[2019-05-18] MEDS: CHOLECALCIFEROL 1,000 UNITS TAB PO SCH (08:17)
[2019-05-18] MEDS: METOPROLOL SUCC 50MG EXT REL TAB PO SCH (08:18)
[2019-05-18] MEDS: FUROSEMIDE 20 MG TAB PO SCH ×2 (08:18→20:55)
[2019-05-18] MEDS: INSULIN GLARGINE SOLOSTAR 100 UNITS/ML 3 ML PEN SC SCH ×2 (08:25→21:00)
[2019-05-18] MEDS: INSULIN ASPART 100 UNITS/ML 3 ML PEN SC SCH ×4 (08:26→20:59)
[2019-05-18] MEDS ORDERED: WARFARIN SOD 2.5 MG TAB PO SCH (16:00)
[2019-05-18] MEDS ORDERED: WARFARIN SOD 1.25 MG TAB PO SCH (17:30)
--- NOTE | 2019-05-18 19:01 | Hospitalist Progress Note ---
Date of Service May 18, 2019 Assessment & Plan (1) Weakness: Likely multifactorial -- recent [place], recent pneumonia (just completed his 10-day course prior to admission) - in setting of significant cardiopulmonary disease. I do not see additional infectious issues today. U/a at admission not suggestive of UTI. Flu negative. Blood cx's thus far negative. Lactate was high at presentation but uncertain of its cause. He looks great today - perhaps from all of the IV steroids. Will stop IV steroids - NO wheezes on exam today. Stop zithromax - uncertain if it would be adding benefit. Await PT/OT evals to determine if rehab will be needed. Check b12 level in am because of balance issues, falls, etc. (2) Pleural effusion on left: Likely parapneumonia as pneumonia was LLL. The effusion is small and he has no symptoms from such. Follow. Stop zithromax. (3) Pneumonia: Community-acquired, LLL, just completed 10-day course of PO abx as outpatient. I do not believe additional abx are needed at this time. Stop azithromycin. I believe he is in resolution phase of the pneumonia. Repeat cxr as outpatient in 3-4 weeks (may need repeat CT actually because of RLL nodule - see below). (4) CKD (chronic kidney disease), stage III: creatinine stable today bmp in am (5) COPD (chronic obstructive pulmonary disease): If he had exacerbation at ER presentation it is already resolved. STOP q6h IV steroids. change to PO prednisone in am. taper quickly. cont bronchodilators prn. (6) DM type 2 (diabetes mellitus, type 2): uncontrolled due to high-dose steroids. adjust novolog. increase lantus. 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 (10) Chronic systolic CHF (congestive heart failure): EF 35-40% on echo today ischemic cardiomyopathy compensated today on exam cont BB, lasix, ROYA I do not have prior echo to compare current LV function but just had echo/stress as outpatient w/ [facility] within last month or so (11) Pulmonary nodule, right: 12mm, RLL called and spoke with Dr Soriano his primary pottery striper to make him aware he has scheduled f/u in July but would like to see him sooner Dr Soriano to try and arrange earlier f/u for this nodule concerning for lung ca I made pt and his aware of nodule today (12) Fall: likely precipitated by balance issues due to peripheral neuropathy check b12 level to be complete PT/OT evals (13) DVT prophylaxis: coumadin if cleared by therapy for home can likely d/c home on Tuesday am Subjective during my rounds pt states "I feel great". eating 100% of meals. minimal cough. no dyspnea. at bedside who provides a lot of history. apparently 4-6 weeks ago he had had severe chest pain at his home. he did not seek medical attention despite his 's urging. 2 days after that event he saw Galindo BENAVIDES with [facility]. he and were told he had had an acute TN. had what sounds like a stress test and this was +. he was deemed not a candidate for heart cath. then, some time in the last 2 weeks, he was seen again by [facility] and during an office visit he was told he had a LLL pneumonia. placed on 10-day course of oral antibiotics. he indeed improved. then 2 days ago felt unwell again. major concern from is that of frequent falls. no syncope leading up to falls. he does have peripheral neuropathy in feet - "they feel " he states. tele stable with rate controlled a.fib. Review of Systems Constitutional: + fatigue; no fever, no chills, no anorexia and no weight gain Respiratory: + cough; no dyspnea, no hemoptysis, no sputum production and no wheezing Cardiovascular: + dyspnea on exertion; no chest pain, no orthopnea, no paroxysmal nocturnal dyspnea, no syncope and no edema Gastrointestinal: no abdominal pain, no nausea and no vomiting Physical Exam Constitutional: well developed and well nourished; no acute distress and no altered mental status ENMT: external ear and nose normal, oropharynx normal Neck: trachea midline, no thyromegaly Respiratory: no respiratory distress Auscultation: + diminished lung sounds (left base) and + rales (mild, fine, left base only); no wheezes Cardiovascular: Rate/Rhythm: regular rate and + irregularly irregular Heart Sounds: normal S1 and normal S2; no murmur Vessels: posterior tibial pulses present and dorsalis pedis pulses present; no JVD Extremities: no edema Gastrointestinal (Abdomen): normal bowel sounds, soft, nontender, no hepatosplenomegaly Neurologic: moves all extremities; no focal motor deficits mildly unsteady when he gets up and walks Psychiatric: A+Ox3, euthymic affect Results & Data Vital Signs (Past 12 Hours) Vital Signs Temp Pulse Resp BP Pulse Ox 05/18/19 16:44 91 05/18/19 15:00 36.6 C 85 20 102/59 L 92 05/18/19 07:17 36.4 C L 64 18 122/78 94 Laboratory Results Laboratory Results - last 24 hr 05/17/19 05/17/19 05/17/19 19:10 19:20 19:20 WBC 8.44 RBC 4.95 Hgb 15.7 Hct 46.0 MCV 92.9 MCH 31.7 MCHC 34.1 RDW Std Deviation 46.8 H RDW Coeff of Arin 13.7 Plt Count 193 MPV 10.9 H Immature Gran % (Auto) 0.2 Neut % (Auto) 58.1 Lymph % (Auto) 28.2 [place] % (Auto) 8.9 Eos % (Auto) 4.1 Baso % (Auto) 0.5 Immature Gran # (Auto) 0.02 Neut # (Auto) 4.90 Lymph # (Auto) 2.38 [place] # (Auto) 0.75 H Eos # (Auto) 0.35 Baso # (Auto) 0.04 PT 20.2 H INR 2.1 H APTT 30.8 PTT Ratio 1.1 VBG pH VBG pCO2 VBG pO2 VBG HCO3 VBG O2 Saturation VBG Base Excess Barometric Pressure Sodium Potassium Chloride Carbon Dioxide Anion Gap BUN Creatinine Est Cr Clr Drug Dosing Est GFR ( Amer) Est GFR (Non-Af Amer) BUN/Creatinine Ratio Glucose POC Glucose Lactate 2.1 H* Calcium Magnesium Total Bilirubin Direct Bilirubin AST ALT Alkaline Phosphatase Troponin I NT-Pro-B Natriuret Pep Total Protein Albumin Lipase Urine Color Urine Appearance Urine pH Ur Specific [place] Urine Protein Urine Glucose (UA) Urine Ketones Urine Blood Urine Nitrite Urine Bilirubin Urine Urobilinogen Ur Leukocyte Esterase Urine WBC (Auto) Urine RBC (Auto) U Hyaline Cast (Auto) U Epithel Cells (Auto) Urine Bacteria (Auto) Influenza Type A (PCR) Influenza Type B (PCR) 05/17/19 05/17/19 05/17/19 19:20 19:20 19:55 WBC RBC Hgb Hct MCV MCH MCHC RDW Std Deviation RDW Coeff of Arin Plt Count MPV Immature Gran % (Auto) Neut % (Auto) Lymph % (Auto) [place] % (Auto) Eos % (Auto) Baso % (Auto) Immature Gran # (Auto) Neut # (Auto) Lymph # (Auto) [place] # (Auto) Eos # (Auto) Baso # (Auto) PT INR APTT PTT Ratio VBG pH 7.45 H VBG pCO2 48 VBG pO2 26 VBG HCO3 33 VBG O2 Saturation < 60.0 VBG Base Excess 7.3 Barometric Pressure 734.8 Sodium 140 Potassium 3.9 Chloride 103 Carbon Dioxide 32 Anion Gap 5.0 BUN 31 H Creatinine 1.40 Est Cr Clr Drug Dosing 43.1 Est GFR ( Amer) 53.1 Est GFR (Non-Af Amer) 45.8 BUN/Creatinine Ratio 22.3 H Glucose 121 H POC Glucose Lactate Calcium 9.1 Magnesium 2.2 Total Bilirubin 0.6 Direct Bilirubin 0.2 AST 20 ALT 29 Alkaline Phosphatase 154 H Troponin I < 0.015 NT-Pro-B Natriuret Pep 1821 H Total Protein 9.0 H Albumin 3.6 Lipase 57 L Urine Color Urine Appearance Urine pH Ur Specific [place] Urine Protein Urine Glucose (UA) Urine Ketones Urine Blood Urine Nitrite Urine Bilirubin Urine Urobilinogen Ur Leukocyte Esterase Urine WBC (Auto) Urine RBC (Auto) U Hyaline Cast (Auto) U Epithel Cells (Auto) Urine Bacteria (Auto) Influenza Type A (PCR) Influenza Type B (PCR) 05/17/19 05/17/19 05/17/19 21:23 21:48 Unknown WBC RBC Hgb Hct MCV MCH MCHC RDW Std Deviation RDW Coeff of Arin Plt Count MPV Immature Gran % (Auto) Neut % (Auto) Lymph % (Auto) [place] % (Auto) Eos % (Auto) Baso % (Auto) Immature Gran # (Auto) Neut # (Auto) Lymph # (Auto) [place] # (Auto) Eos # (Auto) Baso # (Auto) PT INR APTT PTT Ratio VBG pH VBG pCO2 VBG pO2 VBG HCO3 VBG O2 Saturation VBG Base Excess Barometric Pressure Sodium Potassium Chloride Carbon Dioxide Anion Gap BUN Creatinine Est Cr Clr Drug Dosing Est GFR ( Amer) Est GFR (Non-Af Amer) BUN/Creatinine Ratio Glucose POC Glucose 42 L* 89 Lactate Calcium Magnesium Total Bilirubin Direct Bilirubin AST ALT Alkaline Phosphatase Troponin I NT-Pro-B Natriuret Pep Total Protein Albumin Lipase Urine Color Urine Appearance Urine pH Ur Specific [place] Urine Protein Urine Glucose (UA) Urine Ketones Urine Blood Urine Nitrite Urine Bilirubin Urine Urobilinogen Ur Leukocyte Esterase Urine WBC (Auto) Urine RBC (Auto) U Hyaline Cast (Auto) U Epithel Cells (Auto) Urine Bacteria (Auto) Influenza Type A (PCR) Neg for Influ A Influenza Type B (PCR) Neg for Influ B 05/18/19 05/18/19 05/18/19 01:55 07:45 12:03 WBC RBC Hgb Hct MCV MCH MCHC RDW Std Deviation RDW Coeff of Arin Plt Count MPV Immature Gran % (Auto) Neut % (Auto) Lymph % (Auto) [place] % (Auto) Eos % (Auto) Baso % (Auto) Immature Gran # (Auto) Neut # (Auto) Lymph # (Auto) [place] # (Auto) Eos # (Auto) Baso # (Auto) PT INR APTT PTT Ratio VBG pH VBG pCO2 VBG pO2 VBG HCO3 VBG O2 Saturation VBG Base Excess Barometric Pressure Sodium Potassium Chloride Carbon Dioxide Anion Gap BUN Creatinine Est Cr Clr Drug Dosing Est GFR ( Amer) Est GFR (Non-Af Amer) BUN/Creatinine Ratio Glucose POC Glucose 225 H 275 H Lactate Calcium Magnesium Total Bilirubin Direct Bilirubin AST ALT Alkaline Phosphatase Troponin I NT-Pro-B Natriuret Pep Total Protein Albumin Lipase Urine Color Yellow Urine Appearance Clear Urine pH 6.5 Ur Specific [place] 1.011 Urine Protein Negative Urine Glucose (UA) 1+ H Urine Ketones Negative Urine Blood Trace H Urine Nitrite Negative Urine Bilirubin Negative Urine Urobilinogen Negative Ur Leukocyte Esterase Negative Urine WBC (Auto) 1-5 Urine RBC (Auto) 0-4 U Hyaline Cast (Auto) 0 U Epithel Cells (Auto) 0-5 Urine Bacteria (Auto) Negative Influenza Type A (PCR) Influenza Type B (PCR) 05/18/19 16:27 WBC RBC Hgb Hct MCV MCH MCHC RDW Std Deviation RDW Coeff of Arin Plt Count MPV Immature Gran % (Auto) Neut % (Auto) Lymph % (Auto) [place] % (Auto) Eos % (Auto) Baso % (Auto) Immature Gran # (Auto) Neut # (Auto) Lymph # (Auto) [place] # (Auto) Eos # (Auto) Baso # (Auto) PT INR APTT PTT Ratio VBG pH VBG pCO2 VBG pO2 VBG HCO3 VBG O2 Saturation VBG Base Excess Barometric Pressure Sodium Potassium Chloride Carbon Dioxide Anion Gap BUN Creatinine Est Cr Clr Drug Dosing Est GFR ( Amer) Est GFR (Non-Af Amer) BUN/Creatinine Ratio Glucose POC Glucose 380 H* Lactate Calcium Magnesium Total Bilirubin Direct Bilirubin AST ALT Alkaline Phosphatase Troponin I NT-Pro-B Natriuret Pep Total Protein Albumin Lipase Urine Color Urine Appearance Urine pH Ur Specific [place] Urine Protein Urine Glucose (UA) Urine Ketones Urine Blood Urine Nitrite Urine Bilirubin Urine Urobilinogen Ur Leukocyte Esterase Urine WBC (Auto) Urine RBC (Auto) U Hyaline Cast (Auto) U Epithel Cells (Auto) Urine Bacteria (Auto) Influenza Type A (PCR) Influenza Type B (PCR) PG Care Time/CCT Total # of Minutes Spent Total Time Spent with Patient: Total time spent is greater than 50% in coordination of care (as documented) at patient's floor/unit and/or counseling patient: (1) Pneumonia Pneumonia type: due to unspecified organism Laterality: left Lung location: lower lobe of lung Qualified Code(s): J18.1 - Lobar pneumonia, unspecified organism (2) COPD (chronic obstructive pulmonary disease) COPD type: unspecified COPD Qualified Code(s): J44.9 - Chronic obstructive pulmonary disease, unspecified (3) DM type 2 (diabetes mellitus, type 2) Diabetes mellitus usp insulin use: with hand worker use Diabetes mellitus complication status: with neurologic complications Diabetes mellitus complication detail: with unspecified neuropathy Qualified Code(s): E11.40 - Type 2 diabetes mellitus with diabetic neuropathy, unspecified; Z79.4 - property handler (current) use of insulin (4) Atrial fibrillation Atrial fibrillation type: permanent Qualified Code(s): I48.21 - Permanent atrial fibrillation (5) CAD (coronary artery disease) Coronary Disease-Associated Artery/Lesion type: [place] artery [place] vs. transplanted heart: [place] heart Associated angina: without angina Qualified Code(s): I25.10 - Atherosclerotic heart disease of [place] coronary artery without angina pectoris (6) Fall Encounter type: subsequent encounter Qualified Code(s): W19.XXXD - Unspecified fall, subsequent encounter
[2019-05-18] MEDS: ROSUVASTATIN CALCIUM 20 MG TAB PO SCH (20:54)
[2019-05-18] MEDS: SERTRALINE HCL 50 MG TABLET PO SCH (20:56)
[2019-05-19] MEDS ORDERED: Nursing to Pharmacy Communication ONE (04:13)
[2019-05-19] MEDS: INSULIN ASPART 100 UNITS/ML 3 ML PEN SC SCH ×6 (04:17→20:29)
[2019-05-19 06:09] LABS: Prothrombin Time 28.7 Seconds (9.0-12.0)
[2019-05-19 06:30] LABS: Calcium 9.1 mg/dl (8.5-10.1); Creatinine Clr Calc Pharmacy 37.2 ml/min; Est GFR (African American) 42.9
[2019-05-19] MEDS: METOPROLOL SUCC 50MG EXT REL TAB PO SCH (07:34)
[2019-05-19] MEDS: FUROSEMIDE 20 MG TAB PO SCH (07:34)
[2019-05-19] MEDS: MULTIVITAMIN TAB PO SCH (07:34)
[2019-05-19] MEDS: CHOLECALCIFEROL 1,000 UNITS TAB PO SCH (07:34)
[2019-05-19] MEDS: LISINOPRIL 2.5 MG TAB PO SCH (07:38)
[2019-05-19] MEDS ORDERED: predniSONE 20 MG TAB PO SCH (09:00)
[2019-05-19] MEDS ORDERED: INSULIN GLARGINE SOLOSTAR 100 UNITS/ML 3 ML PEN SC SCH ×2 (09:00)
--- NOTE | 2019-05-19 10:39 | Hospitalist Progress Note ---
Date of Service May 19, 2019 Assessment & Plan (1) Weakness: - Likely multifactorial -- recent [place], recent pneumonia (just completed his 10-day course prior to admission) - in setting of significant cardiopulmonary disease. - Infectious work up neg, including u/a and BC; did have mildly elevated lactic acid at admission. - B12 level WNL - not likely related to balance issues/falls. - Continue steroids -- plan for quick steroid taper at home. - PT/OT evaluation -- no therapy needs anticipated. (2) Pleural effusion on left: - Likely parapneumonia as pneumonia was located in LLL. - Continue to monitor - stable on room air. - Received home Lasix 20 mg this morning (on daily dosing but has been receiving BID as inpt) - will hold further doses. (3) Pneumonia: - Community-acquired, LLL; completed 10-day course of PO abx as outpatient. - D/c'ed Azithromycin; no further abx coverage indicated. - Will need repeat CXR in 3-[address] to evaluate RLL nodule. (4) CKD (chronic kidney disease), stage III: - Creatinine trending up - baseline ~1.3-1.4; level increased to 1.67 today. - May be related to dehydration in setting of additional Lasix therapy - hold further diuretic dosing. - Monitor renal function daily. (5) COPD (chronic obstructive pulmonary disease): - Continue Prednisone 40 mg PO daily - will need quick taper at home. - No abx indicated. - Albuterol prn. (6) DM type 2 (diabetes mellitus, type 2): - Steroid induced hyperglycemia -- BG has been 200-300's. - Increased Lantus to 15 units BID this morning; increased SSI coverage on 05/18. - Expect improvement after converting to PO steroids. (7) Atrial fibrillation: - Has been rate controlled with beta aleksandr. - Continue Metoprolol -- on hold for 05/20 pending BP in the AM. - Continue Coumadin -- INR was 3.0 this morning, monitor qAM. (8) Dyslipidemia: - Continue statin as prescribed. (9) CAD (coronary artery disease): - Recent RI 4-6 weeks ago; s/p CABG in the past. - Echo showed base and mid inferior wall hypo to akinetic, base inferoseptum akinetic. - Continue BB and statin; holding ACEI due to hypotension and rising Cr level. - Is not currently on ASA 81 mg daily. (10) Chronic systolic CHF (congestive heart failure): - EF 35-40% on echo with wall motion abnormalities. - Currently appears well compensated. - Hold Lasix & Lisinopril due to rising Cr and hypotension. - Continue BB as prescribed. (11) Pulmonary nodule, right: - 12 mm in RLL. Discussed with his primary pelletizer tender Dr. Soriano. - Will need outpatient follow up for CT scan; currently has appt scheduled in Jul 2018. (12) Fall: - Likely precipitated by balance issues due to peripheral neuropathy - B12 level was WNL. - PT/OT evaluation. (13) DVT prophylaxis: - Continue Coumadin. Dispo: Discharge to home likely on Sunday 05/20 pending improvement in Creatinine level and hypotension. Supervising Physician Co-Signing Physician Notes I have seen and examined patient with Mickie Perera PA-C and agree with assessment and plan. Subjective Pt. is feeling well overall -- has more strength after starting steroids as inpt. Is eating/drinking as tolerated. Regular BMs. BP was 91/55 this morning, Cr also trending up - pt. reports taking Lasix 20 mg daily at home but has been receiving med BID as inpatient; findings are likely related to dehydration. He did receive Lasix dose this morning, will hold further doses and encourage PO fluid intake. Plan for discharge on 05/20 if renal function improved and BP is stable. Review of Systems Review of Systems: All systems reviewed & are unremarkable except as noted in HPI & below Constitutional: + fatigue and + weakness; no fever, no chills and no anorexia Respiratory: no cough, no dyspnea, no dyspnea on exertion and no wheezing Cardiovascular: no chest pain, no palpitations and no edema Gastrointestinal: no abdominal pain, no nausea, no vomiting and no constipation Genitourinary: no difficulty urinating and no decreased urination Musculoskeletal: no back pain and no joint pain Integumentary: no non-healing lesions Physical Exam Physical Exam: General: Resting comfortably,no acute distress HEENT: NC/AT; PERRLA with EOMI; [place] conjunctiva, MMM. Dry oral mucosa. Neck: Supple and nontender Cardiac: RRR Lungs: CTA bilaterally Abdomen: Bowel normoactive X 4; Nontender to palpation Extremities: Warm. No edema present Neuro: No focal weakness Skin: No rash Results & Data Vital Signs (Past 12 Hours) Vital Signs Temp Pulse Pulse Resp BP BP Pulse Ox 05/19/19 07:43 36.3 C L 60 20 91/55 L 96 05/19/19 07:30 68 110/60 05/19/19 04:00 36.5 C 67 20 103/65 94 Laboratory Results 05/19/19 05/19/19 05/19/19 Range/Units 07:37 05:48 05:48 PT (9.0-12.0) Seconds INR (0.9-1.1) Sodium 137 (136-145) mmol/L Potassium 4.0 (3.5-5.1) mmol/L Chloride 99 (98-107) mmol/L Carbon Dioxide 32 (21-32) mmol/L Anion Gap 6.0 (3-11) BUN 40 H (7-18) mg/dl Creatinine 1.67 H (0.6-1.4) mg/dl Est Cr Clr Drug Dosing 37.2 ml/min Est GFR ( Amer) 42.9 Est GFR (Non-Af Amer) 37.0 BUN/Creatinine Ratio 24.0 H (10-20) Glucose 283 H (70-99) mg/dl POC Glucose 234 H (70-99) Calcium 9.1 (8.5-10.1) mg/dl Vitamin B12 822 (211-911) pg/ml 05/19/19 05/19/19 05/18/19 Range/Units 05:48 03:19 20:11 PT 28.7 H (9.0-12.0) Seconds INR 3.0 H (0.9-1.1) Sodium (136-145) mmol/L Potassium (3.5-5.1) mmol/L Chloride (98-107) mmol/L Carbon Dioxide (21-32) mmol/L Anion Gap (3-11) BUN (7-18) mg/dl Creatinine (0.6-1.4) mg/dl Est Cr Clr Drug Dosing ml/min Est GFR ( Amer) Est GFR (Non-Af Amer) BUN/Creatinine Ratio (10-20) Glucose (70-99) mg/dl POC Glucose 293 H 323 H* (70-99) Calcium (8.5-10.1) mg/dl Vitamin B12 (211-911) pg/ml 05/18/19 05/18/19 05/18/19 Range/Units 20:09 16:27 12:03 PT (9.0-12.0) Seconds INR (0.9-1.1) Sodium (136-145) mmol/L Potassium (3.5-5.1) mmol/L Chloride (98-107) mmol/L Carbon Dioxide (21-32) mmol/L Anion Gap (3-11) BUN (7-18) mg/dl Creatinine (0.6-1.4) mg/dl Est Cr Clr Drug Dosing ml/min Est GFR ( Amer) Est GFR (Non-Af Amer) BUN/Creatinine Ratio (10-20) Glucose (70-99) mg/dl POC Glucose 326 H* 380 H* 275 H (70-99) Calcium (8.5-10.1) mg/dl Vitamin B12 (211-911) pg/ml PG Care Time/CCT Total # of Minutes Spent Total Time Spent with Patient: Total time spent is greater than 50% in coordination of care (as documented) at patient's floor/unit and/or counseling patient: (1) DM type 2 (diabetes mellitus, type 2) Diabetes mellitus complication detail: with unspecified neuropathy Diabetes mellitus complication status: with neurologic complications Diabetes mellitus half-way insulin use: with long term care phlebotomist use Qualified Code(s): E11.40 - Type 2 diabetes mellitus with diabetic neuropathy, unspecified; Z79.4 - middle school librarian (current) use of insulin (2) CAD (coronary artery disease) Associated angina: without angina Coronary Disease-Associated Artery/Lesion type: [place] artery [place] vs. transplanted heart: [place] heart Qualified Code(s): I25.10 - Atherosclerotic heart disease of [place] coronary artery without angina pectoris (3) Atrial fibrillation Atrial fibrillation type: permanent Qualified Code(s): I48.21 - Permanent atrial fibrillation (4) COPD (chronic obstructive pulmonary disease) COPD type: unspecified COPD Qualified Code(s): J44.9 - Chronic obstructive pulmonary disease, unspecified (5) Pneumonia Laterality: left Lung location: lower lobe of lung Pneumonia type: due to unspecified organism Qualified Code(s): J18.1 - Lobar pneumonia, unspecified organism (6) Fall Encounter type: subsequent encounter Qualified Code(s): W19.XXXD - Unspecified fall, subsequent encounter
[2019-05-19] MEDS ORDERED: WARFARIN SOD 2.5 MG TAB PO SCH (16:00)
[2019-05-19] MEDS: INSULIN GLARGINE SOLOSTAR 100 UNITS/ML 3 ML PEN SC SCH (20:26)
[2019-05-19] MEDS: ROSUVASTATIN CALCIUM 20 MG TAB PO SCH (20:27)
[2019-05-19] MEDS: SERTRALINE HCL 50 MG TABLET PO SCH (20:27)
[2019-05-20 06:48] LABS: Hematocrit (blood only) 45.5 % (42-52); Hemoglobin 15.3 g/dL (14.0-18.0); Mean Corpuscular Hemoglobin 30.6 pg (25-34); Mean Corpuscular Hgb Conc 33.6 g/dL (32-36); Mean Platelet Volume 10.3 fL (7.4-10.4); Platelet Count 197 K/uL (130-400); RDW Coefficient of Variation 13.8 % (11.5-14.5); White Blood Count 12.38 K/uL (4.8-10.8)
[2019-05-20 07:13] LABS: Prothrombin Time 36.5 Seconds (9.0-12.0)
[2019-05-20 07:23] LABS: BUN Creatinine Ratio 29.8 (10-20); Calcium 9.2 mg/dl (8.5-10.1); Creatinine Clr Calc Pharmacy 50.5 ml/min; Est GFR (African American) 62.1; Est GFR (Non-African American) 53.6; Potassium 3.8 mmol/L (3.5-5.1)
[2019-05-20 07:28] LABS: INR 3.9 (0.9-1.1)
[2019-05-20] MEDS: CHOLECALCIFEROL 1,000 UNITS TAB PO SCH (07:43)
[2019-05-20] MEDS: MULTIVITAMIN TAB PO SCH (07:43)
[2019-05-20] MEDS: INSULIN GLARGINE SOLOSTAR 100 UNITS/ML 3 ML PEN SC SCH (08:29)
[2019-05-20] MEDS: INSULIN ASPART 100 UNITS/ML 3 ML PEN SC SCH ×2 (08:30→12:10)
[2019-05-20] MEDS ORDERED: predniSONE 10 MG TABLET PO SCH (09:00)
[2019-05-20] MEDS ORDERED: METOPROLOL SUCC 25MG EXT REL TAB PO SCH (09:00)
--- NOTE | 2019-05-20 14:31 | Discharge Summary ---
Date of Service May 20, 2019 Admission HPI Per Admitting Provider Mr. Goode is a 84 yo male with a PMHx of chronic systolic CHF, type II diabetes mellitus, bladder cancer and COPD here for evaluation of weakness. Of note, he was recently diagnosed with community acquired PNA and completed a course of ceftin 2 days ago. With his pneumonia, he had been febrile and weak with a productive cough, however his family doctor urged him to go to the ED whenever his weakness dramatically worsened today. His states that he suffered an PA 5 weeks ago, which was diagnosed by Dr. Farley with [facility] after a pharmacologic stress test. He had a CXR last Tuesday (ordered by Dr. Farley) which reportedly showed "an opacity behind his heart." Mr. Goode admits to consuming high sodium foods within the past few days, including canned soups and cytogeneticist boyardi macaroni and cheese. Family endorses recent falls related to his weakness. ED Course: WBC normal. BNP 1821. Chest CT showed a left sided pleural effusion. Given one dose of IV lasix. Head and Cervical Spine CT were ordered due to recent falls, both of which showed no acute abnormalities. Admission Exam Per Admitting Provider Constitutional: WD/WN, vitals as above not ill appearing Eyes: + anicteric sclerae ENMT: external ear and nose normal, oropharynx normal Neck: trachea midline Respiratory: normal respiratory effort and + cough; no respiratory distress, no labored breathing, no retractions and does not use accessory muscles Auscultation: + crackles (fine inspiratory in b/l lower lung merlos) and + wheezes (expiratory) Cardiovascular: Rate/Rhythm: regular rate; + abnormal rhythm Heart Sounds: normal S1 and normal S2 Vessels: no JVD Extremities: no pedal edema Chest (Breasts): Additional Comments: Midline scar over sternum that appears to be well healed Gastrointestinal (Abdomen): normal bowel sounds, soft, nontender, no hepatosplenomegaly Skin: no rashes, warm and dry Psychiatric: Orientation: + not oriented x 3 (oriented to person and place) Affect: + flat affect Principal Diagnosis Weakness Discharge Exam General: Resting comfortably,no acute distress HEENT: NC/AT; PERRLA with EOMI; [place] conjunctiva, MMM. Dry oral mucosa. Neck: Supple and nontender Cardiac: RRR Lungs: CTA bilaterally Abdomen: Bowel normoactive X 4; Nontender to palpation Extremities: Warm. No edema present Neuro: No focal weakness Skin: No rash Discharge Data Allergies Allergy/AdvReac Type Severity Reaction Status Date / Time latex Allergy Unknown RASH Unverified 05/17/19 20:43 REDNESS ON FACE FROM LATEX MASK simvastatin AdvReac Intermediate MUSCLE Verified 05/17/19 20:43 ACHES Consultations 05/17/19 20:58 ED Decision to Admit Stat 05/17/19 23:18 Consult Case Management - Discharge Planning Routine 05/20/19 14:19 Consult [facility] gut dropper Routine Ordered Studies 05/17/19 19:10 CT cervical spine wo con Stat CT head/brain wo con Stat 05/17/19 20:06 CT chest wo con Stat Hospital Course (1) Weakness: Likely multifactorial -- recent PA, recent pneumonia (just completed his 10-day course prior to admission) - in setting of significant cardiopulmonary disease. Infectious work up neg, including u/a and BC; did have mildly elevated lactic acid at admission. B12 level WNL - not likely related to balance issues/falls. Received steroids -- will need quick steroid taper at discharge due to steroid induced hyperglycemia. PT/OT - no therapy needs anticipated. (2) Pleural effusion on left: Likely parapneumonia as pneumonia was located in LLL. Remained stable on room air. Held Lasix evening dose on 05/19; plan to resume daily dosing on 05/21/19 (previously on BID at home). (3) Pneumonia: Community-acquired, LLL; completed 10-day course of PO abx as outpatient. D/c'ed Azithromycin; no further abx coverage indicated. Recommend repeat CXR in 3-[address] to evaluate RLL nodule. (4) CKD (chronic kidney disease), stage III: Creatinine trending up - baseline ~1.3-1.4; level increased to 1.67 on 05/19 then improved. Likely related to dehydration in setting of Lasix therapy - held diuretics on 05/19 and 05/20. Creatinine was below baseline on day of discharge. (5) COPD (chronic obstructive pulmonary disease): Received Prednisone -- will need quick taper due to steroid induced hyperglycemia. No abx indicated. Albuterol prn. (6) DM type 2 (diabetes mellitus, type 2): Steroid induced hyperglycemia -- BG has been 200-300's. Increased Lantus to 15 units BID this morning; increased SSI coverage on 05/18. BG remained elevated on day of discharge. Educated to increase Lantus to 20 units qhs, Novolog 10 units ac and resume Glimepiride at home for 2 days during steroids then resume previous regimen. Recommend f/u with PCP in 3 days -- nurse navigator consult to schedule appt. (7) Atrial fibrillation: Has been rate controlled with beta aleksandr. Continued Metoprolol Continued Coumadin -- INR was 3.9 this morning, educated to hold dose this evening then resume previous dosing on 05/21. (8) Dyslipidemia: Continued statin as prescribed. (9) CAD (coronary artery disease): Recent PA 4-6 weeks ago; s/p CABG in the past. Echo showed base and mid inferior wall hypo to akinetic, base inferoseptum akinetic. Continued BB and statin, ACEI. Is not currently on ASA 81 mg daily - discuss with PCP. (10) Chronic systolic CHF (congestive heart failure): EF 35-40% on echo with wall motion abnormalities. Well compensated. Continued Lasix, BB and ACEI. (11) Pulmonary nodule, right: 12 mm in RLL. Discussed with his primary clinical quality analyst Dr. Soriano. Will need outpatient follow up for CT scan; currently has appt scheduled in Jul 2018. (12) Fall: Likely precipitated by balance issues due to peripheral neuropathy PT/OT evaluation - no therapy needs anticipated. (13) DVT prophylaxis: Continued Coumadin. Discharged to home on 05/20/19. Total Time Total Time Spent Total Time Spent (In Minutes): >30 minutes Total Time Includes: Examination of the Patient, Discharge Planning, Medication Reconciliation, Communication With Other Providers and Other Discharge Plan Discharge Items Patient Disposition: Home - Self-Care Reason For Visit: WEAKNESS Discharge Diagnosis: Weakness Condition on Discharge: Good Goals: You have been hospitalized for an acute medical problem. During your stay at [facility], we have made an effort to correct the problem that brought you to the hospital while keeping you as comfortable as possible. Medications were used to bring your condition under control and your discharge instructions will include directions for any medications you should take after leaving the hospital. Please make sure you see your Primary Care Provider as part of your follow up plan. Activity: As commented below Exercise/Sports: Gradually increase as tolerated Non-emergency contact: Primary Care Provider and Market Analyst Call non-emergency contact if: you have any medication questions, your symptoms worsen and you have a fever Follow-up/Referrals: Nathan Penn D.O. [Primary Care Provider] - Diet: Carb Consistent or DM2 and Heart Healthy Addtl Attending Provider Instructions: 1. Pneumonia/COPD Exacerbation * Please take Prednisone taper as follows: - 20 mg x 1 dose on 05/21. - 10 mg x 1 dose on 05/22. * You will need a follow up CXR vs. CT chest in 3-4 weeks to evaluate for resolution of pneumonia. 2. Chronic Systolic Heart Failure * Please reduce Lasix dose to 20 mg daily in setting of dehydration. * Continue daily weights -- call your PCP if you have a >2-3 pound weight gain. * Please follow up with PCP to discuss heart failure medications. 3. Type II Diabetes Mellitus * Blood glucose levels have been elevated due to steroids; BG should improve following completion of steroids. * Please monitor blood glucose levels 2-3 times per day. * It is recommended to adjust insulin regimen as follows over the next 3 days due to oral steroids: - Increase Lantus to 20 units at bedtime on 05/20 and 05/21; you can resume Lantus 16 units at bedtime on 05/22. - Use Novolog 10 units with all meals on 05/20 and 05/21; you can resume Novolog 16 units with dinner on 05/22. - Continue home Glimepiride as prescribed. * Please follow up with PCP to discuss diabetic medications. * You will need to call your PCP for BG >350. 4. Atrial Fibrillation * Please hold Coumadin dose this evening due to elevated INR level (3.9). * Resume Coumadin dosing as prescribed on 05/21/19. * It is recommended to have a follow up INR in 4-5 days (Tuesday or ) of this week. 5. Pulmonary Nodule * CXR showed 12 mm right lower lobe nodule. * You will need a follow up CXR vs. CT chest for re-evaluation. Pending Studies at Discharge: Yes Studies:: Blood cultures 05/17/19. Stand-Alone Forms: My [facility] Medications and DC Order Prescriptions: New prednisone 10 mg Tablet 20 mg PO QAM Qty: 3 RF: 0 Continued warfarin 2.5 mg tablet 2.5 mg PO 5XWK RF: 0 glimepiride 1 mg Tablet 1 mg PO QAM RF: 0 sertraline [Zoloft] 50 mg Tablet 75 mg PO PM RF: 0 Novolog Flexpen U-100 Insulin 100 unit/mL Insulin Pen 16 unit SUBCUT PM RF: 0 rosuvastatin [Crestor] 20 mg Tablet 20 mg PO PM RF: 0 Lantus Solostar U-100 Insulin 100 unit/mL (3 mL) Insulin Pen 16 unit SUBCUT HS RF: 0 Probiotic 3 billion cell Capsule 6,000 mmu cells PO HS RF: 0 albuterol sulfate 90 mcg/actuation HFA aerosol inhaler 2 puff Inhalation Q4 PRN (Reason: Wheezing) RF: 0 metoprolol succinate 50 mg Tablet Extended Release 24 Hr 25 mg PO DAILY RF: 0 warfarin 2.5 mg Tablet 1.25 mg PO DAILY RF: 0 lisinopril 2.5 mg tablet 2.5 mg PO DAILY RF: 0 multivitamin Tablet 1 tab PO DAILY RF: 0 cholecalciferol (vitamin D3) [Vitamin D3] 1,000 unit Capsule 1,000 unit PO DAILY RF: 0 Changed furosemide 20 mg tablet 20 mg PO DAILY Qty: 0 RF: 0 Discharge Orders: Discharge Order (Routine); Ordered 05/20/19 Ordered By: Mickie Perera Admission Data Admit Date/Time: 05/19/19 11:54 Attending Provider: Karen Baum Admit Provider: Stephanie Maldonado Primary Care Provider: Nathan Penn Other Providers: Gokul Ratliff Other Interventions: Discharge Summary Assessment (RN) Last Done: 05/20/19 14:23 DC Date/Time DO NOT enter until pt leaves facility: 05/20/19 15:52 Supervising Physician Co-Signing Physician Notes I have seen and examined patient with Mickie Perera PA-C and agree with D/C Summary.
--- NOTE | 2019-05-24 12:57 | Coding Query ---
CODING QUERY To promote full compliance with coding requirements relating to patient care, provider participation is requested in all cases of operations analyst uncertainty. Please assist us with the question(s) below: Coding Question(s): There is documentation in the record of recent Pneumonia and it is not clear if the Pneumonia was still acute/active or was a history of Pneumonia only. Please clarify below, in your clinical opinion, regarding the Pneumonia. ( X ) Pneumonia was treated/evaluated during this admission ( ) History of Pneumonia ( ) Other: Please Specify Physician's Response(s): ( X ) Pneumonia was treated/evaluated during this admission Thank you Richa Pineda Principal Diagnosis: "that condition established after study, to be chiefly responsible for occasioning the admission of the patient to the hospital for care." Co-Existing Principal Diagnosis: "when two or more diagnoses equally meet the criteria for principal diagnosis as determined by the circumstances of admission, diagnostic work up, and/or therapy provided, and the Alphabetic Index, Tabular List, or another coding guideline does not provide sequencing direction, any one of the diagnoses may be sequenced first." "When the physician has documented what appears to be a current diagnosis in the body of the record, but has not included the diagnosis in the final diagnostic statement, the physician should be asked whether the diagnosis should be added." (Source [facility] 2 QTR90. p3-4) MARYANN
--- NOTE | 2019-05-24 13:01 | Coding Query ---
To promote full compliance with coding requirements relating to patient care, provider participation is requested in all cases of certified professional coder uncertainty. Please assist us with the question(s) below: Coding Question(s): The diagnosis below was documented in the H&P, then subsequently fell off all further documentation. Please indicate if it is still a possible diagnosis or ruled out. Physician's Response(s): CHF EXACERBATION ( ) Diagnosed and POA ( X ) Diagnosed and not POA ( ) Ruled out ( ) Other (please specify) MTDD
== END 2019-05-20 15:52 | disposition home or self-care (01) | DRG 73 ==
LOC: ED 18:25 → 2W 18:25 → SUATTDRO 21:42 → 2W 22:25